=== PATIENT | male | born 1955 | race Caucasian/White ===

== ENCOUNTER → 2017-09-06 | Outpatient (CLI) | payer BC ==
[2017-09-06 07:57] LABS: Blood Urea Nitrogen 11 mg/dL (9-20); Non-African American GFR(MDRD) >60 (>60 ml/min/1.73 sqM)
--- NOTE | 2017-09-06 09:54 | CT ---
EXAMINATION TYPE: CT abdomen pelvis w con DATE OF EXAM: 09/06/2017 COMPARISON: NONE HISTORY: Prostate cancer CT DLP: 1694 mGycm Automated exposure control for dose reduction was used. TECHNIQUE: Helical acquisition of images was performed from the lung bases through the pelvis. CONTRAST: Performed with Oral Contrast and with IV Contrast, patient injected with 100 mL of Omnipaque 300. FINDINGS: LUNG BASES: Left basilar subsegmental dependent atelectasis and small hiatal hernia present. LIVER/GB: No significant abnormality is appreciated. No radiopaque gallstones. PANCREAS: No significant abnormality is seen. No ductal dilatation. SPLEEN: No significant abnormality is seen. ADRENALS: Left adrenal gland is slightly enlarged in comparison to the right but maintains its adreni form shape without discrete nodule. Left adrenal gland hyperplasia is suspected. KIDNEYS: 3.5 cm fluid attenuated right renal cyst and smaller too small to accurately characterize montes bcapsular 7 mm lower pole right renal lesion as well as probable cystic 8 mm left lower pole renal le dorothy and 5 mm left lower pole too small to accurately characterize lesion are seen. Additional exophy tic left upper pole 1.8 cm renal lesion is present. Within the left mid pole of the kidney there is a 2.2 x 2.1 x 1.6 cm lesion that is present of the mi d pole medially, cortically based that is not fit Hounsfield units of a simple cyst and enhances on d elayed imaging. FREE AIR: No free air is visualized. REPRODUCTIVE ORGANS/ADENOPATHY: Prostate gland is diffusely heterogenous containing central zone calc ifications and areas of high density within the central zone. Enlarged left pelvic sidewall lymph nod e measures 1.1 cm in short axis on series 3 image 66. Smaller nonenlarged left internal iliac chain l ymph nodes are seen. Nonenlarged periaortic lymph nodes are also present. Fullness in the retrovesicu lar space between the rectum and urinary bladder also may relate to to prominent lymph nodes. Nonenla rged periaortic lymph nodes are best seen on coronal imaging on series 5 image 49. OSSEOUS STRUCTURES: 4 mm sclerotic focus is seen within the right femoral head. Indeterminate left i liac lesion measures 9 mm with surrounding sclerosis. Additional patchy left iliac 1.1 cm lesion is s een. 2.3 cm and 2.0 cm sclerotic foci are seen of T11 and T12 suspicious for metastasis. BOWEL: Few sigmoid diverticula are present without pericolonic fat stranding. Appendix is unremarkab le. Bowel is nonenlarged.. OTHER: Abdominal aorta is prominent in size measuring up to 3.0 cm with calcific and noncalcific athe romatous plaquing. IMPRESSION: 1. FINDINGS CONCERNING FOR PROSTATE CARCINOMA METASTASIS WITH ENLARGED LEFT PELVIC SIDEWALL LYMPH NOD E AND MULTIPLE SUSPICIOUS SCLEROTIC FOCI WITHIN THE LOWER THORACIC SPINE AND PELVIS. 2. ADDITIONAL2.2 CM LEFT RENAL LESION, SUSPICIOUS FOR NEOPLASM. DYNAMIC THREE-PHASE CT OR MR COULD BE PERFORMED FOR FURTHER CHARACTERIZATION. ALTERNATIVELY EVALUATION FOR PERCUTANEOUS BIOPSY COULD BE PE RFORMED.
--- NOTE | 2017-09-06 11:24 | NM ---
EXAMINATION TYPE: NM bone scan whole body DATE OF EXAM: 09/06/2017 COMPARISON: NONE HISTORY: Prostate cancer Delayed whole-body scanning was performed following the injection of 28 mCi Tc 99m MDP. Images acqui red 3 hours post injection. FINDINGS: Foci of increased signal are noted compatible with metastatic disease including lesions to the left r ibs 5 and 6, right ribs 5, 7 and 9, right scapula thoracic segments T9, T11 and T12, and right sacroi liac region IMPRESSION: Findings compatible with metastatic disease as discussed.
== END | disposition home or self-care (01) ==
LOC: RADCTMAIN 07:14
PROVIDERS: ATTEND Urology
DX: N28.89 Other specified disorders of kidney and ureter (principal); C61 Malignant neoplasm of prostate
CPT/HCPCS: 82565; 84520; 74177; 36415; 78306; A9503; Q9967

== ENCOUNTER → 2017-12-16 | Outpatient (CLI) | payer BC ==
[2017-12-16 10:57] LABS: Blood Urea Nitrogen 12 mg/dL (9-20)
--- NOTE | 2017-12-16 12:41 | CT ---
EXAMINATION TYPE: CT abdomen pelvis w con DATE OF EXAM: 12/16/2017 COMPARISON: 09/06/2017 HISTORY: Prostate cancer CT DLP: 1339.9 mGycm CONTRAST: CT scan of the abdomen and pelvis is performed with Oral Contrast and with IV Contrast, patient injec roxane with 100 mL of Omnipaque 300. FINDINGS: LUNG BASES-: No visible nodule. No infiltrate. LIVER/GB: 1.3 cm extrahepatic nodule anterior to the left hepatic lobe image 19 of 11/02 is new. No ca lcified gallstones. No space occupying hepatic lesion. Biliary tree is of normal caliber. PANCREAS: No inflammation. No distinct mass. SPLEEN: No splenic enlargement. No lesion seen. ADRENALS: No nodule. No thickening. KIDNEYS/BLADDER: No hydronephrosis. No nephrolithiasis. 2 cm solid mass mid pole left kidney is unc hanged from prior study. Stable cystic changes of the bilateral kidneys. Urinary bladder grossly unre markable. BOWEL: Normal appendix. Normal bowel caliber. No inflammation. GENITAL ORGANS: Prostate gland calcifications noted. LYMPH NODES: No greater than 1cm abdominal or pelvic lymph nodes are appreciated. AORTA: No significant abnormality. OSSEOUS STRUCTURES: Progressive sclerotic metastases involving T10, T11 and T12. Mild progression of left iliac wing lesion. Right femoral head lesion is stable. No new lesions identified with certainty . OTHER: Fat-containing right inguinal hernia. IMPRESSION: 1. New 1.3 cm extrahepatic nodule anterior to the left hepatic lobe. 2. Sclerotic bony metastases. 3. Stable solid lesion left kidney. Neoplasm is not excluded.
--- NOTE | 2017-12-16 14:41 | NM ---
EXAMINATION TYPE: NM bone scan whole body DATE OF EXAM: 12/16/2017 COMPARISON: CT scan dated December 16, 2017 HISTORY: Follow-up for bone metastases. Prostate carcinoma. Delayed whole-body scanning was performed following the injection of 23.4 mCi Tc 99m MDP. Images acq uired 3 hours post injection. FINDINGS: Improved uptake: Right ribs 11 and 7, left rib 5 and 6. Improved uptake involving thoracic segments T 9-T12 although there appears to be increased sclerosis on CT. Stable uptake: Stable uptake involving lesion adjacent to the left sacroiliac joint. Right subcoracoi d region. New lesions: None Increased uptake: None Degenerative uptake about the shoulders and sternoclavicular joints. Right total knee arthroplasty. IMPRESSION: Overall number of lesions is stable. There appears to be slight improvement involving several areas a s noted above.
== END | disposition home or self-care (01) ==
LOC: RADNMMAIN 10:23
PROVIDERS: ATTEND Internal Medicine Hematology & Oncology
DX: C79.51 Secondary malignant neoplasm of bone (principal); C61 Malignant neoplasm of prostate; K76.89 Other specified diseases of liver; N28.9 Disorder of kidney and ureter, unspecified
CPT/HCPCS: 82565; 84520; 74177; 78306; 36415; A9503; Q9967

== ENCOUNTER → 2018-09-13 | Outpatient (CLI) | payer BC ==
--- NOTE | 2018-09-13 14:52 | NM ---
EXAMINATION TYPE: NM bone scan whole body DATE OF EXAM: 09/13/2018 COMPARISON: 12/06/2017 HISTORY: Prostate cancer Delayed whole-body scanning was performed following the injection of 23.2 mCi Tc 99m MDP. Images acq uired 3 hours post injection. FINDINGS: Improved uptake: None Stable uptake: Stable uptake involving sacrum and rib cage bilaterally. Right subcoracoid region. Sta ble abnormal uptake involving the thoracic spine. Stable focal abnormal uptake distal diaphysis right humerus. New lesions: Area of abnormal uptake involving the mid left cervical spine. Other findings: Degenerative uptake about the shoulders and sternoclavicular joints. Right total knee arthroplasty. U ptake involving the feet is typical of arthritic changes. Uptake involving the left knee typical of a rthritic changes. IMPRESSION: 1. Majority of findings are stable compatible with history of previous metastases. There is a new are a of uptake involving the mid left cervical spine for which x-ray correlation is suggested.
== END | disposition home or self-care (01) ==
LOC: RADNMMAIN 09:59
PROVIDERS: ATTEND Internal Medicine Hematology & Oncology
DX: C61 Malignant neoplasm of prostate (principal)
CPT/HCPCS: 78306; A9503

== ENCOUNTER → 2019-06-15 | Outpatient (CLI) | payer BC ==
[2019-06-15 07:59] LABS: African American GFR (CKD) >90 (>60 ml/min/1.73 sqM); Blood Urea Nitrogen 12 mg/dL (9-20)
--- NOTE | 2019-06-15 11:36 | CT ---
EXAMINATION TYPE: CT abdomen pelvis w con DATE OF EXAM: 06/15/2019 COMPARISON: 12/16/2017 HISTORY: Prostate cancer, left renal mass CT DLP: 1687 mGycm Automated exposure control for dose reduction was used. TECHNIQUE: Helical acquisition of images was performed from the lung bases through the pelvis. CONTRAST: Performed with Oral Contrast and with IV Contrast, patient injected with 100 mL of Isovue 300. FINDINGS: LUNG BASES: No significant abnormality is appreciated. LIVER/GB: No significant abnormality is appreciated. PANCREAS: No significant abnormality is seen. SPLEEN: No significant abnormality is seen. ADRENALS: No significant abnormality is seen. KIDNEYS: Redemonstration of 2.0 cm solid mass within the left kidney midpole seen on axial image 26 w hich appears similar in size and appearance when compared to 12/16/2017. Redemonstration of stable cys ts of the bilateral kidneys. No new renal mass. No hydronephrosis. Urinary bladder appears grossly un remarkable. FREE AIR: No free air is visualized. RETROPERITONEAL ADENOPATHY: Resolution of anterior extrahepatic nodule adjacent to the right lobe of the liver. REPRODUCTIVE ORGANS: No significant abnormality is seen URINARY BLADDER: No significant abnormality is seen. PELVIC ADENOPATHY: None visualized. OSSEOUS STRUCTURES: Redemonstration of sclerotic metastatic lesions involving T11 and T12 and L5. Ad ditional sclerotic metastatic lesions are seen in the left iliac bone. BOWEL: No significant abnormality is seen. OTHER: Redemonstration of fat-containing right inguinal hernia. IMPRESSION: STABLE SIZE OF THE SOLID LEFT KIDNEY LESION WHEN COMPARED TO 12/16/2017. CONTINUED SURVEILLANCE IS REC OMMENDED. RESOLVED RIGHT EXTRAHEPATIC NODULE. STABLE SCLEROTIC BONY METASTASIS.
== END | disposition home or self-care (01) ==
LOC: RADCTMAIN 07:22
PROVIDERS: ATTEND Urology
DX: C79.51 Secondary malignant neoplasm of bone (principal); C61 Malignant neoplasm of prostate; N28.9 Disorder of kidney and ureter, unspecified
CPT/HCPCS: 82565; 84520; 74177; 36415; Q9967

== ENCOUNTER 2019-07-23 18:30 | Observation (INO) | payer BC ==
[2019-07-23] MEDS ORDERED: SODIUM CHLORIDE 0.9% 1,000 ML IV STA (18:47)
--- NOTE | 2019-07-23 18:48 | ED ---
Chest Pain HPI - General Chief Complaint: Chest Pain Stated Complaint: CHEST PAIN Time Seen by Provider: 07/23/19 18:36 Source: patient, RN notes reviewed, old records reviewed Mode of arrival: ambulatory Limitations: no limitations - History of Present Illness Initial Comments: This is his 3-year-old male the ER was significant history of CAD coming of chest pain today 1 episode when he woke up and 1 this afternoon. Patient again has history of stents. Patient symptoms began worsening this afternoon. Left- sided foot the seventh pain with when he did have an need stents placed. Patient has no fever cough or congestion. Chest pains anterior rating to back MD Complaint: chest pain -: days(s) Onset: during exertion (This afternoon), awoke with symptoms (This morning) Pain Location: substernal, left chest Pain Radiation: back Severity: moderate Severity scale (1-10): 6 Quality: tightness, aching Consistency: constant Improves With: nothing Worsens With: exertion Other Symptoms: palpitations Treatments Prior to Arrival: none - Related Data Home Medications Medication Instructions Recorded Confirmed Aspirin EC [Ecotrin Low Dose] 81 mg PO DAILY 07/23/19 07/23/19 Aspirin EC [Ecotrin Low Dose] 162 mg PO ONCE PRN 07/23/19 07/23/19 Atorvastatin [Lipitor] 40 mg PO DAILY 07/23/19 07/23/19 Calcium Carbonate [Calcium] 600 mg PO HS 07/23/19 07/23/19 Ibuprofen [Motrin Ib] 400 mg PO ONCE PRN 07/23/19 07/23/19 Allergies Allergy/AdvReac Type Severity Reaction Status Date / Time No Known Allergies Allergy Verified 07/23/19 18:58 Review of Systems ROS Statement: Those systems with pertinent positive or pertinent negative responses have been documented in the HPI. ROS Other: All systems not noted in ROS Statement are negative. EKG Findings - EKG Comments: EKG Findings:: EKG shows sinus rhythm rate of 69, CA 160, QRS 70, QTc 428 Past Medical History Additional Past Medical History / Comment(s): Cardiac Stents placed. History of Any Multi-Drug Resistant Organisms: None Reported Additional Past Surgical History / Comment(s): Cardiac Stent. Past Psychological History: No Psychological Hx Reported Smoking Status: Current every day smoker Past Alcohol Use History: None Reported, Occasional Past Drug Use History: None Reported General Exam Limitations: no limitations General appearance: alert, in no apparent distress Head exam: Present: atraumatic, normocephalic, normal inspection Eye exam: Present: normal appearance, PERRL, EOMI. Absent: scleral icterus, conjunctival injection, periorbital swelling ENT exam: Present: normal exam, mucous membranes moist Neck exam: Present: normal inspection. Absent: tenderness, meningismus, lymphadenopathy Respiratory exam: Present: normal lung sounds bilaterally. Absent: respiratory distress, wheezes, rales, rhonchi, stridor Cardiovascular Exam: Present: regular rate, normal rhythm, normal heart sounds. Absent: systolic murmur, diastolic murmur, rubs, gallop, clicks GI/Abdominal exam: Present: soft, normal bowel sounds. Absent: distended, tenderness, guarding, rebound, rigid Extremities exam: Present: normal inspection, full ROM, normal capillary refill. Absent: tenderness, pedal edema, joint swelling, calf tenderness Back exam: Present: normal inspection Neurological exam: Present: alert, oriented X3, CN II-XII intact Psychiatric exam: Present: normal affect, normal mood Skin exam: Present: warm, dry, intact, normal color. Absent: rash Course Vital Signs 07/23/19 07/23/19 07/23/19 18:33 18:40 19:32 Temperature 98.5 F 98.5 F Pulse Rate 80 75 Pulse Rate [ 80 Solid Waste Analyst ] Respiratory 18 19 18 Rate Blood Pressure 168/94 145/93 O2 Sat by Pulse 98 98 Oximetry 07/23/19 20:34 Temperature 98.5 F Pulse Rate 76 Pulse Rate [ Solid Waste Analyst ] Respiratory 18 Rate Blood Pressure 153/91 O2 Sat by Pulse 96 Oximetry - Reevaluation(s) Reevaluation #1: 07/23/19 21:03 Medical records reviewed Reevaluation #2: 07/23/19 21:03 Still having episodic pain with feels good lying still Chest Pain MDM - MDM 83 male the ER for evasive chest pain. Patient is history of stents, CT is negative chest pain did radiate to his back. Patient will be admitted for cardiac observation as this is exactly like he felt when he had last stents placed Critical Care Time Critical Care Time: Yes Total Critical Care Time: 31 Disposition Clinical Impression: Chest pain Disposition: ADMITTED IP TO THIS HOSP Condition: Undetermined Instructions (If sedation given, give patient instructions): Chest Pain (ED) Is patient prescribed a controlled substance at d/c from ED?: No Referrals: Keshia Dupont MD [Primary Care Provider] - 1-2 days
[2019-07-23 19:22] LABS: Basophils # (A) 0.1 k/uL (0-0.2); Basophils % (A) 1 %; Eosinophils # (A) 0.1 k/uL (0-0.7); Eosinophils % (A) 1 %; HCT 42.2 % (39.0-53.0); HGB 14.3 gm/dL (13.0-17.5); Lymphocytes # (A) 1.2 k/uL (1.0-4.8); Lymphocytes % (A) 13 %; MCH 32.7 pg (25.0-35.0); MCHC 33.8 g/dL (31.0-37.0); MCV 96.9 fL (80.0-100.0); Mean Platelet Volume 9.1; Monocytes # (A) 0.6 k/uL (0-1.0); Monocytes % (A) 6 %; Neutrophils # (A) 7.4 k/uL (1.3-7.7); Neutrophils % (A) 78 %; Platelet Count 173 k/uL (150-450); RBC 4.36 m/uL (4.30-5.90); WBC 9.5 k/uL (3.8-10.6)
[2019-07-23 19:29] LABS: African American GFR (CKD) >90 (>60 ml/min/1.73 sqM); Albumin 4.1 g/dL (3.5-5.0); Anion Gap 9 mmol/L; Blood Urea Nitrogen 14 mg/dL (9-20); Calcium 9.8 mg/dL (8.4-10.2); Carbon Dioxide 22 mmol/L (22-30); Chloride 108 mmol/L (98-107); Glucose 181 mg/dL (74-99); Sodium 139 mmol/L (137-145); Total Bilirubin 0.6 mg/dL (0.2-1.3); Total Protein 6.8 g/dL (6.3-8.2)
[2019-07-23 19:34] LABS: D-Dimer 0.32 mg/L FEU (<0.60); Partial Thromboplastin Time 24.1 sec (22.0-30.0); Prothrombin Time 10.6 sec (9.0-12.0)
[2019-07-23 19:39] LABS: ALT 30 U/L (21-72); AST 23 U/L (17-59); Alkaline Phosphatase 52 U/L (38-126); Magnesium 2.1 mg/dL (1.6-2.3); Potassium 4.1 mmol/L (3.5-5.1)
[2019-07-23 19:41] VITALS: RESP 18
[2019-07-23] MEDS ORDERED: NITROGLYCERIN SL TABS 0.4 MG TAB SUBLINGUAL PRN (20:01)
[2019-07-23] MEDS ORDERED: ASPIRIN 81 MG PO STA (20:01)
[2019-07-23] MEDS ORDERED: SODIUM CHLORIDE 0.9% 1,000 ML IV SCH (20:15)
--- NOTE | 2019-07-23 20:49 | CT ---
EXAMINATION TYPE: CT angio chest DATE OF EXAM: 07/23/2019 8:37 PM COMPARISON: None HISTORY: Chest pain, pain down LT arm. Pt hx cardiac stents, [place]. CT DLP: 550.9 mGycm Automated exposure control for dose reduction was used. CONTRAST: CTA scan of the thorax is performed with IV Contrast, patient injected with 100 mL of Isovue 370, pul monary embolism protocol. . FINDINGS: There are 3-D post processed images. There is some reticular nodular infiltrate at the lung apices consistent with scarring. Thoracic aort a is atheromatous. There is no aneurysm or dissection. Ascending aorta measures 3.9 cm. There is no p ericardial effusion. Heart is borderline enlarged. There is some groundglass interstitial infiltrate in the lower lung lu. There is no pleural effusion. There is 1 cm calcified granuloma left lower lobe. There is 4 cm cortical cyst in the right kidney. There are other smaller cortical cysts. There is no mediastinal adenopathy. There are no hilar masses. There is normal contrast opacification of the pulmonary arteries. There are no filling defects. There is spurring in the thoracic spine. I see no bony destructive process. There are multiple areas of osteoblastic change in the thoracic vert ebra. There are blastic changes in the scapula and the ribs. IMPRESSION: NO EVIDENCE OF PULMONARY EMBOLISM. OSTEOBLASTIC METASTATIC DISEASE. INTERSTITIAL LOWER LOBE PULMONARY INFILTRATES. OLD GRANULOMATOUS DISEASE. BILATERAL APICAL PLEURAL AN D PULMONARY SCARRING.
--- NOTE | 2019-07-23 20:57 | CT ---
EXAMINATION TYPE: CT abdomen pelvis w con DATE OF EXAM: 07/23/2019 COMPARISON: 06/15/2019 HISTORY: Chest pain, pain down LT arm. Pt hx cardiac stents, [place]. CT DLP: 952.3 mGycm Automated exposure control for dose reduction was used. TECHNIQUE: Helical acquisition of images was performed from the lung bases through the pelvis. CONTRAST: Performed without Oral Contrast and with IV Contrast, patient injected with 100 mL of Isovue 370. FINDINGS: There is minimal atelectasis at the lung bases. There is calcified granuloma left lower lobe. Heart s ize is normal. Liver spleen stomach pancreas gallbladder appear normal. Bile ducts are not dilated. There is no adre nal mass. There are bilateral renal cortical cysts that measure up to 4 cm. There is no hydronephrosi s. Ureters are not dilated. There is no retroperitoneal adenopathy. Bladder distends smoothly. There is no inguinal hernia. There is no free fluid in the pelvis. There is no mesenteric edema. Appendix a ppears normal. There is no sign of a bowel obstruction. Abdominal aorta is atheromatous. There are multiple areas of osteoblastic change in the bony pelvis and lumbar spine consistent with m etastatic disease. There is no free air or ascites.: IMPRESSION: OSTEOBLASTIC METASTATIC DISEASE SIMILAR TO OLD EXAM. NO SIGN OF ACUTE ABDOMEN AND PELVIS. 3.2 CM MID ABDOMINAL AORTIC ANEURYSM UNCHANGED. THERE IS NEW MINIMAL SUBSEGMENTAL ATELECTASIS AT THE LUNG BASES COMPARED TO OLD EXAM. NO SIGN OF ACUTE ABDOMEN AND PELVIS.
[2019-07-23] MEDS ORDERED: HEPARIN SODIUM,PORCINE 5,000 UNIT/ML 1 ML VIAL IV ONE (21:04)
[2019-07-23] MEDS ORDERED: HEPARIN SODIUM,PORCINE 5,000 UNIT/ML 1 ML VIAL IV PRN (21:04)
[2019-07-23] MEDS ORDERED: HEPARIN SOD,PORK IN 0.45% NACL 25,000 UNIT in 0.45% NACL 1 250ML.BAG IV SCH (21:15)
[2019-07-23 22:41] VITALS: BMI 29.8
[2019-07-23] MEDS ORDERED: ACETAMINOPHEN TAB 325 MG TAB PO PRN (22:41)
[2019-07-23] MEDS: METOPROLOL TARTRATE 25 MG TAB PO SCH (22:48)
[2019-07-24 05:48] LABS: Basophils # (A) 0.1 k/uL (0-0.2); Basophils % (A) 1 %; Eosinophils # (A) 0.1 k/uL (0-0.7); Eosinophils % (A) 1 %; HCT 46.3 % (39.0-53.0); HGB 15.4 gm/dL (13.0-17.5); Lymphocytes # (A) 1.9 k/uL (1.0-4.8); Lymphocytes % (A) 17 %; MCH 32.7 pg (25.0-35.0); MCHC 33.3 g/dL (31.0-37.0); MCV 98.3 fL (80.0-100.0); Mean Platelet Volume 9.2; Monocytes # (A) 0.7 k/uL (0-1.0); Monocytes % (A) 7 %; Neutrophils # (A) 8.2 k/uL (1.3-7.7); Neutrophils % (A) 74 %; Platelet Count 210 k/uL (150-450); RBC 4.71 m/uL (4.30-5.90); RDW 13.1 % (11.5-15.5); WBC 11.1 k/uL (3.8-10.6)
[2019-07-24 06:01] LABS: Partial Thromboplastin Time 34.2 sec (22.0-30.0); Prothrombin Time 10.6 sec (9.0-12.0)
[2019-07-24 06:08] LABS: Cholesterol 163 mg/dL (<200); HDL Cholesterol 56 mg/dL (40-60); LDL Cholesterol,Calculated 66 mg/dL (0-99); Triglycerides 206 mg/dL (<150)
[2019-07-24] MEDS ORDERED: ASPIRIN 325 MG TAB PO SCH (09:00)
[2019-07-24] MEDS ORDERED: LISINOPRIL 5 MG TAB PO SCH (09:00)
[2019-07-24] MEDS ORDERED: ATORVASTATIN 40 MG TAB PO SCH (09:00)
[2019-07-24] MEDS ORDERED: ASPIRIN 81 MG PO SCH (09:00)
--- NOTE | 2019-07-24 09:55 | P.CRDCN ---
History of Present Illness History of present illness: This is a pleasant 63 year male past medical history significant for coronary artery disease, non-ST elevated myocardial infarction, prostate cancer and chronic nicotine dependence. He follows in the office with Dr. Dhaliwal. He underwent cardiac catheterization 2011 and again in 2013. Initially he underwent stenting of the LAD and then subsequently stent placement to the circumflex and OM in 2013. Vitamin asemic consultation secondary to chest discomfort. He describes a sharp pain in the left precordial region that radiated through to the back and down the left arm. There is no radiation to the neck or jaw. His chest discomfort was associated with shortness of breath. This initially occurred yesterday morning while he was cleaning out his car. This lasted for a couple of minutes and then subsided on its own. Then later in the afternoon chest discomfort returned and persisted for a couple of hours. After coming to the hospital his chest discomfort subsided with no specific alleviating factor. He is seen and examined sitting up in bed in no acute dist ress. He denies any further symptoms of chest discomfort or shortness of breath. Patient states previously had been on lisinopril 2.5 mg daily however his blood pressures are running on the low side and he stopped taking this. EKG reveals sinus mechanism with right bundle branch block with no acute ST or T wave abnormalities noted. CT chest is negative for pulmonary embolism with evidence of osteoblastic metastatic disease and interstitial lower lobe pulmonary infiltrates with old granulomatous disease. Laboratory data reviewed, WBC 11.1, hemoglobin 15.4, platelets 210, d-dimer 0.32, sodium 139, potassium 4.1, creatinine 0.61, magnesium 2.1, cardiac enzymes negative 3, proBNP 77, LDL 66. Current cardiac medications include atorvastatin 40 mg daily and aspirin 81 mg daily. Most recent stress test performed in the office on March 2018 was a Cardiolite stress test and negative for reversible cardiac ischemia. Most recent echocardiogram obtained January 2018 reveals preserved LV systolic f unction with ejection fraction 55%. At the time of my exam: CONSTITUTIONAL: Denies fever. Denies chills. EYES: Denies blurred vision. Denies vision changes. Denies eye pain. EARS, NOSE, MOUTH & THROAT: Denies headache. Denies sore throat. Denies ear pain. CARDIOVASCULAR: Denies chest pain. Denies shortness of breath. Denies orthopnea. Denies PND. Denies palpitations. RESPIRATORY: Denies cough. GASTROINTESTINAL: Denies abdominal pain. Denies diarrhea. Denies constipation. Denies nausea. Denies vomiting. MUSCULOSKELETAL: Denies myalgias. INTEGUMENTARY: Denies pruitis. Denies rash. NEUROLOGIC: Denies numbness. Denies tingling. Denies weakness. PSYCHIATRIC: Denies anxiety. Denies depression. ENDOCRINE: Denies fatigue. Denies weight change. Denies polydipsia. Denies polyurina. GENITOURINARY: Denies burning, hematuria or urgency with micturation. HEMATOLOGIC: Denies history of anemia. Denies bleeding. Blood pressure 136/82 heart rate 71 afebrile maintaining oxygen saturation on room air GENERAL: This is a 63-year-old male in no apparent distress at the time of my examination. HEENT: Head is atraumatic, normocephalic. Pupils are equal, round. Sclerae anicteric. Conjunctivae are clear. Mucous membranes of the mouth are moist. Neck is supple. There is no jugular venous distention. No carotid bruit is heard. LUNGS: Clear to auscultation no wheezes, rales or rhonchi. No chest wall tenderness is noted on palpation or with deep breathing. HEART: Regular rate and rhythm without murmurs, rubs or gallops. S1 and S2 heard. ABDOMEN: Soft, nontender. Bowel sounds are heard. No organomegaly noted. EXTREMITIES: No evidence of peripheral edema and no calf tenderness noted. VASCULAR: Radial and dorsalis pedis pulses palpated, no evidence of clubbing. NEUROLOGIC: Patient is awake, alert and oriented x3. ASSESSMENT Chest pain, atypical for angina. An acute coronary event has been ruled out. History of underlying coronary artery disease status post angioplasty. Hypertension Dyslipidemia Chronic nicotine dependence History of prostate cancer status post chemotherapy September 2018 PLAN An acute coronary event has been ruled out. Obtain 2-D echocardiogram and Doppler study to assess cardiac structure and function. Proceed with Cardiolite stress test to assess for reversible cardiac ischemia. Resume lisinopril 5 mg daily. Continue atorvastatin and aspirin as previously ordered. Thank you kindly for this consultation. Nurse Practitioner note has been reviewed, I agree with a documented findings and plan of care. Patient was seen and examined. Past Medical History Past Medical History: Cancer Additional Past Medical History / Comment(s): Cardiac Stents placed. Prostate CA History of Any Multi-Drug Resistant Organisms: None Reported Past Surgical History: Heart Catheterization With Stent Additional Past Surgical History / Comment(s): Cardiac Stent. Past Anesthesia/Blood Transfusion Reactions: No Reported Reaction Date of Last Stent Placement:: 2011 Smoking Status: Current every day smoker - Past Family History Father Additional Family Medical History / Comment(s): Heart issues Mother Family Medical History: No Reported History Medications and Allergies Home Medications Medication Instructions Recorded Confirmed Type Aspirin EC [Ecotrin Low Dose] 81 mg PO DAILY 07/23/19 07/23/19 History Atorvastatin [Lipitor] 40 mg PO DAILY 07/23/19 07/23/19 History Calcium Carbonate [Calcium] 600 mg PO HS 07/23/19 07/23/19 History Allergies Allergy/AdvReac Type Severity Reaction Status Date / Time No Known Allergies Allergy Verified 07/23/19 22:33 Physical Exam Vitals: Vital Signs Temp Pulse Pulse Resp BP BP Pulse Ox 07/24/19 04:00 97.6 F 59 L 18 177/96 96 07/24/19 03:18 18 07/23/19 23:34 98.2 F 61 18 176/82 100 07/23/19 23:17 18 07/23/19 20:34 98.5 F 76 18 153/91 96 07/23/19 19:32 98.5 F 75 18 145/93 98 07/23/19 18:40 80 19 07/23/19 18:33 98.5 F 80 18 168/94 98 Intake and Output 07/23/19 07/24/19 07/24/19 22:59 06:59 14:59 Intake Total 79.349 Balance 79.349 Intake: Intake, IV Titration 79.349 Amount Heparin Sod,Pork in 0.45% 79.349 NaCl 25,000 unit In 0.45 % NaCl 1 250ml.bag @ 9 UNITS/KG/HR 10.002 mls/hr IV .Q24H [facility] Rx#: [id number] Other: # Voids 1 Weight 111.13 kg Results 07/24/19 05:12 07/23/19 18:50 Cardiac Enzymes 07/23/19 07/23/19 07/24/19 Range/Units 18:50 18:50 00:24 AST 23 (17-59) U/L Troponin I <0.012 <0.012 (0.000-0.034) ng/mL 07/24/19 Range/Units 05:12 AST (17-59) U/L Troponin I <0.012 (0.000-0.034) ng/mL Coagulation 07/23/19 07/24/19 Range/Units 18:50 05:12 PT 10.6 10.6 (9.0-12.0) sec APTT 24.1 34.2 H (22.0-30.0) sec Lipids 07/24/19 Range/Units 05:12 Triglycerides 206 H (<150) mg/dL Cholesterol 163 (<200) mg/dL HDL Cholesterol 56 (40-60) mg/dL CBC 07/23/19 07/24/19 Range/Units 18:50 05:12 WBC 9.5 11.1 H (3.8-10.6) k/uL RBC 4.36 4.71 (4.30-5.90) m/uL Hgb 14.3 15.4 (13.0-17.5) gm/dL Hct 42.2 46.3 (39.0-53.0) % Plt Count 173 210 (150-450) k/uL Comprehensive Metabolic Panel 07/23/19 Range/Units 18:50 Sodium 139 (137-145) mmol/L Potassium 4.1 (3.5-5.1) mmol/L Chloride 108 H (98-107) mmol/L Carbon Dioxide 22 (22-30) mmol/L BUN 14 (9-20) mg/dL Creatinine 0.61 L (0.66-1.25) mg/dL Glucose 181 H (74-99) mg/dL Calcium 9.8 (8.4-10.2) mg/dL AST 23 (17-59) U/L ALT 30 (21-72) U/L Alkaline Phosphatase 52 (38-126) U/L Total Protein 6.8 (6.3-8.2) g/dL Albumin 4.1 (3.5-5.0) g/dL Current Medications Generic Name Dose Route Start Last Admin Trade Name Freq PRN Reason Stop Dose Admin Acetaminophen 650 mg 07/23/19 22:41 Tylenol Tab PO Q4HR PRN Fever and/ or Pain Aspirin 325 mg 07/24/19 09:00 Aspirin PO DAILY HUSSAIN Heparin Sodium (Porcine) 0 unit 07/23/19 21:04 Heparin IV PER PROTOCOL PRN Low PTT Protocol Sodium Chloride 1,000 mls @ 20 mls/hr 07/23/19 20:15 07/23/19 22:29 Saline 0.9% IV Not Given .Q24H HUSSAIN Heparin Sodium/Sodium Chloride 250 mls @ 10.002 mls/hr 07/23/19 21:15 07/24/19 06:44 25,000 unit/ Sodium Chloride IV 12 units/kg/hr .Q24H HUSSAIN 13.336 mls/hr Titration Protocol 9 UNITS/KG/HR Metoprolol Tartrate 25 mg 07/23/19 21:00 07/23/19 22:48 Lopressor PO 25 mg BID HUSSAIN Administration Nitroglycerin 0.4 mg 07/23/19 20:01 Nitrostat SUBLINGUAL Q5M PRN Chest Pain Intake and Output 07/23/19 07/24/19 07/24/19 22:59 06:59 14:59 Intake Total 79.349 Balance 79.349 Intake: Intake, IV Titration 79.349 Amount Heparin Sod,Pork in 0.45% 79.349 NaCl 25,000 unit In 0.45 % NaCl 1 250ml.bag @ 9 UNITS/KG/HR 10.002 mls/hr IV .Q24H [facility] Rx#: [id number] Other: # Voids 1 Weight 111.13 kg 07/24/19 05:12 07/23/19 18:50
[2019-07-24] MEDS: METOPROLOL TARTRATE 25 MG TAB PO SCH (12:34)
--- NOTE | 2019-07-24 12:38 | NM ---
EXAMINATION TYPE: NM stress cardiolite complete DATE OF EXAM: 07/24/2019 COMPARISON: NONE HISTORY: 70-year-old female with chest pain TECHNIQUE: After the intravenous administration of 10.7 mCi Tc 99m Sestamibi - Rest images obtained 45 minutes post injection. The patient exercised using a MAIKEL protocol and 1 minute prior to peak exercise was injected with 25.6 mCi Tc 99m Sestamibi - Stress images obtained 30 minutes post injecti on. FINDINGS: Targeted heart rate was achieved during performance of the study (88% maximal heart rate achieved). T otal exercise time 7 minutes 30 seconds. Review of stress and rest SPECT images demonstrates no distinct perfusion abnormality. Gated analysi s shows normal wall motion with an estimated left ventricular ejection fraction of 61 %. TID is calc ulated at 0.86, within normal limits. IMPRESSION: No scintigraphic evidence for reversible ischemia
--- NOTE | 2019-07-24 12:50 | P.HPIM ---
History of Present Illness H&P Date: 07/24/19 This is a 63-year-old male patient of Dr. Dupont presented with complaints of chest pain. He reports that chest pain started abruptly while he was resting. Patient to report shortness breath associated with pain. Patient reports that he took ibuprofen and it helped with the pain but the pain came back even worse couple hours later. Patient does have a past medical history of coronary artery disease with previous stents. Last stent in 2011. Additional medical history includes nicotine dependence, hyperlipidemia, prostate cancer with metastatic bone involvement which he does follow with oncology services. EKG completed showing normal sinus rhythm incomplete right bundle branch block. Troponins negative 3. D-dimer 0.32. CTA of chest performed showing no evidence of pulmonary. Osteoblastic metastatic disease. Interstitial lower lobe infiltrates old granulomatous disease. Bilateral apical pleural and pulmonary scarring. CT of abdomen and pelvis completed showing osteoblastic metastatic disease similar to old exam of acute abdomen and pelvis. 3.2 cm mid abdominal aortic aneurysm unchanged. There is new minimal subsegmental atelectasis at the lung base compared to old exam no sign of acute abdomen and pelvis. Patient denies cough or recent illness. Patient denies fevers. At this time patient denies chest pain or shortness of breath. Patient denies nausea vomiting or diarrhea. Patient denies any urinary burning or frequency Review of Systems Please refer to HPI otherwise Past Medical History Past Medical History: Cancer Additional Past Medical History / Comment(s): Cardiac Stents placed. Prostate CA History of Any Multi-Drug Resistant Organisms: None Reported Past Surgical History: Heart Catheterization With Stent Additional Past Surgical History / Comment(s): Cardiac Stent. Past Anesthesia/Blood Transfusion Reactions: No Reported Reaction Date of Last Stent Placement:: 2011 Smoking Status: Current every day smoker - Past Family History Father Additional Family Medical History / Comment(s): Heart issues Mother Family Medical History: No Reported History Medications and Allergies Home Medications Medication Instructions Recorded Confirmed Type Aspirin EC [Ecotrin Low Dose] 81 mg PO DAILY 07/23/19 07/23/19 History Atorvastatin [Lipitor] 40 mg PO DAILY 07/23/19 07/23/19 History Calcium Carbonate [Calcium] 600 mg PO HS 07/23/19 07/23/19 History Allergies Allergy/AdvReac Type Severity Reaction Status Date / Time No Known Allergies Allergy Verified 07/23/19 22:33 Physical Exam Vitals: Vital Signs Temp Pulse Pulse Pulse Resp BP BP 07/24/19 12:00 98.4 F 66 18 161/78 07/24/19 07:30 98.3 F 71 18 136/82 07/24/19 04:00 97.6 F 59 L 18 177/96 07/24/19 03:18 18 07/23/19 23:34 98.2 F 61 18 176/82 07/23/19 23:17 18 07/23/19 20:34 98.5 F 76 18 153/91 07/23/19 19:32 98.5 F 75 18 145/93 07/23/19 18:40 80 19 07/23/19 18:33 98.5 F 80 18 168/94 Pulse Ox 07/24/19 12:00 97 07/24/19 07:30 95 07/24/19 04:00 96 07/24/19 03:18 07/23/19 23:34 100 07/23/19 23:17 07/23/19 20:34 96 07/23/19 19:32 98 07/23/19 18:40 07/23/19 18:33 98 Intake and Output 07/23/19 07/24/19 07/24/19 22:59 06:59 14:59 Intake Total 79.349 Balance 79.349 Intake: Intake, IV Titration 79.349 Amount Heparin Sod,Pork in 0.45% 79.349 NaCl 25,000 unit In 0.45 % NaCl 1 250ml.bag @ 9 UNITS/KG/HR 10.002 mls/hr IV .Q24H [facility] Rx#: [id number] Other: # Voids 1 Weight 111.13 kg Head normocephalic Neck supple Lungs clear to auscultation bilaterally no wheezing or crackles Heart regular rate and rhythm S1-S2, no rub or gallop Abdomen is soft nontender nondistended positive bowel sounds no hepatosplenomegaly Extremities no edema Neuro alert and orientated to 3 Results CBC & Chem 7: 07/24/19 05:12 07/23/19 18:50 Labs: Abnormal Lab Results - Last 24 Hours (Table) 07/23/19 07/24/19 07/24/19 Range/Units 18:50 05:12 05:12 WBC 11.1 H (3.8-10.6) k/uL Neutrophils # 8.2 H (1.3-7.7) k/uL APTT (22.0-30.0) sec Chloride 108 H (98-107) mmol/L Creatinine 0.61 L (0.66-1.25) mg/dL Glucose 181 H (74-99) mg/dL Triglycerides 206 H (<150) mg/dL 07/24/19 Range/Units 05:12 WBC (3.8-10.6) k/uL Neutrophils # (1.3-7.7) k/uL APTT 34.2 H (22.0-30.0) sec Chloride (98-107) mmol/L Creatinine (0.66-1.25) mg/dL Glucose (74-99) mg/dL Triglycerides (<150) mg/dL Thrombosis Risk Factor Assmnt - Choose All That Apply Each Risk Factor Represents 2 Points: Age 61-74 years Thrombosis Risk Factor Assessment Total Risk Factor Score: 2 Thrombosis Risk Factor Assessment Level: Low Risk Assessment and Plan Assessment: 1. Chest pain. Troponins negative X 3. CT of chest completed showing no evidence of pulmonary embolism. Osteoblastic metastatic disease. Interstitial lower lobe pulmonary infiltrates old granulomatous disease. Bilateral apical pleural and pulmonary scarring. Cardiology services have been consulted stress test has been ordered. 2. History of coronary artery disease with previous stents. Last stent in 2011 3. History of prostate cancer with bone Mets. Patient follows with oncology services. Discussed case with oncology service. patient is an established patient follows up every 3 months for treatment 4. Nicotine dependence. Patient educated greater than 3 minutes on smoking cessation. DVT prophylaxis Lovenox. GI prophylaxis Protonix Time with Patient: Greater than 30 (Greater than 60% of the total time spent in counseling and coordination of care. I performed an examination of the patient and discussed their management with the Nurse Practitioner. I have reviewed the Nurse Practitioner's notes and agree with the documented findings and plan of care)
--- NOTE | 2019-07-24 13:13 | EST ---
EXERCISE STRESS DATE OF SERVICE: 07/24/2019 AGE: 63 SEX: Male HT: 6'4" WT: 245 pounds PROTOCOL: Cardiolite Emanuel STAGE: II DURATION OF EXERCISE: 7 minutes 30 seconds HEART RATE REST: 61 BLOOD PRESSURE REST: 150/83 MAXIMUM HEART RATE ACHIEVED: 137 MAXIMUM BLOOD PRESSURE: 160/72 85% MPHR: 133 100% MPHR: 156 METS: 8.1 INDICATIONS: Chest pain. CLINICAL INFORMATION: Baseline rhythm is sinus mechanism, rate 61, normal axis and intervals, rare PVCs, nonspecific ST-T wave changes. Baseline blood pressure 150/83 mmHg. Patient exercised on Emanuel protocol for 7 minutes 30 seconds reaching a peak rate 137 beats per minute which is equal to 88% maximum predicted heart rate. Peak blood pressure 160/72 mmHg. Test was terminated secondary to fatigue. There was no chest pain. Electrocardiograph monitoring revealed no evidence of diagnostic ischemic ST deviation. Cardiolite was injected at peak exercise. CONCLUSION: 1. Good exercise tolerance with occasional PVCs and nondiagnostic electrocardiograph stress testing secondary to baseline EKG abnormality. 2. Nuclear images will be reported separately. MMODL / IJN: [id number] /
--- NOTE | 2019-07-24 14:09 | P.DS ---
Providers Date of admission: 07/23/19 20:02 Expected date of discharge: 07/24/19 Attending physician: Zahra Zaman Consults: 07/23/19 20:01 Consult Physician Urgent Consulting Provider: Lluvia Mohamud Consult Reason/Comments: cp Do you want consulting provider notified?: Yes Primary care physician: Keshia Dupont Hospital Course: Discharge diagnosis 1. Chest pain. Troponins negative X 3. CT of chest completed showing no evidence of pulmonary embolism. Osteoblastic metastatic disease. Interstitial lower lobe pulmonary infiltrates old granulomatous disease. Bilateral apical pleural and pulmonary scarring. Cardiology services have been consulted stress test has been ordered. Stress test completed showing no evidence for reversible ischemia. Patient has been cleared for discharge from cardiology standpoint 2. History of coronary artery disease with previous stents. Last stent in 2011 3. History of prostate cancer with bone Mets. Patient follows with oncology services. Discussed case with oncology service. patient is an established patient follows up every 3 months for treatment 4. Nicotine dependence. Patient educated greater than 3 minutes on smoking cessation. Hospital course This is a 63-year-old male patient of Dr. Dupont presented with complaints of chest pain. He reports that chest pain started abruptly while he was resting. Patient to report shortness breath associated with pain. Patient reports that he took ibuprofen and it helped with the pain but the pain came back even worse couple hours later. Patient does have a past medical history of coronary artery disease with previous stents. Last stent in 2011. Additional medical history includes nicotine dependence, hyperlipidemia, prostate cancer with metastatic bone involvement which he does follow with oncology services. EKG completed showing normal sinus rhythm incomplete right bundle branch block. Troponins negative 3. D-dimer 0.32. CTA of chest performed showing no evidence of pulmonary. Osteoblastic metastatic disease. Interstitial lower lobe infiltrates old granulomatous disease. Bilateral apical pleural and pulmonary scarring. CT of abdomen and pelvis completed showing osteoblastic metastatic disease similar to old exam of acute abdomen and pelvis. 3.2 cm mid abdominal aortic aneurysm unchanged. There is new minimal subsegmental atelectasis at the lung base compared to old exam no sign of acute abdomen and pelvis. Patient denies cough or recent illness. Patient denies fevers. At this time patient denies chest pain or shortness of breath. Patient denies nausea vomiting or diarrhea. Patient denies any urinary burning or frequency Patient did have stress test completed showing no evidence for reversible ischemia discussed case with cardiology services. Patient has been cleared for discharge. For the time patient denies chest pain or shortness breath. Patient denies nausea vomiting or diarrhea. Patient denies any urinary burning patient advised that if he becomes manic of shortness of breath cough or fever patient is to report to PCP for further evaluation. Patient plans to follow up with cardiology services for further treatment of cancer. I performed an examination of the patient and discussed their management with the Nurse Practitioner. I have reviewed the Nurse Practitioner's notes and agree with the documented findings and plan of care Patient Condition at Discharge: Stable Plan - Discharge Summary New Discharge Prescriptions: Continue Calcium Carbonate [Calcium] 600 mg PO HS Aspirin EC [Ecotrin Low Dose] 81 mg PO DAILY Atorvastatin [Lipitor] 40 mg PO DAILY Discharge Medication List Aspirin EC [Ecotrin Low Dose] 81 mg PO DAILY 07/23/19 [History] Atorvastatin [Lipitor] 40 mg PO DAILY 07/23/19 [History] Calcium Carbonate [Calcium] 600 mg PO HS 07/23/19 [History] Follow up Appointment(s)/Referral(s): Keshia Dupont MD [Primary Care Provider] - 1-2 days Bárbara Dhaliwal MD [STAFF PHYSICIAN] - 08/15/19 3:15 pm (With Dr. Tamayo follow up for chest pain.) Patient Instructions/Handouts: Chest Pain (ED)
--- NOTE | 2019-07-24 15:45 | ECHOF ---
Referral Reason:cp, sob, hx cad MEASUREMENTS -------- HEIGHT: 162.6 cm WEIGHT: 111.1 kg BP: RVIDd: 3.2 cm (< 3.3) IVSd: 1.0 cm (0.6 - 1.1) LVIDd: 5.0 cm (3.9 - 5.3) LVPWd: 1.3 cm (0.6 - 1.1) IVSs: 1.5 cm LVIDs: 3.1 cm LVPWs: 1.9 cm Ao Diam: 2.9 cm (2.0 - 3.7) AV Cusp: 2.0 cm (1.5 - 2.6) LA Diam: 2.2 cm (2.7 - 3.8) MV EXCURSION: 22.213 mm (> 18.000) MV EF SLOPE: 121 mm/s (70 - 150) EPSS: 0.3 cm MV E Shad: 0.98 m/s MV DecT: 264 ms MV A Shad: 0.43 m/s MV E/A Ratio: 2.27 RAP: 5.00 mmHg RVSP: 28.98 mmHg TAPSE: 31.67 mm FINDINGS -------- Sinus rhythm. This was a technically difficult study with suboptimal views. The left ventricular size is normal. There is mild concentric left ventricular hypertrophy. Overa ll left ventricular systolic function is normal with, an EF between 55 - 60 %. The diastolic fillin g pattern is normal for the age of the patient 11.49. The right ventricle is normal in size. The right ventricular systolic function is normal. The left atrial size is normal. The right atrial size is normal. xx ml of Lumason was utilized for enhancement of images. Interatrial and interventricular septum intact. There is mild aortic valve sclerosis. The mitral valve leaflets are mildly thickened. Mild mitral regurgitation is present. The tricuspid valve appears structurally normal. Mild tricuspid regurgitation present. Right vent ricular systolic pressure is normal at < 35 mmHg. There is no pulmonic regurgitation present. The aortic root size is normal. IVC Not well visulized. There is no pericardial effusion. CONCLUSIONS -------- 1. Sinus rhythm. 2. This was a technically difficult study with suboptimal views. 3. The left ventricular size is normal. 4. There is mild concentric left ventricular hypertrophy. 5. Overall left ventricular systolic function is normal with, an EF between 55 - 60 %. 6. The diastolic filling pattern is normal for the age of the patient 11.49 7. The left atrial size is normal. 8. xx ml of Lumason was utilized for enhancement of images. 9. There is mild aortic valve sclerosis. 10. The mitral valve leaflets are mildly thickened. 11. Mild mitral regurgitation is present. 12. The tricuspid valve appears structurally normal. 13. Mild tricuspid regurgitation present. 14. Right ventricular systolic pressure is normal at < 35 mmHg. 15. There is no pulmonic regurgitation present. 16. The aortic root size is normal. 17. IVC Not well visulized. 18. There is no pericardial effusion. ETHNOARCHAEOLOGIST: Nory Nuñez RDCS
[2019-07-24 16:02] VITALS: BP 143/81; PULSE 78; TEMP 98.6
[2019-07-25] MEDS ORDERED: PANTOPRAZOLE 40 MG TABLET PO SCH (07:30)
[2019-07-25] MEDS ORDERED: ENOXAPARIN 40 MG/0.4 ML SYRINGE SQ SCH (09:00)
== END 2019-07-24 16:23 | disposition home or self-care (01) ==
LOC: EC 18:30 → 1SOBS 20:02
PROVIDERS: ADMIT Internal Medicine; ATTEND Internal Medicine
DX: R07.89 Other chest pain (principal); I25.10 Atherosclerotic heart disease of native coronary artery without angina pectoris; I10 Essential (primary) hypertension; E78.5 Hyperlipidemia, unspecified; C61 Malignant neoplasm of prostate; C79.51 Secondary malignant neoplasm of bone; I71.4 Abdominal aortic aneurysm, without rupture; I45.10 Unspecified right bundle-branch block; J98.11 Atelectasis; J84.10 Pulmonary fibrosis, unspecified; R91.8 Other nonspecific abnormal finding of lung field; Z79.82 Long term (current) use of aspirin; Z79.899 Other long term (current) drug therapy; Z95.5 Presence of coronary angioplasty implant and graft; F17.200 Nicotine dependence, unspecified, uncomplicated; I25.2 Old myocardial infarction; Z92.21 Personal history of antineoplastic chemotherapy
CPT/HCPCS: 96365; 96366 ×2; 96376; 99291; 36415; 93005; 93017; 93306; 85379; 83880; 80061; 80053; 83690; 83735; 84484 ×2; 85025 ×2; 85610 ×2; 85730 ×2; 71275; 74177; 78452; G0378 ×2; A9500; J1644 ×2; Q9950; Q9967

== ENCOUNTER → 2019-09-22 | Outpatient (CLI) | payer OTHER, MEDICARE ==
--- NOTE | 2019-09-22 15:57 | NM ---
EXAMINATION TYPE: NM bone scan whole body DATE OF EXAM: 09/22/2019 COMPARISON: 09/13/2019 HISTORY: Prostate carcinoma Delayed whole-body scanning was performed following the injection of 26.2 mCi Tc 99m MDP. Images acq uired 5.25 hours post injection. FINDINGS: New lesions: There is a new lesion noted to involve the medial left clavicle versus the anterior left rib 1. Stable lesions: Distal right clavicle, right humerus, bilateral ribs, mid to lower thoracic spine, le ft SI joint are all stable. Improved lesions: T11 segment. Progressive lesions: None IMPRESSION: Single The suspected distal left clavicle versus anterior left rib #1. Radiographic correlation advised. Oth erwise there is improved radiotracer activity noted to involve the approximate T11 segment.
== END | disposition home or self-care (01) ==
LOC: RADNMMAIN 09:23
PROVIDERS: ATTEND Urology
DX: C61 Malignant neoplasm of prostate (principal)
CPT/HCPCS: 78306; A9503

== ENCOUNTER → 2020-05-27 | Outpatient (CLI) | payer OTHER, MEDICARE ==
--- NOTE | 2020-05-27 15:21 | NM ---
EXAMINATION TYPE: NM bone scan whole body DATE OF EXAM: 05/27/2020 COMPARISON: NONE HISTORY: Prostate cancer Delayed whole-body scanning was performed following the injection of 24.6 mCi Tc 99m MDP. Images wer e acquired 3 hours post injection. FINDINGS: Focal radiotracer accumulation is within the mid and distal right humerus suspicious for metastatic d isease. There is intense uptake within the lateral scapula and glenoid suspicious for metastatic dise ase. There is uptake within the anterior right lower rib suspicious for static disease. Posterior lef t rib uptake at the T7 level is suspicious for metastatic disease. There is focal uptake within the lower thoracic vertebral levels including 9 10, 11, 12 greatest at T 11. Correlate for metastatic disease. There is a focal radiotracer accumulation within a mid metacarpal phalangeal joint region. Post traum a and metastatic disease could be considered. Additional increased areas of uptake are within the luis manuel nt spaces of the visualized portions enhancement can be degenerative in nature. There is some general ized uptake within the bilateral feet more so along the lateral left foot. This is more likely relate d to degenerative change. There is increased uptake within the posterior left mid cervical spine suspicious for degenerative ch param. IMPRESSION: 1. Multiple areas suspicious for uptake especially within the right glenoid and distal right humerus as well as anterior right lower rib and posterior left medial rib levels. 2. Uptake within the lower thoracic spine suspicious for metastatic disease. Post trauma and degenera tive changes considered less likely but within the differential. 3. Additional areas of uptake more likely related to degenerative change or possibly posttraumatic ch param. Given the history, metastatic disease, less likely, remains within the differential.
== END | disposition home or self-care (01) ==
LOC: RADNMMAIN 09:46
PROVIDERS: ATTEND Internal Medicine Hematology & Oncology
DX: R94.8 Abnormal results of function studies of other organs and systems (principal); C61 Malignant neoplasm of prostate
CPT/HCPCS: 78306; A9503

== ENCOUNTER → 2020-05-29 | Outpatient (CLI) | payer OTHER, MEDICARE ==
[2020-05-29 11:52] LABS: African American GFR (CKD) >90 (>60 ml/min/1.73 sqM); Blood Urea Nitrogen 13 mg/dL (9-20); Non-African American GFR(CKD) >90 (>60 ml/min/1.73 sqM)
--- NOTE | 2020-05-29 14:07 | CT ---
EXAMINATION TYPE: CT ChestAbdPelvis w con DATE OF EXAM: 05/29/2020 COMPARISON: CT abdomen pelvis 07/23/2019, CTA chest 07/23/2019 HISTORY: Prostate cancer CT DLP: 1725.0 mGycm Automated exposure control for dose reduction was used. CONTRAST: CT scan of the chest, abdomen and pelvis is performed with Oral Contrast and with IV Contrast, patien t injected with 100 mL of Isovue 300. FINDINGS: LUNGS: The lungs are grossly clear, there is no concerning parenchymal mass or nodule identified. Lef t lower lobe pleural-based calcific granuloma. There is no pleural effusion or pneumothorax seen. Th e tracheobronchial tree is patent. MEDIASTINUM: There are no greater than 1 cm hilar or mediastinal lymph nodes. No pericardial effusi on is seen. Calcified coronary artery disease. Normal cardiac size OTHER: No additional significant abnormality is seen. LIVER/GB: Normal. PANCREAS: Normal. SPLEEN: Normal. ADRENALS: Normal. KIDNEYS: No hydronephrosis. Redemonstrated renal cysts and too small to characterize hypodense lesion s bilaterally. BOWEL: No evidence of bowel obstruction or thickening. Minimal sigmoid colon diverticulosis. No acut e diverticulitis. PELVIS: No evidence of mass. LYMPH NODES: No lymphadenopathy. VASCULATURE: Redemonstrated 3.1 cm infrarenal abdominal aortic aneurysm. PERITONEUM: No pneumoperitoneum or ascites. Fat-containing right inguinal hernia. 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 IMPRESSION: 1. Unchanged osteoblastic metastatic disease of the thorax, abdomen, and pelvis versus 07/23/2019 CT c omparison. 2. No evidence of intra-abdominal or intrathoracic metastatic disease. 3. Unchanged 3.1 cm infrarenal abdominal aortic aneurysm.
== END | disposition home or self-care (01) ==
LOC: RADCTMAIN 11:17
PROVIDERS: ATTEND Internal Medicine Hematology & Oncology
DX: C61 Malignant neoplasm of prostate (principal); I71.4 Abdominal aortic aneurysm, without rupture
CPT/HCPCS: 82565; 84520; 71260; 74177; 36415; Q9967

== ENCOUNTER → 2021-08-22 | Outpatient (CLI) | payer MEDICARE, BC ==
--- NOTE | 2021-08-22 17:57 | NM ---
EXAMINATION TYPE: NM bone scan whole body DATE OF EXAM: 08/22/2021 COMPARISON: 09/22/2019 HISTORY: C61. prostate ca, Z03.89 observations for mets Delayed whole-body scanning was performed following the injection of 22.6 mCi Tc 99m MDP. Images acq uired 3 hours post injection. FINDINGS: New lesions: None Improved lesions: Lesions noted previously of the right scapula right clavicle, right humerus, right sided ninth rib as well as a lower thoracic spine have improved dramatically. Residual uptake noted i nvolving the approximate T9 segment. Lesions: None Stable lesions: None IMPRESSION: Dramatic interval improvement relative to the prior examination.
== END | disposition home or self-care (01) ==
LOC: RADNMMAIN 10:25
PROVIDERS: ATTEND Internal Medicine Hematology & Oncology
DX: C61 Malignant neoplasm of prostate (principal); M89.8X0 Other specified disorders of bone, multiple sites
CPT/HCPCS: 78306; A9503

== ENCOUNTER 2022-01-22 08:48 | Day surgery (SDC) | payer MEDICARE, BC ==
[2022-01-21 11:47] VITALS: BMI 29.4
[~2022-01-22 08:48] MED LIST: LACTATED RINGERS 1,000 ML IV SCH; LIDOCAINE 1% (10MG/ML) FOR IV START INTRADERMA PRN
[2022-01-22 09:28] VITALS: RESP 16; TEMP 97.8
[2022-01-22] MEDS ORDERED: PROPOFOL 10 MG/ML 20 ML VIAL IV ONE (10:20)
--- NOTE | 2022-01-22 10:24 | P.GSHP ---
History of Present Illness H&P Date: 01/22/22 Chief Complaint: Screening colonoscopy This is a 66-year-old male presents today for screening colonoscopy. Patient denies a significant GI complaints Past Medical History Past Medical History: Coronary Artery Disease (CAD), Cancer, Sleep Apnea/CPAP/BIPAP Additional Past Medical History / Comment(s): Prostate CA-2019 received chemo received,uses cpap,tx with prednisone Dec 2021 History of Any Multi-Drug Resistant Organisms: None Reported Past Surgical History: Heart Catheterization With Stent, Hernia Repair Additional Past Surgical History / Comment(s): Cardiac Stent x3 Past Anesthesia/Blood Transfusion Reactions: No Reported Reaction Date of Last Stent Placement:: Smoking Status: Former smoker - Past Family History Father Additional Family Medical History / Comment(s): Heart issues Mother Family Medical History: No Reported History Brother(s) Family Medical History: Cancer Additional Family Medical History / Comment(s): pancreatic Medications and Allergies Home Medications Medication Instructions Recorded Confirmed Type Aspirin EC [Ecotrin Low Dose] 81 mg PO DAILY 07/23/19 01/22/22 History Atorvastatin [Lipitor] 40 mg PO DAILY 07/23/19 01/22/22 History Calcium Carbonate [Calcium] 600 mg PO HS 07/23/19 01/22/22 History Metoprolol Tartrate [Lopressor] 25 mg PO BID 30 Days #60 tab 07/24/19 01/22/22 Rx Enzalutamide [Xtandi] 40 mg PO QID 01/21/22 01/22/22 History lisinopriL [Zestril] 5 mg PO QAM 01/21/22 01/22/22 History Allergies Allergy/AdvReac Type Severity Reaction Status Date / Time No Known Allergies Allergy Verified 01/22/22 09:24 Surgical - Exam Vital Signs Temp Pulse Resp BP Pulse Ox 97.8 F 54 L 16 150/89 96 01/22/22 09:27 01/22/22 09:27 01/22/22 09:27 01/22/22 09:27 01/22/22 09:27 - General well developed, well nourished, no distress - Eyes PERRL - ENT normal pinna - Neck no masses - Respiratory normal expansion - Cardiovascular Rhythm: regular - Abdomen Abdomen: soft, non tender Assessment and Plan Assessment: We'll perform screening colonoscopy
--- NOTE | 2022-01-22 10:36 | P.OP ---
Date of Procedure: 01/22/22 Preoperative Diagnosis: Screening colonoscopy Postoperative Diagnosis: External hemorrhoids Procedure(s) Performed: Colonoscopy Anesthesia: MAC Surgeon: Elroy Castro Pathology: none sent Condition: stable Disposition: PACU Description of Procedure: The patient's placed on the endoscopy table in the lateral position. He received IV sedation. Digital rectal exam was performed which revealed internal and external hemorrhoids. The flexible colonoscope was then placed patient anus and passed throughout the entire colon. The ileocecal valve was visualized. Cecum, ascending and transverse colon appeared normal. The descending and sigmoid colon appeared normal. Scope was then brought back the rectum and this appeared normal. Scope was then withdrawn for patient. And internal/external hemorrhoids are noted.
[2022-01-22 10:55] VITALS: BP 134/86; PULSE 50
== END 2022-01-22 11:07 | disposition home or self-care (01) ==
LOC: ORWHC2ENDO 08:48
PROVIDERS: ATTEND Surgery
DX: Z12.11 Encounter for screening for malignant neoplasm of colon (principal); K64.4 Residual hemorrhoidal skin tags; I25.10 Atherosclerotic heart disease of native coronary artery without angina pectoris; G47.33 Obstructive sleep apnea (adult) (pediatric); Z99.89 Dependence on other enabling machines and devices; C61 Malignant neoplasm of prostate; Z79.52 Long term (current) use of systemic steroids; Z87.891 Personal history of nicotine dependence; Z82.49 Family history of ischemic heart disease and other diseases of the circulatory system
CPT/HCPCS: G0121; J2704

== ENCOUNTER → 2022-08-18 | Outpatient (CLI) | payer MEDICARE, BC ==
[2022-08-18 09:02] LABS: African American GFR (CKD) >90 (>60 ml/min/1.73 sqM); Blood Urea Nitrogen 11 mg/dL (9-20); Non-African American GFR(CKD) >90 (>60 ml/min/1.73 sqM)
--- NOTE | 2022-08-18 11:15 | CT ---
EXAMINATION TYPE: CT ChestAbdPelvis w con DATE OF EXAM: 08/18/2022 COMPARISON: CT 05/29/2020 HISTORY: Prostate cancer CT DLP: 1772.9 mGycm Automated exposure control for dose reduction was used. CONTRAST: CT scan of the chest, abdomen and pelvis is performed with Oral Contrast and with IV Contrast, patien t injected with 71ml mL of Isovue 300. FINDINGS: LUNGS: The lungs are stable, calcified granuloma present left lower lobe, emphysematous changes are p resent. There is no pleural effusion or pneumothorax seen. The tracheobronchial tree is patent. MEDIASTINUM: There are no greater than 1 cm hilar or mediastinal lymph nodes. No pericardial effusi on is seen. Coronary artery calcifications are noted. AORTA: No significant change is seen. OTHER: No additional significant abnormality is seen. LIVER/GB: No significant abnormality is appreciated. PANCREAS: No significant abnormality is seen. SPLEEN: No significant abnormality is seen. ADRENALS: No significant abnormality is seen. KIDNEYS: No significant change is seen, cortical cysts are present bilaterally. REPRODUCTIVE ORGANS: No gross abnormality seen. BOWEL: Difficult to exclude mucosal thickening in the rectum and sigmoid colon level, bowel surveill ance has not been performed then it could BE considered. Colon is not distended, appendix is normal. FREE AIR: No Free Air visible. ASCITES: None seen. RETROPERITONEAL ADENOPATHY: No retroperitoneal adenopathy is seen. LYMPH NODES: No greater than 1 cm abdominal or pelvic lymph nodes are appreciated. URINARY BLADDER: No significant abnormality is seen. PELVIC ADENOPATHY: None visualized. OSSEOUS STRUCTURES: Abnormal sclerotic densities are again noted within the skeleton to include the right scapula, thoracic spine, pelvis. The focus of abnormal sclerosis at T12 shows an interval incre ase in size now involving right posterior elements and portion of the vertebral body, at T11 there is more homogenous sclerotic appearance. Rib sclerosis is also noted bilaterally. IMPRESSION: Some progression in sclerosis noted in the lower lumbar spine
--- NOTE | 2022-08-18 15:34 | NM ---
EXAMINATION TYPE: NM bone scan whole body DATE OF EXAM: 08/18/2022 COMPARISON: 08/22/[address] same day HISTORY: 67-year-old male C61, prostate cancer TECHNIQUE: Delayed whole-body scanning was performed following the injection of 23.4 mCi Tc 99m MDP. Images acquired 4.5 hours post injection. FINDINGS: There has been interval worsening. Increasing intense abnormal activity throughout the T11 vertebral body. Increasing activity within the T12 vertebral body. Small focus of increased activity T9 vertebral bod y and left posterior mid ribs. Increasing activity near the right glenoid and right anterior lower ri b. IMPRESSION: Increasing intensity and number of areas of abnormal activity particularly involving the lower thoracic spine, posterior left mid ribs, right glenoid, and anterior right lower ribs. Findings suggest disease progression.
== END | disposition home or self-care (01) ==
LOC: RADCTMAIN 07:56
PROVIDERS: ATTEND Internal Medicine Hematology & Oncology
DX: C61 Malignant neoplasm of prostate (principal)
CPT/HCPCS: 82565; 84520; 71260; 74177; 36415; 78306; A9503; Q9967

== ENCOUNTER → 2023-06-10 | Outpatient (CLI) | payer MEDICARE, BC ==
[2023-06-10 22:02] LABS: ALT 32 U/L (10-49); AST 24 U/L (14-35); Albumin 4.5 d/dL (3.8-4.9); Albumin/Globulin Ratio 2.14 Ratio (1.60-3.17); Alkaline Phosphatase 96 U/L (41-126); BUN/Creat Ratio 14.38 Ratio (12.00-20.00); Blood Urea Nitrogen 11.5 mg/dL (9.0-27.0); Calcium 9.6 mg/dL (8.7-10.3); Carbon Dioxide 20.8 mmol/L (21.6-31.8); Chloride 106 mmol/L (96-109); Globulin 2.1 d/dL (1.6-3.3); Glucose 115 mg/dL (70-110); Potassium 4.2 mmol/L (3.5-5.5); Sodium 140 mmol/L (135-145); Total Bilirubin 1.3 mg/dL (0.3-1.2); Total Protein 6.6 d/dL (6.2-8.2)
== END | disposition home or self-care (01) ==
LOC: LABWHC1 11:25
PROVIDERS: ATTEND Nurse Practitioner Family
DX: C61 Malignant neoplasm of prostate (principal)
CPT/HCPCS: 36415; 80053

== ENCOUNTER → 2023-07-13 | Outpatient (CLI) | payer MEDICARE, BC ==
--- NOTE | 2023-07-13 20:09 | XR ---
EXAMINATION TYPE: XR lumbosacral spine 5 views, XR pelvis AP view DATE OF EXAM: 07/13/2023 Comparison: CT 08/18/2022 Clinical History: 67-year-old male M54.50,C79.51 Findings: Lumbar spine: Osteosclerosis involving the visualized lower thoracic vertebral bodies. Bulky lateral bridging endpl ate spondylosis L-1-L2 and L3-L4. Additional areas of osteosclerosis scattered throughout the lumbar spine better seen on the lateral view. Lobulated aneurysms of the mid to distal abdominal aorta measuring 4.4 cm and 3.6 cm Degenerative grade 1 retrolisthesis L2-L3. Hypertrophic facet arthropathy throughout. Vertebral body heights are preserved. Pelvis: Sclerotic focus superior femoral neck not clearly seen on 08/18/2022. Sclerosis medial left iliac bon e was present previously. Mild degenerative change in both hips. No acute fracture or dislocation. Va scular calcifications in the pelvis. Impression: Lumbar spine: 1. Hypertrophic facet arthropathy throughout. Degenerative grade 1 retrolisthesis L2-L3. 2. Bulky lateral bridging endplate spondylosis on the left at L1-L2 and L3-L4. 3. Known osseous metastatic disease especially within the lower thoracic vertebral bodies. 4. No vertebral compression collapse. Pelvis: 5. Sclerotic focus superior right femoral neck clearly seen on the 08/18/2022 CT. Unable to exclude s ome interval progression here. 6. Sclerosis medial left iliac bone was present previously. 7. Mild bilateral hip OA. No acute osseous abnormality seen.
== END | disposition home or self-care (01) ==
LOC: RADXRMAIN 14:12
PROVIDERS: ATTEND Nurse Practitioner Family
DX: M43.16 Spondylolisthesis, lumbar region (principal); C79.51 Secondary malignant neoplasm of bone; M47.816 Spondylosis without myelopathy or radiculopathy, lumbar region; M16.0 Bilateral primary osteoarthritis of hip
CPT/HCPCS: 72110; 72170

== ENCOUNTER → 2023-07-20 | Outpatient (CLI) | payer MEDICARE, BC ==
[2023-07-20 15:50] LABS: Basophils # (A) 0.05 X 10*3/uL (0.00-0.10); Eosinophils # (A) 0.06 X 10*3/uL (0.04-0.35); Eosinophils % (A) 1.2 %; HCT 39.6 % (39.6-50.0); HGB 13.3 d/dL (13.0-17.0); Lymphocytes # (A) 0.93 X 10*3/uL (0.90-5.00); Lymphocytes % (A) 18.2 %; MCH 33.5 pg (27.0-32.0); MCHC 33.6 d/dL (32.0-37.0); MCV 99.7 FL (80.0-97.0); Mean Platelet Volume 12.4 FL (9.5-12.2); Monocytes # (A) 0.39 X 10*3/uL (0.20-1.00); Monocytes % (A) 7.6 %; NRBC Per 100 WBC 0 X 10*3/uL (0.00-0.01); Neutrophils # (A) 3.66 X 10*3/uL (1.80-7.70); Neutrophils % (A) 71.8 %; Platelet Count 143 X 10*3/uL (140-440); RBC 3.97 X 10*6/uL (4.40-5.60)
[2023-07-20 18:31] LABS: ALT 47 U/L (10-49); AST 28 U/L (14-35); Albumin 4.5 d/dL (3.8-4.9); Albumin/Globulin Ratio 2.25 Ratio (1.60-3.17); Alkaline Phosphatase 73 U/L (41-126); BUN/Creat Ratio 14.88 Ratio (12.00-20.00); Blood Urea Nitrogen 11.9 mg/dL (9.0-27.0); Calcium 9.1 mg/dL (8.7-10.3); Carbon Dioxide 23.4 mmol/L (21.6-31.8); Chloride 108 mmol/L (96-109); Glucose 143 mg/dL (70-110); Potassium 4.5 mmol/L (3.5-5.5); Sodium 143 mmol/L (135-145); Total Bilirubin 0.9 mg/dL (0.3-1.2); Total Protein 6.5 d/dL (6.2-8.2)
== END | disposition home or self-care (01) ==
LOC: LABWHC1 08:29
PROVIDERS: ATTEND Internal Medicine Medical Oncology
DX: C79.51 Secondary malignant neoplasm of bone (principal); C61 Malignant neoplasm of prostate
CPT/HCPCS: 36415; 80053; 84153; 85025

== ENCOUNTER → 2023-09-09 | Outpatient (CLI) | payer MEDICARE, BC ==
--- NOTE | 2023-09-09 14:53 | XR ---
EXAMINATION TYPE: XR KUB DATE OF EXAM: 09/09/2023 2:42 PM CLINICAL INDICATION:Male, 68 years old with history of R31.0 Gross Hematuria; [facility] COMPARISON: 08/18/2022 CT TECHNIQUE: One radiographic view of the abdomen was obtained. FINDINGS: The bowel gas pattern is nonspecific without dilated loops of small or large bowel. There i s no evidence for organomegaly or pneumoperitoneum. The osseous structures are intact. Fecal materi al and gas are demonstrated throughout the colon and rectum. Multilevel degeneration changes through out the spine with large osteophyte complex. Pelvic fullness are present. Degeneration of the hips wi th osteophyte formation. No renal calculi definitively visualized. IMPRESSION: 1. No renal calculus definitively visualized. Consider CT imaging for complete evaluation for renal calculi. 2. Nonspecific bowel gas pattern without radiographic evidence for acute process.
== END | disposition home or self-care (01) ==
LOC: RADXRMAIN 14:27
PROVIDERS: ATTEND Urology
DX: N28.89 Other specified disorders of kidney and ureter (principal)
CPT/HCPCS: 74018

== ENCOUNTER → 2023-09-20 | Outpatient (CLI) | payer MEDICARE, BC ==
[2023-09-20 10:39] LABS: African American GFR (CKD) >90 (>60 ml/min/1.73 sqM); Blood Urea Nitrogen 19 mg/dL (9-20); Non-African American GFR(CKD) >90 (>60 ml/min/1.73 sqM)
--- NOTE | 2023-09-20 14:06 | CT ---
EXAMINATION TYPE: CT urogram wo/w con CT DLP: 01/07/1956 mGycm, Automated exposure control for dose reduction was used. DATE OF EXAM: 09/20/2023 11:57 AM COMPARISON: CT abdomen pelvis most recent from 08/18/2022 CLINICAL INDICATION:Male, 68 years old with history of R31.0 gross hematuria; [facility], TECHNIQUE: Urogram with imaging of the abdomen and pelvis. Coronal and sagittal reformats were performed. 2D and 3D reconstructions are performed to assist visualization of the urinary tract on a separate workstat ion. Contrast used: mL of , Oral contrast used: None. FINDINGS: LOWER CHEST: Mild paraseptal emphysema changes throughout the lungs. GENITOURINARY: RIGHT KIDNEY AND URETER: Vascular calcifications in the renal sinuses. No calculi. No hydronephrosis or hydroureter. No renal mass or other lesions. No urothelial lesions: no filling defect, dilation, s tricture or wall thickening. LEFT KIDNEY AND URETER: Vascular calcifications in the renal sinuses. No calculi. No hydronephrosis o r hydroureter. Indeterminate medial renal cyst measuring 14 mm and 41 Hounsfield units. It is difficu lt to compare noncontrast Hounsfield units given that the lesion is conspicuous on noncontrast imagin g. Other lesions are compatible with renal cysts. No renal mass or other lesions. No urothelial lesio ns: no filling defect, dilation, stricture or wall thickening. URINARY BLADDER: Not optimally distended. Limited evaluation secondary to partial filling of the blad chad with excreted IV contrast. No calculi or obvious mass. REPRODUCTIVE: Unremarkable. ABDOMEN LIVER: Unremarkable. GALLBLADDER AND BILE DUCTS: Unremarkable PANCREAS: Unremarkable. SPLEEN: Unremarkable. ADRENAL GLANDS: Unremarkable. STOMACH AND BOWEL: . No evidence of bowel obstruction. PERITONEUM: No evidence of pneumoperitoneum, free fluid, or adenopathy. VASCULATURE: No evidence of aortic aneurysm. Fusiform ectasia of the distal abdominal aorta measuring up to 2.8 X 2.6 cm. Scattered atherosclerosis of the arterial vasculature. MUSCULOSKELETAL: No acute osseous abnormalities. Atrophy changes of the left psoas muscle as it cross es the right osteophyte. Scattered sclerotic lesions are seen throughout the osseous structures. Some of the osseous lesions are new. Examples include. One within the sacrum on the left is new series 4 image 82 as well as within the L4 vertebral body in the right and increased sclerosis of the T12 and T10 vertebral bodies. New lesion is also seen within the proximal right femur and superior left aceta bulum among others. LYMPH NODES: No gross evidence for lymphadenopathy. SOFT TISSUE/ABDOMINAL WALL: Fat-containing right inguinal hernia. IMPRESSION: 1. No evidence of urolithiasis. Indeterminate left renal lesion which can be further evaluated with M OK renal mass protocol as clinically warranted. This lesion is conspicuous on noncontrast imaging and therefore hard to compare enhancement pattern. 3. Progression of bony sclerotic foci compared to prior on 08/18/2022 concerning for progression of d isease. 4. Suboptimal evaluation of the bladder secondary to lack of excreted IV contrast.
== END | disposition home or self-care (01) ==
LOC: RADCTMAIN 08:51
PROVIDERS: ATTEND Urology
DX: M89.8X8 Other specified disorders of bone, other site (principal); R31.0 Gross hematuria
CPT/HCPCS: 82565; 84520; 74178; 74400; Q9967

== ENCOUNTER → 2023-10-11 | Outpatient (CLI) | payer MEDICARE, BC ==
[2023-10-11 15:57] LABS: Basophils # (A) 0.04 X 10*3/uL (0.00-0.10); Basophils % (A) 0.9 %; Eosinophils # (A) 0.06 X 10*3/uL (0.04-0.35); Eosinophils % (A) 1.4 %; HGB 13.4 g/dL (13.0-17.0); Lymphocytes # (A) 0.68 X 10*3/uL (0.90-5.00); Lymphocytes % (A) 15.7 %; MCH 33.4 pg (27.0-32.0); MCHC 32.7 g/dL (32.0-37.0); MCV 102.2 FL (80.0-97.0); Mean Platelet Volume 12.4 FL (9.5-12.2); Monocytes # (A) 0.42 X 10*3/uL (0.20-1.00); Monocytes % (A) 9.7 %; NRBC Per 100 WBC 0 X 10*3/uL (0.00-0.01); Neutrophils # (A) 3.12 X 10*3/uL (1.80-7.70); Neutrophils % (A) 72.1 %; Platelet Count 155 X 10*3/uL (140-440); RBC 4.01 X 10*6/uL (4.40-5.60); RDW 12.5 % (11.5-14.5); WBC 4.33 X 10*3/uL (4.50-10.00)
[2023-10-11 16:29] LABS: ALT 28 U/L (10-49); AST 22 U/L (14-35); Albumin 4.3 g/dL (3.8-4.9); Albumin/Globulin Ratio 1.95 Ratio (1.60-3.17); Alkaline Phosphatase 64 U/L (41-126); BUN/Creat Ratio 13.22 Ratio (12.00-20.00); Blood Urea Nitrogen 11.9 mg/dL (9.0-27.0); Calcium 10.1 mg/dL (8.7-10.3); Carbon Dioxide 24.8 mmol/L (21.6-31.8); Chloride 105 mmol/L (96-109); Globulin 2.2 g/dL (1.6-3.3); Glucose 130 mg/dL (70-110); Prostate Specific Antigen 5.45 ng/mL (0.000-4.500); Sodium 140 mmol/L (135-145); Total Bilirubin 0.8 mg/dL (0.3-1.2); Total Protein 6.5 g/dL (6.2-8.2)
== END | disposition home or self-care (01) ==
LOC: LABWHC1 08:15
PROVIDERS: ATTEND Internal Medicine Medical Oncology
DX: C79.51 Secondary malignant neoplasm of bone (principal); C61 Malignant neoplasm of prostate
CPT/HCPCS: 36415; 80053; 84153; 85025

== ENCOUNTER → 2023-11-22 | Outpatient (CLI) | payer MEDICARE, BC ==
[2023-11-22 15:09] LABS: Basophils # (A) 0.04 X 10*3/uL (0.00-0.10); Eosinophils # (A) 0.04 X 10*3/uL (0.04-0.35); HCT 39.2 % (39.6-50.0); HGB 13.1 g/dL (13.0-17.0); Lymphocytes # (A) 0.72 X 10*3/uL (0.90-5.00); Lymphocytes % (A) 17.3 %; MCH 32.8 pg (27.0-32.0); MCHC 33.4 g/dL (32.0-37.0); Monocytes # (A) 0.37 X 10*3/uL (0.20-1.00); Monocytes % (A) 8.9 %; NRBC Per 100 WBC 0 X 10*3/uL (0.00-0.01); Neutrophils # (A) 2.98 X 10*3/uL (1.80-7.70); Neutrophils % (A) 71.6 %; Platelet Count 151 X 10*3/uL (140-440); RDW 12.4 % (11.5-14.5); WBC 4.16 X 10*3/uL (4.50-10.00)
[2023-11-22 15:16] LABS: ALT 28 U/L (10-49); AST 18 U/L (14-35); Albumin 4.3 g/dL (3.8-4.9); Albumin/Globulin Ratio 1.87 Ratio (1.60-3.17); Alkaline Phosphatase 66 U/L (41-126); BUN/Creat Ratio 17.22 Ratio (12.00-20.00); Blood Urea Nitrogen 15.5 mg/dL (9.0-27.0); Calcium 9.6 mg/dL (8.7-10.3); Carbon Dioxide 23.5 mmol/L (21.6-31.8); Chloride 104 mmol/L (96-109); Globulin 2.3 g/dL (1.6-3.3); Glucose 139 mg/dL (70-110); Potassium 4.5 mmol/L (3.5-5.5); Prostate Specific Antigen 5.18 ng/mL (0.000-4.500); Sodium 139 mmol/L (135-145); Total Bilirubin 1.2 mg/dL (0.3-1.2); Total Protein 6.6 g/dL (6.2-8.2)
== END | disposition home or self-care (01) ==
LOC: LABWHC1 10:11
PROVIDERS: ATTEND Radiology Radiation Oncology
DX: C61 Malignant neoplasm of prostate (principal); C79.51 Secondary malignant neoplasm of bone
CPT/HCPCS: 36415; 80053; 84153; 85025

== ENCOUNTER → 2024-01-10 | Outpatient (CLI) | payer MEDICARE, BC ==
[2024-01-10 11:09] LABS: Basophils # (A) 0.03 X 10*3/uL (0.00-0.10); Basophils % (A) 0.6 %; Eosinophils # (A) 0.04 X 10*3/uL (0.04-0.35); Eosinophils % (A) 0.9 %; HCT 38.4 % (39.6-50.0); HGB 13.1 g/dL (13.0-17.0); Lymphocytes # (A) 0.74 X 10*3/uL (0.90-5.00); Lymphocytes % (A) 15.8 %; MCH 33.3 pg (27.0-32.0); MCHC 34.1 g/dL (32.0-37.0); MCV 97.7 FL (80.0-97.0); Mean Platelet Volume 11.4 FL (9.5-12.2); Monocytes # (A) 0.42 X 10*3/uL (0.20-1.00); NRBC Per 100 WBC 0 X 10*3/uL (0.00-0.01); Neutrophils # (A) 3.44 X 10*3/uL (1.80-7.70); Neutrophils % (A) 73.5 %; Platelet Count 161 X 10*3/uL (140-440); RBC 3.93 X 10*6/uL (4.40-5.60); RDW 12.6 % (11.5-14.5); WBC 4.68 X 10*3/uL (4.50-10.00)
[2024-01-10 11:20] LABS: ALT 27 U/L (10-49); AST 19 U/L (14-35); Albumin 4.3 g/dL (3.8-4.9); Albumin/Globulin Ratio 1.79 Ratio (1.60-3.17); Alkaline Phosphatase 71 U/L (41-126); BUN/Creat Ratio 17.33 Ratio (12.00-20.00); Blood Urea Nitrogen 15.6 mg/dL (9.0-27.0); Calcium 9.9 mg/dL (8.7-10.3); Carbon Dioxide 26.5 mmol/L (21.6-31.8); Chloride 106 mmol/L (96-109); Globulin 2.4 g/dL (1.6-3.3); Glucose 136 mg/dL (70-110); Potassium 4.9 mmol/L (3.5-5.5); Sodium 142 mmol/L (135-145); Total Protein 6.7 g/dL (6.2-8.2)
== END | disposition home or self-care (01) ==
LOC: LABWHC1 08:37
PROVIDERS: ATTEND Internal Medicine Medical Oncology
DX: C61 Malignant neoplasm of prostate (principal); Z19.2 Hormone resistant malignancy status
CPT/HCPCS: 36415; 80053; 84153; 85025

== ENCOUNTER → 2024-02-28 | Outpatient (CLI) | payer MEDICARE, BC ==
[2024-02-28 15:01] LABS: ALT 25 U/L (10-49); AST 20 U/L (14-35); Chol/HDL Ratio 2.15 Ratio; LDL Cholesterol,Calculated 55.7 mg/dL (0.0-131.0)
== END | disposition home or self-care (01) ==
LOC: LABWHC1 10:16
PROVIDERS: ATTEND Nurse Practitioner Adult Health
DX: E78.2 Mixed hyperlipidemia (principal)
CPT/HCPCS: 36415; 80061; 84450; 84460

== ENCOUNTER → 2024-03-28 | Outpatient (CLI) | payer MEDICARE, BC ==
[2024-03-28 11:28] LABS: African American GFR (CKD) >90 (>60 ml/min/1.73 sqM); Blood Urea Nitrogen 13 mg/dL (9-20); Non-African American GFR(CKD) >90 (>60 ml/min/1.73 sqM)
--- NOTE | 2024-03-29 16:21 | NM ---
EXAMINATION TYPE: NM bone scan whole body DATE OF EXAM: 03/28/2024 COMPARISON: Correlation CT same day and previous bone scan 08/18/2022 CLINICAL INDICATION: Male, 68 years old with history of C61 PROSTATE CANCER; TECHNIQUE: Delayed whole-body scanning was performed following the injection of 23.5 mCi Tc 99m MDP. Images acquired 3.5 hours post injection. FINDINGS: There are multiple punctate areas of radiotracer accumulation within the axial skeleton including sev eral levels of thoracic spine. Multiple bilateral foci of uptake are within the mid and lower ribs in cluding T10 on the right T8 and T7 laterally. Some focal uptake may be within the pelvic region ident ified on posterior images at the sacroiliac joint region. There is focal uptake in the region of the right acetabulum. Uptake is at the bilateral shoulders which is nonspecific. Comparison: Sclerotic lesions within the thoracic and lumbar spine correlate with the nuclear medicin e bone scan areas of uptake sclerotic rib lesions likewise correlate with the bone scan images. The s capular sclerosis may be more extensive on the right than on the bone scan. Sclerotic lesions within the pelvis correlate with the bone scan imaging. Sclerotic area over the lef t acetabulum correlates with the bone scan images of the uptake at the superior right hip may correla te with the sclerotic lesion at the neck of the femur. Comparison nuclear medicine bone scan: There is marked increase areas of uptake on the current bone s can. IMPRESSION: Multiple foci radiotracer within the thoracic spine, bilateral ribs, and within the pelvis and scapul a appear to correspond to sclerotic lesions on the chest abdomen pelvis study of 03/28/2024.
--- NOTE | 2024-04-02 13:51 | CT ---
EXAMINATION TYPE: CT ChestAbdPelvis w con DATE OF EXAM: 03/28/2024 INDICATION: f/u prostate ca COMPARISON: 09/20/2023, 08/18/2022 CT DLP: 2172 mGycm CONTRAST: Performed with Oral Contrast and with IV Contrast, patient injected with 100ml mL of Isovue 300. TECHNIQUE: Axial images at 5 mm thick sections. Reconstructed images in the coronal plane. Delayed images through the kidneys. FINDINGS: CT CHEST: Portion of the thyroid visualized is normal. There is a 1.4 cm nodule in the azygos esophageal recess near the right lung base. This has enlarged from 08/18/2022 measuring 0.9 cm and 09/20/2023 measuring 1.3 cm. PET/CT recommended for additional w orkup. Large coarse calcifications in the left posterior lateral lung. No enlarged mediastinal or hilar adenopathy is evident. The ascending aorta diameter at the level of the main pulmonary artery is 3.8 cm. The main pulmonary artery diameter at the bifurcation is 2.7 cm. Coronary artery calcifications present. CT ABDOMEN: Liver: Normal Spleen: Normal Pancreas: Normal Adrenal glands: The adrenal glands are normal. Gallbladder: Normal Kidneys: No masses are evident. No hydronephrosis is present. There is a 2.0 cm cyst on the medial left upper pole kidney there is a mid lateral right renal cyst measuring 3.1 cm. Small cortical renal cyst anterior lateral left mid kidney measuring 1.2 cm some additional punctate cortical renal cysts are present. Aorta: Vascular calcification is within the aorta. There is some fusiform prominence of the proximal abdominal aorta measuring 3.3 cm. This terminates above the bifurcation and begins below the renal a rteries. Inferior vena cava: Normal. CT PELVIS: Loops of bowel within the abdomen and pelvis are normal. There may be some thickening of the rectosi gmoid region. No obstruction is evident. There loops of bowel lacking oral contrast or incompletely distended limiting their evaluation. Appendix: Normal as visualized. Urinary bladder: Normal. Genitourinary structures: Prostate is prominent. There is some inferior impression from the prostate. Osseous structures: Large sclerotic lesion is in the neck of the right hip. Some sclerotic areas over the left acetabulum sclerotic lesions are within the medial iliac wings there are scattered scleroti c areas within the lumbar vertebral bodies IMPRESSION: 1. There may be a slowly enlarging nodule within the posterior right lung. PET/CT recommended for add itional evaluation. 2. Multiple sclerotic lesions suspicious for metastatic disease. 3. There may be some diffuse rectosigmoid wall thickening. Consider follow-up.
== END | disposition home or self-care (01) ==
LOC: RADNMMAIN 10:44
PROVIDERS: ATTEND Internal Medicine Hematology & Oncology
DX: C61 Malignant neoplasm of prostate (principal); K85.90 Acute pancreatitis without necrosis or infection, unspecified; G99.0 Autonomic neuropathy in diseases classified elsewhere; Z71.3 Dietary counseling and surveillance
CPT/HCPCS: 82565; 84520; 71260; 74177; 36415; 78306; A9503; Q9967

== ENCOUNTER 2024-03-29 12:57 | Emergency (ER) | payer MEDICARE, BC ==
[2024-03-29 13:33] VITALS: BP 115/69; PULSE 51; RESP 16; TEMP 99.2
--- NOTE | 2024-03-29 14:00 | ED ---
General Adult HPI - General Chief complaint: Abdominal Pain Stated complaint: ABD pain Time Seen by Provider: 03/29/24 13:00 Source: patient, RN notes reviewed, old records reviewed Mode of arrival: EMS Limitations: no limitations - History of Present Illness Initial comments: 68-year-old male presents for evaluation of lower abdominal pain and inability to urinate. Patient states that he had similar symptoms about 2 weeks ago and did have a Garcia catheter in place. Catheter was removed and he subsequently underwent testing with urology including cystoscopy and CT imaging. Patient reports ongoing hematuria. He denies vomiting. Denies fever. - Related Data Home Medications Medication Instructions Recorded Confirmed Aspirin EC [Ecotrin Low Dose] 81 mg PO DAILY 07/23/19 01/22/22 Atorvastatin [Lipitor] 40 mg PO DAILY 07/23/19 01/22/22 Calcium Carbonate [Calcium] 600 mg PO HS 07/23/19 01/22/22 Enzalutamide [Xtandi] 40 mg PO QID 01/21/22 01/22/22 lisinopriL [Zestril] 5 mg PO QAM 01/21/22 01/22/22 Previous Rx's Medication Instructions Recorded Metoprolol Tartrate [Lopressor] 25 mg PO BID 30 Days #60 tab 07/24/19 Allergies Allergy/AdvReac Type Severity Reaction Status Date / Time No Known Allergies Allergy Verified 01/22/22 09:24 Review of Systems ROS Statement: Those systems with pertinent positive or pertinent negative responses have been documented in the HPI. ROS Other: All systems not noted in ROS Statement are negative. Past Medical History Past Medical History: Coronary Artery Disease (CAD), Cancer, Sleep Apnea/CPAP/BIPAP Additional Past Medical History / Comment(s): Prostate CA-2019 received chemo received,uses cpap,tx with prednisone Dec 2021 History of Any Multi-Drug Resistant Organisms: None Reported Past Surgical History: Heart Catheterization With Stent, Hernia Repair Additional Past Surgical History / Comment(s): Cardiac Stent x3 Past Anesthesia/Blood Transfusion Reactions: No Reported Reaction Date of Last Stent Placement:: 2011,2013 Past Psychological History: No Psychological Hx Reported Smoking Status: Former smoker - Past Family History Father Additional Family Medical History / Comment(s): Heart issues Mother Family Medical History: No Reported History Brother(s) Family Medical History: Cancer Additional Family Medical History / Comment(s): pancreatic General Exam General appearance: alert, in no apparent distress Head exam: Present: atraumatic, normocephalic Eye exam: Present: normal appearance, PERRL ENT exam: Present: normal exam Neck exam: Present: normal inspection. Absent: tenderness, meningismus Respiratory exam: Present: normal lung sounds bilaterally. Absent: respiratory distress Cardiovascular Exam: Present: normal rhythm, bradycardia GI/Abdominal exam: Present: soft, tenderness (Suprapubic). Absent: distended Neurological exam: Present: alert, oriented X3, CN II-XII intact. Absent: motor sensory deficit Psychiatric exam: Present: normal affect, normal mood Skin exam: Present: warm, dry, intact. Absent: cyanosis, diaphoretic Course Vital Signs 03/29/24 13:01 Temperature 99.2 F Pulse Rate 51 L Respiratory 16 Rate Blood Pressure 115/69 O2 Sat by Pulse 99 Oximetry - Reevaluation(s) Reevaluation #1: 03/29/24 13:56 Patient has complete relief of his symptoms with Garcia catheter. Medical Decision Making - Medical Decision Making Was pt. sent in by a medical professional or institution (, PA, PLASTER APPLICATOR, urgent care, hospital, or halfway...) When possible be specific @ -No Did you speak to anyone other than the patient for history (EMS, parent, family, police, friend...)? What history was obtained from this source @Patient's , paramedics Did you review nursing and triage notes (agree or disagree)? Why? @ -I reviewed and agree with nursing and triage notes Were old charts reviewed (outside hosp., previous admission, EMS record, old EKG, old radiological studies, urgent care reports/EKG's, halfway records)? Report findings @ -No old charts were reviewed Differential Diagnosis (chest pain, altered mental status, abdominal pain women, abdominal pain men, vaginal bleeding, weakness, fever, dyspnea, syncope, hea dache, dizziness, GI bleed, back pain, seizure, CVA, palpatations, mental health, musculoskeletal)? @ -Not applicable EKG interpreted by me (3pts min.). @ -As above X-rays interpreted by me (1pt min.). @ -None done CT interpreted by me (1pt min.). @ -None done U/S interpreted by me (1pt. min.). @ -None done What testing was considered but not performed or refused? (CT, X-rays, U/S, labs)? Why? @ -None What meds were considered but not given or refused? Why? @ -None Did you discuss the management of the patient with other professionals (professionals i.e. , PA, PLASTER APPLICATOR, lab, RT, psych nurse, clinical social work therapist, arch support technician, teacher, adult probation officer, case worker)? Give summary @ -Case discussed with Dr. Gomez, who is patient's urologist. He was able to review CT imaging performed yesterday and felt that the patient was stable for discharge without further testing and continuation of Garcia catheter. Was smoking cessation discussed for >3mins.? @ -No Was critical care preformed (if so, how long)? @ -No Were there social determinants of health that impacted care today? How? (Homelessness, low income, unemployed, alcoholism, drug addiction, transportation, low edu. Level, literacy, decrease access to med. care, custodial, rehab)? @ -No Was there de-escalation of care discussed even if they declined (Discuss DNR or withdrawal of care, Hospice)? DNR status @ -No What co-morbidities impacted this encounter? (DM, HTN, Smoking, COPD, CAD, Cancer, CVA, ARF, Chemo, Hep., AIDS, mental health diagnosis, sleep apnea, morbid obesity)? @ -None Was patient admitted / discharged? Hospital course, mention meds given and route, prescriptions, significant lab abnormalities, going to OR and other pertinent info. @68-year-old male presenting with lower abdominal pain and urinary retention. Patient's urine is hemorrhagic. Pain relieved by Garcia catheter. Patient does have good follow-up with urology and will continue to follow-up regarding hematuria. Return parameters discussed. Undiagnosed new problem with uncertain prognosis? @ -No Drug Therapy requiring intensive monitoring for toxicity (Heparin, Nitro, Insulin, Cardizem)? @ -No Were any procedures done? @ -No Diagnosis/symptom? @ -Urinary retention, hematuria Acute, or Chronic, or Acute on Chronic? @ -Acute Uncomplicated (without systemic symptoms) or Complicated (systemic symptoms)? @ -Default Side effects of treatment? @ -No Exacerbation, Progression, or Severe Exacerbation? @ -No Poses a threat to life or bodily function? How? (Chest pain, [place], [place], pneumonia, PE, COPD, DKA, ARF, appy, cholecystitis, CVA, Diverticulitis, Homicidal, Suicidal, threat to staff... and all critical care pts) @ low Risk at this time Disposition Clinical Impression: Urinary retention, Hematuria Disposition: HOME SELF-CARE Condition: Fair Instructions (If sedation given, give patient instructions): Urinary Retention in Men (ED) Is patient prescribed a controlled substance at d/c from ED?: No Referrals: Keshia Dupont MD [Primary Care Provider] - 1-2 days Haja Gomez MD [STAFF PHYSICIAN] - 1-2 days Time of Disposition: 14:30
[2024-03-29 14:08] LABS: Appearance,Urine Cloudy (Clear); Bilirubin,Urine Negative (Negative); Blood,Urine Large (Negative); Color,Urine Red; Glucose,Urine (UA) Negative (Negative); Ketones,Urine Trace (Negative); Leukocyte Esterase,Urine Small (Negative); Mucus,Urine Rare /hpf; Nitrite,Urine Negative (Negative); Protein,Urine 1+ (Negative); RBC,Urine >182 /hpf (0-5); Urobilinogen,Urine <2.0 mg/dL (<2.0); WBC,Urine 10 /hpf (0-5)
== END 2024-03-29 14:55 | disposition home or self-care (01) ==
LOC: EC 12:57
DX: R33.9 Retention of urine, unspecified (principal); R31.9 Hematuria, unspecified; Z87.891 Personal history of nicotine dependence
CPT/HCPCS: 51702; 51798; 81001; 99284

== ENCOUNTER 2024-05-02 19:31 | Emergency (ER) | payer MEDICARE, BC ==
--- NOTE | 2024-05-02 20:46 | XR ---
EXAMINATION TYPE: XR Hip 2 views RT and AP Pelvis DATE OF EXAM: 05/02/2024 COMPARISON: NONE HISTORY: 68-year-old male right hip pain, history of prostate cancer FINDINGS: SI joints appear symmetric and intact. There is a round sclerotic focus within the medial right iliac bone and superior right femoral neck. Possibly also within the superior right sacral alar and anteri or left iliac crest. There is moderate degenerative change at both hips. No acute fracture, subluxati on, dislocation. IMPRESSION: 1. A few scattered sclerotic foci including both sides of the iliac bones, right sacrum, and right fe moral neck. Findings suggest osteoblastic metastases. 2. Moderate bilateral hip OA. No acute osseous abnormality seen.
[2024-05-02 22:09] VITALS: RESP 16
[2024-05-02] MEDS: HYDROmorphone 1 MG/ML 1 ML SYRINGE IM STA (22:15)
--- NOTE | 2024-05-02 23:17 | ED ---
General Adult HPI - General Chief complaint: Extremity Injury, Lower Stated complaint: R Hip Pain Time Seen by Provider: 05/02/24 21:05 Source: patient, RN notes reviewed Mode of arrival: wheelchair Limitations: no limitations - History of Present Illness Initial comments: 68-year-old male presenting to the ED with a chief complaint of right hip pain. Patient has history of prostate cancer and is recently found to have metastasis to his right hip. Notes ongoing pain due to this and is his primary complaint. However also notes that he had a TURP performed today by Dr. Gomez. States that he is also concerned as he had had decreased drainage from his Garcia catheter. He states that he wants to make sure it is not clogged. Patient has prescription for Keflex which she has not filled out. Otherwise, denies abdominal pain or flank pain. Denies fever or chills. No other complaints. Notes she has follow-up appointment with Dr. Lynch tomorrow. - Related Data Home Medications Medication Instructions Recorded Confirmed Aspirin EC [Ecotrin Low Dose] 81 mg PO DAILY 07/23/19 01/22/22 Atorvastatin [Lipitor] 40 mg PO DAILY 07/23/19 01/22/22 Calcium Carbonate [Calcium] 600 mg PO HS 07/23/19 01/22/22 Enzalutamide [Xtandi] 40 mg PO QID 01/21/22 01/22/22 lisinopriL [Zestril] 5 mg PO QAM 01/21/22 01/22/22 Previous Rx's Medication Instructions Recorded Metoprolol Tartrate [Lopressor] 25 mg PO BID 30 Days #60 tab 07/24/19 Allergies Allergy/AdvReac Type Severity Reaction Status Date / Time No Known Allergies Allergy Verified 05/02/24 19:43 Review of Systems ROS Statement: Those systems with pertinent positive or pertinent negative responses have been documented in the HPI. ROS Other: All systems not noted in ROS Statement are negative. Past Medical History Past Medical History: Coronary Artery Disease (CAD), Cancer, Sleep Apnea/CPAP/BIPAP Additional Past Medical History / Comment(s): Prostate CA-2019 received chemo received,uses cpap,tx with prednisone Dec 2021, History of Any Multi-Drug Resistant Organisms: None Reported Past Surgical History: Heart Catheterization With Stent, Hernia Repair Additional Past Surgical History / Comment(s): Cardiac Stent x3. TURP May 2024 Past Anesthesia/Blood Transfusion Reactions: No Reported Reaction Date of Last Stent Placement:: Past Psychological History: No Psychological Hx Reported Smoking Status: Former smoker Past Alcohol Use History: None Reported Past Drug Use History: Marijuana - Past Family History Father Additional Family Medical History / Comment(s): Heart issues Mother Family Medical History: No Reported History Brother(s) Family Medical History: Cancer Additional Family Medical History / Comment(s): pancreatic General Exam Limitations: no limitations General appearance: alert, in no apparent distress Eye exam: Present: normal appearance Neck exam: Present: normal inspection Respiratory exam: Present: normal lung sounds bilaterally Cardiovascular Exam: Present: regular rate GI/Abdominal exam: Present: soft, normal bowel sounds. Absent: distended, tenderness, guarding, rebound, rigid Neurological exam: Present: alert, oriented X3 Skin exam: Present: warm, dry Course Vital Signs 05/02/24 05/02/24 19:38 22:06 Temperature 97.6 F 98.5 F Pulse Rate 61 56 L Respiratory 18 16 Rate Blood Pressure 121/74 121/74 O2 Sat by Pulse 100 98 Oximetry Medical Decision Making - Medical Decision Making Was pt. sent in by a medical professional or institution (, PA, TOOL AND GAUGE INSPECTOR, urgent care, hospital, or longterm...) When possible be specific @ -No Did you speak to anyone other than the patient for history (EMS, parent, family, police, friend...)? What history was obtained from this source @ -No Did you review nursing and triage notes (agree or disagree)? Why? @ -I reviewed and agree with nursing and triage notes Were old charts reviewed (outside hosp., previous admission, EMS record, old EKG, old radiological studies, urgent care reports/EKG's, longterm records)? Report findings @ -No old charts were reviewed Differential Diagnosis (chest pain, altered mental status, abdominal pain women, abdominal pain men, vaginal bleeding, weakness, fever, dyspnea, syncope, headache, dizziness, GI bleed, back pain, seizure, CVA, palpatations, mental health, musculoskeletal)? @ -Differential Musculoskeletal Muscular strain, contusion, ligament sprain, fracture, arthritis, septic arthritis, bursitis, cellulitis, muscle spasm, nerve compression, DVT, arterial occlusion, herpes zoster, electrolyte abnormality, tumor.... This is not meant to be in all inclusive list EKG interpreted by me (3pts min.). @ -None X-rays interpreted by me (1pt min.). @ -X-ray interpreted by me which showed scattered sclerotic foci on both sides of the iliac bones, right sacrum, right femoral neck concerning for metastasis. CT interpreted by me (1pt min.). @ -None done U/S interpreted by me (1pt. min.). @ -None done What testing was considered but not performed or refused? (CT, X-rays, U/S, labs)? Why? @ -Urinalysis was considered to rule out infection however at this time patient reports he is asymptomatic and already has prescription for Keflex filled out. What meds were considered but not given or refused? Why? @ -None Did you discuss the management of the patient with other professionals (jhonny espinosa i.e. , PA, TOOL AND GAUGE INSPECTOR, lab, RT, psych nurse, health and social care teacher, lawyers, teacher, business development officer, case resource manager)? Give summary @ -No Was smoking cessation discussed for >3mins.? @ -No Was critical care preformed (if so, how long)? @ -No Were there social determinants of health that impacted care today? How? (Homelessness, low income, unemployed, alcoholism, drug addiction, transportation, low edu. Level, literacy, decrease access to med. care, retirement, rehab)? @ -No Was there de-escalation of care discussed even if they declined (Discuss DNR or withdrawal of care, Hospice)? DNR status @ -No What co-morbidities impacted this encounter? (DM, HTN, Smoking, COPD, CAD, Cancer, CVA, ARF, Chemo, Hep., AIDS, mental health diagnosis, sleep apnea, morbid obesity)? @ -None Was patient admitted / discharged? Hospital course, mention meds given and route, prescriptions, significant lab abnormalities, going to OR and other pertinent info. @ -Discharge 68-year-old male with a past medical history significant for prostate cancer with metastasis presenting to the ED with complaints primarily of right hip pain. X-ray showed with sclerotic lesions concerning for metastasis which luis daniel ent knows about and has follow-up with his oncologist tomorrow. Also had TURP performed today and was concerned as he thought that his Garcia may not be draining well as he has had decreased drainage coming from it. Bladder scan showed 25 cc. Garcia was flushed with no difficulties. Patient discharged home in stable condition with instructions to closely follow-up with his oncologist and urologist scheduled and advised to take antibiotics as prescribed. Discussed return precautions patient who verbalized agreement. Undiagnosed new problem with uncertain prognosis? @ -No Drug Therapy requiring intensive monitoring for toxicity (Heparin, Nitro, Insulin, Cardizem)? @ -No Were any procedures done? @ -No Diagnosis/symptom? @ -Right hip pain, concern for Garcia malfunction. Acute, or Chronic, or Acute on Chronic? @ -Acute on chronic, acute Uncomplicated (without systemic symptoms) or Complicated (systemic symptoms)? @ -Uncomplicated Side effects of treatment? @ -No Exacerbation, Progression, or Severe Exacerbation? @ -No Poses a threat to life or bodily function? How? (Chest pain, [place], [place], pneumonia, PE, COPD, DKA, ARF, appy, cholecystitis, CVA, Diverticulitis, Homicidal, Suicidal, threat to staff... and all critical care pts) @ -No Disposition Clinical Impression: Right hip pain, Malfunction of Garcia catheter Disposition: HOME SELF-CARE Condition: Good Instructions (If sedation given, give patient instructions): Garcia Catheter Placement and Care (ED) Additional Instructions: Please return to the Emergency Department if symptoms worsen or any other concerns. Please follow-up with your oncologist and urologist as scheduled. Take Tylenol as needed for pain. Continue taking antibiotics as prescribed. Is patient prescribed a controlled substance at d/c from ED?: No Referrals: Keshia Dupont MD [Primary Care Provider] - 1-2 days Time of Disposition: 23:23
[2024-05-02 23:33] VITALS: BP 118/73; PULSE 58; TEMP 98.1
== END 2024-05-02 23:45 | disposition home or self-care (01) ==
LOC: EC 19:31
DX: T83.018A Breakdown (mechanical) of other urinary catheter, initial encounter (principal); M25.551 Pain in right hip; Z87.891 Personal history of nicotine dependence
CPT/HCPCS: 99283; 51702; 51798; 73502; 96372; J1170

== ENCOUNTER 2024-05-03 21:04 | Emergency (ER) | payer MEDICARE, BC ==
[2024-05-03 21:16] VITALS: TEMP 98.1
[2024-05-03 22:16] LABS: Basophils % (A) 0 %; Eosinophils % (A) 1 %; HCT 30.8 % (39.0-53.0); HGB 10.2 gm/dL (13.0-17.5); Lymphocytes # (A) 0.8 k/uL (1.0-4.8); Lymphocytes % (A) 12 %; MCH 30.8 pg (25.0-35.0); MCHC 33.2 g/dL (31.0-37.0); Mean Platelet Volume 9.1; Monocytes # (A) 0.3 k/uL (0-1.0); Monocytes % (A) 5 %; Neutrophils # (A) 5.2 k/uL (1.3-7.7); Neutrophils % (A) 81 %; Platelet Count 230 k/uL (150-450); RBC 3.31 m/uL (4.30-5.90); WBC 6.4 k/uL (3.8-10.6)
[2024-05-03] MEDS: PANTOPRAZOLE 40 MG/10 ML VIAL IVP STA (22:16)
[2024-05-03] MEDS: KETOROLAC 15 MG/ML 1 ML VIAL IVP STA (22:16)
[2024-05-03] MEDS: ONDANSETRON 4 MG/2 ML VIAL IVP STA (22:17)
[2024-05-03] MEDS: SODIUM CHLORIDE 0.9% 1,000 ML IV STA (22:17)
[2024-05-03 22:27] LABS: ALT 16 U/L (4-49); AST 40 U/L (17-59); African American GFR (CKD) >90 (>60 ml/min/1.73 sqM); Albumin 3.4 g/dL (3.5-5.0); Alkaline Phosphatase 106 U/L (38-126); Amylase 92 U/L (30-110); Anion Gap 7 mmol/L; Blood Urea Nitrogen 11 mg/dL (9-20); Calcium 8.8 mg/dL (8.4-10.2); Carbon Dioxide 20 mmol/L (22-30); Chloride 104 mmol/L (98-107); Glucose 103 mg/dL (74-99); Lipase 140 U/L (23-300); Non-African American GFR(CKD) >90 (>60 ml/min/1.73 sqM); Potassium 4.2 mmol/L (3.5-5.1); Sodium 131 mmol/L (137-145); Total Bilirubin 1.1 mg/dL (0.2-1.3); Total Protein 5.9 g/dL (6.3-8.2)
[2024-05-03 22:31] LABS: Appearance,Urine Clear (Clear); Bacteria,Urine Rare /hpf; Bilirubin,Urine Negative (Negative); Blood,Urine Large (Negative); Color,Urine Colorless; Glucose,Urine (UA) Negative (Negative); Ketones,Urine Negative (Negative); Leukocyte Esterase,Urine Moderate (Negative); Nitrite,Urine Negative (Negative); Protein,Urine Trace (Negative); RBC,Urine 7 /hpf (0-5); Specific Gravity,Urine 1.002 (1.001-1.035); Urobilinogen,Urine <2.0 mg/dL (<2.0); WBC,Urine 3 /hpf (0-5)
[2024-05-03 22:32] LABS: Partial Thromboplastin Time 23.9 sec (22.0-30.0)
--- NOTE | 2024-05-03 23:46 | ED ---
Abdominal Pain HPI - General Chief Complaint: Abdominal Pain Stated Complaint: Abdominal Pain Time Seen by Provider: 05/03/24 21:35 Source: patient, RN notes reviewed, old records reviewed Mode of arrival: wheelchair Limitations: no limitations - History of Present Illness Initial Comments: Patient is a 68-year-old male past medical history remarkable for prostate cancer and recent TURP procedure. Presents emergency department complaining of worsening constipation. Has been a progressive issue for the last few months however significantly worse over the last 3 days. Last bowel movement was 2 days ago which was unsatisfactory. Patient has had less fluctuance over the last 2 days as well. No history of abdominal surgeries other than the TURP procedure. History of CAD. Is about to restart chemo but currently is not under any form of chemo or radiation. Presents for further evaluation at this time. Has Tried MiraLAX as well as suppositories at home without improvement. - Related Data Home Medications Medication Instructions Recorded Confirmed Aspirin EC [Ecotrin Low Dose] 81 mg PO DAILY 07/23/19 01/22/22 Atorvastatin [Lipitor] 40 mg PO DAILY 07/23/19 01/22/22 Calcium Carbonate [Calcium] 600 mg PO HS 07/23/19 01/22/22 Enzalutamide [Xtandi] 40 mg PO QID 01/21/22 01/22/22 lisinopriL [Zestril] 5 mg PO QAM 01/21/22 01/22/22 Previous Rx's Medication Instructions Recorded Metoprolol Tartrate [Lopressor] 25 mg PO BID 30 Days #60 tab 07/24/19 Allergies Allergy/AdvReac Type Severity Reaction Status Date / Time No Known Allergies Allergy Verified 05/03/24 21:16 Review of Systems ROS Statement: Those systems with pertinent positive or pertinent negative responses have been documented in the HPI. Review of Systems: CONST: Denies fever EYES: Denies blurry vision ENT: Denies nasal congestion C/V: Denies Chest pain RESP: Denies shortness of breath GI: Endorses abdominal pain : Denies dysuria SKIN: Denies rash. MSK: Denies joint pain. NEURO: Denies headache ROS Other: All systems not noted in ROS Statement are negative. Past Medical History Past Medical History: Coronary Artery Disease (CAD), Cancer, Sleep Apnea/CPAP/BIPAP Additional Past Medical History / Comment(s): Prostate CA-2019 received chemo received,uses cpap,tx with prednisone Dec 2021, History of Any Multi-Drug Resistant Organisms: None Reported Past Surgical History: Heart Catheterization With Stent, Hernia Repair Additional Past Surgical History / Comment(s): Cardiac Stent x3. TURP May 2024 Past Anesthesia/Blood Transfusion Reactions: No Reported Reaction Date of Last Stent Placement:: 2011,2013 Past Psychological History: No Psychological Hx Reported Smoking Status: Former smoker Past Alcohol Use History: None Reported Past Drug Use History: Marijuana - Past Family History Father Additional Family Medical History / Comment(s): Heart issues Mother Family Medical History: No Reported History Brother(s) Family Medical History: Cancer Additional Family Medical History / Comment(s): pancreatic General Exam - General Exam Comments Initial Comments: General: Appears in mild distress. HEAD: Normal with no signs of head trauma. EYES: PERRLA, EOMI, conjunctiva normal, no discharge. ENT: Hearing grossly intact, normal oropharynx. RESPIRATORY: Clear breath sounds bilaterally. No wheezes, rales, or rhonchi. C/V: Regular rate and rhythm. S1 and S2 auscultated, no edema, peripheral pulses 2+ and intact throughout ABD: Abdomen soft, nondistended. No focal tenderness to palpation. Catheter in place. EXT: Normal range of motion, no obvious deformity SKIN: No rashes or lesions observed on exposed skin. NEURO: Alert and oriented x 4. Limitations: no limitations Course Vital Signs 05/03/24 05/03/24 05/04/24 21:13 23:20 01:22 Temperature 98.1 F Pulse Rate 78 84 74 Respiratory 22 18 18 Rate Blood Pressure 123/80 124/85 119/78 O2 Sat by Pulse 92 L 98 98 Oximetry Medical Decision Making - Medical Decision Making Was pt. sent in by a medical professional or institution (, PA, CONTINUOUS LINTER DRIER OPERATOR, urgent care, hospital, or prison...) When possible be specific @ -No Did you speak to anyone other than the patient for history (EMS, parent, family, police, friend...)? What history was obtained from this source @ -No Did you review nursing and triage notes (agree or disagree)? Why? @ -I reviewed and agree with nursing and triage notes Were old charts reviewed (outside hosp., previous admission, EMS record, old EKG, old radiological studies, urgent care reports/EKG's, prison records)? Report findings @ -No old charts were reviewed Differential Diagnosis (chest pain, altered mental status, abdominal pain women, abdominal pain men, vaginal bleeding, weakness, fever, dyspnea, syncope, headache, dizziness, GI bleed, back pain, seizure, CVA, palpatations, mental health, musculoskeletal)? @ -Differential Abdominal Pain Men: Appendicitis, cholecystitis, diverticulosis, ischemic bowel, pancreatitis, hepatitis, UTI, gastroenteritis, AAA, incarcerated hernia, bowel obstruction, constipation, inflammatory bowel, hepatitis, peptic ulcer disease, splenic infarction, perforated viscus, testicular torsion, this is not meant to be an all-inclusive list EKG interpreted by me (3pts min.). @ -As above X-rays interpreted by me (1pt min.). @ -None done CT interpreted by me (1pt min.). @ -CT reveals pelvic mass likely related to his known prostate cancer. No evidence of small bowel obstruction or diverticulitis. Patient does have a fat- containing right inguinal hernia that is uncomplicated. Patient also has a Garcia catheter which is noted in the bladder. U/S interpreted by me (1pt. min.). @ -None done What testing was considered but not performed or refused? (CT, X-rays, U/S, labs)? Why? @ -None What meds were considered but not given or refused? Why? @ -None Did you discuss the management of the patient with other professionals (professionals i.e. , PA, CONTINUOUS LINTER DRIER OPERATOR, lab, RT, psych nurse, psych social worker, press operator carbon products, teacher, commissioned defence force officer, egg caser)? Give summary @ -No Was smoking cessation discussed for >3mins.? @ -No Was critical care preformed (if so, how long)? @ -No Were there social determinants of health that impacted care today? How? (Homelessness, low income, unemployed, alcoholism, drug addiction, transportation, low edu. Level, literacy, decrease access to med. care, custodial, rehab)? @ -No Was there de-escalation of care discussed even if they declined (Discuss DNR or withdrawal of care, Hospice)? DNR status @ -No What co-morbidities impacted this encounter? (DM, HTN, Smoking, COPD, CAD, Cancer, CVA, ARF, Chemo, Hep., AIDS, mental health diagnosis, sleep apnea, morbid obesity)? @ -Cancer Was patient admitted / discharged? Hospital course, mention meds given and route, prescriptions, significant lab abnormalities, going to OR and other pertinent info. @ -Patient presents emergency department with constipation and decreased flatulence. Acute intra-abdominal process. We will obtain abdominal workup as well as CT. Patient was given IV fluids, analgesia meds, antiemetics. Patient was in agreement this plan. Recent TURP procedure done and Garcia catheter was in place. No complaints regarding this. Vital signs within acceptable limits. EKG shows no signs of acute ischemia. Patient's labs are unremarkable. Urinalysis shows blood but as expected with recent TURP procedure. There was a long delay in obtaining CT results from radiology however then ended up showing no evidence of obvious acute intra-abdominal process. I updated the patient. He is resting comfortably at this time. I did offer admission for abdominal pain however he would like to go home. I believe is reasonable. Recommended he continue to daily use MiraLAX as well as stool softeners. He will follow-up with his PCP. He will return if worsening symptoms. I instructed the patient to follow up with their PCP in the next 1-3 days. I explained that the patient should return to the emergency department if they experience any worsening symptoms. Strict return precautions were discussed with the patient. The patient expressed understanding of these instructions. I answered all questions that the patient had. The patient was discharged home in good condition with their prescriptions and follow up information. Undiagnosed new problem with uncertain prognosis? @ -No Drug Therapy requiring intensive monitoring for toxicity (Heparin, Nitro, Insulin, Cardizem)? @ -No Were any procedures done? @ -No Diagnosis/symptom? @ -Constipation, abdominal pain of unknown etiology in the setting of cancer Acute, or Chronic, or Acute on Chronic? @ -Acute Uncomplicated (without systemic symptoms) or Complicated (systemic symptoms)? @ -Default Side effects of treatment? @ -None Exacerbation, Progression, or Severe Exacerbation] @ -No Poses a threat to life or bodily function? @ -Unlikely at this time. - Lab Data Result diagrams: 05/03/24 21:57 05/03/24 21:57 Lab Results 05/03/24 05/03/24 05/03/24 Range/Units 21:57 21:57 21:57 WBC 6.4 (3.8-10.6) k/uL RBC 3.31 L (4.30-5.90) m/uL Hgb 10.2 L (13.0-17.5) gm/dL Hct 30.8 L (39.0-53.0) % MCV 93.0 (80.0-100.0) fL MCH 30.8 (25.0-35.0) pg MCHC 33.2 (31.0-37.0) g/dL RDW 14.0 (11.5-15.5) % Plt Count 230 (150-450) k/uL MPV 9.1 Neutrophils % 81 % Lymphocytes % 12 % Monocytes % 5 % Eosinophils % 1 % Basophils % 0 % Neutrophils # 5.2 (1.3-7.7) k/uL Lymphocytes # 0.8 L (1.0-4.8) k/uL Monocytes # 0.3 (0-1.0) k/uL Eosinophils # 0.0 (0-0.7) k/uL Basophils # 0.0 (0-0.2) k/uL PT 11.0 (10.0-12.5) sec INR 1.0 (<1.2) APTT 23.9 (22.0-30.0) sec Sodium 131 L (137-145) mmol/L Potassium 4.2 (3.5-5.1) mmol/L Chloride 104 (98-107) mmol/L Carbon Dioxide 20 L (22-30) mmol/L Anion Gap 7 mmol/L BUN 11 (9-20) mg/dL Creatinine 0.55 L (0.66-1.25) mg/dL Est GFR (CKD-EPI)AfAm >90 (>60 ml/min/1.73 sqM) Est GFR (CKD-EPI)NonAf >90 (>60 ml/min/1.73 sqM) Glucose 103 H (74-99) mg/dL Plasma Lactic Acid Ashok (0.7-2.0) mmol/L Calcium 8.8 (8.4-10.2) mg/dL Total Bilirubin 1.1 (0.2-1.3) mg/dL AST 40 (17-59) U/L ALT 16 (4-49) U/L Alkaline Phosphatase 106 (38-126) U/L Total Protein 5.9 L (6.3-8.2) g/dL Albumin 3.4 L (3.5-5.0) g/dL Amylase 92 (30-110) U/L Lipase 140 (23-300) U/L Urine Color Urine Appearance (Clear) Urine pH (5.0-8.0) Ur Specific [place] (1.001-1.035) Urine Protein (Negative) Urine Glucose (UA) (Negative) Urine Ketones (Negative) Urine Blood (Negative) Urine Nitrite (Negative) Urine Bilirubin (Negative) Urine Urobilinogen (<2.0) mg/dL Ur Leukocyte Esterase (Negative) Urine RBC (0-5) /hpf Urine WBC (0-5) /hpf Urine Bacteria (None) /hpf 05/03/24 05/03/24 Range/Units 21:57 22:02 WBC (3.8-10.6) k/uL RBC (4.30-5.90) m/uL Hgb (13.0-17.5) gm/dL Hct (39.0-53.0) % MCV (80.0-100.0) fL MCH (25.0-35.0) pg MCHC (31.0-37.0) g/dL RDW (11.5-15.5) % Plt Count (150-450) k/uL MPV Neutrophils % % Lymphocytes % % Monocytes % % Eosinophils % % Basophils % % Neutrophils # (1.3-7.7) k/uL Lymphocytes # (1.0-4.8) k/uL Monocytes # (0-1.0) k/uL Eosinophils # (0-0.7) k/uL Basophils # (0-0.2) k/uL PT (10.0-12.5) sec INR (<1.2) APTT (22.0-30.0) sec Sodium (137-145) mmol/L Potassium (3.5-5.1) mmol/L Chloride (98-107) mmol/L Carbon Dioxide (22-30) mmol/L Anion Gap mmol/L BUN (9-20) mg/dL Creatinine (0.66-1.25) mg/dL Est GFR (CKD-EPI)AfAm (>60 ml/min/1.73 sqM) Est GFR (CKD-EPI)NonAf (>60 ml/min/1.73 sqM) Glucose (74-99) mg/dL Plasma Lactic Acid Ashok 0.9 (0.7-2.0) mmol/L Calcium (8.4-10.2) mg/dL Total Bilirubin (0.2-1.3) mg/dL AST (17-59) U/L ALT (4-49) U/L Alkaline Phosphatase (38-126) U/L Total Protein (6.3-8.2) g/dL Albumin (3.5-5.0) g/dL Amylase (30-110) U/L Lipase (23-300) U/L Urine Color Colorless Urine Appearance Clear (Clear) Urine pH 8.0 (5.0-8.0) Ur Specific [place] 1.002 (1.001-1.035) Urine Protein Trace H (Negative) Urine Glucose (UA) Negative (Negative) Urine Ketones Negative (Negative) Urine Blood Large H (Negative) Urine Nitrite Negative (Negative) Urine Bilirubin Negative (Negative) Urine Urobilinogen <2.0 (<2.0) mg/dL Ur Leukocyte Esterase Moderate H (Negative) Urine RBC 7 H (0-5) /hpf Urine WBC 3 (0-5) /hpf Urine Bacteria Rare H (None) /hpf - EKG Data -: EKG Interpreted by Me EKG Comments: 12-lead Electrocardiogram Interpretation Note EKG was reviewed and interpreted by myself. 12-lead ECG performed at 2216 is interpreted by me as revealing normal sinus rhythm at a rate of 71 beats per minute. Wink is normal. ME interval is 158 ms, QRS duration is 89 ms, QTc is 403 ms.. There were no ST or T wave abnormalities to suggest myocardial ischemia or injury. R wave progression across the precordium was satisfactory. By my interpretation this EKG is non-diagnostic for acute ischemia. Disposition Clinical Impression: Constipation, Abdominal pain of unknown etiology Disposition: HOME SELF-CARE Condition: Fair Instructions (If sedation given, give patient instructions): Constipation (ED), Abdominal Pain (ED) Is patient prescribed a controlled substance at d/c from ED?: No Referrals: Keshia Dupont MD [Primary Care Provider] - 1-2 days Time of Disposition: 02:36
[2024-05-04 01:31] VITALS: BP 119/78; PULSE 74
[2024-05-04 01:33] VITALS: RESP 18
--- NOTE | 2024-05-04 02:15 | CT ---
EXAM: CT Abdomen and Pelvis With Intravenous Contrast CLINICAL HISTORY: ITS.REASON CT Reason: abdominal pain nonfocal, constipation TECHNIQUE: Axial computed tomography images of the abdomen and pelvis with intravenous contrast. CTDI is 15.8 mGy and DLP is 1289.7 mGy-cm. This CT exam was performed using one or more of the following dose reduction techniques: automated exposure control, adjustment of the mA and/or kV according to patient size, and/or use of iterative reconstruction technique. COMPARISON: March 28, 2024. FINDINGS: Lung bases: Unremarkable. No mass. No consolidation. ABDOMEN: Liver: Unremarkable. No mass. Gallbladder and bile ducts: Unremarkable. No calcified stones. No ductal dilation. Pancreas: Unremarkable. No mass. No ductal dilation. Spleen: Unremarkable. No splenomegaly. Adrenals: Unremarkable. No mass. Kidneys and ureters: Renal cyst measuring up to 4 cm in the RIGHT kidney. No hydronephrosis. Stomach and bowel: Diverticulosis, without acute diverticulitis. No small bowel obstruction. No free intraperitoneal air. PELVIS: Appendix: No findings to suggest acute appendicitis. Bladder: Wall thickening of the urinary bladder which contains a Garcia catheter. Findings are consistent with UTI. Reproductive: Unremarkable as visualized. ABDOMEN and PELVIS: Intraperitoneal space: See below. Bones/joints: Degenerative changes of the spine. No acute fracture. No dislocation. Soft tissues: Indeterminate soft tissue masslike lesion in the pelvis, measures approximately 6.0 x 4.5 cm. This may represent a soft tissue malignancy or acleb mass. Correlate for history of cancer. PET/CT scan should be considered for further evaluation. Fat-containing RIGHT inguinal hernia. Vasculature: Atherosclerotic changes of the aorta. No abdominal aortic aneurysm. Lymph nodes: Unremarkable. No enlarged lymph nodes. IMPRESSION: 1. Wall thickening of the urinary bladder which contains a Garcia catheter. Findings are consistent with UTI. 2. Indeterminate soft tissue masslike lesion in the pelvis, measures approximately 6.0 x 4.5 cm. This may represent a soft tissue malignancy or caleb mass. Correlate for history of cancer. PET/CT scan should be considered for further evaluation. Similar when compared to March 28, 2024. 3. Fat-containing RIGHT inguinal hernia. 4. Diverticulosis, without acute diverticulitis. No small bowel obstruction. No free intraperitoneal air.
== END 2024-05-04 02:44 | disposition home or self-care (01) ==
LOC: EC 21:04
DX: K59.00 Constipation, unspecified (principal); K40.90 Unilateral inguinal hernia, without obstruction or gangrene, not specified as recurrent; Z87.891 Personal history of nicotine dependence; Z85.46 Personal history of malignant neoplasm of prostate
CPT/HCPCS: 36415; 93005; 80053; 82150; 83605; 83690; 85025; 85610; 85730; 81001; 74177; 99285; 96374; 96375 ×2; 96361; J2405; J1885; Q9967; J2470

== ENCOUNTER 2024-05-09 15:28 | Emergency (ER) | payer MEDICARE, BC ==
[2024-05-09 15:56] VITALS: RESP 18
--- NOTE | 2024-05-09 16:21 | ED ---
Male Urogenital HPI - General Chief complaint: Urogenital Stated complaint: Bladder retension/pain-sent by drs Time Seen by Provider: 05/09/24 15:55 Source: patient, RN notes reviewed Mode of arrival: ambulatory Limitations: no limitations - History of Present Illness Initial comments: This is a 68-year-old male who presents to the emergency department for urinary retention. States that he had a TURP one week ago and the Garcia catheter was removed yesterday. He was able to urinate afterwards initially, however he then had blood in his urine and afterwards was unable to urinate whatsoever. He has not been able to urinate since around 9 AM. Reports increasing abdominal pain. He is currently taking Keflex. - Related Data Home Medications Medication Instructions Recorded Confirmed Aspirin EC [Ecotrin Low Dose] 81 mg PO DAILY 07/23/19 01/22/22 Atorvastatin [Lipitor] 40 mg PO DAILY 07/23/19 01/22/22 Calcium Carbonate [Calcium] 600 mg PO HS 07/23/19 01/22/22 Enzalutamide [Xtandi] 40 mg PO QID 01/21/22 01/22/22 lisinopriL [Zestril] 5 mg PO QAM 01/21/22 01/22/22 Previous Rx's Medication Instructions Recorded Metoprolol Tartrate [Lopressor] 25 mg PO BID 30 Days #60 tab 07/24/19 Allergies Allergy/AdvReac Type Severity Reaction Status Date / Time No Known Allergies Allergy Verified 05/09/24 15:56 Review of Systems ROS Statement: Those systems with pertinent positive or pertinent negative responses have been documented in the HPI. ROS Other: All systems not noted in ROS Statement are negative. Past Medical History Past Medical History: Coronary Artery Disease (CAD), Cancer, Sleep Apnea/CPAP/BIPAP Additional Past Medical History / Comment(s): Prostate CA-2019 received chemo received,uses cpap,tx with prednisone Dec 2021, History of Any Multi-Drug Resistant Organisms: None Reported Past Surgical History: Heart Catheterization With Stent, Hernia Repair Additional Past Surgical History / Comment(s): Cardiac Stent x3. TURP May 2024 Past Anesthesia/Blood Transfusion Reactions: No Reported Reaction Date of Last Stent Placement:: 2011,2013 Past Psychological History: No Psychological Hx Reported Smoking Status: Former smoker Past Alcohol Use History: None Reported Past Drug Use History: Marijuana - Past Family History Father Additional Family Medical History / Comment(s): Heart issues Mother Family Medical History: No Reported History Brother(s) Family Medical History: Cancer Additional Family Medical History / Comment(s): pancreatic General Exam Limitations: no limitations General appearance: alert, in no apparent distress Head exam: Present: atraumatic, normocephalic, normal inspection Respiratory exam: Present: normal lung sounds bilaterally. Absent: respiratory distress, wheezes, rales, rhonchi, stridor Cardiovascular Exam: Present: regular rate, normal rhythm, normal heart sounds. Absent: systolic murmur, diastolic murmur, rubs, gallop, clicks GI/Abdominal exam: Present: soft, tenderness (suprapubic). Absent: distended Neurological exam: Present: alert, oriented X3, CN II-XII intact Psychiatric exam: Present: normal affect, normal mood Skin exam: Present: warm, dry, intact, normal color. Absent: rash Course Vital Signs 05/09/24 05/09/24 15:54 17:48 Temperature 98.0 F 98.1 F Pulse Rate 92 77 Respiratory 18 18 Rate Blood Pressure 153/95 177/84 O2 Sat by Pulse 100 99 Oximetry Medical Decision Making - Medical Decision Making This is a 68 year old male who presents to the emergency department for urinary retention. Was pt. sent in by a medical professional or institution? @ -No Did you speak to anyone other than the patient for history? @ -No Did you review nursing and triage notes? @ -Yes, and I agree, it is accurate with regards to the patient's symptoms. Were old charts reviewed? @ -No Differential Diagnosis? @ -Differential Urinary Retention: Blood clot, UTI, BPH, tumor, this is not meant to be an all-inclusive list. EKG interpreted by me (3pts min.)? @ -Not obtained X-rays interpreted by me (1pt min.)? @ -Not obtained CT interpreted by me (1pt min.)? @ -Not obtained U/S interpreted by me (1pt. min.)? @ -Not obtained What testing was considered but not performed? (CT, X-rays, U/S, labs)? Why? @ -None What meds were considered but not given? Why? @ -None Did you discuss the management of the patient with other professionals? @ -No Did you reconcile home meds? @ -No Was smoking cessation discussed for >3mins.? @ -No Was critical care preformed (if so, how long)? @ -No Were there social determinants of health that impacted care today? How? (Homelessness, low income, unemployed, alcoholism, drug addiction, transportation, low edu. Level, literacy, decrease access to med. care, shelter, rehab)? @ -No Was there de-escalation of care discussed even if they declined? (Discuss DNR or withdrawal of care, Hospice)? @ -No What co-morbidities impacted this encounter? (DM, HTN, Smoking, COPD, CAD, Cancer, CVA, Hep., AIDS, mental health diagnosis, sleep apnea, morbid obesity)? @ -None Was patient admitted / discharged? @ -Discharged. Bladder scan demonstrates approximately 300 mL of urine. Due to his discomfort and retention, Garcia catheter was placed. He had a fair amount of urine output and felt improved overall. Urinalysis does have some white blood cells, however he is already on Keflex. Urine sent for culture. Patient sent home with Garcia catheter in place and advised to follow-up with urology. Undiagnosed new problem with uncertain prognosis? @ -None Drug Therapy requiring intensive monitoring for toxicity (Heparin, Nitro, Insulin, Cardizem)? @ -None Were any procedures done? @ -None Diagnosis/symptom? @ -Urinary retention Acute, or Chronic, or Acute on Chronic? @ -Acute Uncomplicated (without systemic symptoms) or Complicated (systemic symptoms)? @ -Uncomplicated Side effects of treatment? @ -None Exacerbation, Progression, or Severe Exacerbation] @ -Not applicable Poses a threat to life or bodily function? @ -No Return precautions reviewed in depth, the patient is instructed to return to the emergency department with any new, worsening, or concerning symptoms. Patient verbalized understanding. This case was discussed in detail with the attending ED physician, Dr. Bob. Presentation, findings, and treatment plan discussed in detail as well. - Lab Data Lab Results 05/09/24 Range/Units 16:21 Urine Color Yellow Urine Appearance Clear (Clear) Urine pH 6.0 (5.0-8.0) Ur Specific [place] 1.016 (1.001-1.035) Urine Protein 1+ H (Negative) Urine Glucose (UA) Negative (Negative) Urine Ketones Negative (Negative) Urine Blood Large H (Negative) Urine Nitrite Negative (Negative) Urine Bilirubin Negative (Negative) Urine Urobilinogen <2.0 (<2.0) mg/dL Ur Leukocyte Esterase Moderate H (Negative) Urine RBC >182 H (0-5) /hpf Urine WBC 39 H (0-5) /hpf Urine Mucus Occasional H (None) /hpf Disposition Clinical Impression: Urinary retention Disposition: HOME SELF-CARE Instructions (If sedation given, give patient instructions): Urinary Retention in Men (ED) Additional Instructions: Return to the emergency department with any new, worsening, or concerning symptoms. Follow up with Dr. Gomez regarding the Garcia catheter. Follow up with your primary care provider in 1-2 days. Is patient prescribed a controlled substance at d/c from ED?: No Referrals: Keshia Dupont MD [Primary Care Provider] - 1-2 days Haja Gomez MD [STAFF PHYSICIAN] - 1-2 days
[2024-05-09] MEDS: DICYCLOMINE 10 MG/ML 2 ML AMP IM STA (16:47)
[2024-05-09 17:06] LABS: Appearance,Urine Clear (Clear); Bilirubin,Urine Negative (Negative); Blood,Urine Large (Negative); Color,Urine Yellow; Glucose,Urine (UA) Negative (Negative); Ketones,Urine Negative (Negative); Leukocyte Esterase,Urine Moderate (Negative); Mucus,Urine Occasional /hpf; Nitrite,Urine Negative (Negative); Protein,Urine 1+ (Negative); RBC,Urine >182 /hpf (0-5); Specific Gravity,Urine 1.016 (1.001-1.035); Urobilinogen,Urine <2.0 mg/dL (<2.0); WBC,Urine 39 /hpf (0-5)
[2024-05-09] MEDS: SIMETHICONE 80 MG CHEWABLE PO STA (17:07)
[2024-05-09] MEDS: HYDROmorphone 1 MG/ML 1 ML SYRINGE IM STA (17:26)
[2024-05-09 17:49] VITALS: BP 177/84; PULSE 77; TEMP 98.1
== END 2024-05-09 17:48 | disposition home or self-care (01) ==
LOC: EC 15:28
DX: R33.9 Retention of urine, unspecified (principal); Z87.891 Personal history of nicotine dependence
CPT/HCPCS: 81001; 87086; 99283; 96372 ×2; 51702; J0500; J1170

== ENCOUNTER 2024-05-10 00:13 | Inpatient (IN) | payer MEDICARE, BC ==
[2024-05-10] MEDS: ONDANSETRON 4 MG/2 ML VIAL IVP STA (01:34)
[2024-05-10] MEDS: HYDROmorphone 1 MG/ML 1 ML SYRINGE IVP STA ×2 (01:36→03:28)
[2024-05-10] MEDS: SODIUM CHLORIDE 0.9% 500 ML 500 ML IV STA (01:38)
[2024-05-10 01:50] LABS: Basophils % (A) 0 %; Eosinophils # (A) 0.1 k/uL (0-0.7); Eosinophils % (A) 2 %; HCT 30.9 % (39.0-53.0); HGB 10.2 gm/dL (13.0-17.5); Lymphocytes # (A) 0.6 k/uL (1.0-4.8); Lymphocytes % (A) 8 %; MCH 30.6 pg (25.0-35.0); MCHC 32.9 g/dL (31.0-37.0); MCV 92.9 fL (80.0-100.0); Mean Platelet Volume 8.5; Monocytes # (A) 0.3 k/uL (0-1.0); Monocytes % (A) 4 %; Neutrophils # (A) 5.8 k/uL (1.3-7.7); Neutrophils % (A) 85 %; Platelet Count 281 k/uL (150-450); RBC 3.32 m/uL (4.30-5.90); RDW 14.5 % (11.5-15.5); WBC 6.9 k/uL (3.8-10.6)
[2024-05-10 02:02] LABS: ALT 32 U/L (4-49); African American GFR (CKD) >90 (>60 ml/min/1.73 sqM); Anion Gap 9 mmol/L; Blood Urea Nitrogen 9 mg/dL (9-20); Calcium 9.2 mg/dL (8.4-10.2); Carbon Dioxide 18 mmol/L (22-30); Chloride 101 mmol/L (98-107); Glucose 153 mg/dL (74-99); Lipase 49 U/L (23-300); Non-African American GFR(CKD) >90 (>60 ml/min/1.73 sqM); Sodium 128 mmol/L (137-145)
[2024-05-10 02:05] LABS: Potassium 4.4 mmol/L (3.5-5.1)
[2024-05-10 02:06] LABS: AST 49 U/L (17-59); Albumin 3.5 g/dL (3.5-5.0); Alkaline Phosphatase 103 U/L (38-126); Total Protein 6.2 g/dL (6.3-8.2)
--- NOTE | 2024-05-10 03:34 | ED ---
Abdominal Pain HPI - General Chief Complaint: Abdominal Pain Stated Complaint: Abd pain Time Seen by Provider: 05/10/24 00:15 Source: patient Mode of arrival: wheelchair Limitations: no limitations - History of Present Illness Initial Comments: 68-year-old male with past medical history of metastatic prostate cancer who presents emergency department reporting lower abdominal pain. Patient was seen in the emergency department on May 04 for similar complaint. He had a CT performed which demonstrated a pelvic mass however no acute compression on any surrounding structures. Patient did have a TURP procedure 1 week ago. They removed his catheter yesterday. Patient was unable to void and therefore he was evaluated in the emergency department and a catheter was placed again. He states that it has been draining appropriately. Urine has been slightly pink in coloration. He has been having diarrhea. States that the stool is tarry and dark in coloration. Denies any fevers. Patient was aware of bony mets but does not have any recollection of a pelvic mass. He is supposed to start chemo on however states he does not feel as if he can make it at this point due to the intense amount of pain that he is having. - Related Data Home Medications Medication Instructions Recorded Confirmed Aspirin EC [Ecotrin Low Dose] 81 mg PO DAILY 07/23/19 01/22/22 Atorvastatin [Lipitor] 40 mg PO DAILY 07/23/19 01/22/22 Calcium Carbonate [Calcium] 600 mg PO HS 07/23/19 01/22/22 Enzalutamide [Xtandi] 40 mg PO QID 01/21/22 01/22/22 lisinopriL [Zestril] 5 mg PO QAM 01/21/22 01/22/22 Previous Rx's Medication Instructions Recorded Metoprolol Tartrate [Lopressor] 25 mg PO BID 30 Days #60 tab 07/24/19 Allergies Allergy/AdvReac Type Severity Reaction Status Date / Time No Known Allergies Allergy Verified 05/10/24 00:18 Review of Systems ROS Statement: Those systems with pertinent positive or pertinent negative responses have been documented in the HPI. ROS Other: All systems not noted in ROS Statement are negative. Past Medical History Past Medical History: Coronary Artery Disease (CAD), Cancer, Sleep Apnea/CPAP/BIPAP Additional Past Medical History / Comment(s): Prostate CA-2019 received chemo received,uses cpap,tx with prednisone Dec 2021, History of Any Multi-Drug Resistant Organisms: None Reported Past Surgical History: Heart Catheterization With Stent, Hernia Repair Additional Past Surgical History / Comment(s): Cardiac Stent x3. TURP May 2024 Past Anesthesia/Blood Transfusion Reactions: No Reported Reaction Date of Last Stent Placement:: Past Psychological History: No Psychological Hx Reported Smoking Status: Former smoker Past Alcohol Use History: None Reported Past Drug Use History: Marijuana - Past Family History Father Additional Family Medical History / Comment(s): Heart issues Mother Family Medical History: No Reported History Brother(s) Family Medical History: Cancer Additional Family Medical History / Comment(s): pancreatic General Exam Limitations: no limitations General appearance: alert, in distress Head exam: Present: atraumatic, normocephalic, normal inspection Eye exam: Present: normal appearance, PERRL, EOMI. Absent: scleral icterus, conjunctival injection, periorbital swelling ENT exam: Present: normal exam, mucous membranes moist Neck exam: Present: normal inspection. Absent: tenderness, meningismus, lymphadenopathy Respiratory exam: Present: normal lung sounds bilaterally. Absent: respiratory distress, wheezes, rales, rhonchi, stridor Cardiovascular Exam: Present: regular rate, normal rhythm, normal heart sounds. Absent: systolic murmur, diastolic murmur, rubs, gallop, clicks GI/Abdominal exam: Present: tenderness (Left and right lower quadrants as well as suprapubic), normal bowel sounds. Absent: distended, guarding, rebound, rigid Rectal exam: Present: heme (-) stool. Absent: black stool, bloody stool Extremities exam: Present: normal inspection, full ROM, normal capillary refill. Absent: tenderness, pedal edema, joint swelling, calf tenderness Back exam: Present: normal inspection Neurological exam: Present: alert, oriented X3, CN II-XII intact Psychiatric exam: Present: normal affect, normal mood Skin exam: Present: warm, dry, intact, normal color. Absent: rash Course Vital Signs 05/10/24 05/10/24 05/10/24 00:14 00:59 01:55 Temperature 98.6 F Pulse Rate 92 89 87 Respiratory 18 20 16 Rate Blood Pressure 154/91 168/98 154/94 O2 Sat by Pulse 100 100 99 Oximetry 05/10/24 05/10/24 05/10/24 02:32 05:38 06:29 Temperature Pulse Rate 85 71 68 Respiratory 16 16 16 Rate Blood Pressure 164/84 135/93 145/90 O2 Sat by Pulse 98 97 95 Oximetry Medical Decision Making - Medical Decision Making Was pt. sent in by a medical professional or institution ([facility], [facility], urgent c are, hospital, or [facility]...) When possible be specific @ -No Did you speak to anyone other than the patient for history (EMS, parent, family, police, friend...)? What history was obtained from this source @ -I spoke with the for history Did you review nursing and triage notes (agree or disagree)? Why? @ -I reviewed and agree with nursing and triage notes Were old charts reviewed (outside hosp., previous admission, EMS record, old EKG, old radiological studies, urgent care reports/EKG's, [facility] records)? Report findings @ -I reviewed patient's CT scan which was performed on May 04 Differential Diagnosis (chest pain, altered mental status, abdominal pain women, abdominal pain men, vaginal bleeding, weakness, fever, dyspnea, syncope, headache, dizziness, GI bleed, back pain, seizure, CVA, palpatations, mental health, musculoskeletal)? @ -Differential Abdominal Pain Men: Appendicitis, cholecystitis, diverticulosis, ischemic bowel, pancreatitis, hepatitis, UTI, gastroenteritis, AAA, incarcerated hernia, bowel obstruction, constipation, inflammatory bowel, hepatitis, peptic ulcer disease, splenic infarction, perforated viscus, testicular torsion, this is not meant to be an all-inclusive list EKG interpreted by me (3pts min.). @ -Not done X-rays interpreted by me (1pt min.). @ -yes and demonstrates no acute process CT interpreted by me (1pt min.). @ -None done U/S interpreted by me (1pt. min.). @ -None done What testing was considered but not performed or refused? (CT, X-rays, U/S, labs)? Why? @ -CT scan was considered however patient just had one 6 days ago for the same complaint What meds were considered but not given or refused? Why? @ -None Did you discuss the management of the patient with other professionals (professionals i.e. , DAVID, [facility], lab, RT, psych nurse, adoption social worker, business lawyer, teacher, parking regulation enforcement officer, director case management)? Give summary @ -Spoke with Dr. Zaman who will admit the patient Was smoking cessation discussed for >3mins.? @ -No Was critical care preformed (if so, how long)? @ -No Were there social determinants of health that impacted care today? How? (Homelessness, low income, unemployed, alcoholism, drug addiction, transportation, low edu. Level, literacy, decrease access to med. care, retirement, rehab)? @ -No Was there de-escalation of care discussed even if they declined (Discuss DNR or withdrawal of care, Hospice)? DNR status @ -No What co-morbidities impacted this encounter? (DM, HTN, Smoking, COPD, CAD, Canc er, CVA, ARF, Chemo, Hep., AIDS, mental health diagnosis, sleep apnea, morbid obesity)? @ -Prostate cancer Was patient admitted / discharged? Hospital course, mention meds given and route, prescriptions, significant lab abnormalities, going to OR and other pertinent info. @ -Upon arrival patient seen and evaluated in room 19. Thorough history and physical exam was performed patient reports to being in an immense amount of pain. IV was established. Bladder scan was performed and patient is not retaining any urine at this time. Garcia is in place. Laboratory studies are conducted. Rectal exam was performed and was negative for gross blood. Occult is negative. I did discuss repeat imaging however patient does not want repeat CT at this time. He did have a PET scan at the end of April at [facility]. I do attempt to obtain results from this however I am unsuccessful at this time. X-ray was performed. Patient reevaluated and continues to have immense amount of pain. Additional pain medications as ordered. Patient reports to progressive symptoms which she cannot tolerate any longer. I did offer admission with oncology to consult. Patient was agreeable to this. Spoke with Dr. Zaman who agreed to admit the patient Undiagnosed new problem with uncertain prognosis? @ -Yes Drug Therapy requiring intensive monitoring for toxicity (Heparin, Nitro, Insulin, Cardizem)? @ -No Were any procedures done? @ -No Diagnosis/symptom? @ -Acute abdominal pain, pelvic mass, history of prostate cancer Acute, or Chronic, or Acute on Chronic? @ -Acute Uncomplicated (without systemic symptoms) or Complicated (systemic symptoms)? @ -Complicated Side effects of treatment? @ -No Exacerbation, Progression, or Severe Exacerbation? @ -No Poses a threat to life or bodily function? How? (Chest pain, USA, ND, pneumonia, PE, COPD, DKA, ARF, appy, cholecystitis, CVA, Diverticulitis, Homicidal, Suicidal, threat to staff... and all critical care pts) @ -No - Lab Data Result diagrams: 05/10/24 01:05/10/24 01:30 Lab Results 05/10/24 05/10/24 05/10/24 Range/Units 01:30 01: 01:30 WBC 6.9 (3.8-10.6) k/uL RBC 3.32 L (4.30-5.90) m/uL Hgb 10.2 L (13.0-17.5) gm/dL Hct 30.9 L (39.0-53.0) % MCV 92.9 (80.0-100.0) fL MCH 30.6 (25.0-35.0) pg MCHC 32.9 (31.0-37.0) g/dL RDW 14.5 (11.5-15.5) % Plt Count 281 (150-450) k/uL MPV 8.5 Neutrophils % 85 % Lymphocytes % 8 % Monocytes % 4 % Eosinophils % 2 % Basophils % 0 % Neutrophils # 5.8 (1.3-7.7) k/uL Lymphocytes # 0.6 L (1.0-4.8) k/uL Monocytes # 0.3 (0-1.0) k/uL Eosinophils # 0.1 (0-0.7) k/uL Basophils # 0.0 (0-0.2) k/uL Sodium 128 L (137-145) mmol/L Potassium 4.4 (3.5-5.1) mmol/L Chloride 101 (98-107) mmol/L Carbon Dioxide 18 L (22-30) mmol/L Anion Gap 9 mmol/L BUN 9 (9-20) mg/dL Creatinine 0.46 L (0.66-1.25) mg/dL Est GFR (CKD-EPI)AfAm >90 (>60 ml/min/1.73 sqM) Est GFR (CKD-EPI)NonAf >90 (>60 ml/min/1.73 sqM) Glucose 153 H (74-99) mg/dL Plasma Lactic Acid Ashok 0.8 (0.7-2.0) mmol/L Calcium 9.2 (8.4-10.2) mg/dL Total Bilirubin 1.0 (0.2-1.3) mg/dL AST 49 (17-59) U/L ALT 32 (4-49) U/L Alkaline Phosphatase 103 (38-126) U/L Total Protein 6.2 L (6.3-8.2) g/dL Albumin 3.5 (3.5-5.0) g/dL Lipase 49 (23-300) U/L Stool Occult Blood (Negative) 05/10/24 Range/Units 02:31 WBC (3.8-10.6) k/uL RBC (4.30-5.90) m/uL Hgb (13.0-17.5) gm/dL Hct (39.0-53.0) % MCV (80.0-100.0) fL MCH (25.0-35.0) pg MCHC (31.0-37.0) g/dL RDW (11.5-15.5) % Plt Count (150-450) k/uL MPV Neutrophils % % Lymphocytes % % Monocytes % % Eosinophils % % Basophils % % Neutrophils # (1.3-7.7) k/uL Lymphocytes # (1.0-4.8) k/uL Monocytes # (0-1.0) k/uL Eosinophils # (0-0.7) k/uL Basophils # (0-0.2) k/uL Sodium (137-145) mmol/L Potassium (3.5-5.1) mmol/L Chloride (98-107) mmol/L Carbon Dioxide (22-30) mmol/L Anion Gap mmol/L BUN (9-20) mg/dL Creatinine (0.66-1.25) mg/dL Est GFR (CKD-EPI)AfAm (>60 ml/min/1.73 sqM) Est GFR (CKD-EPI)NonAf (>60 ml/min/1.73 sqM) Glucose (74-99) mg/dL Plasma Lactic Acid Ashok (0.7-2.0) mmol/L Calcium (8.4-10.2) mg/dL Total Bilirubin (0.2-1.3) mg/dL AST (17-59) U/L ALT (4-49) U/L Alkaline Phosphatase (38-126) U/L Total Protein (6.3-8.2) g/dL Albumin (3.5-5.0) g/dL Lipase (23-300) U/L Stool Occult Blood Negative (Negative) Disposition Clinical Impression: Abdominal pain, Prostate cancer Disposition: ADMITTED IP TO THIS [facility] Condition: Stable Is patient prescribed a controlled substance at d/c from ED?: No Time of Disposition: 03:37 Decision to Admit Reason: Admit from EC Decision Date: 05/10/24 Decision Time: 03:37
[2024-05-10] MEDS ORDERED: NALOXONE 0.4 MG/ML 1 ML VIAL IV PRN (03:38)
[2024-05-10] MEDS: SODIUM CHLORIDE 0.9% 1,000 ML IV SCH (03:56)
[2024-05-10] MEDS: HYDROmorphone 1 MG/ML 1 ML SYRINGE IVP PRN (06:26)
--- NOTE | 2024-05-10 07:24 | XR ---
EXAMINATION TYPE: XR KUB DATE OF EXAM: 05/10/2024 COMPARISON: 09/09/2023 INDICATION: Abdominal pain history of bone cancer TECHNIQUE: Single view abdomen frontal projection FINDINGS: There is a normal bowel gas pattern. Psoas margins are normal. No organomegaly is present. Large osteophytes are present on the left lateral lumbar spine. There is increased density within the lower thoracic spine vertebral bodies. There is a rounded density at the medial right ilium. Additio nal rounded sclerotic areas within the right femoral neck. IMPRESSION: 1. Sclerotic areas within the thoracic spine and within the right hip and ileum. Metastatic disease c ould be considered. 2. Acute intra-abdominal process not radiographically apparent.
[2024-05-10] MEDS ORDERED: ONDANSETRON 4 MG/2 ML VIAL IVP PRN (09:14)
[2024-05-10] MEDS: TAMSULOSIN 0.4 MG CAP.ER.24H PO SCH (09:30)
--- NOTE | 2024-05-10 10:37 | P.HPIM ---
History of Present Illness H&P Date: 05/10/24 This is a 68-year-old male patient of Dr. Dupont who presented with concerns of acute abdominal pain with nausea and vomiting. Patient has a history of prostate cancer as diagnosed 7 years agoPer records and family patient underwent recent computed tomography scan showing masslike lesion in the pelvis. Patient follows with oncology services. Patient also reports he underwent TURP with Dr. Rivas last week and had Garcia catheter removed on Wednesday.Additional medical history includes coronary artery disease with previous cardiac stents sleep apnea and hernia repair.KUB x-ray completed showing lytic areas within the thoracic spine and within the right hip and ilium metastatic disease should be considered. Acute intra-abdominal process. At this time patient will be admitted patient started on IV pain control with DilaudidAnd nausea medication of Zofran. Oncology and urology service is consulted. At this time patient is complaining about lower abdomen pain that is constant. Patient does report improvement with IV Dilaudid. Denies nausea or vomiting at this time. Patient denies chest pain or shortness breath. Patient denies any urinary burning or frequency. Current vital signs temp 98.6, Heart rate 68, respiratory rate 16, blood pressure 145/90 with pulse ox 95% on 2 L Review of Systems Please refer to HPI otherwise unremarkable Past Medical History Past Medical History: Coronary Artery Disease (CAD), Cancer, Sleep Apnea/CPAP/BIPAP Additional Past Medical History / Comment(s): Prostate CA-2019 received chemo received,uses cpap,tx with prednisone Dec 2021, History of Any Multi-Drug Resistant Organisms: None Reported Past Surgical History: Heart Catheterization With Stent, Hernia Repair Additional Past Surgical History / Comment(s): Cardiac Stent x3. TURP May 2024 Past Anesthesia/Blood Transfusion Reactions: No Reported Reaction Date of Last Stent Placement:: 2011,2013 Past Psychological History: No Psychological Hx Reported Smoking Status: Former smoker Past Alcohol Use History: None Reported Past Drug Use History: Marijuana - Past Family History Father Additional Family Medical History / Comment(s): Heart issues Mother Family Medical History: No Reported History Brother(s) Family Medical History: Cancer Additional Family Medical History / Comment(s): pancreatic Medications and Allergies Home Medications Medication Instructions Recorded Confirmed Type Aspirin EC [Ecotrin Low Dose] 81 mg PO DAILY 07/23/19 05/10/24 History Atorvastatin [Lipitor] 40 mg PO HS 07/23/19 05/10/24 History Calcium Carbonate [Calcium] 600 mg PO DAILY 07/23/19 05/10/24 History ALPRAZolam [Xanax] 0.25 mg PO Q6H PRN 05/10/24 05/10/24 History Acetaminophen Tab [Tylenol Tab] 500 - 1,000 mg PO Q6H PRN 05/10/24 05/10/24 History Cholecalciferol [Vitamin D3 (125 125 mcg PO DAILY 05/10/24 05/10/24 History Mcg = 5000 Iu)] Darolutamide [Nubeqa] 600 mg PO BID-W/MEALS 05/10/24 05/10/24 History Diphenoxylate HCl/Atropine 1 - 2 tab PO QID PRN 05/10/24 05/10/24 History [Lomotil 2.5-0.025 mg Tablet] Ferrous Sulfate [Feosol] 325 mg PO BID 05/10/24 05/10/24 History HYDROmorphone HCL 2 mg PO Q4H PRN 05/10/24 05/10/24 History Ibuprofen [Advil] 200 - 400 mg PO Q6H PRN 05/10/24 05/10/24 History Loratadine [Claritin] 10 mg PO DAILY 05/10/24 05/10/24 History Magnesium Oxide [Magnesium] 1,000 mg PO DAILY 05/10/24 05/10/24 History Prochlorperazine [Compazine] 10 mg PO Q6H PRN 05/10/24 05/10/24 History Simethicone [Gas-X] 125 mg PO QID PRN 05/10/24 05/10/24 History Tamsulosin [Flomax] 0.4 mg PO BID 05/10/24 05/10/24 History polyethylene glycoL 3350 [Miralax] 17 gm PO DAILY 05/10/24 05/10/24 History predniSONE 10 mg PO DAILY 05/10/24 05/10/24 History Allergies Allergy/AdvReac Type Severity Reaction Status Date / Time No Known Allergies Allergy Verified 05/10/24 07:37 Physical Exam Vitals: Vital Signs Temp Pulse Resp BP Pulse Ox 05/10/24 06:29 68 16 145/90 95 05/10/24 05:38 71 16 135/93 97 07/10/24 02:32 85 16 164/84 98 05/10/24 01:55 87 16 154/94 99 05/10/24 00:59 89 20 168/98 100 05/10/24 00:14 98.6 F 92 18 154/91 100 Intake and Output 05/09/24 05/10/24 05/10/24 22:59 06:59 14:59 Other: Weight 99.79 kg Head normocephalic Neck supple Lungs clear to auscultation bilaterally no wheezing or crackles Heart regular rate and rhythm S1-S2, no rub or gallop Abdomen is soft Lower abdomen tender to palpation Extremities no edema Neuro alert and orientated to 3 Results CBC & Chem 7: 05/10/24 01:30 05/10/24 01:30 Labs: Abnormal Lab Results - Last 24 Hours (Table) 05/10/24 05/10/24 Range/Units 01:30 01:30 RBC 3.32 L (4.30-5.90) m/uL Hgb 10.2 L (13.0-17.5) gm/dL Hct 30.9 L (39.0-53.0) % Lymphocytes # 0.6 L (1.0-4.8) k/uL Sodium 128 L (137-145) mmol/L Carbon Dioxide 18 L (22-30) mmol/L Creatinine 0.46 L (0.66-1.25) mg/dL Glucose 153 H (74-99) mg/dL Total Protein 6.2 L (6.3-8.2) g/dL Assessment and Plan Assessment: 1. Intractable abdominal pain with nausea and vomiting 2. History of prostate cancer with concerns of metastatic disease from recent computed tomography scan 3. Recent TURP with Dr. Rivas. Patient reports he had Garcia catheter removed on wednesday 4. History of sleep apnea 5. History of coronary artery disease with previous heart stents 6. Hyponatremia likely secondary from nausea vomiting and decreased appetite patient continue on normal saline at 75. repeat labs ordered DVT prophylaxis Lovenox. GI prophylaxis Protonix Oncology service is consulted Urology service is consulted IV Dilaudid for pain control Repeat labs ordered Time with Patient: Greater than 30 (Greater than 60% of the total time spent in counseling and coordination of care)
[2024-05-10] MEDS: CEPHALEXIN 500 MG CAP PO SCH (13:40)
--- NOTE | 2024-05-10 17:09 | P.GSCN ---
History of Present Illness Consult date: 05/10/24 Reason for Consult: Abdominal pain, urinary retention History of present illness: This is a 68-year-old male with history of castrate resistance widespread metastatic prostate cancer. He recently underwent a TURP on May 02, catheter was removed this Wednesday, he indicated following catheter removal he has been able to void, but subsequently became more difficult. This was associated with severe abdominal and bilateral groin pain. He did present to the emergency department yesterday and had a catheter placed for postvoid residual 300 mL. Denies any dysuria or gross hematuria. Some improvement of pain with catheter placement, but pain reoccurred. He also underwent a CT abdomen and pelvis which showed evidence of progression of his pelvic lymphadenopathy with a 6 cm pelvic mass. Subsequently medical oncology and radiation oncology has been consulted for this finding. His catheter is in place draining clear yellow urine, CT did show circumferential bladder wall thickening which is anticipated given his recent surgery Review of Systems - Constitutional Denies fever, Denies weight loss - Cardiovascular Denies chest pain, Denies shortness of breath - Respiratory Denies cough, Denies 7 - Gastrointestinal Reports abdominal pain, Denies nausea, Denies vomiting - Genitourinary Denies flank pain, Denies hematuria Past Medical History Past Medical History: Coronary Artery Disease (CAD), Cancer, Sleep Apnea/CPAP/BIPAP Additional Past Medical History / Comment(s): Prostate CA-2019 received chemo received,uses cpap,tx with prednisone Dec 2021, History of Any Multi-Drug Resistant Organisms: None Reported Past Surgical History: Heart Catheterization With Stent, Hernia Repair Additional Past Surgical History / Comment(s): Cardiac Stent x3. TURP May 2024 Past Anesthesia/Blood Transfusion Reactions: No Reported Reaction Date of Last Stent Placement:: Past Psychological History: No Psychological Hx Reported Smoking Status: Former smoker Past Alcohol Use History: None Reported Past Drug Use History: Marijuana - Past Family History Father Additional Family Medical History / Comment(s): Heart issues Mother Family Medical History: No Reported History Brother(s) Family Medical History: Cancer Additional Family Medical History / Comment(s): pancreatic Medications and Allergies Home Medications Medication Instructions Recorded Confirmed Type Aspirin EC [Ecotrin Low Dose] 81 mg PO DAILY 07/23/19 05/10/24 History Atorvastatin [Lipitor] 40 mg PO HS 07/23/19 05/10/24 History Calcium Carbonate [Calcium] 600 mg PO DAILY 07/23/19 05/10/24 History ALPRAZolam [Xanax] 0.25 mg PO Q6H PRN 05/10/24 05/10/24 History Acetaminophen Tab [Tylenol Tab] 500 - 1,000 mg PO Q6H PRN 05/10/24 05/10/24 History Cephalexin [Keflex] 500 mg PO Q12HR 05/10/24 05/10/24 History Cholecalciferol [Vitamin D3 (125 125 mcg PO DAILY 05/10/24 05/10/24 History Mcg = 5000 Iu)] Darolutamide [Nubeqa] 600 mg PO BID-W/MEALS 05/10/24 05/10/24 History Diphenoxylate HCl/Atropine 1 - 2 tab PO QID PRN 05/10/24 05/10/24 History [Lomotil 2.5-0.025 mg Tablet] Ferrous Sulfate [Feosol] 325 mg PO BID 05/10/24 05/10/24 History HYDROmorphone HCL 2 mg PO Q4H PRN 05/10/24 05/10/24 History Ibuprofen [Advil] 200 - 400 mg PO Q6H PRN 05/10/24 05/10/24 History Loratadine [Claritin] 10 mg PO DAILY 05/10/24 05/10/24 History Magnesium Oxide [Magnesium] 1,000 mg PO DAILY 05/10/24 05/10/24 History Prochlorperazine [Compazine] 10 mg PO Q6H PRN 05/10/24 05/10/24 History Simethicone [Gas-X] 125 mg PO QID PRN 05/10/24 05/10/24 History Tamsulosin [Flomax] 0.4 mg PO BID 05/10/24 05/10/24 History polyethylene glycoL 3350 [Miralax] 17 gm PO DAILY 05/10/24 05/10/24 History predniSONE 10 mg PO DAILY 05/10/24 05/10/24 History Allergies Allergy/AdvReac Type Severity Reaction Status Date / Time No Known Allergies Allergy Verified 05/10/24 07:37 Surgical - Exam Vital Signs Temp Pulse Resp BP Pulse Ox 98.6 F 92 18 154/91 100 05/10/24 00:14 05/10/24 00:14 05/10/24 00:14 05/10/24 00:14 05/10/24 00:14 - General no distress, moderate pain - Eyes normal ocular movement, no pale - ENT normal nares, normal mucosa - Respiratory normal expansion, normal respiratory effort - Abdomen Abdomen: soft, tender (Lower quadrant), no distended - Psychiatric oriented to time, oriented to person, oriented to place Results - Labs 05/10/24 01:30 05/10/24 01:30 Abnormal Lab Results - Last 24 Hours (Table) 05/10/24 05/10/24 Range/Units 01:30 01:30 RBC 3.32 L (4.30-5.90) m/uL Hgb 10.2 L (13.0-17.5) gm/dL Hct 30.9 L (39.0-53.0) % Lymphocytes # 0.6 L (1.0-4.8) k/uL Sodium 128 L (137-145) mmol/L Carbon Dioxide 18 L (22-30) mmol/L Creatinine 0.46 L (0.66-1.25) mg/dL Glucose 153 H (74-99) mg/dL Total Protein 6.2 L (6.3-8.2) g/dL Diabetes panel 05/10/24 Range/Units 01:30 Sodium 128 L (137-145) mmol/L Potassium 4.4 (3.5-5.1) mmol/L Chloride 101 (98-107) mmol/L Carbon Dioxide 18 L (22-30) mmol/L BUN 9 (9-20) mg/dL Creatinine 0.46 L (0.66-1.25) mg/dL Glucose 153 H (74-99) mg/dL Calcium 9.2 (8.4-10.2) mg/dL AST 49 (17-59) U/L ALT 32 (4-49) U/L Alkaline Phosphatase 103 (38-126) U/L Total Protein 6.2 L (6.3-8.2) g/dL Albumin 3.5 (3.5-5.0) g/dL Calcium panel 05/10/24 Range/Units 01:30 Calcium 9.2 (8.4-10.2) mg/dL Albumin 3.5 (3.5-5.0) g/dL Pituitary panel 05/10/24 Range/Units 01:30 Sodium 128 L (137-145) mmol/L Potassium 4.4 (3.5-5.1) mmol/L Chloride 101 (98-107) mmol/L Carbon Dioxide 18 L (22-30) mmol/L BUN 9 (9-20) mg/dL Creatinine 0.46 L (0.66-1.25) mg/dL Glucose 153 H (74-99) mg/dL Calcium 9.2 (8.4-10.2) mg/dL Adrenal panel 05/10/24 Range/Units 01:30 Sodium 128 L (137-145) mmol/L Potassium 4.4 (3.5-5.1) mmol/L Chloride 101 (98-107) mmol/L Carbon Dioxide 18 L (22-30) mmol/L BUN 9 (9-20) mg/dL Creatinine 0.46 L (0.66-1.25) mg/dL Glucose 153 H (74-99) mg/dL Calcium 9.2 (8.4-10.2) mg/dL Total Bilirubin 1.0 (0.2-1.3) mg/dL AST 49 (17-59) U/L ALT 32 (4-49) U/L Alkaline Phosphatase 103 (38-126) U/L Total Protein 6.2 L (6.3-8.2) g/dL Albumin 3.5 (3.5-5.0) g/dL Assessment and Plan Assessment: 68-year-old male history of cancer resistant prostate cancer, underwent a TURP for urinary retention on May 02 catheter was removed on May 08 he was initially able to void with voiding became more difficult. Admitted to the hospital with intractable groin pain, CT abdomen pelvis showed progression of his cancer with evidence of 6 cm r pelvic mass, subsequently medical and radiation oncology has been consulted for this finding. Pain is unrelated to his TURP, as there is no significant improvement with catheter decompression his urine is clear, the circumferential bladder wall thickening is anticipated post surgery. -Follow-up on radiation oncology medical oncology Andres -Recommend keeping the Garcia catheter in for now, he can have a trial of void prior to discharge
[2024-05-10] MEDS ORDERED: DAROLUTAMIDE 600 MG PO SCH (17:30)
[2024-05-10] MEDS: FERROUS SULFATE 325 MG TAB PO SCH (18:10)
--- NOTE | 2024-05-10 20:12 | P.CONS ---
History of Present Illness - Reason for Consult Consult date: 05/10/24 prostate adenocarcinoma, pelvic mass Requesting physician: Rola Briggs - Chief Complaint pelvic pain - History of Present Illness Mr. Nain Mcknight is a 68-year-old male patient of Dr. Bruno Lynch who was found to have an asymptomatic elevation of PSA at 41 July 2017. He had TRUS 08/19/2017 with random prostate biopsies revealing adenocarcinoma in 11 of 12 cores, [place] 7/8. Bone scan revealed multiple bony metastasis, no visceral mets. He was started on Firmagon with Dr. Carreno of urology. He was referred to medical oncology for consideration of systemic chemotherapy and rank ligand inhibitor treatment. Patient did start Taxotere at the end of 2016, completed 8 cycles in March 2018. He continued on ADT with lupron and Xgeva. Did well until 06/2020 when he had disease progression in bones so he was started in zytiga/pred and cont ADT and xgeva. He did well until 10/2021 when PSA noted to be increasing, zytiga discontinued and started xtandi. 08/21/22 bone scan showed slight progression. December 2022 was seen at [facility], PSMA scan done, bone only disease. PSMA-Lili 177 advised but limited availability. Started Nubequa, waiting availability of [id number]-[id number] (pluvicto). He received 1st Tx 05/07/23 and completed 6 cycles 12/2023. Did well until 03/2024 when he reported hematuria and urinary hesitancy. By April he needed catheter for urination. Cystoscopy found locally recurrent disease, biopsy positive for prostate adenocarcinoma. Bone scan progr essive bone mets and PSA was rising. Plan to start jevtana, 1st cycle tomorrow. He is seen in ER today, came in as he had wang cath removed earlier this week after the TURP. Progressively he has not been able to urinate, also he is having intractable suprapubic pain, radiated to the anterior hips and rt groin. Wang placed with lg amt of pink tinged urine drained, IV pain meds are managing pain. He has been on abx for recent TURP, due to complete tomorrow. He is reporting dark stools, had 1 episode of hematemesis. Hgb 10.2, CBC otherwise unremarkable. KUB xray reporting sclerotic lesions in thoracic spine, right hip and ileum. He has lost about 20lbs in few weeks, appetite is poor. No fevers, cough, upper abd pain. Review of Systems 14 point ROS is neg except as stated in HPI Past Medical History Past Medical History: Coronary Artery Disease (CAD), Cancer, Sleep Apnea/CPAP/BIPAP Additional Past Medical History / Comment(s): Prostate CA-2019 received chemo received,uses cpap,tx with prednisone Dec 2021, History of Any Multi-Drug Resistant Organisms: None Reported Past Surgical History: Heart Catheterization With Stent, Hernia Repair Additional Past Surgical History / Comment(s): Cardiac Stent x3. TURP May 2024 Past Anesthesia/Blood Transfusion Reactions: No Reported Reaction Date of Last Stent Placement:: Past Psychological History: No Psychological Hx Reported Smoking Status: Former smoker Past Alcohol Use History: None Reported Past Drug Use History: Marijuana - Past Family History Father Additional Family Medical History / Comment(s): Heart issues Mother Family Medical History: No Reported History Brother(s) Family Medical History: Cancer Additional Family Medical History / Comment(s): pancreatic Medications and Allergies Home Medications Medication Instructions Recorded Confirmed Type Aspirin EC [Ecotrin Low Dose] 81 mg PO DAILY 07/23/19 05/10/24 History Atorvastatin [Lipitor] 40 mg PO HS 07/23/19 05/10/24 History Calcium Carbonate [Calcium] 600 mg PO DAILY 07/23/19 05/10/24 History ALPRAZolam [Xanax] 0.25 mg PO Q6H PRN 05/10/24 05/10/24 History Acetaminophen Tab [Tylenol Tab] 500 - 1,000 mg PO Q6H PRN 05/10/24 05/10/24 History Cephalexin [Keflex] 500 mg PO Q12HR 05/10/24 05/10/24 History Cholecalciferol [Vitamin D3 (125 125 mcg PO DAILY 05/10/24 05/10/24 History Mcg = 5000 Iu)] Darolutamide [Nubeqa] 600 mg PO BID-W/MEALS 05/10/24 05/10/24 History Diphenoxylate HCl/Atropine 1 - 2 tab PO QID PRN 05/10/24 05/10/24 History [Lomotil 2.5-0.025 mg Tablet] Ferrous Sulfate [Feosol] 325 mg PO BID 05/10/24 05/10/24 History HYDROmorphone HCL 2 mg PO Q4H PRN 05/10/24 05/10/24 History Ibuprofen [Advil] 200 - 400 mg PO Q6H PRN 05/10/24 05/10/24 History Loratadine [Claritin] 10 mg PO DAILY 05/10/24 05/10/24 History Magnesium Oxide [Magnesium] 1,000 mg PO DAILY 05/10/24 05/10/24 History Prochlorperazine [Compazine] 10 mg PO Q6H PRN 05/10/24 05/10/24 History Simethicone [Gas-X] 125 mg PO QID PRN 05/10/24 05/10/24 History Tamsulosin [Flomax] 0.4 mg PO BID 05/10/24 05/10/24 History polyethylene glycoL 3350 [Miralax] 17 gm PO DAILY 05/10/24 05/10/24 History predniSONE 10 mg PO DAILY 05/10/24 05/10/24 History Allergies Allergy/AdvReac Type Severity Reaction Status Date / Time No Known Allergies Allergy Verified 05/10/24 07:37 Physical Exam Vitals: Vital Signs Temp Pulse Resp BP Pulse Ox 05/10/24 09:37 76 17 120/89 99 05/10/24 06:29 68 16 145/90 95 05/10/24 05:38 71 16 135/93 97 05/10/24 02:32 85 16 164/84 98 05/10/24 01:55 87 16 154/94 99 05/10/24 00:59 89 20 168/98 100 05/10/24 00:14 98.6 F 92 18 154/91 100 Intake and Output 05/09/24 05/10/24 05/10/24 22:59 06:59 14:59 Output Total 525 Balance -525 Output: Urine 525 Other: Weight 99.79 kg - Constitutional General appearance: average body habitus, cooperative, no acute distress - EENT Eyes: anicteric sclerae, EOMI ENT: hearing grossly normal, normal oropharynx - Neck Neck: no lymphadenopathy - Respiratory Respiratory: bilateral: CTA - Cardiovascular Rhythm: regular Heart sounds: normal: S1, S2 Abnormal Heart Sounds: no systolic murmur, no diastolic murmur, no rub, no S3 Gallop, no S4 Gallop, no click, no other leg Peripheral Edema: bilateral: None - Gastrointestinal General gastrointestinal: no absent bowel sounds, no decreased bowel sounds, no distended, no hepatomegaly, no hyperactive bowel sounds, normal bowel sounds, no organomegaly, no rigid, no scaphoid, soft, no splenomegaly, tenderness, no umbilical hernia, no ventral hernia Localized gastrointestinal: tender: suprabubic - Integumentary Integumentary: normal, normal turgor - Neurologic Neurologic: CNII-XII intact - Musculoskeletal Musculoskeletal: strength equal bilaterally - Psychiatric Psychiatric: A&O x's 3, appropriate affect, intact judgment & insight Results CBC & Chem 7: 05/10/24 01:30 05/10/24 01:30 Labs: Abnormal Lab Results - Last 24 Hours (Table) 05/10/24 05/10/24 Range/Units 01:30 01:30 RBC 3.32 L (4.30-5.90) m/uL Hgb 10.2 L (13.0-17.5) gm/dL Hct 30.9 L (39.0-53.0) % Lymphocytes # 0.6 L (1.0-4.8) k/uL Sodium 128 L (137-145) mmol/L Carbon Dioxide 18 L (22-30) mmol/L Creatinine 0.46 L (0.66-1.25) mg/dL Glucose 153 H (74-99) mg/dL Total Protein 6.2 L (6.3-8.2) g/dL Abdominal x-ray: report reviewed Assessment and Plan (1) Urinary retention Current Visit: Yes Status: Acute Priority: High Code(s): R33.9 - RETENTION OF URINE, UNSPECIFIED SNOMED Code(s): 141054540 (2) Abdominal pain Current Visit: Yes Status: Acute Priority: High Code(s): R10.9 - UNSPECIFIED ABDOMINAL PAIN SNOMED Code(s): 18315843 (3) Prostate cancer Current Visit: Yes Status: Acute Priority: High Code(s): C61 - MALIGNANT NEOPLASM OF PROSTATE SNOMED Code(s): 606557999 Plan: Urinary retention -Recent TURP and wang removal -Wang replaced and is draining pink tinged urine without difficulty -Urology consulted, pending their assessment and recommendations Abd pain -Persistent, progressive -Suspect 2/2 pelvic mass vs bone mets. -MRI pelvis ordered -Discussed case with Rad Onc. Consulted Rad Onc. Met prostate adenocarcinoma -Recent disease progression-see HPI for malignancy details -Plans to start new regimen this week with cabazitaxel and pred. This will be held until pt completes radiation and pain is under better control. Reports of black stool. Monitor output and Hgb attests:I have seen and examined pt, performed H&P, developed impression and plan of care. Discussed with dictator. Agree with documentation, dictated as a scribe.
[2024-05-10] MEDS: ATORVASTATIN 40 MG TAB PO SCH (21:57)
[2024-05-11] MEDS: ASPIRIN 81 MG PO SCH (08:10)
[2024-05-11] MEDS: CALCIUM CARBONATE 500 MG CHEWABLE PO SCH (08:10)
[2024-05-11] MEDS: LORATADINE 10 MG TAB PO SCH (08:10)
[2024-05-11] MEDS: PANTOPRAZOLE 40 MG TABLET PO SCH ×2 (08:10→17:35)
[2024-05-11] MEDS: CHOLECALCIFEROL 125 MCG (5000 IU) TABLET PO SCH (08:11)
[2024-05-11] MEDS: ENOXAPARIN 40 MG/0.4 ML SYRINGE SQ SCH (08:11)
[2024-05-11 08:54] LABS: Basophils # (A) 0.03 X 10*3/uL (0.00-0.10); Basophils % (A) 0.4 %; Eosinophils # (A) 0.05 X 10*3/uL (0.04-0.35); Eosinophils % (A) 0.7 %; HCT 29.1 % (39.6-50.0); HGB 9.3 g/dL (13.0-17.0); Lymphocytes # (A) 0.68 X 10*3/uL (0.90-5.00); Lymphocytes % (A) 10.2 %; MCH 29.8 pg (27.0-32.0); MCV 93.3 FL (80.0-97.0); Mean Platelet Volume 10.7 FL (9.5-12.2); Monocytes # (A) 0.76 X 10*3/uL (0.20-1.00); Monocytes % (A) 11.4 %; NRBC Per 100 WBC 0 X 10*3/uL (0.00-0.01); Neutrophils # (A) 5.12 X 10*3/uL (1.80-7.70); Neutrophils % (A) 76.9 %; Platelet Count 268 X 10*3/uL (140-440); RBC 3.12 X 10*6/uL (4.40-5.60); RDW 14.6 % (11.5-14.5); WBC 6.67 X 10*3/uL (4.50-10.00)
[2024-05-11 09:03] LABS: BUN/Creat Ratio 6.43 Ratio (12.00-20.00); Blood Urea Nitrogen 4.5 mg/dL (9.0-27.0); Carbon Dioxide 22.8 mmol/L (21.6-31.8); Chloride 101 mmol/L (96-109); Glucose 130 mg/dL (70-110); Potassium 4.5 mmol/L (3.5-5.5); Sodium 132 mmol/L (135-145)
[2024-05-11] MEDS: SENNOSIDES-DOCUSATE SODIUM 1 EACH TAB PO SCH (13:09)
[2024-05-11] MEDS: MEGESTROL 400 MG/10 ML CUP PO SCH (13:09)
--- NOTE | 2024-05-11 13:11 | MR ---
EXAMINATION TYPE: MR pelvis wo/w con DATE OF EXAM: 05/11/2024 12:52 PM CLINICAL INDICATION:Male, 68 years old with history of pelvic pain, metastatic prostate cancer; Pelvi c pain, Prostate cancer EXAMINATION TYPE: MR pelvis wo/w con COMPARISON: CT 05/03/2024 TECHNIQUE: Triplane multisequence imaging was performed of the pelvis. IV Contrast: 10 cc Gadavist FINDINGS: Post transurethral resection of the prostate gland changes with some free fluid layering pelvis. Ther e is lymphadenopathy and/or blood products measuring 61 x 30 mm and extends up the left common iliac chains. Multiple other lymph nodes seen along the retroperitoneum are less well appreciated. There is a right inguinal region soft tissue mass measuring 67 x 54 mm with enlarged right inguinal l ymph node measuring 15 mm in short axis. ' Soft tissue masses within the osseous structures including the left iliac bone near the sacroiliac sahra int measuring 24 mm long other areas in the sacrum and spine. Fat-containing inguinal hernias bilaterally. Scattered colonic diverticula. Garcia catheter in place. IMPRESSION: 1. Post transurethral resection of the prostate gland with free fluid throughout the pelvis. Urine l eak not entirely excluded. 2. Soft tissue mass with enhancement within the pelvis and extending up the left common iliac chain and retroperitoneum compatible with lymphadenopathy from metastatic disease. Also metastatic disease involving the osseous structures and right inguinal region lymph node with intramuscular mass in the right obturator externus.
--- NOTE | 2024-05-11 16:33 | P.PN ---
Subjective Progress Note Date: 05/11/24 Principal diagnosis: intractable abd pain, progressive metastatic prostate adenocarcinoma Objective - Vital Signs Vital signs: Vital Signs Temp 98.4 F 05/11/24 12:28 Pulse 98 05/11/24 12:28 Resp 16 05/11/24 12:28 BP 149/72 05/11/24 12:28 Pulse Ox 96 05/11/24 12:28 FiO2 Intake & Output 05/10/24 05/11/24 05/11/24 18:59 06:59 18:59 Output Total 423 214 4435 Balance -525 -550 -1400 Weight 99.79 kg Output: Urine 471 892 4975 Other: Voiding Method Indwelling Catheter Indwelling Catheter - Labs CBC & Chem 7: 05/11/24 05:06 05/11/24 05:06 Labs: Abnormal Lab Results - Last 24 Hours (Table) 05/11/24 05/11/24 Range/Units 05:06 05:06 RBC 3.12 L (4.40-5.60) X 10*6/uL Hgb 9.3 L (13.0-17.0) g/dL Hct 29.1 L (39.6-50.0) % RDW 14.6 H (11.5-14.5) % Lymphocytes # 0.68 L (0.90-5.00) X 10*3/uL Sodium 132 L (135-145) mmol/L BUN 4.5 L (9.0-27.0) mg/dL BUN/Creatinine Ratio 6.43 L (12.00-20.00) Ratio Glucose 130 H (70-110) mg/dL Calcium 8.0 L (8.7-10.3) mg/dL Assessment and Plan (1) Urinary retention Current Visit: Yes Status: Acute Priority: High Code(s): R33.9 - RETENTION OF URINE, UNSPECIFIED SNOMED Code(s): 624779382 (2) Abdominal pain Current Visit: Yes Status: Acute Priority: High Code(s): R10.9 - UNSPECIFIED ABDOMINAL PAIN SNOMED Code(s): 84218954 (3) Prostate cancer Current Visit: Yes Status: Acute Priority: High Code(s): C61 - MALIGNANT NEOPLASM OF PROSTATE SNOMED Code(s): 932756977 (4) Anemia Current Visit: Yes Status: Acute Priority: Medium Code(s): D64.9 - ANEMIA, UNSPECIFIED SNOMED Code(s): 395790998 Plan: Urinary retention -Recent TURP and wang removal -Wang cont to drain urine without complications -Urology has seen pt. Plans to continue wang for now, trial removal before being discharged home. Does not feel that urinary retention related to abd pain-no change in pain with relief of bladder distention Abd pain -Persistent, progressive -Most likely 2/2 pelvic mass vs bone mets. -MRI pelvis ordered, pending -Rad Onc has seen pt with plans to start XRT tomorrow. -Dilaudid needed ATC, good pain relief but very short duration. Discussed with PharmD, converted to IVP morphine that has longer duration of action -Meds for prevention of narcotic induce constipation reviewed and adjustment made Met prostate adenocarcinoma -Recent disease progression-see consult for malignancy details. -Plans to start new regimen this week with cabazitaxel and pred. This will be held until pt completes radiation and pain is under better control. Anemia -Reports of black stool. Occult negative. -Slight drop in Hgb since admit. Cont to monitor -Pt did have low saturation with normal ferritin earlier this year. Will recheck iron studies, he could benefit from some iron if persistently low Pt reporting poor appetite, megace added, PPI increased
[2024-05-11] MEDS: MORPHINE SULFATE 4 MG/ML SYRINGE IVP PRN (16:38)
--- NOTE | 2024-05-11 17:38 | P.PN ---
Subjective Progress Note Date: 05/11/24 This is a 68-year-old male patient of Dr. Dupont who presented with concerns of acute abdominal pain with nausea and vomiting. Patient has a history of prostate cancer as diagnosed 7 years agoPer records and family patient underwent recent computed tomography scan showing masslike lesion in the pelvis. Patient follows with oncology services. Patient also reports he underwent TURP with Dr. Rivas last week and had Garcia catheter removed on Wednesday.Additional medical history includes coronary artery disease with previous cardiac stents sleep apnea and hernia repair.KUB x-ray completed showing lytic areas within the thoracic spine and within the right hip and ilium metastatic disease should be considered. Acute intra-abdominal process. At this time patient will be admitted patient started on IV pain control with DilaudidAnd nausea medication of Zofran. Oncology and urology service is consulted. At this time patient is complaining about lower abdomen pain that is constant. Patient does report improvement with IV Dilaudid. Denies nausea or vomiting at this time. Patient denies chest pain or shortness breath. Patient denies any urinary burning or frequency. Current vital signs temp 98.6, Heart rate 68, respiratory rate 16, blood pressure 145/90 with pulse ox 95% on 2 L On 05/11/2024 patient was seen and examined on the medical floor he is alert and oriented x 3 in no apparent distress, he stated that his pain is better controlled , he is receiving IV morphine , there is no fever or chills no headache or dizziness no chest pain no shortness of breath no cough no nausea or vomiting no abdominal pain no diarrhea no urinary symptoms, Garcia catheter is in. Patient is scheduled to have radiation therapy, will continue to follow. Objective - Vital Signs Vital signs: Vital Signs Temp 98.2 F 05/11/24 07:50 Pulse 90 05/11/24 07:50 Resp 18 05/11/24 07:50 BP 145/84 05/11/24 07:50 Pulse Ox 99 05/11/24 07:50 FiO2 Intake & Output 05/10/24 05/11/24 05/11/24 18:59 06:59 18:59 Output Total 525 550 Balance -525 -550 Weight 99.79 kg Output: Urine 525 550 Other: Voiding Method Indwelling Catheter - Exam In general patient is alert and oriented x 3 in no distress HEENT head normocephalic and atraumatic Neck is supple no JVD no goiter no lymphadenopathy no carotid bruit Chest examination is clear to auscultation no crackles no wheezing Cardiac exam reveals regular heart sounds S1 and S2 no gallops no murmurs Abdomen is soft nontender no organomegaly with normal bowel sounds Extremity exam reveals no edema no cyanosis or clubbing Neurological examination reveals no gross focal deficits - Labs CBC & Chem 7: 05/11/24 05:06 05/11/24 05:06 Labs: Abnormal Lab Results - Last 24 Hours (Table) 05/11/24 05/11/24 Range/Units 05:06 05:06 RBC 3.12 L (4.40-5.60) X 10*6/uL Hgb 9.3 L (13.0-17.0) g/dL Hct 29.1 L (39.6-50.0) % RDW 14.6 H (11.5-14.5) % Lymphocytes # 0.68 L (0.90-5.00) X 10*3/uL Sodium 132 L (135-145) mmol/L BUN 4.5 L (9.0-27.0) mg/dL BUN/Creatinine Ratio 6.43 L (12.00-20.00) Ratio Glucose 130 H (70-110) mg/dL Calcium 8.0 L (8.7-10.3) mg/dL Assessment and Plan Assessment: 1. Intractable abdominal pain with nausea and vomiting 2. History of prostate cancer with concerns of metastatic disease from recent computed tomography scan 3. Recent TURP with Dr. Rivas. Patient reports he had Garcia catheter removed on wednesday 4. History of sleep apnea 5. History of coronary artery disease with previous heart stents 6. Hyponatremia likely secondary from nausea vomiting and decreased appetite patient continue on normal saline at 75. repeat labs ordered DVT prophylaxis Lovenox. GI prophylaxis Protonix Oncology service is consulted Urology service is consulted IV Dilaudid for pain control Repeat labs ordered Plan: 1. Intractable abdominal pain with nausea and vomiting 2. History of prostate cancer with concerns of metastatic disease from recent computed tomography scan 3. Recent TURP with Dr. Rivas. Patient reports he had Garcia catheter removed on wednesday 4. History of sleep apnea 5. History of coronary artery disease with previous heart stents 6. Hyponatremia likely secondary from nausea vomiting and decreased appetite patient continue on normal saline at 75. repeat labs ordered DVT prophylaxis Lovenox. GI prophylaxis Protonix Oncology service is consulted Urology service is consulted IV Dilaudid for pain control Repeat labs ordered
[2024-05-11 23:44] LABS: Reticulocyte % 2.33 % (0.10-1.80)
[2024-05-12 00:14] LABS: % Iron Saturation 6.22 (15.00-50.00)
--- NOTE | 2024-05-12 10:18 | P.PN ---
Subjective Progress Note Date: 05/12/24 This is a 68-year-old male patient of Dr. Dupont who presented with concerns of acute abdominal pain with nausea and vomiting. Patient has a history of prostate cancer as diagnosed 7 years agoPer records and family patient underwent recent computed tomography scan showing masslike lesion in the pelvis. Patient follows with oncology services. Patient also reports he underwent TURP with Dr. Rivas last week and had Garcia catheter removed on Wednesday.Additional medical history includes coronary artery disease with previous cardiac stents sleep apnea and hernia repair.KUB x-ray completed showing lytic areas within the thoracic spine and within the right hip and ilium metastatic disease should be considered. Acute intra-abdominal process. At this time patient will be admitted patient started on IV pain control with DilaudidAnd nausea medication of Zofran. Oncology and urology service is consulted. At this time patient is complaining about lower abdomen pain that is constant. Patient does report improvement with IV Dilaudid. Denies nausea or vomiting at this time. Patient denies chest pain or shortness breath. Patient denies any urinary burning or frequency. Current vital signs temp 98.6, Heart rate 68, respiratory rate 16, blood pressure 145/90 with pulse ox 95% on 2 L On 05/11/2024 patient was seen and examined on the medical floor he is alert and oriented x 3 in no apparent distress, he stated that his pain is better controlled , he is receiving IV morphine , there is no fever or chills no headache or dizziness no chest pain no shortness of breath no cough no nausea or vomiting no abdominal pain no diarrhea no urinary symptoms, Garcia catheter is in. Patient is scheduled to have radiation therapy, will continue to follow. On 05/12/2024 patient is alert and oriented x 3. Patient reports better control of pain at this time. Patient also able to eat breakfast. Plans today for radiation to pelvic mass per oncology services. Patient also reports that urology is recommending patient keep Garcia catheter in. Patient denies chest pain or shortness of breath. Patient denies nausea vomiting or diarrhea. Patient denies any urinary burning or frequency Objective - Vital Signs Vital signs: Vital Signs Temp 98.1 F 05/12/24 07:11 Pulse 85 05/12/24 07:11 Resp 17 05/12/24 07:11 BP 125/74 07/12/24 07:11 Pulse Ox 97 05/12/24 07:11 FiO2 Intake & Output 05/11/24 05/12/24 05/12/24 18:59 06:59 18:59 Intake Total 898 Output Total 3500 500 Balance -2602 -500 Intake: Oral 898 Output: Urine 3500 500 Other: Voiding Method Indwelling Catheter Indwelling Catheter Indwelling Catheter - Exam In general patient is alert and oriented x 3 in no distress HEENT head normocephalic and atraumatic Neck is supple no JVD no goiter no lymphadenopathy no carotid bruit Chest examination is clear to auscultation no crackles no wheezing Cardiac exam reveals regular heart sounds S1 and S2 no gallops no murmurs Abdomen is soft nontender no organomegaly with normal bowel sounds Extremity exam reveals no edema no cyanosis or clubbing Neurological examination reveals no gross focal deficits - Labs CBC & Chem 7: 05/11/24 05:06 05/11/24 05:06 Labs: Abnormal Lab Results - Last 24 Hours (Table) 05/11/24 05/11/24 Range/Units 05:06 05:06 Retic Count 2.33 H (0.10-1.80) % Iron 12 L (65-175) UG/DL TIBC 193 L (228-460) UG/DL % Saturation 6.22 L (15.00-50.00) Transferrin 138.0 L (204.0-354.0) mg/dL Ferritin 385.0 H (22.0-322.0) ng/mL Assessment and Plan Assessment: 1. Intractable abdominal pain with nausea and vomiting likely secondary from pelvic mass 2. History of prostate cancer with concerns of metastatic disease from recent computed tomography scan 3. Recent TURP with Dr. Rivas. 4. History of sleep apnea 5. History of coronary artery disease with previous heart stents 6. Hyponatremia likely secondary from nausea vomiting and decreased appetite patient continue on normal saline at 75. repeat labs ordered DVT prophylaxis Lovenox. GI prophylaxis Protonix Oncology service is consulted Urology service is consulted Garcia catheter placed per urology recommending to keep in at this time Interventional radiology consulted Repeat labs ordered
[2024-05-12 10:20] LABS: Basophils # (A) 0.02 X 10*3/uL (0.00-0.10); Basophils % (A) 0.3 %; Eosinophils # (A) 0.02 X 10*3/uL (0.04-0.35); Eosinophils % (A) 0.3 %; HCT 28.9 % (39.6-50.0); HGB 9.1 g/dL (13.0-17.0); Lymphocytes # (A) 0.64 X 10*3/uL (0.90-5.00); Lymphocytes % (A) 10.3 %; MCH 29.6 pg (27.0-32.0); MCHC 31.5 g/dL (32.0-37.0); MCV 94.1 FL (80.0-97.0); Mean Platelet Volume 10.7 FL (9.5-12.2); Monocytes # (A) 0.73 X 10*3/uL (0.20-1.00); Monocytes % (A) 11.8 %; NRBC Per 100 WBC 0 X 10*3/uL (0.00-0.01); Neutrophils # (A) 4.78 X 10*3/uL (1.80-7.70); Platelet Count 239 X 10*3/uL (140-440); RBC 3.07 X 10*6/uL (4.40-5.60); RDW 14.6 % (11.5-14.5); WBC 6.21 X 10*3/uL (4.50-10.00)
[2024-05-12 10:39] LABS: ALT 17 U/L (10-49); AST 20 U/L (14-35); Albumin 3.1 g/dL (3.8-4.9); Albumin/Globulin Ratio 1.48 Ratio (1.60-3.17); Alkaline Phosphatase 95 U/L (41-126); Blood Urea Nitrogen 8.1 mg/dL (9.0-27.0); Calcium 7.6 mg/dL (8.7-10.3); Carbon Dioxide 19.4 mmol/L (21.6-31.8); Chloride 105 mmol/L (96-109); Globulin 2.1 g/dL (1.6-3.3); Glucose 100 mg/dL (70-110); Sodium 134 mmol/L (135-145); Total Bilirubin 0.6 mg/dL (0.3-1.2); Total Protein 5.2 g/dL (6.2-8.2)
--- NOTE | 2024-05-12 11:42 | P.CONS ---
History of Present Illness - Reason for Consult Consult date: 05/10/24 Intractable abdominal pain Requesting physician: Bruno Lynch - Chief Complaint "I have suprapubic pain" - History of Present Illness Mr. Campoverde is a 68-year-old with a history of metastatic adenocarcinoma of the prostate, diagnosed in 2016. He presents with intractable abdominal pain with a large pelvic mass. The patient's oncological history is notable for a history of metastatic adenocarcinoma of the prostate, diagnosed in 2017. Of note, he had Pluvicto at [facility] last year. He had been planned to start Jevtana due to recent progression. He underwent TURP on 05/03/2024 due to urinary retention. Final pathology demonstrated [place] 5+4 disease involving 71-80% of the gland. CT abdomen/pelvis on 05/03/2024 demonstrated a 6.0 cm lesion within the pelvis. There was also known osseous disease. He had his Garcia cather removed earlier this week but developed retention. He came due to the EC due to the retention and worsening pain. Today, he notes 5/10 suprapubic pain. He just received IV pain medications. He notes bilateral radiation to the groin, not worse on one side. He has Garcia catheter in. He has never received external beam radiation therapy and does not have a pacemaker. Review of Systems negative except as per HPI Past Medical History Past Medical History: Coronary Artery Disease (CAD), Cancer, Sleep Apnea/CPAP/BIPAP Additional Past Medical History / Comment(s): Prostate CA-2019 received chemo received,uses cpap,tx with prednisone Dec 2021, History of Any Multi-Drug Resistant Organisms: None Reported Past Surgical History: Heart Catheterization With Stent, Hernia Repair Additional Past Surgical History / Comment(s): Cardiac Stent x3. TURP May 2024 Past Anesthesia/Blood Transfusion Reactions: No Reported Reaction Date of Last Stent Placement:: Past Psychological History: No Psychological Hx Reported Smoking Status: Former smoker Past Alcohol Use History: None Reported Past Drug Use History: Marijuana - Past Family History Father Additional Family Medical History / Comment(s): Heart issues Mother Family Medical History: No Reported History Brother(s) Family Medical History: Cancer Additional Family Medical History / Comment(s): pancreatic Medications and Allergies Home Medications Medication Instructions Recorded Confirmed Type Aspirin EC [Ecotrin Low Dose] 81 mg PO DAILY 07/23/19 05/10/24 History Atorvastatin [Lipitor] 40 mg PO HS 07/23/19 05/10/24 History Calcium Carbonate [Calcium] 600 mg PO DAILY 07/23/19 05/10/24 History ALPRAZolam [Xanax] 0.25 mg PO Q6H PRN 05/10/24 05/10/24 History Acetaminophen Tab [Tylenol Tab] 500 - 1,000 mg PO Q6H PRN 05/10/24 05/10/24 History Cephalexin [Keflex] 500 mg PO Q12HR 05/10/24 05/10/24 History Cholecalciferol [Vitamin D3 (125 125 mcg PO DAILY 05/10/24 05/10/24 History Mcg = 5000 Iu)] Darolutamide [Nubeqa] 600 mg PO BID-W/MEALS 05/10/24 05/10/24 History Diphenoxylate HCl/Atropine 1 - 2 tab PO QID PRN 05/10/24 05/10/24 History [Lomotil 2.5-0.025 mg Tablet] Ferrous Sulfate [Feosol] 325 mg PO BID 05/10/24 05/10/24 History HYDROmorphone HCL 2 mg PO Q4H PRN 05/10/24 05/10/24 History Ibuprofen [Advil] 200 - 400 mg PO Q6H PRN 05/10/24 05/10/24 History Loratadine [Claritin] 10 mg PO DAILY 05/10/24 05/10/24 History Magnesium Oxide [Magnesium] 1,000 mg PO DAILY 05/10/24 05/10/24 History Prochlorperazine [Compazine] 10 mg PO Q6H PRN 05/10/24 05/10/24 History Simethicone [Gas-X] 125 mg PO QID PRN 05/10/24 05/10/24 History Tamsulosin [Flomax] 0.4 mg PO BID 05/10/24 05/10/24 History polyethylene glycoL 3350 [Miralax] 17 gm PO DAILY 05/10/24 05/10/24 History predniSONE 10 mg PO DAILY 05/10/24 05/10/24 History Allergies Allergy/AdvReac Type Severity Reaction Status Date / Time No Known Allergies Allergy Verified 05/10/24 07:37 Physical Exam Vitals: Vital Signs Temp Pulse Resp BP Pulse Ox 05/12/24 07:11 98.1 F 85 17 125/74 97 05/12/24 02:00 98.6 F 77 16 121/81 99 05/11/24 20:00 98.5 F 96 16 105/68 97 05/11/24 12:28 98.4 F 98 16 149/72 96 Intake and Output 05/11/24 05/12/24 05/12/24 22:59 06:59 14:59 Intake Total 898 Output Total 2100 500 700 Balance -1202 -500 -700 Intake: Oral 898 Output: Urine 2100 500 700 Other: Voiding Method Indwelling Catheter Indwelling Catheter - Respiratory Respiratory: negative: prolonged expiration, prolonged inspiration - Genitourinary pain localizes to suprapubic region - Psychiatric Psychiatric: A&O x's 3, appropriate affect, intact judgment & insight Results CBC & Chem 7: 05/12/24 06:04 05/12/24 06:04 Labs: Abnormal Lab Results - Last 24 Hours (Table) 05/11/24 05/11/24 05/12/24 Range/Units 05:06 05:06 06:04 RBC 3.07 L (4.40-5.60) X 10*6/uL Hgb 9.1 L (13.0-17.0) g/dL Hct 28.9 L (39.6-50.0) % MCHC 31.5 L (32.0-37.0) g/dL RDW 14.6 H (11.5-14.5) % Lymphocytes # 0.64 L (0.90-5.00) X 10*3/uL Eosinophils # 0.02 L (0.04-0.35) X 10*3/uL Retic Count 2.33 H (0.10-1.80) % Sodium (135-145) mmol/L Carbon Dioxide (21.6-31.8) mmol/L BUN (9.0-27.0) mg/dL BUN/Creatinine Ratio (12.00-20.00) Ratio Calcium (8.7-10.3) mg/dL Iron 12 L (65-175) UG/DL TIBC 193 L (228-460) UG/DL % Saturation 6.22 L (15.00-50.00) Transferrin 138.0 L (204.0-354.0) mg/dL Ferritin 385.0 H (22.0-322.0) ng/mL Total Protein (6.2-8.2) g/dL Albumin (3.8-4.9) g/dL Albumin/Globulin Ratio (1.60-3.17) Ratio 05/12/24 Range/Units 06:04 RBC (4.40-5.60) X 10*6/uL Hgb (13.0-17.0) g/dL Hct (39.6-50.0) % MCHC (32.0-37.0) g/dL RDW (11.5-14.5) % Lymphocytes # (0.90-5.00) X 10*3/uL Eosinophils # (0.04-0.35) X 10*3/uL Retic Count (0.10-1.80) % Sodium 134 L (135-145) mmol/L Carbon Dioxide 19.4 L (21.6-31.8) mmol/L BUN 8.1 L (9.0-27.0) mg/dL BUN/Creatinine Ratio 9.00 L (12.00-20.00) Ratio Calcium 7.6 L (8.7-10.3) mg/dL Iron (65-175) UG/DL TIBC (228-460) UG/DL % Saturation (15.00-50.00) Transferrin (204.0-354.0) mg/dL Ferritin (22.0-322.0) ng/mL Total Protein 5.2 L (6.2-8.2) g/dL Albumin 3.1 L (3.8-4.9) g/dL Albumin/Globulin Ratio 1.48 L (1.60-3.17) Ratio Assessment and Plan Assessment: Mr. Campoverde is a 68-year-old with a history of metastatic adenocarcinoma of the prostate, diagnosed in 2017. He presents with intractable abdominal pain with a large pelvic mass. Plan: The patient presents with metastatic prostate cancer with a sizable pelvic lesion causing intractable pain. I recommend a course of palliative radiation therapy to this area. The Garcia catheter will need to remain in place for the duration of treatment. I explained that radiation is preceded by a CT simulation. Treatments will take place Mondays-Fridays and span 1 week. I explained potential acute effects of radiation, including but not limited to fatigue, pain flare, gastrointestinal upset, and urinary irritation. He will undergo CT simulation tomorrow with treatment to commence Wednesday. Buzz Cornejo MD Radiation Oncology Time with Patient: Greater than 30
--- NOTE | 2024-05-12 13:42 | P.PN ---
Subjective Plan to undergo radiation therapy to the pelvis. MRI indicated possible free fluid within the belly. Abdominal pain is unchanged Objective - Vital Signs Vital signs: Vital Signs Temp 98.1 F 05/12/24 12:04 Pulse 79 05/12/24 12:04 Resp 17 05/12/24 12:04 BP 145/83 05/12/24 12:04 Pulse Ox 99 05/12/24 12:04 FiO2 Intake & Output 05/11/24 05/12/24 05/12/24 18:59 06:59 18:59 Intake Total 898 540 Output Total 3500 500 700 Balance -2602 -500 -160 Intake: Oral 898 540 Output: Urine 3500 500 700 Other: Voiding Method Indwelling Catheter Indwelling Catheter Indwelling Catheter - Constitutional General appearance: Present: no acute distress - Gastrointestinal General gastrointestinal: Present: soft. Absent: distended, tenderness - Psychiatric Psychiatric: Present: A&O x's 3 - Labs CBC & Chem 7: 05/12/24 06:04 05/12/24 06:04 Labs: Abnormal Lab Results - Last 24 Hours (Table) 05/11/24 05/11/24 05/12/24 Range/Units 05:06 05:06 06:04 RBC 3.07 L (4.40-5.60) X 10*6/uL Hgb 9.1 L (13.0-17.0) g/dL Hct 28.9 L (39.6-50.0) % MCHC 31.5 L (32.0-37.0) g/dL RDW 14.6 H (11.5-14.5) % Lymphocytes # 0.64 L (0.90-5.00) X 10*3/uL Eosinophils # 0.02 L (0.04-0.35) X 10*3/uL Retic Count 2.33 H (0.10-1.80) % Sodium (135-145) mmol/L Carbon Dioxide (21.6-31.8) mmol/L BUN (9.0-27.0) mg/dL BUN/Creatinine Ratio (12.00-20.00) Ratio Calcium (8.7-10.3) mg/dL Iron 12 L (65-175) UG/DL TIBC 193 L (228-460) UG/DL % Saturation 6.22 L (15.00-50.00) Transferrin 138.0 L (204.0-354.0) mg/dL Ferritin 385.0 H (22.0-322.0) ng/mL Total Protein (6.2-8.2) g/dL Albumin (3.8-4.9) g/dL Albumin/Globulin Ratio (1.60-3.17) Ratio 05/12/24 Range/Units 06:04 RBC (4.40-5.60) X 10*6/uL Hgb (13.0-17.0) g/dL Hct (39.6-50.0) % MCHC (32.0-37.0) g/dL RDW (11.5-14.5) % Lymphocytes # (0.90-5.00) X 10*3/uL Eosinophils # (0.04-0.35) X 10*3/uL Retic Count (0.10-1.80) % Sodium 134 L (135-145) mmol/L Carbon Dioxide 19.4 L (21.6-31.8) mmol/L BUN 8.1 L (9.0-27.0) mg/dL BUN/Creatinine Ratio 9.00 L (12.00-20.00) Ratio Calcium 7.6 L (8.7-10.3) mg/dL Iron (65-175) UG/DL TIBC (228-460) UG/DL % Saturation (15.00-50.00) Transferrin (204.0-354.0) mg/dL Ferritin (22.0-322.0) ng/mL Total Protein 5.2 L (6.2-8.2) g/dL Albumin 3.1 L (3.8-4.9) g/dL Albumin/Globulin Ratio 1.48 L (1.60-3.17) Ratio Assessment and Plan Assessment: 68-year-old male history of cancer resistant prostate cancer, underwent a TURP for urinary retention on May 02 catheter was removed on May 08 he was initially able to void with voiding became more difficult. Admitted to the hospital with intractable groin pain, CT abdomen pelvis showed progression of his cancer with evidence of 6 cm r pelvic mass. Plan to start radiation therapy to the pelvis. MRI report indicated possible free fluid in the belly and potential urine cannot be leaked out. Patient's symptoms, creatinine level and appearance of his urine is not consistent with a urine leak. Pain is most likely from his pelvic lymphadenopathy. At this point agree with radiation oncology recommendation, keeping the catheter in place until he is done with radiation, given his incomplete bladder emptying to allow the bladder away from the radiation field. At this point from our end he can follow-up as an outpatient for catheter removal in 2 weeks.
[2024-05-12] MEDS: ALPRAZolam 0.25 MG TAB PO PRN (17:50)
[2024-05-12] MEDS: MELATONIN 3 MG TABLET PO SCH (21:06)
[2024-05-13 09:21] LABS: Basophils # (A) 0.02 X 10*3/uL (0.00-0.10); Basophils % (A) 0.4 %; Eosinophils # (A) 0.04 X 10*3/uL (0.04-0.35); Eosinophils % (A) 0.7 %; HCT 27.2 % (39.6-50.0); HGB 8.8 g/dL (13.0-17.0); Lymphocytes # (A) 0.58 X 10*3/uL (0.90-5.00); Lymphocytes % (A) 10.3 %; MCHC 32.4 g/dL (32.0-37.0); MCV 92.8 FL (80.0-97.0); Mean Platelet Volume 10.5 FL (9.5-12.2); Monocytes # (A) 0.67 X 10*3/uL (0.20-1.00); Monocytes % (A) 11.9 %; NRBC Per 100 WBC 0 X 10*3/uL (0.00-0.01); Neutrophils # (A) 4.32 X 10*3/uL (1.80-7.70); Neutrophils % (A) 76.5 %; Platelet Count 255 X 10*3/uL (140-440); RBC 2.93 X 10*6/uL (4.40-5.60); RDW 14.7 % (11.5-14.5); WBC 5.64 X 10*3/uL (4.50-10.00)
--- NOTE | 2024-05-13 11:41 | P.PN ---
Subjective Progress Note Date: 05/13/24 This is a 68-year-old male patient of Dr. Dupont who presented with concerns of acute abdominal pain with nausea and vomiting. Patient has a history of prostate cancer as diagnosed 7 years agoPer records and family patient underwent recent computed tomography scan showing masslike lesion in the pelvis. Patient follows with oncology services. Patient also reports he underwent TURP with Dr. Rivas last week and had Garcia catheter removed on Wednesday.Additional medical history includes coronary artery disease with previous cardiac stents sleep apnea and hernia repair.KUB x-ray completed showing lytic areas within the thoracic spine and within the right hip and ilium metastatic disease should be considered. Acute intra-abdominal process. At this time patient will be admitted patient started on IV pain control with DilaudidAnd nausea medication of Zofran. Oncology and urology service is consulted. At this time patient is complaining about lower abdomen pain that is constant. Patient does report improvement with IV Dilaudid. Denies nausea or vomiting at this time. Patient denies chest pain or shortness breath. Patient denies any urinary burning or frequency. Current vital signs temp 98.6, Heart rate 68, respiratory rate 16, blood pressure 145/90 with pulse ox 95% on 2 L On 05/11/2024 patient was seen and examined on the medical floor he is alert and oriented x 3 in no apparent distress, he stated that his pain is better controlled , he is receiving IV morphine , there is no fever or chills no headache or dizziness no chest pain no shortness of breath no cough no nausea or vomiting no abdominal pain no diarrhea no urinary symptoms, Garcia catheter is in. Patient is scheduled to have radiation therapy, will continue to follow. On 05/12/2024 patient is alert and oriented x 3. Patient reports better control of pain at this time. Patient also able to eat breakfast. Plans today for radiation to pelvic mass per oncology services. Patient also reports that urology is recommending patient keep Garcia catheter in. Patient denies chest pain or shortness of breath. Patient denies nausea vomiting or diarrhea. Patient denies any urinary burning or frequency. On 05/13/2024 patient was seen and examined on the medical floor he is alert and oriented x 3 in no apparent distress he is still complaining of pelvic pain and right lower extremity pain otherwise he denies any complaints at this time there is no fever or chills no headache or or dizziness no chest pain no shortness of breath no cough no nausea or vomiting no diarrhea no urinary symptoms. He is maintained on narcotics for pain management, he was started on radiation therapy on Wednesday, will continue to follow closely. Objective - Vital Signs Vital signs: Vital Signs Temp 97.8 F 05/13/24 07:30 Pulse 82 05/13/24 07:30 Resp 19 05/13/24 07:30 BP 128/81 05/13/24 07:30 Pulse Ox 97 05/13/24 07:30 FiO2 Intake & Output 05/12/24 05/13/24 05/13/24 18:59 06:59 18:59 Intake Total 3780 Output Total 2500 Balance 1280 Intake: Oral 3780 Output: Urine 2500 Other: Voiding Method Indwelling Catheter Indwelling Catheter - Exam In general patient is alert and oriented x 3 in no distress HEENT head normocephalic and atraumatic Neck is supple no JVD no goiter no lymphadenopathy no carotid bruit Chest examination is clear to auscultation no crackles no wheezing Cardiac exam reveals regular heart sounds S1 and S2 no gallops no murmurs Abdomen is soft nontender no organomegaly with normal bowel sounds Extremity exam reveals no edema no cyanosis or clubbing Neurological examination reveals no gross focal deficits - Labs CBC & Chem 7: 05/13/24 04:54 05/12/24 06:04 Labs: Abnormal Lab Results - Last 24 Hours (Table) 05/12/24 05/12/24 Range/Units 06:04 06:04 RBC 3.07 L (4.40-5.60) X 10*6/uL Hgb 9.1 L (13.0-17.0) g/dL Hct 28.9 L (39.6-50.0) % MCHC 31.5 L (32.0-37.0) g/dL RDW 14.6 H (11.5-14.5) % Lymphocytes # 0.64 L (0.90-5.00) X 10*3/uL Eosinophils # 0.02 L (0.04-0.35) X 10*3/uL Sodium 134 L (135-145) mmol/L Carbon Dioxide 19.4 L (21.6-31.8) mmol/L BUN 8.1 L (9.0-27.0) mg/dL BUN/Creatinine Ratio 9.00 L (12.00-20.00) Ratio Calcium 7.6 L (8.7-10.3) mg/dL Total Protein 5.2 L (6.2-8.2) g/dL Albumin 3.1 L (3.8-4.9) g/dL Albumin/Globulin Ratio 1.48 L (1.60-3.17) Ratio Assessment and Plan Assessment: 1. Intractable abdominal pain with nausea and vomiting likely secondary from pelvic mass 2. History of prostate cancer with concerns of metastatic disease from recent computed tomography scan 3. Recent TURP with Dr. Rivas. 4. History of sleep apnea 5. History of coronary artery disease with previous heart stents 6. Hyponatremia likely secondary from nausea vomiting and decreased appetite patient continue on normal saline at 75. repeat labs ordered DVT prophylaxis Lovenox. GI prophylaxis Protonix Oncology service is consulted Urology service is consulted Garcia catheter placed per urology recommending to keep in at this time Interventional radiology consulted Repeat labs ordered
[2024-05-13 12:42] LABS: ALT 20 U/L (10-49); AST 19 U/L (14-35); Albumin 3.1 g/dL (3.8-4.9); Albumin/Globulin Ratio 1.41 Ratio (1.60-3.17); Alkaline Phosphatase 89 U/L (41-126); BUN/Creat Ratio 12.25 Ratio (12.00-20.00); Blood Urea Nitrogen 9.8 mg/dL (9.0-27.0); Carbon Dioxide 20.5 mmol/L (21.6-31.8); Chloride 105 mmol/L (96-109); Globulin 2.2 g/dL (1.6-3.3); Glucose 110 mg/dL (70-110); Potassium 4.1 mmol/L (3.5-5.5); Sodium 135 mmol/L (135-145); Total Bilirubin 0.5 mg/dL (0.3-1.2); Total Protein 5.3 g/dL (6.2-8.2)
[2024-05-13 23:29] LABS: % Iron Saturation 6.37 (15.00-50.00)
[2024-05-14 09:43] LABS: Basophils # (A) 0.02 X 10*3/uL (0.00-0.10); Basophils % (A) 0.4 %; Eosinophils # (A) 0.03 X 10*3/uL (0.04-0.35); Eosinophils % (A) 0.6 %; HCT 26.4 % (39.6-50.0); HGB 8.6 g/dL (13.0-17.0); Lymphocytes # (A) 0.63 X 10*3/uL (0.90-5.00); Lymphocytes % (A) 13.6 %; MCH 30.3 pg (27.0-32.0); MCHC 32.6 g/dL (32.0-37.0); Mean Platelet Volume 10.9 FL (9.5-12.2); Monocytes # (A) 0.46 X 10*3/uL (0.20-1.00); Monocytes % (A) 9.9 %; NRBC Per 100 WBC 0 X 10*3/uL (0.00-0.01); Neutrophils # (A) 3.48 X 10*3/uL (1.80-7.70); Neutrophils % (A) 75.3 %; Platelet Count 269 X 10*3/uL (140-440); RBC 2.84 X 10*6/uL (4.40-5.60); RDW 14.6 % (11.5-14.5); WBC 4.63 X 10*3/uL (4.50-10.00)
[2024-05-14 09:46] LABS: ALT 21 U/L (10-49); AST 18 U/L (14-35); Alkaline Phosphatase 87 U/L (41-126); BUN/Creat Ratio 11.71 Ratio (12.00-20.00); Blood Urea Nitrogen 8.2 mg/dL (9.0-27.0); Calcium 7.6 mg/dL (8.7-10.3); Carbon Dioxide 18.9 mmol/L (21.6-31.8); Chloride 107 mmol/L (96-109); Glucose 107 mg/dL (70-110); Sodium 136 mmol/L (135-145); Total Bilirubin 0.5 mg/dL (0.3-1.2)
--- NOTE | 2024-05-14 09:48 | P.PN ---
Subjective Progress Note Date: 05/14/24 This is a 68-year-old male patient of Dr. Dupont who presented with concerns of acute abdominal pain with nausea and vomiting. Patient has a history of prostate cancer as diagnosed 7 years agoPer records and family patient underwent recent computed tomography scan showing masslike lesion in the pelvis. Patient follows with oncology services. Patient also reports he underwent TURP with Dr. Rivas last week and had Garcia catheter removed on Wednesday.Additional medical history includes coronary artery disease with previous cardiac stents sleep apnea and hernia repair.KUB x-ray completed showing lytic areas within the thoracic spine and within the right hip and ilium metastatic disease should be considered. Acute intra-abdominal process. At this time patient will be admitted patient started on IV pain control with DilaudidAnd nausea medication of Zofran. Oncology and urology service is consulted. At this time patient is complaining about lower abdomen pain that is constant. Patient does report improvement with IV Dilaudid. Denies nausea or vomiting at this time. Patient denies chest pain or shortness breath. Patient denies any urinary burning or frequency. Current vital signs temp 98.6, Heart rate 68, respiratory rate 16, blood pressure 145/90 with pulse ox 95% on 2 L On 05/11/2024 patient was seen and examined on the medical floor he is alert and oriented x 3 in no apparent distress, he stated that his pain is better controlled , he is receiving IV morphine , there is no fever or chills no headache or dizziness no chest pain no shortness of breath no cough no nausea or vomiting no abdominal pain no diarrhea no urinary symptoms, Garcia catheter is in. Patient is scheduled to have radiation therapy, will continue to follow. On 05/12/2024 patient is alert and oriented x 3. Patient reports better control of pain at this time. Patient also able to eat breakfast. Plans today for radiation to pelvic mass per oncology services. Patient also reports that urology is recommending patient keep Garcia catheter in. Patient denies chest pain or shortness of breath. Patient denies nausea vomiting or diarrhea. Patient denies any urinary burning or frequency. On 05/13/2024 patient was seen and examined on the medical floor he is alert and oriented x 3 in no apparent distress he is still complaining of pelvic pain and right lower extremity pain otherwise he denies any complaints at this time there is no fever or chills no headache or or dizziness no chest pain no shortness of breath no cough no nausea or vomiting no diarrhea no urinary symptoms. He is maintained on narcotics for pain management, he was started on radiation therapy on Wednesday, will continue to follow closely. On 05/14/2024 patient was seen and examined on the medical floor he is alert and oriented x 3, he reports better control of his pain, patient is maintained on morphine sulfate 6 mg IV every 4 hours as needed, he was also started on radiation therapy, otherwise patient denies any complaints there is no fever or chills no headache or dizziness no chest pain no shortness of breath no cough no nausea or vomiting no abdominal pain no diarrhea no urinary symptoms. Objective - Vital Signs Vital signs: Vital Signs Temp 97.8 F 05/14/24 07:51 Pulse 60 05/14/24 07:51 Resp 18 05/14/24 07:51 BP 123/71 05/14/24 07:51 Pulse Ox 94 L 05/14/24 07:51 FiO2 Intake & Output 05/13/24 05/14/24 05/14/24 18:59 06:59 18:59 Output Total 1500 2100 Balance -1500 -2100 Output: Urine 1500 2100 Other: Voiding Method Indwelling Catheter Indwelling Catheter # Bowel Movements 1 - Exam In general patient is alert and oriented x 3 in no distress HEENT head normocephalic and atraumatic Neck is supple no JVD no goiter no lymphadenopathy no carotid bruit Chest examination is clear to auscultation no crackles no wheezing Cardiac exam reveals regular heart sounds S1 and S2 no gallops no murmurs Abdomen is soft nontender no organomegaly with normal bowel sounds Extremity exam reveals no edema no cyanosis or clubbing Neurological examination reveals no gross focal deficits - Labs CBC & Chem 7: 05/13/24 04:54 05/13/24 04:54 Labs: Abnormal Lab Results - Last 24 Hours (Table) 05/13/24 05/13/24 05/13/24 Range/Units 04:54 04:54 04:54 RBC 2.93 L (4.40-5.60) X 10*6/uL Hgb 8.8 L (13.0-17.0) g/dL Hct 27.2 L (39.6-50.0) % RDW 14.7 H (11.5-14.5) % Lymphocytes # 0.58 L (0.90-5.00) X 10*3/uL Carbon Dioxide 20.5 L (21.6-31.8) mmol/L Calcium 8.0 L (8.7-10.3) mg/dL Iron 10 L (65-175) UG/DL TIBC 157 L (228-460) UG/DL % Saturation 6.37 L (15.00-50.00) Transferrin 112.0 L (204.0-354.0) mg/dL Total Protein 5.3 L (6.2-8.2) g/dL Albumin 3.1 L (3.8-4.9) g/dL Albumin/Globulin Ratio 1.41 L (1.60-3.17) Ratio Assessment and Plan Assessment: 1. Intractable abdominal pain with nausea and vomiting likely secondary from pelvic mass 2. History of prostate cancer with concerns of metastatic disease from recent computed tomography scan 3. Recent TURP with Dr. Rivas. 4. History of sleep apnea 5. History of coronary artery disease with previous heart stents 6. Hyponatremia likely secondary from nausea vomiting and decreased appetite patient continue on normal saline at 75. repeat labs ordered DVT prophylaxis Lovenox. GI prophylaxis Protonix Oncology service is consulted Urology service is consulted Garcia catheter placed per urology recommending to keep in at this time Interventional radiology consulted Repeat labs ordered
[2024-05-15] MEDS: LACTULOSE 20 GM/30 ML CUP PO ONE (13:43)
--- NOTE | 2024-05-15 15:31 | P.PN ---
Subjective Progress Note Date: 05/15/24 Principal diagnosis: intractable abd pain, progressive metastatic prostate adenocarcinoma In f/u today pt is feeling better, pain is controlled, he was able to get some sleep, he is using the appetite stimulant and that is helping. He has not had a BM in about 5 days. he does not have great sensation in the rectal area, denies feeling any pressure. He does have intermittent lower abd cramping. No other c/o. Objective - Vital Signs Vital signs: Vital Signs Temp 98.3 F 05/15/24 12:27 Pulse 83 05/15/24 12:27 Resp 17 05/15/24 12:27 BP 103/67 05/15/24 12:27 Pulse Ox 98 05/15/24 12:27 FiO2 Intake & Output 05/14/24 05/15/24 05/15/24 18:59 06:59 18:59 Intake Total 1320 Output Total 1900 1700 500 Balance -1900 -380 -500 Intake: Oral 1320 Output: Urine 1900 1700 500 Other: Voiding Method Indwelling Catheter Indwelling Catheter Indwelling Catheter - Constitutional General appearance: Present: average body habitus, cooperative, no acute distress - EENT Eyes: Present: anicteric sclerae, EOMI ENT: Present: hearing grossly normal - Respiratory Details: resp even and unlabored - Peripheral edema leg Peripheral Edema: bilateral: None - Gastrointestinal General gastrointestinal: Present: soft - Integumentary Integumentary: Present: normal - Neurologic Neurologic: Present: CNII-XII intact - Musculoskeletal Musculoskeletal: Present: strength equal bilaterally - Psychiatric Psychiatric: Present: A&O x's 3, appropriate affect, intact judgment & insight - Labs CBC & Chem 7: 05/14/24 05:44 05/14/24 05:44 Assessment and Plan (1) Urinary retention Current Visit: Yes Status: Acute Priority: High Code(s): R33.9 - RETENTION OF URINE, UNSPECIFIED SNOMED Code(s): 271127154 (2) Abdominal pain Current Visit: Yes Status: Acute Priority: High Code(s): R10.9 - UNSPECIFIED ABDOMINAL PAIN SNOMED Code(s): 66446956 (3) Prostate cancer Current Visit: Yes Status: Acute Priority: High Code(s): C61 - MALIGNANT NEOPLASM OF PROSTATE SNOMED Code(s): 015261058 (4) Anemia Current Visit: Yes Status: Acute Priority: Medium Code(s): D64.9 - ANEMIA, UNSPECIFIED SNOMED Code(s): 652112128 Plan: Urinary retention -Recent TURP and wang removal -Wang cont to drain urine without complications, no hematuria -Urology has seen pt. Plans to continue wang for now, trial removal before being discharged home. Does not feel that urinary retention related to abd pain-no change in pain with relief of bladder distention Abd pain -Controlled on current IV analgesic regimen. Converted to oral equivalent with Pharmacist. Will see how pt does with the transition -Most likely 2/2 pelvic mass vs bone mets. -MRI pelvis ordered -Rad Onc has seen pt. XRT started last Wednesday, 5 days planned. -Meds for prevention of narcotic induce constipation reviewed and adjustment made. 1 time dose of MOM, added miralax daily Met prostate adenocarcinoma -Recent disease progression-see consult for malignancy details. -Plans to start new regimen this week with cabazitaxel and pred. This will be held until pt completes radiation and pain is under better control. Tentative plans to start 06/01 Anemia -Reports of black stool. Occult negative. -Slight drop in Hgb since admit. Stable at 8.6 today. Cont to monitor -Pt has low saturation with moderately elevated ferritin in the 300's. Recent severe hematuria. Stopping oral iron due to possible contribution to cons tipation. 3 doses of IV iron ordered. Pt reporting poor appetite, megace added, PPI increased. Pt reoprts today good appetite, tolerating oral intake. Cont as prescribed
[2024-05-15] MEDS: MAGNESIUM HYDROXIDE 2,400 MG/30 ML CUP PO STA (15:50)
[2024-05-15] MEDS: SODIUM FERRIC GLUCONAT-SUCROSE 125 MG in SODIUM CHLORIDE 0.9% 100 ML IVPB SCH (16:41)
--- NOTE | 2024-05-15 17:25 | P.PN ---
Subjective Progress Note Date: 05/15/24 This is a 68-year-old male patient of Dr. Dupont who presented with concerns of acute abdominal pain with nausea and vomiting. Patient has a history of prostate cancer as diagnosed 7 years agoPer records and family patient underwent recent computed tomography scan showing masslike lesion in the pelvis. Patient follows with oncology services. Patient also reports he underwent TURP with Dr. Rivas last week and had Garcia catheter removed on Wednesday.Additional medical history includes coronary artery disease with previous cardiac stents sleep apnea and hernia repair.KUB x-ray completed showing lytic areas within the thoracic spine and within the right hip and ilium metastatic disease should be considered. Acute intra-abdominal process. At this time patient will be admitted patient started on IV pain control with DilaudidAnd nausea medication of Zofran. Oncology and urology service is consulted. At this time patient is complaining about lower abdomen pain that is constant. Patient does report improvement with IV Dilaudid. Denies nausea or vomiting at this time. Patient denies chest pain or shortness breath. Patient denies any urinary burning or frequency. Current vital signs temp 98.6, Heart rate 68, respiratory rate 16, blood pressure 145/90 with pulse ox 95% on 2 L On 05/11/2024 patient was seen and examined on the medical floor he is alert and oriented x 3 in no apparent distress, he stated that his pain is better controlled , he is receiving IV morphine , there is no fever or chills no headache or dizziness no chest pain no shortness of breath no cough no nausea or vomiting no abdominal pain no diarrhea no urinary symptoms, Garcia catheter is in. Patient is scheduled to have radiation therapy, will continue to follow. On 05/12/2024 patient is alert and oriented x 3. Patient reports better control of pain at this time. Patient also able to eat breakfast. Plans today for radiation to pelvic mass per oncology services. Patient also reports that urology is recommending patient keep Garcia catheter in. Patient denies chest pain or shortness of breath. Patient denies nausea vomiting or diarrhea. Patient denies any urinary burning or frequency. On 05/13/2024 patient was seen and examined on the medical floor he is alert and oriented x 3 in no apparent distress he is still complaining of pelvic pain and right lower extremity pain otherwise he denies any complaints at this time there is no fever or chills no headache or or dizziness no chest pain no shortness of breath no cough no nausea or vomiting no diarrhea no urinary symptoms. He is maintained on narcotics for pain management, he was started on radiation therapy on Wednesday, will continue to follow closely. On 05/14/2024 patient was seen and examined on the medical floor he is alert and oriented x 3, he reports better control of his pain, patient is maintained on morphine sulfate 6 mg IV every 4 hours as needed, he was also started on radiation therapy, otherwise patient denies any complaints there is no fever or chills no headache or dizziness no chest pain no shortness of breath no cough no nausea or vomiting no abdominal pain no diarrhea no urinary symptoms. On 05/15/2024 patient was seen and examined on the medical floor, he is alert and oriented x 3 in no apparent distress, he is complaining of constipation otherwise he denies any complaints, his pain is better controlled, there is no fever or chills no headache or dizziness no chest pain no shortness of breath no cough no nausea or vomiting no abdominal pain no diarrhea no urinary symptoms. Objective - Vital Signs Vital signs: Vital Signs Temp 98.3 F 05/15/24 12:27 Pulse 83 05/15/24 12:27 Resp 17 05/15/24 12:27 BP 103/67 05/15/24 12:27 Pulse Ox 98 05/15/24 12:27 FiO2 Intake & Output 05/14/24 05/15/24 05/15/24 18:59 06:59 18:59 Intake Total 1320 Output Total 1900 1700 500 Balance -1900 -380 -500 Intake: Oral 1320 Output: Urine 1900 1700 500 Other: Voiding Method Indwelling Catheter Indwelling Catheter Indwelling Catheter - Exam In general patient is alert and oriented x 3 in no distress HEENT head normocephalic and atraumatic Neck is supple no JVD no goiter no lymphadenopathy no carotid bruit Chest examination is clear to auscultation no crackles no wheezing Cardiac exam reveals regular heart sounds S1 and S2 no gallops no murmurs Abdomen is soft nontender no organomegaly with normal bowel sounds Extremity exam reveals no edema no cyanosis or clubbing Neurological examination reveals no gross focal deficits - Labs CBC & Chem 7: 05/14/24 05:44 05/14/24 05:44 Assessment and Plan Assessment: 1. Intractable abdominal pain with nausea and vomiting likely secondary from pelvic mass 2. History of prostate cancer with concerns of metastatic disease from recent computed tomography scan 3. Recent TURP with Dr. Rivas. 4. History of sleep apnea 5. History of coronary artery disease with previous heart stents 6. Hyponatremia likely secondary from nausea vomiting and decreased appetite patient continue on normal saline at 75. repeat labs ordered DVT prophylaxis Lovenox. GI prophylaxis Protonix Oncology service is consulted Urology service is consulted Garcia catheter placed per urology recommending to keep in at this time Interventional radiology consulted Repeat labs ordered
[2024-05-15] MEDS: MORPHINE SULFATE IR 15 MG TABLET PO PRN (22:23)
[2024-05-16] MEDS: polyethylene glycoL 3350 17 GM POWD.PACK PO SCH (08:51)
--- NOTE | 2024-05-16 10:33 | P.PN ---
Subjective Progress Note Date: 05/16/24 This is a 68-year-old male patient of Dr. Dupont who presented with concerns of acute abdominal pain with nausea and vomiting. Patient has a history of prostate cancer as diagnosed 7 years agoPer records and family patient underwent recent computed tomography scan showing masslike lesion in the pelvis. Patient follows with oncology services. Patient also reports he underwent TURP with Dr. Rivas last week and had Garcia catheter removed on Wednesday.Additional medical history includes coronary artery disease with previous cardiac stents sleep apnea and hernia repair.KUB x-ray completed showing lytic areas within the thoracic spine and within the right hip and ilium metastatic disease should be considered. Acute intra-abdominal process. At this time patient will be admitted patient started on IV pain control with DilaudidAnd nausea medication of Zofran. Oncology and urology service is consulted. At this time patient is complaining about lower abdomen pain that is constant. Patient does report improvement with IV Dilaudid. Denies nausea or vomiting at this time. Patient denies chest pain or shortness breath. Patient denies any urinary burning or frequency. Current vital signs temp 98.6, Heart rate 68, respiratory rate 16, blood pressure 145/90 with pulse ox 95% on 2 L On 05/11/2024 patient was seen and examined on the medical floor he is alert and oriented x 3 in no apparent distress, he stated that his pain is better controlled , he is receiving IV morphine , there is no fever or chills no headache or dizziness no chest pain no shortness of breath no cough no nausea or vomiting no abdominal pain no diarrhea no urinary symptoms, Garcia catheter is in. Patient is scheduled to have radiation therapy, will continue to follow. On 05/12/2024 patient is alert and oriented x 3. Patient reports better control of pain at this time. Patient also able to eat breakfast. Plans today for radiation to pelvic mass per oncology services. Patient also reports that urology is recommending patient keep Garcia catheter in. Patient denies chest pain or shortness of breath. Patient denies nausea vomiting or diarrhea. Patient denies any urinary burning or frequency. On 05/13/2024 patient was seen and examined on the medical floor he is alert and oriented x 3 in no apparent distress he is still complaining of pelvic pain and right lower extremity pain otherwise he denies any complaints at this time there is no fever or chills no headache or or dizziness no chest pain no shortness of breath no cough no nausea or vomiting no diarrhea no urinary symptoms. He is maintained on narcotics for pain management, he was started on radiation therapy on Wednesday, will continue to follow closely. On 05/14/2024 patient was seen and examined on the medical floor he is alert and oriented x 3, he reports better control of his pain, patient is maintained on morphine sulfate 6 mg IV every 4 hours as needed, he was also started on radiation therapy, otherwise patient denies any complaints there is no fever or chills no headache or dizziness no chest pain no shortness of breath no cough no nausea or vomiting no abdominal pain no diarrhea no urinary symptoms. On 05/15/2024 patient was seen and examined on the medical floor, he is alert and oriented x 3 in no apparent distress, he is complaining of constipation otherwise he denies any complaints, his pain is better controlled, there is no fever or chills no headache or dizziness no chest pain no shortness of breath no cough no nausea or vomiting no abdominal pain no diarrhea no urinary symptoms. On 05/16/2024 patient is alert and oriented x 3. Patient reports improvement in abdominal pain per nursing staff patient had large bowel movement yesterday. Did discuss case with oncology services. Per oncology will assess if patient can receive radiation treatment outpatient. Possible discharge in the next 24 hours. Patient denies chest pain or shortness of breath. Patient denies nausea vomiting or diarrhea. Patient denies any urinary burning or frequency Objective - Vital Signs Vital signs: Vital Signs Temp 98.1 F 05/16/24 07:22 Pulse 71 05/16/24 07:22 Resp 20 05/16/24 07:22 BP 124/73 05/16/24 07:22 Pulse Ox 99 05/16/24 07:22 FiO2 Intake & Output 05/15/24 05/16/24 05/16/24 18:59 06:59 18:59 Intake Total 725 120 Output Total 875 1725 Balance -875 -1000 120 Intake: Intake, IV Titration 525 Amount Sodium Chloride 0.9% 1, 525 000 ml @ 75 mls/hr IV . [id number] [facility] Rx#:[id number] Oral 200 120 Output: Urine 875 1725 Other: Voiding Method Indwelling Catheter Indwelling Catheter # Bowel Movements 1 1 - Exam In general patient is alert and oriented x 3 in no distress HEENT head normocephalic and atraumatic Neck is supple no JVD no goiter no lymphadenopathy no carotid bruit Chest examination is clear to auscultation no crackles no wheezing Cardiac exam reveals regular heart sounds S1 and S2 no gallops no murmurs Abdomen is soft nontender no organomegaly with normal bowel sounds Extremity exam reveals no edema no cyanosis or clubbing Neurological examination reveals no gross focal deficits - Labs CBC & Chem 7: 05/14/24 05:44 05/14/24 05:44 Assessment and Plan Assessment: 1. Intractable abdominal pain with nausea and vomiting likely secondary from pelvic mass 2. History of prostate cancer with concerns of metastatic disease from recent computed tomography scan 3. Recent TURP with Dr. Rivas. 4. History of sleep apnea 5. History of coronary artery disease with previous heart stents 6. Hyponatremia likely secondary from nausea vomiting and decreased appetite patient continue on normal saline at 75. repeat labs ordered DVT prophylaxis Lovenox. GI prophylaxis Protonix Oncology service is consulted Urology service is consulted Garcia catheter placed per urology recommending to keep in at this time Interventional radiology consulted Repeat labs ordered
[2024-05-16 11:08] LABS: ALT 37 U/L (10-49); AST 29 U/L (14-35); Albumin/Globulin Ratio 1.43 Ratio (1.60-3.17); Alkaline Phosphatase 86 U/L (41-126); BUN/Creat Ratio 8.57 Ratio (12.00-20.00); Calcium 7.9 mg/dL (8.7-10.3); Carbon Dioxide 20.8 mmol/L (21.6-31.8); Chloride 109 mmol/L (96-109); Globulin 2.1 g/dL (1.6-3.3); Glucose 96 mg/dL (70-110); Potassium 4.2 mmol/L (3.5-5.5); Sodium 139 mmol/L (135-145); Total Bilirubin 0.4 mg/dL (0.3-1.2); Total Protein 5.1 g/dL (6.2-8.2)
[2024-05-16 11:19] LABS: Basophils # (A) 0.01 X 10*3/uL (0.00-0.10); Basophils % (A) 0.2 %; Eosinophils # (A) 0.03 X 10*3/uL (0.04-0.35); Eosinophils % (A) 0.7 %; HCT 26.8 % (39.6-50.0); HGB 8.6 g/dL (13.0-17.0); Lymphocytes # (A) 0.76 X 10*3/uL (0.90-5.00); MCH 29.3 pg (27.0-32.0); MCHC 32.1 g/dL (32.0-37.0); MCV 91.2 FL (80.0-97.0); Mean Platelet Volume 10.9 FL (9.5-12.2); Monocytes # (A) 0.45 X 10*3/uL (0.20-1.00); Monocytes % (A) 10.1 %; NRBC Per 100 WBC 0 X 10*3/uL (0.00-0.01); Neutrophils % (A) 71.8 %; Platelet Count 293 X 10*3/uL (140-440); RBC 2.94 X 10*6/uL (4.40-5.60); RDW 14.8 % (11.5-14.5); WBC 4.46 X 10*3/uL (4.50-10.00)
[2024-05-17 10:49] LABS: Basophils # (A) 0.01 X 10*3/uL (0.00-0.10); Basophils % (A) 0.2 %; Eosinophils # (A) 0.02 X 10*3/uL (0.04-0.35); Eosinophils % (A) 0.4 %; HGB 8.6 g/dL (13.0-17.0); Lymphocytes # (A) 0.73 X 10*3/uL (0.90-5.00); Lymphocytes % (A) 15.7 %; MCH 29.4 pg (27.0-32.0); MCHC 31.9 g/dL (32.0-37.0); MCV 92.2 FL (80.0-97.0); Mean Platelet Volume 10.9 FL (9.5-12.2); Monocytes # (A) 0.44 X 10*3/uL (0.20-1.00); Monocytes % (A) 9.4 %; NRBC Per 100 WBC 0 X 10*3/uL (0.00-0.01); Neutrophils # (A) 3.44 X 10*3/uL (1.80-7.70); Neutrophils % (A) 73.9 %; Platelet Count 296 X 10*3/uL (140-440); RBC 2.93 X 10*6/uL (4.40-5.60); WBC 4.66 X 10*3/uL (4.50-10.00)
--- NOTE | 2024-05-17 10:56 | P.PN ---
Subjective Progress Note Date: 05/17/24 This is a 68-year-old male patient of Dr. Dupont who presented with concerns of acute abdominal pain with nausea and vomiting. Patient has a history of prostate cancer as diagnosed 7 years agoPer records and family patient underwent recent computed tomography scan showing masslike lesion in the pelvis. Patient follows with oncology services. Patient also reports he underwent TURP with Dr. Rivas last week and had Garcia catheter removed on Wednesday.Additional medical history includes coronary artery disease with previous cardiac stents sleep apnea and hernia repair.KUB x-ray completed showing lytic areas within the thoracic spine and within the right hip and ilium metastatic disease should be considered. Acute intra-abdominal process. At this time patient will be admitted patient started on IV pain control with DilaudidAnd nausea medication of Zofran. Oncology and urology service is consulted. At this time patient is complaining about lower abdomen pain that is constant. Patient does report improvement with IV Dilaudid. Denies nausea or vomiting at this time. Patient denies chest pain or shortness breath. Patient denies any urinary burning or frequency. Current vital signs temp 98.6, Heart rate 68, respiratory rate 16, blood pressure 145/90 with pulse ox 95% on 2 L On 05/11/2024 patient was seen and examined on the medical floor he is alert and oriented x 3 in no apparent distress, he stated that his pain is better controlled , he is receiving IV morphine , there is no fever or chills no headache or dizziness no chest pain no shortness of breath no cough no nausea or vomiting no abdominal pain no diarrhea no urinary symptoms, Garcia catheter is in. Patient is scheduled to have radiation therapy, will continue to follow. On 05/12/2024 patient is alert and oriented x 3. Patient reports better control of pain at this time. Patient also able to eat breakfast. Plans today for radiation to pelvic mass per oncology services. Patient also reports that urology is recommending patient keep Garcia catheter in. Patient denies chest pain or shortness of breath. Patient denies nausea vomiting or diarrhea. Patient denies any urinary burning or frequency. On 05/13/2024 patient was seen and examined on the medical floor he is alert and oriented x 3 in no apparent distress he is still complaining of pelvic pain and right lower extremity pain otherwise he denies any complaints at this time there is no fever or chills no headache or or dizziness no chest pain no shortness of breath no cough no nausea or vomiting no diarrhea no urinary symptoms. He is maintained on narcotics for pain management, he was started on radiation therapy on Wednesday, will continue to follow closely. On 05/14/2024 patient was seen and examined on the medical floor he is alert and oriented x 3, he reports better control of his pain, patient is maintained on morphine sulfate 6 mg IV every 4 hours as needed, he was also started on radiation therapy, otherwise patient denies any complaints there is no fever or chills no headache or dizziness no chest pain no shortness of breath no cough no nausea or vomiting no abdominal pain no diarrhea no urinary symptoms. On 05/15/2024 patient was seen and examined on the medical floor, he is alert and oriented x 3 in no apparent distress, he is complaining of constipation otherwise he denies any complaints, his pain is better controlled, there is no fever or chills no headache or dizziness no chest pain no shortness of breath no cough no nausea or vomiting no abdominal pain no diarrhea no urinary symptoms. On 05/16/2024 patient is alert and oriented x 3. Patient reports improvement in abdominal pain per nursing staff patient had large bowel movement yesterday. Did discuss case with oncology services. Per oncology will assess if patient can receive radiation treatment outpatient. Possible discharge in the next 24 hours. Patient denies chest pain or shortness of breath. Patient denies nausea vomiting or diarrhea. Patient denies any urinary burning or frequency on 05/17/2025 for patient's alert and oriented 3. Patient having slightly more blood in Garcia catheter likely secondary from radiation.hemoglobin stable at 8.6.patient to receive last dose of radiation tomorrow and likely will DC home after. Patient denies chest pain or shortness of breath. Patient denies nausea vomiting or diarrhea. Patient denies any urinary burning or frequency Objective - Vital Signs Vital signs: Vital Signs Temp 97.9 F 05/17/24 07:14 Pulse 70 05/17/24 07:14 Resp 17 05/17/24 07:14 BP 114/70 05/17/24 07:14 Pulse Ox 99 05/17/24 07:14 FiO2 Intake & Output 05/16/24 05/17/24 05/17/24 18:59 06:59 18:59 Intake Total 1120 118 Output Total 1600 1550 Balance -480 -1432 Intake: Intake, IV Titration 1000 Amount Sodium Chloride 0.9% 1, 900 000 ml @ 75 mls/hr IV . [id number] [facility] Rx#:[id number] Sodium Ferric Gluconat- 100 Sucrose 125 mg In Sodium Chloride 0.9% 100 ml @ 100 mls/hr IVPB DAILY [facility] Rx#:[id number] Oral 120 118 Output: Urine 1600 1550 Other: Voiding Method Indwelling Catheter Indwelling Catheter - Exam In general patient is alert and oriented x 3 in no distress HEENT head normocephalic and atraumatic Neck is supple no JVD no goiter no lymphadenopathy no carotid bruit Chest examination is clear to auscultation no crackles no wheezing Cardiac exam reveals regular heart sounds S1 and S2 no gallops no murmurs Abdomen is soft nontender no organomegaly with normal bowel sounds Extremity exam reveals no edema no cyanosis or clubbing Neurological examination reveals no gross focal deficits - Labs CBC & Chem 7: 05/17/24 05:30 05/16/24 05:45 Labs: Abnormal Lab Results - Last 24 Hours (Table) 05/16/24 05/16/24 Range/Units 05:45 05:45 WBC 4.46 L (4.50-10.00) X 10*3/uL RBC 2.94 L (4.40-5.60) X 10*6/uL Hgb 8.6 L (13.0-17.0) g/dL Hct 26.8 L (39.6-50.0) % RDW 14.8 H (11.5-14.5) % Lymphocytes # 0.76 L (0.90-5.00) X 10*3/uL Eosinophils # 0.03 L (0.04-0.35) X 10*3/uL Carbon Dioxide 20.8 L (21.6-31.8) mmol/L BUN 6.0 L (9.0-27.0) mg/dL BUN/Creatinine Ratio 8.57 L (12.00-20.00) Ratio Calcium 7.9 L (8.7-10.3) mg/dL Total Protein 5.1 L (6.2-8.2) g/dL Albumin 3.0 L (3.8-4.9) g/dL Albumin/Globulin Ratio 1.43 L (1.60-3.17) Ratio Assessment and Plan Assessment: 1. Intractable abdominal pain with nausea and vomiting likely secondary from pelvic mass 2. History of prostate cancer with concerns of metastatic disease from recent computed tomography scan 3. Recent TURP with Dr. Rivas. 4. History of sleep apnea 5. History of coronary artery disease with previous heart stents 6. Hyponatremia likely secondary from nausea vomiting and decreased appetite patient continue on normal saline at 75. repeat labs ordered DVT prophylaxis Lovenox. GI prophylaxis Protonix Oncology service is consulted Urology service is consulted Garcia catheter placed per urology recommending to keep in at this time Interventional radiology consulted Repeat labs ordered
[2024-05-17 11:02] LABS: ALT 36 U/L (10-49); AST 26 U/L (14-35); Albumin 3.2 g/dL (3.8-4.9); Albumin/Globulin Ratio 1.52 Ratio (1.60-3.17); Alkaline Phosphatase 90 U/L (41-126); BUN/Creat Ratio 11.29 Ratio (12.00-20.00); Blood Urea Nitrogen 7.9 mg/dL (9.0-27.0); Calcium 8.2 mg/dL (8.7-10.3); Carbon Dioxide 18.8 mmol/L (21.6-31.8); Chloride 109 mmol/L (96-109); Globulin 2.1 g/dL (1.6-3.3); Glucose 103 mg/dL (70-110); Potassium 4.2 mmol/L (3.5-5.5); Sodium 139 mmol/L (135-145); Total Bilirubin 0.3 mg/dL (0.3-1.2); Total Protein 5.3 g/dL (6.2-8.2)
--- NOTE | 2024-05-17 18:40 | P.PN ---
Subjective Progress Note Date: 05/17/24 At today's visit patient is resting comfortably in bed. He is reporting improvement in pain on current regimen. He has completed 3 of 5 fractions of RT, his 4th treatment scheduled for today. Patient does report hematuria returned yesterday. Wang is in place. Hemoglobin stable at 8.6. Objective - Vital Signs Vital signs: Vital Signs Temp 98.2 F 05/17/24 11:56 Pulse 75 05/17/24 11:56 Resp 16 05/17/24 11:56 BP 111/75 05/17/24 11:56 Pulse Ox 99 05/17/24 11:56 FiO2 Intake & Output 05/16/24 05/17/24 05/17/24 18:59 06:59 18:59 Intake Total 1120 118 Output Total 1600 1550 900 Balance -522 -5958 -900 Intake: Intake, IV Titration 1000 Amount Sodium Chloride 0.9% 1, 900 000 ml @ 75 mls/hr IV . [id number] [facility] Rx#:[id number] Sodium Ferric Gluconat- 100 Sucrose 125 mg In Sodium Chloride 0.9% 100 ml @ 100 mls/hr IVPB DAILY [facility] Rx#:[id number] Oral 120 118 Output: Urine 1600 1550 900 Other: Voiding Method Indwelling Catheter Indwelling Catheter Indwelling Catheter - Constitutional General appearance: Present: average body habitus, no acute distress - EENT Eyes: Present: anicteric sclerae, EOMI ENT: Present: hearing grossly normal - Respiratory Details: breathing is even and unlabored - Cardiovascular Details: well perfused - Gastrointestinal General gastrointestinal: Present: soft. Absent: tenderness - Integumentary Integumentary: Absent: cyanotic, jaundiced - Musculoskeletal Musculoskeletal: Present: strength equal bilaterally - Psychiatric Psychiatric: Present: A&O x's 3 - Labs CBC & Chem 7: 05/17/24 05:30 05/17/24 05:30 Labs: Abnormal Lab Results - Last 24 Hours (Table) 05/17/24 05/17/24 Range/Units 05:30 05:30 RBC 2.93 L (4.40-5.60) X 10*6/uL Hgb 8.6 L (13.0-17.0) g/dL Hct 27.0 L (39.6-50.0) % MCHC 31.9 L (32.0-37.0) g/dL RDW 15.0 H (11.5-14.5) % Lymphocytes # 0.73 L (0.90-5.00) X 10*3/uL Eosinophils # 0.02 L (0.04-0.35) X 10*3/uL Carbon Dioxide 18.8 L (21.6-31.8) mmol/L BUN 7.9 L (9.0-27.0) mg/dL BUN/Creatinine Ratio 11.29 L (12.00-20.00) Ratio Calcium 8.2 L (8.7-10.3) mg/dL Total Protein 5.3 L (6.2-8.2) g/dL Albumin 3.2 L (3.8-4.9) g/dL Albumin/Globulin Ratio 1.52 L (1.60-3.17) Ratio Assessment and Plan (1) Hematuria Current Visit: Yes Status: Acute Priority: High Code(s): R31.9 - HEMATURIA, UNSPECIFIED SNOMED Code(s): 07087772 (2) Abdominal pain Current Visit: Yes Status: Acute Priority: High Code(s): R10.9 - UNSPECIFIED ABDOMINAL PAIN SNOMED Code(s): 90160177 (3) Prostate cancer Current Visit: Yes Status: Acute Priority: High Code(s): C61 - MALIGNANT NEOPLASM OF PROSTATE SNOMED Code(s): 350627608 (4) Urinary retention Current Visit: Yes Status: Acute Priority: High Code(s): R33.9 - RETENTION OF URINE, UNSPECIFIED SNOMED Code(s): 676568056 Plan: Urinary retention, hematuria: -Recent TURP and wang removal -Urology following. Plans to continue wang for now. Does not feel that urinary retention related to abd pain-no change in pain with relief of bladder distention -Hematuria noted again yesterday. Plan to maintain wang with outpt urology f/u and remove catheter next week Abd pain -Controlled on current regimen. PO morphine controlling pain better than PO dilaudid -Most likely 2/2 pelvic mass vs bone mets. -Rad Onc has seen pt. XRT started, 3/5 completed, last tx scheduled for Wednesday -Meds for prevention of narcotic induce constipation reviewed and adjustment made -Morphine rx sent to [facility], d/c PO dilaudid. Plan discussed with patient Met prostate adenocarcinoma -Recent disease progression-see consult HPI for malignancy details. -Plans to start new regimen on 06/01 with cabazitaxel and pred Anemia -Reports of black stool. Occult negative. -Slight drop in Hgb since admit. Stable at 8.6 today. Cont to monitor -Pt has low saturation with moderately elevated ferritin in the 300's. Recent severe hematuria. Oral iron stopped due to possible contribution to constipation. 3 doses of IV iron given
[2024-05-18 08:41] LABS: Basophils # (A) 0.01 X 10*3/uL (0.00-0.10); Basophils % (A) 0.2 %; Eosinophils # (A) 0.03 X 10*3/uL (0.04-0.35); Eosinophils % (A) 0.6 %; HGB 8.7 g/dL (13.0-17.0); Lymphocytes % (A) 16.9 %; MCH 29.6 pg (27.0-32.0); MCHC 32.2 g/dL (32.0-37.0); MCV 91.8 FL (80.0-97.0); Monocytes # (A) 0.43 X 10*3/uL (0.20-1.00); Monocytes % (A) 9.1 %; NRBC Per 100 WBC 0 X 10*3/uL (0.00-0.01); Neutrophils # (A) 3.44 X 10*3/uL (1.80-7.70); Neutrophils % (A) 72.6 %; Platelet Count 304 X 10*3/uL (140-440); RBC 2.94 X 10*6/uL (4.40-5.60); RDW 15.2 % (11.5-14.5); WBC 4.74 X 10*3/uL (4.50-10.00)
[2024-05-18 08:58] LABS: BUN/Creat Ratio 13.67 Ratio (12.00-20.00); Blood Urea Nitrogen 8.2 mg/dL (9.0-27.0); Glucose 103 mg/dL (70-110)
[2024-05-18 08:59] LABS: ALT 42 U/L (10-49); AST 31 U/L (14-35); Albumin 3.1 g/dL (3.8-4.9); Albumin/Globulin Ratio 1.41 Ratio (1.60-3.17); Alkaline Phosphatase 97 U/L (41-126); Calcium 8.2 mg/dL (8.7-10.3); Carbon Dioxide 18.6 mmol/L (21.6-31.8); Chloride 108 mmol/L (96-109); Globulin 2.2 g/dL (1.6-3.3); Potassium 4.2 mmol/L (3.5-5.5); Sodium 136 mmol/L (135-145); Total Bilirubin 0.3 mg/dL (0.3-1.2); Total Protein 5.3 g/dL (6.2-8.2)
[2024-05-18 13:06] VITALS: BP 135/77; PULSE 60; RESP 19; TEMP 98
[2024-05-18 14:02] VITALS: BMI 26.7
--- NOTE | 2024-05-18 17:28 | P.DS ---
Providers Date of admission: 05/12/24 11:10 Expected date of discharge: 05/18/24 Attending physician: Zahra Zaman Consults: 05/10/24 03:38 Consult Physician Urgent Consulting Provider: Jun Arias Consult Reason/Comments: prostate cancer, pelvic mass, worsening pelvic pain Do you want consulting provider notified?: Yes 05/10/24 09:10 Consult Physician Routine Consulting Provider: Eliot Campos Consult Reason/Comments: recent TURP Do you want consulting provider notified?: Yes 05/10/24 10:13 Consult Physician Routine Consulting Provider: Adarsh Toney Consult Reason/Comments: painful pelvic mass, prostate adenocarcinoma Do you want consulting provider notified?: Already Contacted Primary care physician: Keshia Dupont Hospital Course: Diagnosis on discharge: 1. Intractable abdominal pain with nausea and vomiting likely secondary from pelvic mass 2. History of prostate cancer with concerns of metastatic disease from recent computed tomography scan 3. Recent TURP with Dr. Rivas. 4. History of sleep apnea 5. History of coronary artery disease with previous heart stents 6. Hyponatremia likely secondary from nausea vomiting and decreased appetite patient continue on normal saline at 75. repeat labs ordered Hospital course: This is a 68-year-old male patient of Dr. Dupont who presented with concerns of acute abdominal pain with nausea and vomiting. Patient has a history of prostate cancer as diagnosed 7 years agoPer records and family patient underwent recent computed tomography scan showing masslike lesion in the pelvis. Patient follows with oncology services. Patient also reports he underwent TURP with Dr. Rivas last week and had Garcia catheter removed on Wednesday.Additional medical history includes coronary artery disease with previous cardiac stents sleep apnea and hernia repair.KUB x-ray completed showing lytic areas within the thoracic spine and within the right hip and ilium metastatic disease should be considered. Acute intra-abdominal process. At this time patient will be admitted patient started on IV pain control with DilaudidAnd nausea medication of Zofran. Oncology and urology service is consulted. At this time patient is complaining about lower abdomen pain that is constant. Patient does report improvement with IV Dilaudid. Denies nausea or vomiting at this time. Patient denies chest pain or shortness breath. Patient denies any urinary burning or frequency. Current vital signs temp 98.6, Heart rate 68, respiratory rate 16, blood pressure 145/90 with pulse ox 95% on 2 L On 05/11/2024 patient was seen and examined on the medical floor he is alert and oriented x 3 in no apparent distress, he stated that his pain is better controlled , he is receiving IV morphine , there is no fever or chills no headache or dizziness no chest pain no shortness of breath no cough no nausea or vomiting no abdominal pain no diarrhea no urinary symptoms, Garcia catheter is in. Patient is scheduled to have radiation therapy, will continue to follow. On 05/12/2024 patient is alert and oriented x 3. Patient reports better control of pain at this time. Patient also able to eat breakfast. Plans today for radiation to pelvic mass per oncology services. Patient also reports that urology is recommending patient keep Garcia catheter in. Patient denies chest pain or shortness of breath. Patient denies nausea vomiting or diarrhea. Patient denies any urinary burning or frequency. On 05/13/2024 patient was seen and examined on the medical floor he is alert and oriented x 3 in no apparent distress he is still complaining of pelvic pain and right lower extremity pain otherwise he denies any complaints at this time there is no fever or chills no headache or or dizziness no chest pain no shortness of breath no cough no nausea or vomiting no diarrhea no urinary symptoms. He is maintained on narcotics for pain management, he was started on radiation therapy on Wednesday, will continue to follow closely. On 05/14/2024 patient was seen and examined on the medical floor he is alert and oriented x 3, he reports better control of his pain, patient is maintained on morphine sulfate 6 mg IV every 4 hours as needed, he was also started on radiation therapy, otherwise patient denies any complaints there is no fever or chills no headache or dizziness no chest pain no shortness of breath no cough no nausea or vomiting no abdominal pain no diarrhea no urinary symptoms. On 05/15/2024 patient was seen and examined on the medical floor, he is alert and oriented x 3 in no apparent distress, he is complaining of constipation otherwise he denies any complaints, his pain is better controlled, there is no fever or chills no headache or dizziness no chest pain no shortness of breath no cough no nausea or vomiting no abdominal pain no diarrhea no urinary symptoms. On 05/16/2024 patient is alert and oriented x 3. Patient reports improvement in abdominal pain per nursing staff patient had large bowel movement yesterday. Did discuss case with oncology services. Per oncology will assess if patient can receive radiation treatment outpatient. Possible discharge in the next 24 hours. Patient denies chest pain or shortness of breath. Patient denies nausea vomiting or diarrhea. Patient denies any urinary burning or frequency on 05/17/2024 for patient's alert and oriented 3. Patient having slightly more blood in Garcia catheter likely secondary from radiation.hemoglobin stable at 8.6.patient to receive last dose of radiation tomorrow and likely will DC home after. Patient denies chest pain or shortness of breath. Patient denies nausea vomiting or diarrhea. Patient denies any urinary burning or frequency On 05/18/2024 patient was seen and examined on the medical floor, he is alert and oriented x 3 in no apparent distress, he reports significant improvement in his pain, he completed radiation therapy today, he was evaluated by oncology and was cleared for discharge, he was given 3 days worth of morphine sulfate prescription, he will follow-up with Dr. Lynch his oncologist for further management of his pain and his prostate cancer. Patient Condition at Discharge: Stable Plan - Discharge Summary Discharge Rx Participant: Yes New Discharge Prescriptions: New Morphine Sulfate Ir [MSIR] 15 mg PO Q4HR PRN #0 tab PRN Reason: Pain Pantoprazole [Protonix] 40 mg PO AC-BID 30 Days #60 tab Sennosides-Docusate Sodium [Senokot-S] 2 each PO BID 30 Days #120 tab Continue Calcium Carbonate [Calcium] 600 mg PO DAILY Aspirin EC [Ecotrin Low Dose] 81 mg PO DAILY Atorvastatin [Lipitor] 40 mg PO HS Cholecalciferol [Vitamin D3 (125 Mcg = 5000 Iu)] 125 mcg PO DAILY Diphenoxylate HCl/Atropine [Lomotil 2.5-0.025 mg Tablet] 1 - 2 tab PO QID PRN PRN Reason: Diarrhea Loratadine [Claritin] 10 mg PO DAILY Magnesium Oxide [Magnesium] 1,000 mg PO DAILY polyethylene glycoL 3350 [Miralax] 17 gm PO DAILY predniSONE 10 mg PO DAILY Prochlorperazine [Compazine] 10 mg PO Q6H PRN PRN Reason: Nausea Tamsulosin [Flomax] 0.4 mg PO BID Acetaminophen Tab [Tylenol] 500 - 1,000 mg PO Q6H PRN PRN Reason: Pain Or Fever > 100.5 Darolutamide [Nubeqa] 600 mg PO BID-W/MEALS Ferrous Sulfate [Iron (65 MG Elemental)] 325 mg PO BID Ibuprofen [Advil] 200 - 400 mg PO Q6H PRN PRN Reason: Pain Or Fever > 100.5 ALPRAZolam [Xanax] 0.25 mg PO Q6H PRN PRN Reason: Anxiety Discontinued HYDROmorphone HCL 2 mg PO Q4H PRN PRN Reason: Pain Simethicone [Gas-X] 125 mg PO QID PRN PRN Reason: gas Cephalexin [Keflex] 500 mg PO Q12HR Discharge Medication List Aspirin EC [Ecotrin Low Dose] 81 mg PO DAILY 07/23/19 [History] Atorvastatin [Lipitor] 40 mg PO HS 07/23/19 [History] Calcium Carbonate [Calcium] 600 mg PO DAILY 07/23/19 [History] ALPRAZolam [Xanax] 0.25 mg PO Q6H PRN 05/10/24 [History] Acetaminophen Tab [Tylenol] 500 - 1,000 mg PO Q6H PRN 05/10/24 [History] Cholecalciferol [Vitamin D3 (125 Mcg = 5000 Iu)] 125 mcg PO DAILY 05/10/24 [History] Darolutamide [Nubeqa] 600 mg PO BID-W/MEALS 05/10/24 [History] Diphenoxylate HCl/Atropine [Lomotil 2.5-0.025 mg Tablet] 1 - 2 tab PO QID PRN 05/10/24 [History] Ferrous Sulfate [Iron (65 MG Elemental)] 325 mg PO BID 05/10/24 [History] Ibuprofen [Advil] 200 - 400 mg PO Q6H PRN 05/10/24 [History] Loratadine [Claritin] 10 mg PO DAILY 05/10/24 [History] Magnesium Oxide [Magnesium] 1,000 mg PO DAILY 05/10/24 [History] Prochlorperazine [Compazine] 10 mg PO Q6H PRN 05/10/24 [History] Tamsulosin [Flomax] 0.4 mg PO BID 05/10/24 [History] polyethylene glycoL 3350 [Miralax] 17 gm PO DAILY 05/10/24 [History] predniSONE 10 mg PO DAILY 05/10/24 [History] Morphine Sulfate Ir [MSIR] 15 mg PO Q4HR PRN #0 tab 05/18/24 [Rx] Pantoprazole [Protonix] 40 mg PO AC-BID 30 Days #60 tab 05/18/24 [Rx] Sennosides-Docusate Sodium [Senokot-S] 2 each PO BID 30 Days #120 tab 05/18/24 [Rx] Follow up Appointment(s)/Referral(s): Keshia Dupont MD [Primary Care Provider] - 1-2 days (Please call to make your own appointment.) Bruno Lynch MD [STAFF PHYSICIAN] - 06/01/24 9:00 am (This is chemo appt) [facility] Visiting Nurse, [NON-STAFF] - As Needed Patient Instructions/Handouts: Urinary Retention in Men (ED), Prostate Cancer (DC), Garcia Catheter Placement and Care (DC)
== END 2024-05-18 17:35 | disposition home or self-care (01) | DRG 392 ==
LOC: EC 00:13 → 5NMEDONC 03:40 → OBSVTOIN 05-12 11:10
PROVIDERS: ADMIT Internal Medicine; ATTEND Internal Medicine
PROC: DW0 Radiation Therapy, Anatomical Regions, Beam Radiation (ICD-10-PCS; principal; 2024-05-12)
DX: R19.00 Intra-abdominal and pelvic swelling, mass and lump, unspecified site (principal); E87.1 Hypo-osmolality and hyponatremia; K92.0 Hematemesis; C79.51 Secondary malignant neoplasm of bone; I25.10 Atherosclerotic heart disease of native coronary artery without angina pectoris; R33.9 Retention of urine, unspecified; C61 Malignant neoplasm of prostate; R10.31 Right lower quadrant pain; R10.32 Left lower quadrant pain; G47.30 Sleep apnea, unspecified; Z95.5 Presence of coronary angioplasty implant and graft; Z85.46 Personal history of malignant neoplasm of prostate; D64.9 Anemia, unspecified; R59.0 Localized enlarged lymph nodes; Z79.82 Long term (current) use of aspirin; Z79.891 Long term (current) use of opiate analgesic; Z79.899 Other long term (current) drug therapy; Z87.891 Personal history of nicotine dependence; Z87.19 Personal history of other diseases of the digestive system
CPT/HCPCS: 36415; 72197; 74018; 80048; 80053; 82272; 82607; 82728; 82746; 83540; 83550; 83605; 83690; 85025; 85045; 96361; 96374; 96375; 96376; 99285

== ENCOUNTER 2025-02-28 17:24 | Emergency (ER) | payer MEDICARE, BC ==
[2025-02-28 18:56] LABS: Basophils # (A) 0.02 10*3/uL (0.00-0.10); Basophils % (A) 0.2 %; HGB 11.6 g/dL (13.0-17.0); Lymphocytes % (A) 4.8 %; MCH 32.5 pg (27.0-32.0); MCHC 34.1 g/dL (32.0-37.0); MCV 95.2 fL (80.0-97.0); Mean Platelet Volume 10.5 fL (9.5-12.2); Neutrophils # (A) 7.44 10*3/uL (1.80-7.70); Neutrophils % (A) 88.8 %; Platelet Count 354 10*3/uL (140-440); RBC 3.57 10*6/uL (4.40-5.60); RDW 14.6 % (11.5-14.5); WBC 8.38 10*3/uL (4.50-10.00)
[2025-02-28 19:07] LABS: ALT 24 U/L (4-49); AST 30 U/L (17-59); African American GFR (CKD) >90 (>60 ml/min/1.73 sqM); Albumin 3.7 g/dL (3.5-5.0); Alkaline Phosphatase 76 U/L (38-126); Anion Gap 11 mmol/L; Blood Urea Nitrogen 16 mg/dL (9-20); Calcium 9.4 mg/dL (8.4-10.2); Carbon Dioxide 21 mmol/L (22-30); Chloride 99 mmol/L (98-107); Glucose 145 mg/dL (74-99); Non-African American GFR(CKD) >90 (>60 ml/min/1.73 sqM); Potassium 4.7 mmol/L (3.5-5.1); Sodium 131 mmol/L (137-145); Total Bilirubin 1.3 mg/dL (0.2-1.3); Total Protein 6.6 g/dL (6.3-8.2)
[2025-02-28 19:18] LABS: Appearance,Urine Cloudy (Clear); Bacteria,Urine Rare /hpf; Bilirubin,Urine Negative (Negative); Blood,Urine Large (Negative); Color,Urine Light Red; Glucose,Urine (UA) Negative (Negative); Ketones,Urine Negative (Negative); Leukocyte Esterase,Urine Trace (Negative); Mucus,Urine Rare /hpf; Nitrite,Urine Negative (Negative); Protein,Urine Trace (Negative); RBC,Urine >182 /hpf (0-5); Specific Gravity,Urine 1.016 (1.001-1.035); Urobilinogen,Urine <2.0 mg/dL (<2.0); WBC,Urine 9 /hpf (0-5)
[2025-02-28 19:34] LABS: Influenza A Not Detected (Not Detectd); Influenza B Not Detected (Not Detectd); RSV Not Detected (Not Detectd)
--- NOTE | 2025-02-28 19:47 | ED ---
Fever HPI - General Chief Complaint: Fever Stated Complaint: SOB/Dizziness Time Seen by Provider: 02/28/25 17:30 Source: patient Mode of arrival: ambulatory Limitations: no limitations - History of Present Illness Initial Comments: 69-year-old male with past medical history of coronary artery disease, prostate cancer on chemotherapy who presents to the emergency department reporting lightheadedness, fevers and weakness. Last chemo treatment was on February 06. Patient reports that he had progressive weakness for the past few weeks with worsening shortness of breath. He reports that he has had low-grade fevers at home. Was being treated for a urinary tract infection with Levaquin. He does admit to suprapubic pain some dysuria. He also has had return of hematuria. Denies any black or bloody stools. No diarrhea or constipation. No chest pain. No cough. No other alleviating, precipitating or modifying factors - Related Data Home Medications Medication Instructions Recorded Confirmed Atorvastatin [Lipitor] 40 mg PO DAILY 07/23/19 02/28/25 Calcium Carbonate [Calcium] 600 mg PO DAILY 07/23/19 02/28/25 Cholecalciferol [Vitamin D3 (125 125 mcg PO DAILY 05/10/24 02/28/25 Mcg = 5000 Iu)] Darolutamide [Nubeqa] 600 mg PO BID-W/MEALS 05/10/24 02/28/25 Diphenoxylate HCl/Atropine 2 tab PO QID PRN 05/10/24 02/28/25 [Lomotil 2.5-0.025 mg Tablet] Loratadine [Claritin] 10 mg PO DAILY 05/10/24 02/28/25 predniSONE 10 mg PO DAILY 05/10/24 02/28/25 Ferrous Gluconate 324 mg PO BID 02/28/25 02/28/25 HYDROmorphone [Dilaudid] 2 mg PO Q4H PRN 02/28/25 02/28/25 Levofloxacin [Levaquin] 750 mg PO DAILY 02/28/25 02/28/25 Magnesium Citrate 250 mg PO DAILY 02/28/25 02/28/25 Metoprolol Succinate [Metoprolol 25 mg PO DAILY 02/28/25 02/28/25 Succinate ER] Ondansetron [Zofran] 4 mg PO Q4-6H PRN 02/28/25 02/28/25 Pantoprazole Sodium [Protonix] 20 mg PO DAILY 02/28/25 02/28/25 Previous Rx's Medication Instructions Recorded Morphine Sulfate Ir [MSIR] 15 mg PO Q4HR PRN #0 tab 05/18/24 Allergies Allergy/AdvReac Type Severity Reaction Status Date / Time No Known Allergies Allergy Verified 02/28/25 18:38 Review of Systems ROS Statement: Those systems with pertinent positive or pertinent negative responses have been documented in the HPI. ROS Other: All systems not noted in ROS Statement are negative. Past Medical History Past Medical History: Coronary Artery Disease (CAD), Cancer, Sleep Apnea/CPAP/BIPAP Additional Past Medical History / Comment(s): Prostate CA-2019 received chemo received,uses cpap,tx with prednisone Dec 2021, History of Any Multi-Drug Resistant Organisms: None Reported Past Surgical History: Heart Catheterization With Stent, Hernia Repair Additional Past Surgical History / Comment(s): Cardiac Stent x3. TURP May 2024 Past Anesthesia/Blood Transfusion Reactions: No Reported Reaction Date of Last Stent Placement:: Past Psychological History: No Psychological Hx Reported Smoking Status: Former smoker Past Alcohol Use History: None Reported Past Drug Use History: Marijuana - Past Family History Father Additional Family Medical History / Comment(s): Heart issues Mother Family Medical History: No Reported History Brother(s) Family Medical History: Cancer Additional Family Medical History / Comment(s): pancreatic General Exam Limitations: no limitations General appearance: alert, in no apparent distress Head exam: Present: atraumatic, normocephalic, normal inspection Eye exam: Present: normal appearance, PERRL, EOMI. Absent: scleral icterus, conjunctival injection, periorbital swelling ENT exam: Present: normal exam, mucous membranes moist Neck exam: Present: normal inspection. Absent: tenderness, meningismus, lymphadenopathy Respiratory exam: Present: normal lung sounds bilaterally. Absent: respiratory distress, wheezes, rales, rhonchi, stridor Cardiovascular Exam: Present: regular rate, normal rhythm, normal heart sounds. Absent: systolic murmur, diastolic murmur, rubs, gallop, clicks GI/Abdominal exam: Present: soft, tenderness (suprapubic), normal bowel sounds. Absent: distended, guarding, rebound, rigid Extremities exam: Present: normal inspection, full ROM, normal capillary refill. Absent: tenderness, pedal edema, joint swelling, calf tenderness Back exam: Present: normal inspection Neurological exam: Present: alert, oriented X3, CN II-XII intact Psychiatric exam: Present: normal affect, normal mood Skin exam: Present: warm, dry, intact, normal color. Absent: rash Course Vital Signs 02/28/25 02/28/25 02/28/25 17:25 20:01 20:20 Temperature 98.0 F 98.4 F Pulse Rate 87 76 Pulse Rate [ 78 Health Data Administrator ] Respiratory 16 17 16 Rate Blood Pressure 108/71 125/71 Blood Pressure 114/68 [Left Arm Sitting] Blood Pressure 119/73 [Left Arm Standing] Blood Pressure 114/68 [Left Arm Supine] O2 Sat by Pulse 98 97 97 Oximetry 02/28/25 23:18 Temperature Pulse Rate 97 Pulse Rate [ Health Data Administrator ] Respiratory 17 Rate Blood Pressure 124/88 Blood Pressure [Left Arm Sitting] Blood Pressure [Left Arm Standing] Blood Pressure [Left Arm Supine] O2 Sat by Pulse 97 Oximetry Medical Decision Making - Medical Decision Making Was pt. sent in by a medical professional or institution (, PA, FISHING TOOL SUPERVISOR, urgent care, hospital, or assisted...) When possible be specific @ -No Did you speak to anyone other than the patient for history (EMS, parent, family, police, friend...)? What history was obtained from this source @ -I spoke with his for history Did you review nursing and triage notes (agree or disagree)? Why? @ -I reviewed and agree with nursing and triage notes Were old charts reviewed (outside hosp., previous admission, EMS record, old EKG, old radiological studies, urgent care reports/EKG's, assisted records)? Report findings @ -I reviewed the patient's CT chest abdomen pelvis April 2023 which demons trated multiple metastatic nodules Differential Diagnosis (chest pain, altered mental status, abdominal pain women, abdominal pain men, vaginal bleeding, weakness, fever, dyspnea, syncope, headache, dizziness, GI bleed, back pain, seizure, CVA, palpatations, mental health, musculoskeletal)? @ -Differential Weakness: Hypoglycemia, shock, sepsis, hyponatremia, anemia, infection, DC, ETOH, adverse medicine reaction, overdose, stroke, this is not meant to be an all-inclusive list. EKG interpreted by me (3pts min.). @ -Yes and demonstrates sinus rhythm with a rate of 79. CA interval 137. QRS 92. QTc of 380. No acute ST segment elevations or depressions X-rays interpreted by me (1pt min.). @ -yes which demonstrates no acute process CT interpreted by me (1pt min.). @ -Yes which demonstrates worsening metastatic disease U/S interpreted by me (1pt. min.). @ -None done What testing was considered but not performed or refused? (CT, X-rays, U/S, labs)? Why? @ -None What meds were considered but not given or refused? Why? @ -None Did you discuss the management of the patient with other professionals (professionals i.e. , PA, FISHING TOOL SUPERVISOR, lab, RT, psych nurse, social media content manager, floor layer tile, teacher, plain clothes police officer, high risk case manager)? Give summary @ -No Was smoking cessation discussed for >3mins.? @ -No Was critical care preformed (if so, how long)? @ -No Were there social determinants of health that impacted care today? How? (Homelessness, low income, unemployed, alcoholism, drug addiction, transportation, low edu. Level, literacy, decrease access to med. care, [facility], rehab)? @ -No Was there de-escalation of care discussed even if they declined (Discuss DNR or withdrawal of care, Hospice)? DNR status @ -No What co-morbidities impacted this encounter? (DM, HTN, Smoking, COPD, CAD, Canc er, CVA, ARF, Chemo, Hep., AIDS, mental health diagnosis, sleep apnea, morbid obesity)? @ -Metastatic prostate cancer Was patient admitted / discharged? Hospital course, mention meds given and route, prescriptions, significant lab abnormalities, going to OR and other pertinent info. @ -Upon arrival patient seen and evaluated in bed 9. Thorough history and physical exam was performed. Laboratory studies are conducted. Chest x-ray was performed. I did follow this with the CT of the patient's abdomen pelvis which demonstrates concern for worsening metastatic disease. I discussed results with the patient. Discussed the limitations in my findings. Recommend that he follow-up with the oncologist for further management of the findings. Patient was agreeable to this. Given written and verbal discharge instructions and discharged in stable condition Undiagnosed new problem with uncertain prognosis? @ -Yes Drug Therapy requiring intensive monitoring for toxicity (Heparin, Nitro, Insu kvng, Cardizem)? @ -No Were any procedures done? @ -No Diagnosis/symptom? @ -Generalized weakness, subjective pyrexia, metastatic prostate cancer Acute, or Chronic, or Acute on Chronic? @ -Acute on chronic Uncomplicated (without systemic symptoms) or Complicated (systemic symptoms)? @ -Complicated Side effects of treatment? @ -No Exacerbation, Progression, or Severe Exacerbation? @ -No Poses a threat to life or bodily function? How? (Chest pain, USA, DC, pneumonia, PE, COPD, DKA, ARF, appy, cholecystitis, CVA, Diverticulitis, Homicidal, Suicidal, threat to staff... and all critical care pts) @ -Yes this patient does have signs of worsening prostate cancer - Lab Data Result diagrams: 02/28/25 18:47 02/28/25 18:47 Lab Results 02/28/25 02/28/25 02/28/25 Range/Units 18:47 18:47 18:47 WBC 8.38 (4.50-10.00) 10*3/uL RBC 3.57 L (4.40-5.60) 10*6/uL Hgb 11.6 L (13.0-17.0) g/dL Hct 34.0 L (39.6-50.0) % MCV 95.2 (80.0-97.0) fL MCH 32.5 H (27.0-32.0) pg MCHC 34.1 (32.0-37.0) g/dL Plt Count 354 (140-440) 10*3/uL MPV 10.5 (9.5-12.2) fL Immature Gran % (Auto) 0.2 % Neutrophils % 88.8 % Lymphocytes % 4.8 % Monocytes % 6.0 % Eosinophils % 0.0 % Basophils % 0.2 % Immature Gran # 0.02 (0.00-0.04) 10*3/uL Neutrophils # 7.44 (1.80-7.70) 10*3/uL Lymphocytes # 0.40 L (0.90-5.00) 10*3/uL Monocytes # 0.50 (0.20-1.00) 10*3/uL Eosinophils # 0.00 L (0.04-0.35) 10*3/uL Basophils # 0.02 (0.00-0.10) 10*3/uL Sodium 131 L (137-145) mmol/L Potassium 4.7 (3.5-5.1) mmol/L Chloride 99 (98-107) mmol/L Carbon Dioxide 21 L (22-30) mmol/L Anion Gap 11 mmol/L BUN 16 (9-20) mg/dL Creatinine 0.70 (0.66-1.25) mg/dL Est GFR (CKD-EPI)AfAm >90 (>60 ml/min/1.73 sqM) Est GFR (CKD-EPI)NonAf >90 (>60 ml/min/1.73 sqM) Glucose 145 H (74-99) mg/dL Plasma Lactic Acid Ashok 1.2 (0.7-2.0) mmol/L Calcium 9.4 (8.4-10.2) mg/dL Total Bilirubin 1.3 (0.2-1.3) mg/dL AST 30 (17-59) U/L ALT 24 (4-49) U/L Alkaline Phosphatase 76 (38-126) U/L Total Protein 6.6 (6.3-8.2) g/dL Albumin 3.7 (3.5-5.0) g/dL Urine Color Urine Appearance (Clear) Urine pH (5.0-8.0) Ur Specific [place] (1.001-1.035) Urine Protein (Negative) Urine Glucose (UA) (Negative) Urine Ketones (Negative) Urine Blood (Negative) Urine Nitrite (Negative) Urine Bilirubin (Negative) Urine Urobilinogen (<2.0) mg/dL Ur Leukocyte Esterase (Negative) Urine RBC (0-5) /hpf Urine WBC (0-5) /hpf Urine Bacteria (None) /hpf Urine Mucus (None) /hpf Influenza Type A (PCR) (Not Detectd) Influenza Type B (PCR) (Not Detectd) RSV (PCR) (Not Detectd) SARS-CoV-2 (PCR) (Not Detectd) 02/28/25 02/28/25 Range/Units 18:47 18:47 WBC (4.50-10.00) 10*3/uL RBC (4.40-5.60) 10*6/uL Hgb (13.0-17.0) g/dL Hct (39.6-50.0) % MCV (80.0-97.0) fL MCH (27.0-32.0) pg MCHC (32.0-37.0) g/dL Plt Count (140-440) 10*3/uL MPV (9.5-12.2) fL Immature Gran % (Auto) % Neutrophils % % Lymphocytes % % Monocytes % % Eosinophils % % Basophils % % Immature Gran # (0.00-0.04) 10*3/uL Neutrophils # (1.80-7.70) 10*3/uL Lymphocytes # (0.90-5.00) 10*3/uL Monocytes # (0.20-1.00) 10*3/uL Eosinophils # (0.04-0.35) 10*3/uL Basophils # (0.00-0.10) 10*3/uL Sodium (137-145) mmol/L Potassium (3.5-5.1) mmol/L Chloride (98-107) mmol/L Carbon Dioxide (22-30) mmol/L Anion Gap mmol/L BUN (9-20) mg/dL Creatinine (0.66-1.25) mg/dL Est GFR (CKD-EPI)AfAm (>60 ml/min/1.73 sqM) Est GFR (CKD-EPI)NonAf (>60 ml/min/1.73 sqM) Glucose (74-99) mg/dL Plasma Lactic Acid Ashok (0.7-2.0) mmol/L Calcium (8.4-10.2) mg/dL Total Bilirubin (0.2-1.3) mg/dL AST (17-59) U/L ALT (4-49) U/L Alkaline Phosphatase (38-126) U/L Total Protein (6.3-8.2) g/dL Albumin (3.5-5.0) g/dL Urine Color Light Red Urine Appearance Cloudy (Clear) Urine pH 6.0 (5.0-8.0) Ur Specific [place] 1.016 (1.001-1.035) Urine Protein Trace H (Negative) Urine Glucose (UA) Negative (Negative) Urine Ketones Negative (Negative) Urine Blood Large H (Negative) Urine Nitrite Negative (Negative) Urine Bilirubin Negative (Negative) Urine Urobilinogen <2.0 (<2.0) mg/dL Ur Leukocyte Esterase Trace H (Negative) Urine RBC >182 H (0-5) /hpf Urine WBC 9 H (0-5) /hpf Urine Bacteria Rare H (None) /hpf Urine Mucus Rare H (None) /hpf Influenza Type A (PCR) Not Detected (Not Detectd) Influenza Type B (PCR) Not Detected (Not Detectd) RSV (PCR) Not Detected (Not Detectd) SARS-CoV-2 (PCR) Not Detected (Not Detectd) Disposition Clinical Impression: Prostate cancer, Hematuria, Abdominal pain Disposition: HOME SELF-CARE Condition: Stable Instructions (If sedation given, give patient instructions): Hematuria (ED) Additional Instructions: Please follow-up with your oncologist for further management of your symptoms and possible new treatment plan. Return for any new or worsening symptoms Is patient prescribed a controlled substance at d/c from ED?: No Referrals: Keshia Dupont MD [Primary Care Provider] - 1-2 days Bruno Lynch MD [STAFF PHYSICIAN] - 1-2 days Time of Disposition: 22:39
[2025-02-28] MEDS: SODIUM CHLORIDE 0.9% 1,000 ML IV ONE (19:57)
[2025-02-28 20:02] VITALS: TEMP 98.4
--- NOTE | 2025-02-28 20:05 | XR ---
EXAMINATION TYPE: XR chest 2V DATE OF EXAM: 02/28/2025 7:14 PM COMPARISON: Chest radiographs from 02/08/2014 CLINICAL INDICATION: Male, 69 years old with history of fever; TECHNIQUE: XR chest 2V Frontal and lateral views of the chest. FINDINGS: Lungs/Pleura: There is no evidence of pleural effusion, focal consolidation, or pneumothorax. Left l ower lobe calcified granuloma. Pulmonary vascularity: Unremarkable. Heart/mediastinum: Cardiomediastinal silhouette is unremarkable. Musculoskeletal: No acute osseous pathology. IMPRESSION: No acute cardiopulmonary disease/process. [facility], , 02/28/2025 8:03 PM
--- NOTE | 2025-02-28 21:57 | CT ---
EXAMINATION TYPE: CT abdomen pelvis w con DATE OF EXAM: 02/28/2025 9:22 PM COMPARISON: CT abdomen pelvis most recent from dating back to 08/18/2022. CLINICAL INDICATION: Male, 69 years old with history of weight loss, abd pain, prostate cancer; Abd p ain. Weight loss. Hx of prostate CA. TECHNIQUE: Axial CT abdomen pelvis w con;Sagittal and coronal reformats were created on a separate w orkstation. Contrast used:100 ml mL of Isovue 300 with IV Contrast, (none if empty) Oral contrast used: without Oral Contrast (none if empty) CT DLP: 1453.6 mGycm, Automated exposure control for dose reduction was used. FINDINGS: LOWER CHEST: Unremarkable soft tissue nodule in the right lung base medially measuring 17 x 7 mm. Sta ble from 05/03/2024 and increased in size from 08/18/2022. ABDOMEN LIVER: Indeterminate segment 4A lesion measuring 60 Hounsfield units measuring 19 mm. GALLBLADDER AND BILE DUCTS: Unremarkable. PANCREAS: Unremarkable. SPLEEN: Unremarkable. ADRENAL GLANDS: Unremarkable. KIDNEYS AND URETERS: No evidence of hydronephrosis or obstructing renal calculus. The ureters are unr emarkable. e Indeterminate left renal lesion measuring 44 Hounsfield units and 18 mm medially PELVIS BLADDER: No evidence for wall thickening or mass given limitations of exam. Nodular wall thickening a nterior to the prostate gland of the base of the urinary bladder measuring 31 x 15 x 13 mm. REPRODUCTIVE: Unremarkable. ABDOMEN & PELVIS STOMACH AND BOWEL: No evidence of bowel obstruction. PERITONEUM/RETROPERITONEUM: No evidence of pneumoperitoneum or free fluid. Soft tissue mass seen on p rior on 05/03/2024 is no longer visualized in the pelvis. VASCULATURE: No fusiform dilation of the infrarenal abdominal aorta up to 2.9 cm. MUSCULOSKELETAL: Diffuse sclerotic lesions throughout the spine and osseous structures. Osseous scler otic lesions are now that different from prior. LYMPH NODES: Prominent lymph nodes throughout the knees time concerning for malignancy measuring up t o 22 mm in short axis near the level of the left renal sinus. Lymph nodes are increased in size from 05/03/2024. SOFT TISSUE/ABDOMINAL WALL: Right fat containing inguinal hernia. IMPRESSION: 1. Evidence of active malignancy which has progressed from prior with diffuse osseous sclerotic lesi ons, retroperitoneal lymphadenopathy, bladder base possible mass, indeterminate hepatic lesion. 2. Soft tissue mass seen within the left pelvis on 05/03/2024 is no longer visualized. 3. Indeterminate segment 4A lesion measuring 60 Hounsfield units measuring 19 mm. MRI liver mass pro tocol recommended. 4. Indeterminate left renal lesion is stable from 05/03/2024 and likely represents hemorrhagic/pernici ous cyst.. 5. Slightly enlarging right lower lobe pulmonary nodule now measuring 17 x 7 mm. [facility], , 02/28/2025 9:55 PM
[2025-02-28 23:20] VITALS: BP 124/88; PULSE 97; RESP 17
== END 2025-02-28 23:19 | disposition home or self-care (01) ==
LOC: EC 17:24
DX: C61 Malignant neoplasm of prostate (principal); Z87.891 Personal history of nicotine dependence
CPT/HCPCS: 36415; 93005; 80053; 83605; 85025; 81001; 87040; 87636; 71046; 74177; 99285; 96360; 96361 ×2; Q9967

== ENCOUNTER 2025-04-02 13:43 | Inpatient (IN) | payer MEDICARE, BC ==
--- NOTE | 2025-04-02 14:37 | ED ---
General Adult HPI - General Source: patient, EMS, RN notes reviewed Mode of arrival: EMS Limitations: no limitations <Jakob Damon - Last Filed: 04/02/25 14:48> <Ben Wei - Last Filed: 04/02/25 16:32> - General Chief complaint: Weakness Stated complaint: Weakness Time Seen by Provider: 04/02/25 13:46 - History of Present Illness Initial comments: 69 year old male presents to the ED for evaluation of suprapubic pain that radiates through the groin. He also endorses still having urinary issues and co nstipation for the past few weeks. He has been feeling nauseous all day today and has vomited once before coming here. Pt has a past medical history significant for prostate cancer with metastases. His last radiation therapy session was last week and he is currently taking an oral medication with it called Kassie. He denies any chest pain, SOB, fever, or chills. Patient family states that he has had significant weight loss, dehydration and increasing weakness. Family is concerned about his hydration status and feels that he may need to be admitted for hydration and which is happened in the past. (Jakob Damon) - Related Data Home Medications Medication Instructions Recorded Confirmed Atorvastatin [Lipitor] 40 mg PO DAILY 07/23/19 02/28/25 Calcium Carbonate [Calcium] 600 mg PO DAILY 07/23/19 02/28/25 Cholecalciferol [Vitamin D3 (125 125 mcg PO DAILY 05/10/24 02/28/25 Mcg = 5000 Iu)] Darolutamide [Nubeqa] 600 mg PO BID-W/MEALS 05/10/24 02/28/25 Diphenoxylate HCl/Atropine 2 tab PO QID PRN 05/10/24 02/28/25 [Lomotil 2.5-0.025 mg Tablet] Loratadine [Claritin] 10 mg PO DAILY 05/10/24 02/28/25 predniSONE 10 mg PO DAILY 05/10/24 02/28/25 Ferrous Gluconate 324 mg PO BID 02/28/25 02/28/25 HYDROmorphone [Dilaudid] 2 mg PO Q4H PRN 02/28/25 02/28/25 Levofloxacin [Levaquin] 750 mg PO DAILY 02/28/25 02/28/25 Magnesium Citrate 250 mg PO DAILY 02/28/25 02/28/25 Metoprolol Succinate [Metoprolol 25 mg PO DAILY 02/28/25 02/28/25 Succinate ER] Ondansetron [Zofran] 4 mg PO Q4-6H PRN 02/28/25 02/28/25 Pantoprazole Sodium [Protonix] 20 mg PO DAILY 02/28/25 02/28/25 Previous Rx's Medication Instructions Recorded Morphine Sulfate Ir [MSIR] 15 mg PO Q4HR PRN #0 tab 05/18/24 Allergies Allergy/AdvReac Type Severity Reaction Status Date / Time No Known Allergies Allergy Verified 02/28/25 18:38 Review of Systems ROS Other: All systems not noted in ROS Statement are negative. <Jakob Damon - Last Filed: 04/02/25 14:48> ROS Other: All systems not noted in ROS Statement are negative. <Ben Wei - Last Filed: 04/02/25 16:32> ROS Statement: Those systems with pertinent positive or pertinent negative responses have been documented in the HPI. Past Medical History Past Medical History: Coronary Artery Disease (CAD), Cancer, Sleep Apnea/CPAP/BIPAP Additional Past Medical History / Comment(s): Prostate CA-2019 received chemo received,uses cpap,tx with prednisone Dec 2021, History of Any Multi-Drug Resistant Organisms: None Reported Past Surgical History: Heart Catheterization With Stent, Hernia Repair Additional Past Surgical History / Comment(s): Cardiac Stent x3. TURP May 2024 Past Anesthesia/Blood Transfusion Reactions: No Reported Reaction Date of Last Stent Placement:: Past Psychological History: No Psychological Hx Reported Smoking Status: Former smoker Past Alcohol Use History: None Reported Past Drug Use History: Marijuana - Past Family History Father Additional Family Medical History / Comment(s): Heart issues Mother Family Medical History: No Reported History Brother(s) Family Medical History: Cancer Additional Family Medical History / Comment(s): pancreatic <Jakob Damon - Last Filed: 04/02/25 14:48> General Exam Limitations: no limitations General appearance: alert, in no apparent distress Head exam: Present: atraumatic, normocephalic, normal inspection Neck exam: Present: normal inspection, full ROM. Absent: tenderness, meningismus, lymphadenopathy Respiratory exam: Present: normal lung sounds bilaterally. Absent: respiratory distress, wheezes, rales, rhonchi, stridor Cardiovascular Exam: Present: regular rate, normal rhythm, normal heart sounds. Absent: systolic murmur, diastolic murmur, rubs, gallop, clicks GI/Abdominal exam: Present: soft, tenderness (Suprapubic pain radiating to the groin, tender to palpation ), normal bowel sounds. Absent: distended, guarding, rebound, rigid Back exam: Absent: CVA tenderness (R) <Jakob Damon - Last Filed: 04/02/25 14:48> Course Vital Signs 04/02/25 04/02/25 13:58 14:45 Temperature 98.7 F Pulse Rate 99 88 Respiratory 16 15 Rate Blood Pressure 118/88 118/88 O2 Sat by Pulse 98 97 Oximetry Medical Decision Making - Lab Data Result diagrams: 04/02/25 14:45 04/02/25 14:45 <Ben Wei - Last Filed: 04/02/25 16:32> - Medical Decision Making Was pt. sent in by a medical professional or institution (Dr. PA, MICROFILM MOUNTER, urgent care, hospital, or correction...) When possible be specific @ -No Did you speak to anyone other than the patient for history (EMS, parent, family, police, friend...)? What history was obtained from this source @ -No Did you review nursing and triage notes (agree or disagree)? Why? @ -I reviewed and agree with nursing and triage notes Were old charts reviewed (outside hosp., previous admission, EMS record, old EKG, old radiological studies, urgent care reports/EKG's, correction records)? Report findings @ -No old charts were reviewed Differential Weakness: Hypoglycemia, shock, sepsis, hyponatremia, anemia, infection, OH, ETOH, adverse medicine reaction, overdose, stroke, this is not meant to be an all-inclusive list. EKG interpreted by me (3pts min.). Narrow complex rhythm, rate of 84 MT interval 100, QRS duration 84, QTc [address] segment elevation. X-rays interpreted by me (1pt min.). @ -KUB negative for intraperitoneal free air CT interpreted by me (1pt min.). @ -None done U/S interpreted by me (1pt. min.). @ -None done What testing was considered but not performed or refused? (CT, X-rays, U/S, labs)? Why? @ -None What meds were considered but not given or refused? Why? @ -None Did you discuss the management of the patient with other professionals (professionals i.e. , PA, MICR[employer]IL[employer] MOUNTER, lab, RT, psych nurse, social contact worker, chief transfer and pumphouse operator, teacher, animal control officer, keycase assembler)? Give summary @Case discussed with Dr. Zaman Was smoking cessation discussed for >3mins.? @ -No Was critical care preformed (if so, how long)? @ -No Were there social determinants of health that impacted care today? How? (Homelessness, low income, unemployed, alcoholism, drug addiction, transportation, low edu. Level, literacy, decrease access to med. care, custodial, rehab)? @ -No Was there de-escalation of care discussed even if they declined (Discuss DNR or withdrawal of care, Hospice)? DNR status @ -No What co-morbidities impacted this encounter? (DM, HTN, Smoking, COPD, CAD, Cancer, CVA, ARF, Chemo, Hep., AIDS, mental health diagnosis, sleep apnea, morb id obesity)? @ -Metastatic prostate cancer Was patient admitted / discharged? Hospital course, mention meds given and route, prescriptions, significant lab abnormalities, going to OR and other pertinent info. @ -[69-year-old male with metastatic prostate cancer presenting with generalized weakness and fatigue. Patient admitted for hydration. Undiagnosed new problem with uncertain prognosis? @ -No Drug Therapy requiring intensive monitoring for toxicity (Heparin, Nitro, Insulin, Cardizem)? @ -No Were any procedures done? @ -No Diagnosis/symptom? @Weakness, dehydration, metastatic prostate cancer Acute, or Chronic, or Acute on Chronic? @ -Default Uncomplicated (without systemic symptoms) or Complicated (systemic symptoms)? @ -Default Side effects of treatment? @ -No Exacerbation, Progression, or Severe Exacerbation? @ -No Poses a threat to life or bodily function? How? (Chest pain, USA, OH, pneumonia, PE, COPD, DKA, ARF, appy, cholecystitis, CVA, Diverticulitis, Homicidal, Suic idal, threat to staff... and all critical care pts) @ -Yes, metastatic cancer (Helmreich,Ben N) - Lab Data Lab Results 04/02/25 04/02/25 04/02/25 Range/Units 14:45 14:45 14:45 WBC 6.67 (4.50-10.00) 10*3/uL RBC 3.10 L (4.40-5.60) 10*6/uL Hgb 9.1 L D (13.0-17.0) g/dL Hct 27.7 L (39.6-50.0) % MCV 89.4 D (80.0-97.0) fL MCH 29.4 (27.0-32.0) pg MCHC 32.9 (32.0-37.0) g/dL Plt Count 358 (140-440) 10*3/uL MPV 9.0 L (9.5-12.2) fL Immature Gran % (Auto) 0.4 % Neutrophils % 84.7 % Lymphocytes % 5.5 % Monocytes % 8.8 % Eosinophils % 0.3 % Basophils % 0.3 % Immature Gran # 0.03 (0.00-0.04) 10*3/uL Neutrophils # 5.64 (1.80-7.70) 10*3/uL Lymphocytes # 0.37 L (0.90-5.00) 10*3/uL Monocytes # 0.59 (0.20-1.00) 10*3/uL Eosinophils # 0.02 L (0.04-0.35) 10*3/uL Basophils # 0.02 (0.00-0.10) 10*3/uL Sodium 130 L (137-145) mmol/L Potassium 4.0 (3.5-5.1) mmol/L Chloride 100 (98-107) mmol/L Carbon Dioxide 23 (22-30) mmol/L Anion Gap 7 mmol/L BUN 14 (9-20) mg/dL Creatinine 0.60 L (0.66-1.25) mg/dL Est GFR (CKD-EPI)AfAm >90 (>60 ml/min/1.73 sqM) Est GFR (CKD-EPI)NonAf >90 (>60 ml/min/1.73 sqM) Glucose 113 H (74-99) mg/dL Plasma Lactic Acid Ashok <0.5 L (0.7-2.0) mmol/L Calcium 8.2 L (8.4-10.2) mg/dL Magnesium 2.0 (1.6-2.3) mg/dL Total Bilirubin 0.7 (0.2-1.3) mg/dL AST 50 (17-59) U/L ALT 25 (4-49) U/L Alkaline Phosphatase 106 (38-126) U/L Total Protein 6.2 L (6.3-8.2) g/dL Albumin 3.1 L (3.5-5.0) g/dL Lipase 34 (23-300) U/L Disposition <Jakob Damon - Last Filed: 04/02/25 14:48> Is patient prescribed a controlled substance at d/c from ED?: No Time of Disposition: 16:32 <Ben Wei - Last Filed: 04/02/25 16:32> Clinical Impression: Anemia, Prostate cancer, Dehydration Disposition: ADMITTED IP TO THIS HOSP Condition: Stable Referrals: Keshia Dupont MD [Primary Care Provider] - 1-2 days
[2025-04-02] MEDS: SODIUM CHLORIDE 0.9% 1,000 ML IV ONE (14:54)
[2025-04-02 15:16] LABS: Basophils # (A) 0.02 10*3/uL (0.00-0.10); Basophils % (A) 0.3 %; Eosinophils # (A) 0.02 10*3/uL (0.04-0.35); Eosinophils % (A) 0.3 %; HCT 27.7 % (39.6-50.0); HGB 9.1 g/dL (13.0-17.0); Lymphocytes # (A) 0.37 10*3/uL (0.90-5.00); Lymphocytes % (A) 5.5 %; MCH 29.4 pg (27.0-32.0); MCHC 32.9 g/dL (32.0-37.0); Monocytes # (A) 0.59 10*3/uL (0.20-1.00); Monocytes % (A) 8.8 %; Neutrophils # (A) 5.64 10*3/uL (1.80-7.70); Neutrophils % (A) 84.7 %; Platelet Count 358 10*3/uL (140-440); RDW 16.3 % (11.5-14.5); WBC 6.67 10*3/uL (4.50-10.00)
[2025-04-02 15:17] LABS: MCV 89.4 fL (80.0-97.0)
[2025-04-02 15:22] LABS: ALT 25 U/L (4-49); AST 50 U/L (17-59); African American GFR (CKD) >90 (>60 ml/min/1.73 sqM); Albumin 3.1 g/dL (3.5-5.0); Alkaline Phosphatase 106 U/L (38-126); Anion Gap 7 mmol/L; Blood Urea Nitrogen 14 mg/dL (9-20); Calcium 8.2 mg/dL (8.4-10.2); Carbon Dioxide 23 mmol/L (22-30); Chloride 100 mmol/L (98-107); Glucose 113 mg/dL (74-99); Lipase 34 U/L (23-300); Non-African American GFR(CKD) >90 (>60 ml/min/1.73 sqM); Sodium 130 mmol/L (137-145); Total Bilirubin 0.7 mg/dL (0.2-1.3); Total Protein 6.2 g/dL (6.3-8.2)
--- NOTE | 2025-04-02 16:04 | XR ---
EXAMINATION TYPE: XR KUB DATE OF EXAM: 04/02/2025 3:49 PM COMPARISON: None. CLINICAL INDICATION: Male, 69 years old with history of abdominal pain, TECHNIQUE: XR KUB view(s) obtained. FINDINGS: There appears to be air within the colon. No mass effect is evident. No suspicious mass effect is morteza dent. Psoas margins are normal. No organomegaly is present. 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 Note is made of sclerotic areas such as the superior left acetabulum, right greater trochanter, bilat eral iliac wings, T11 and T12 vertebral bodies. Sclerotic metastasis should be considered. Patient reich s a known history of sclerotic prostate metastasis IMPRESSION: 1. Nonspecific abdomen. 2. Findings compatible sclerotic prostate metastasis. [facility], , 04/02/2025 4:02 PM
[2025-04-02] MEDS ORDERED: NALOXONE 0.4 MG/ML 1 ML VIAL IV PRN (16:30)
[2025-04-02] MEDS: SODIUM CHLORIDE 0.9% 1,000 ML IV SCH (16:58)
[2025-04-02] MEDS: HYDROmorphone 0.5 MG/0.5 ML SYRINGE IVP STA (18:03)
[2025-04-02] MEDS: KETOROLAC 15 MG/ML 1 ML VIAL IVP PRN (20:20)
[2025-04-02 22:01] LABS: Appearance,Urine Cloudy (Clear); Bacteria,Urine Rare /hpf; Bilirubin,Urine Negative (Negative); Blood,Urine Large (Negative); Color,Urine Light Red; Glucose,Urine (UA) Negative (Negative); Ketones,Urine Trace (Negative); Leukocyte Esterase,Urine Small (Negative); Nitrite,Urine Negative (Negative); Protein,Urine 1+ (Negative); RBC,Urine >182 /hpf (0-5); Specific Gravity,Urine 1.012 (1.001-1.035); Urobilinogen,Urine <2.0 mg/dL (<2.0); WBC,Urine 59 /hpf (0-5)
--- NOTE | 2025-04-03 11:50 | P.HPIM ---
History of Present Illness H&P Date: 04/02/25 Surinder Gilles, is a 69-year-old male patient of Dr. Dupont who presented with concerns of weakness and lower abdominal pain over the past 3 days. Patient has a history of metastatic prostate cancer and follows with oncology services. Testing in the emergency room revealed KUB x-ray showing nonspecific abdomen findings compatible sclerotic prostate metastatic. Lab work showing white blood cell 6.67, hemoglobin 9.1, creatinine 0.60 bun 14 lipase 34. Vital signs completed showing temp 98.5, heart rate 98, respiratory rate 16, blood pressure 136/78 with pulse ox of 99% on room air. At this time patient will be admitted PT OT services consulted oncology services also consulted. Patient denies chest pain or shortness of breath. Patient denies nausea vomiting or diarrhea. Patient denies any urinary burning or frequency Review of Systems Please refer to HPI otherwise unremarkable Past Medical History Past Medical History: Coronary Artery Disease (CAD), Cancer, Sleep Apnea/CPAP/BIPAP Additional Past Medical History / Comment(s): Prostate CA-2019 received chemo received,uses cpap,tx with prednisone Dec 2021, History of Any Multi-Drug Resistant Organisms: None Reported Past Surgical History: Heart Catheterization With Stent, Hernia Repair Additional Past Surgical History / Comment(s): Cardiac Stent x3. TURP May 2024 Past Anesthesia/Blood Transfusion Reactions: No Reported Reaction Date of Last Stent Placement:: Past Psychological History: No Psychological Hx Reported Smoking Status: Former smoker Past Alcohol Use History: None Reported Past Drug Use History: Marijuana - Past Family History Father Additional Family Medical History / Comment(s): Heart issues Mother Family Medical History: No Reported History Brother(s) Family Medical History: Cancer Additional Family Medical History / Comment(s): pancreatic Medications and Allergies Home Medications Medication Instructions Recorded Confirmed Type Atorvastatin [Lipitor] 40 mg PO PC-SUPPER 07/23/19 04/02/25 History Calcium Carbonate [Calcium] 600 mg PO HS 07/23/19 04/02/25 History Cholecalciferol [Vitamin D3 (125 125 mcg PO HS 05/10/24 04/02/25 History Mcg = 5000 Iu)] Darolutamide [Nubeqa] 600 mg PO BID-W/MEALS 05/10/24 04/02/25 History Loratadine [Claritin] 10 mg PO HS 05/10/24 04/02/25 History predniSONE 10 mg PO W/BRKFST 05/10/24 04/02/25 History Ferrous Gluconate 324 mg PO PC-SUPPER 02/28/25 04/02/25 History Metoprolol Succinate [Metoprolol 25 mg PO W/BRKFST 02/28/25 04/02/25 History Succinate ER] Ondansetron [Zofran] 4 mg PO Q4H PRN 02/28/25 04/02/25 History Pantoprazole Sodium [Protonix] 20 mg PO AC-BRKFST 02/28/25 04/02/25 History ALPRAZolam [Xanax] 0.25 mg PO TID PRN 04/02/25 04/02/25 History Aspirin 81 mg PO HS 04/02/25 04/02/25 History Magnesium (Unknown) 150mg 150 mg PO AC-BRKFST 04/02/25 04/02/25 History Stool Softner 1 - 3 tab PO AC-BRKFST 04/02/25 04/02/25 History Tamsulosin [Flomax] 0.4 mg PO W/BRKFST 04/02/25 04/02/25 History lisinopriL [Zestril] 2.5 mg PO PC-SUPPER 04/02/25 04/02/25 History tadalafiL [Cialis] 5 mg PO AC-BRKFST 04/02/25 04/02/25 History Allergies Allergy/AdvReac Type Severity Reaction Status Date / Time No Known Allergies Allergy Verified 04/02/25 18:05 Physical Exam Vitals: Vital Signs Temp Pulse Resp BP Pulse Ox 04/02/25 14:45 88 15 118/88 97 04/02/25 13:58 98.7 F 99 16 118/88 98 Intake and Output 04/02/25 04/02/25 04/02/25 06:59 14:59 22:59 Other: Weight 97.522 kg Head normocephalic Neck supple Lungs clear to auscultation bilaterally no wheezing or crackles Heart regular rate and rhythm S1-S2, no rub or gallop Abdomen is soft nontender nondistended positive bowel sounds no hepatosplenomegaly Extremities no edema Neuro alert and orientated to 3 Results CBC & Chem 7: 04/02/25 14:45 04/02/25 14:45 Labs: Abnormal Lab Results - Last 24 Hours (Table) 04/02/25 04/02/25 04/02/25 Range/Units 14:45 14:45 14:45 RBC 3.10 L (4.40-5.60) 10*6/uL Hgb 9.1 L D (13.0-17.0) g/dL Hct 27.7 L (39.6-50.0) % MPV 9.0 L (9.5-12.2) fL Lymphocytes # 0.37 L (0.90-5.00) 10*3/uL Eosinophils # 0.02 L (0.04-0.35) 10*3/uL Sodium 130 L (137-145) mmol/L Creatinine 0.60 L (0.66-1.25) mg/dL Glucose 113 H (74-99) mg/dL Plasma Lactic Acid Ashok <0.5 L (0.7-2.0) mmol/L Calcium 8.2 L (8.4-10.2) mg/dL Total Protein 6.2 L (6.3-8.2) g/dL Albumin 3.1 L (3.5-5.0) g/dL Assessment and Plan Assessment: Abdominal pain with nausea and vomiting likely secondary from metastatic disease History of prostate cancer with mets follows with oncology services history of sleep apnea History of TURP History of coronary artery disease with previous heart stents oncology services consulted DVT prophylaxis heparin. GI prophylax Protonix Repeat labs in a.m. oncology services consulted PT OT services consulted
[2025-04-03] MEDS: TAMSULOSIN 0.4 MG CAP.ER.24H PO SCH (13:26)
[2025-04-03 16:06] VITALS: BMI 26.2
[2025-04-03] MEDS: NYSTATIN 100,000 UNIT/ML SUSP 500,000 UNIT/5 ML CUP PO SCH (17:08)
[2025-04-03] MEDS: ATORVASTATIN 40 MG TAB PO SCH (17:09)
[2025-04-03] MEDS: FERROUS SULFATE 325 MG TAB PO SCH (17:10)
[2025-04-03] MEDS: ALPRAZolam 0.25 MG TAB PO PRN (17:17)
[2025-04-03] MEDS: DAROLUTAMIDE 300 MG PO SCH (17:19)
[2025-04-03] MEDS: SALT AND SODA MOUTHWASH 1,000 ML PO SCH (18:03)
[2025-04-03] MEDS: HYDROmorphone 0.5 MG/0.5 ML SYRINGE IVP PRN (18:03)
[2025-04-03] MEDS: LORATADINE 10 MG TAB PO SCH (20:24)
[2025-04-03] MEDS: CALCIUM CARBONATE 500 MG CHEWABLE PO SCH (20:24)
[2025-04-03] MEDS: ASPIRIN 81 MG PO SCH (20:24)
[2025-04-03] MEDS: SENNOSIDES-DOCUSATE SODIUM 1 EACH TAB PO SCH (20:24)
[2025-04-03] MEDS: CHOLECALCIFEROL 125 MCG (5000 IU) TABLET PO SCH (20:24)
[2025-04-03] MEDS: HEPARIN SODIUM,PORCINE 5,000 UNIT/ML 1 ML VIAL SQ SCH (20:25)
--- NOTE | 2025-04-03 22:19 | P.CONS ---
History of Present Illness - Reason for Consult Consult date: 04/03/25 metastatic prostate carcinoma Requesting physician: Ben Wei - Chief Complaint weakness, dehydration - History of Present Illness Mr. Campoverde is a pleasant 69-year-old male patient of Dr. Bruno Lynch with a past medical history significant for metastatic prostate cancer. He presented initially with asymptomatic elevation of his PSA at 41. 08/10/2017 he had TRUS with random prostate biopsy revealing adenocarcinoma in 11 of 12 cores cores, [place] 7/8. Bone scan revealed multiple bony mets, no visceral mets. He was started on ADT which she tolerated well. He was referred to Medical Oncology for consideration of systemic treatment and rank ligand inhibitor. He was started on Taxotere at the end of 2016, which she tolerated well. He completed 8 cycles of Taxotere, continued on ADT. Zytiga and prednisone were added to his regimen in 2019. He remained on the same until he was evaluated at the [facility] in 2020 because of some persistent back pain and maybe slight progression of disease in the bones. PSMA PET scan was done. Bone only disease noted. PSMALU 177 advised. Unfortunately, availability was limited. Nubeqa was recommended. Patient was started on the same in January 2023. Ultimately, patient started MERI 177 infusions 05/07/2023. He completed 6 cycles of the same and did very well with it, completed December 2023. He continued on nubeqa all along and rank ligand inhibitor every 3 months. He did well until April 2024 when he had complaints of urinary retention, local recurrent disease noted on cystoscopy, bone scan showing progressive bone mets, PSA was increasing. He was started on Jevtana and continued on Nubeqa. He began having hematuria in January 2025. Imaging showing definite disease progression, enlarging mass in the base of the bladder. Plans were to start radiation which patient completed last Wednesday. Further systemic therapy recommendations, pending Dr. Lilly assessment at [facility]. MS Contin was initiated for pain control. Patient had an appointment in the office yesterday but unfortunately, he had not been able to eat or tolerate any fluids for about 3 days secondary to severe reflux and some regurgitation. Since coming to the hospital he has had Toradol for lower pelvic pain which has significantly improved. He denied any fevers, chills, dysphagia, chest pain, or shortness of breath. He is not had a bowel movement recently. He feels much better after some hydration and pain control. He was able to ambulate with a walker and standby assist to the door and back today.He ate today without too much difficulty. Abd xray was neg for pathology. CBC mild anemia. Review of Systems 10 point ROS is neg except as stated in HPI Past Medical History Past Medical History: Coronary Artery Disease (CAD), Cancer, Sleep Apnea/CPAP/BIPAP Additional Past Medical History / Comment(s): Prostate CA-2019 received chemo, current radiation ,uses cpap,tx with prednisone Dec 2021, History of Any Multi-Drug Resistant Organisms: None Reported Past Surgical History: Heart Catheterization With Stent, Hernia Repair Additional Past Surgical History / Comment(s): Cardiac Stent x3. TURP May 2024 Past Anesthesia/Blood Transfusion Reactions: No Reported Reaction Date of Last Stent Placement:: Past Psychological History: No Psychological Hx Reported Smoking Status: Former smoker Past Alcohol Use History: None Reported Additional Past Alcohol Use History / Comment(s): quit smoking 2020,started smoking at age 21,1 ppd Past Drug Use History: Marijuana - Past Family History Father Additional Family Medical History / Comment(s): Heart issues Mother Family Medical History: No Reported History Brother(s) Family Medical History: Cancer Additional Family Medical History / Comment(s): pancreatic Medications and Allergies Home Medications Medication Instructions Recorded Confirmed Type Atorvastatin [Lipitor] 40 mg PO PC-SUPPER 07/23/19 04/02/25 History Calcium Carbonate [Calcium] 600 mg PO HS 07/23/19 04/02/25 History Cholecalciferol [Vitamin D3 (125 125 mcg PO HS 05/10/24 04/02/25 History Mcg = 5000 Iu)] Darolutamide [Nubeqa] 600 mg PO BID-W/MEALS 05/10/24 04/02/25 History Loratadine [Claritin] 10 mg PO HS 05/10/24 04/02/25 History predniSONE 10 mg PO W/BRKFST 05/10/24 04/02/25 History Ferrous Gluconate 324 mg PO PC-SUPPER 02/28/25 04/02/25 History Metoprolol Succinate [Metoprolol 25 mg PO W/BRKFST 02/28/25 04/02/25 History Succinate ER] Ondansetron [Zofran] 4 mg PO Q4H PRN 02/28/25 04/02/25 History Pantoprazole Sodium [Protonix] 20 mg PO AC-BRKFST 02/28/25 04/02/25 History ALPRAZolam [Xanax] 0.25 mg PO TID PRN 04/02/25 04/02/25 History Aspirin 81 mg PO HS 04/02/25 04/02/25 History Magnesium (Unknown) 150mg 150 mg PO AC-BRKFST 04/02/25 04/02/25 History Stool Softner 1 - 3 tab PO AC-BRKFST 04/02/25 04/02/25 History Tamsulosin [Flomax] 0.4 mg PO W/BRKT 04/02/25 04/02/25 History lisinopriL [Zestril] 2.5 mg PO PC-SUPPER 04/02/25 04/02/25 History tadalafiL [Cialis] 5 mg PO AC-BRKFST 04/02/25 04/02/25 History Allergies Allergy/AdvReac Type Severity Reaction Status Date / Time No Known Allergies Allergy Verified 04/02/25 18:05 Physical Exam Vitals: Vital Signs Temp Pulse Pulse Resp BP BP Pulse Ox 04/03/25 07:43 97.5 F L 83 17 121/74 96 04/03/25 02:00 98.5 F 98 16 136/78 99 04/02/25 20:00 99.2 F 99 14 96/58 94 L 04/02/25 19:38 98 18 108/60 99 04/02/25 18:00 90 15 122/72 98 04/02/25 14:45 88 15 118/88 97 04/02/25 13:58 98.7 F 99 16 118/88 98 Intake and Output 04/02/25 04/03/25 04/03/25 22:59 06:59 14:59 Intake Total 900 Balance 900 Intake: Intake, IV Titration 900 Amount Sodium Chloride 0.9% 1, 900 000 ml @ 75 mls/hr IV . [id number] [facility] Rx#:[id number] Other: Voiding Method Toilet Urinal # Voids 3 Weight 97.522 kg - Constitutional General appearance: average body habitus, cooperative, no acute distress - EENT Eyes: anicteric sclerae, EOMI ENT: hearing grossly normal, thrush - Neck Neck: no lymphadenopathy - Respiratory Respiratory: bilateral: CTA - Cardiovascular Rhythm: regular Heart sounds: normal: S1, S2 Abnormal Heart Sounds: no systolic murmur, no diastolic murmur, no rub, no S3 Gallop, no S4 Gallop, no click, no other leg Peripheral Edema: bilateral: None - Gastrointestinal General gastrointestinal: no absent bowel sounds, no decreased bowel sounds, no distended, no hepatomegaly, no hyperactive bowel sounds, normal bowel sounds, no organomegaly, no rigid, no scaphoid, soft, no splenomegaly, no tenderness, no umbilical hernia, no ventral hernia - Integumentary Integumentary: normal - Neurologic Neurologic: CNII-XII intact - Musculoskeletal Musculoskeletal: generalized weakness, strength equal bilaterally - Psychiatric Psychiatric: A&O x's 3, appropriate affect, intact judgment & insight Results CBC & Chem 7: 04/02/25 14:45 04/02/25 14:45 Labs: Abnormal Lab Results - Last 24 Hours (Table) 04/02/25 04/02/25 04/02/25 Range/Units 14:45 14:45 14:45 RBC 3.10 L (4.40-5.60) 10*6/uL Hgb 9.1 L D (13.0-17.0) g/dL Hct 27.7 L (39.6-50.0) % MPV 9.0 L (9.5-12.2) fL Lymphocytes # 0.37 L (0.90-5.00) 10*3/uL Eosinophils # 0.02 L (0.04-0.35) 10*3/uL Sodium 130 L (137-145) mmol/L Creatinine 0.60 L (0.66-1.25) mg/dL Glucose 113 H (74-99) mg/dL Plasma Lactic Acid Ashok <0.5 L (0.7-2.0) mmol/L Calcium 8.2 L (8.4-10.2) mg/dL Total Protein 6.2 L (6.3-8.2) g/dL Albumin 3.1 L (3.5-5.0) g/dL Urine Protein (Negative) Urine Ketones (Negative) Urine Blood (Negative) Ur Leukocyte Esterase (Negative) Urine RBC (0-5) /hpf Urine WBC (0-5) /hpf Urine Bacteria (None) /hpf 04/02/25 Range/Units 21:05 RBC (4.40-5.60) 10*6/uL Hgb (13.0-17.0) g/dL Hct (39.6-50.0) % MPV (9.5-12.2) fL Lymphocytes # (0.90-5.00) 10*3/uL Eosinophils # (0.04-0.35) 10*3/uL Sodium (137-145) mmol/L Creatinine (0.66-1.25) mg/dL Glucose (74-99) mg/dL Plasma Lactic Acid Ashok (0.7-2.0) mmol/L Calcium (8.4-10.2) mg/dL Total Protein (6.3-8.2) g/dL Albumin (3.5-5.0) g/dL Urine Protein 1+ H (Negative) Urine Ketones Trace H (Negative) Urine Blood Large H (Negative) Ur Leukocyte Esterase Small H (Negative) Urine RBC >182 H (0-5) /hpf Urine WBC 59 H (0-5) /hpf Urine Bacteria Rare H (None) /hpf Abdominal x-ray: report reviewed Assessment and Plan (1) Pain of metastatic malignancy Current Visit: Yes Status: Acute Priority: High Code(s): G89.3 - NEOPLASM RELATED PAIN (ACUTE) (CHRONIC) SNOMED Code(s): 109170763 (2) Dehydration Current Visit: Yes Status: Acute Priority: High Code(s): E86.0 - DEHYDRATION SNOMED Code(s): 30165097 (3) Prostate cancer Current Visit: Yes Status: Chronic Priority: Medium Code(s): C61 - MALIGNANT NEOPLASM OF PROSTATE SNOMED Code(s): 470972238 (4) Thrush, oral Current Visit: Yes Status: Acute Priority: Medium Code(s): B37.0 - CA NDIDAL STOMATITIS SNOMED Code(s): 95331023 (5) Anemia Current Visit: Yes Status: Acute Priority: Medium Code(s): D64.9 - ANEMIA, UNSPECIFIED SNOMED Code(s): 491965229 Plan: Pain of metastatic malignancy -Recently completed radiation for the same -Pt states toradol working well, cont for now Dehydration secondary to reflux and regurgitation -poor oral intake x 3 days 2/2 reflux and regurgitation -Patient reports he is feeling much better after some hydration, he was even able to tolerate some of his breakfast today Metastatic prostate carcinoma -Diagnosis and treatment as documented in HPI -Patient has completed radiation, pending recommendations for systemic treatment from [facility] -Patient has been continued on Nubeqa for now. Continue the same Oral thrush - Nystatin suspension has been ordered - Salt and soda for rinsing the mouth. Anemia - Likely secondary to patient's recent ongoing hematuria -Iron studies will be ordered - Transfuse for hemoglobin less than 7 or if patient is symptomatic History of constipation - Senna has been reordered Once patient is tolerating oral intake and has good pain control will transition to oral pain medications. Patient will be okay for discharge from an Oncology standpoint.
[2025-04-04] MEDS: predniSONE 10 MG TAB PO SCH (08:24)
[2025-04-04] MEDS: MAGNESIUM OXIDE 400 MG TAB PO SCH (08:24)
[2025-04-04] MEDS: METOPROLOL SUCCINATE (ER) 25 MG TAB.ER.24H PO SCH (08:24)
[2025-04-04] MEDS: polyethylene glycoL 3350 17 GM POWD.PACK PO SCH (08:24)
[2025-04-04] MEDS: PANTOPRAZOLE 40 MG TABLET PO SCH (08:24)
[2025-04-04 10:32] LABS: Reticulocyte % 2.46 % (0.10-1.80)
[2025-04-04 10:34] LABS: Basophils # (A) 0.02 X 10*3/uL (0.00-0.10); Basophils % (A) 0.4 %; Eosinophils # (A) 0.04 X 10*3/uL (0.04-0.35); Eosinophils % (A) 0.9 %; HCT 26.5 % (39.6-50.0); HGB 8.2 g/dL (13.0-17.0); Lymphocytes # (A) 0.38 X 10*3/uL (0.90-5.00); Lymphocytes % (A) 8.2 %; MCH 28.4 pg (27.0-32.0); MCHC 30.9 g/dL (32.0-37.0); MCV 91.7 FL (80.0-97.0); Mean Platelet Volume 9.2 FL (9.5-12.2); Monocytes % (A) 8.6 %; NRBC Per 100 WBC 0 X 10*3/uL (0.00-0.01); Neutrophils # (A) 3.79 X 10*3/uL (1.80-7.70); Neutrophils % (A) 81.5 %; Platelet Count 339 X 10*3/uL (140-440); RBC 2.89 X 10*6/uL (4.40-5.60); RDW 16.7 % (11.5-14.5); WBC 4.65 X 10*3/uL (4.50-10.00)
[2025-04-04 11:01] LABS: ALT 31 U/L (10-49); AST 42 U/L (14-35); Albumin 2.8 g/dL (3.8-4.9); Albumin/Globulin Ratio 1.33 Ratio (1.60-3.17); Alkaline Phosphatase 92 U/L (41-126); Blood Urea Nitrogen 6.8 mg/dL (9.0-27.0); Calcium 7.9 mg/dL (8.7-10.3); Carbon Dioxide 19.4 mmol/L (21.6-31.8); Chloride 102 mmol/L (96-109); Globulin 2.1 g/dL (1.6-3.3); Glucose 115 mg/dL (70-110); Iron 16 UG/DL (65-175); Potassium 4.1 mmol/L (3.5-5.5); Sodium 133 mmol/L (135-145); Total Bilirubin 0.5 mg/dL (0.3-1.2); Total Iron Binding Capacity 129 UG/DL (228-460); Total Protein 4.9 g/dL (6.2-8.2)
[2025-04-04] MEDS: NON FORMULARY DRUG (Tadalafil [Cialis] 5 MG Tablet) PO SCH (12:34)
[2025-04-04] MEDS ORDERED: MORPHINE SULFATE 4 MG/ML SYRINGE IVP PRN (13:25)
--- NOTE | 2025-04-04 16:47 | P.PN ---
Subjective Progress Note Date: 04/04/25 Surinder Campoverde, is a 69-year-old male patient of Dr. Dupont who presented with concerns of weakness and lower abdominal pain over the past 3 days. Patient has a history of metastatic prostate cancer and follows with oncology services. Testing in the emergency room revealed KUB x-ray showing nonspecific abdomen findings compatible sclerotic prostate metastatic. Lab work showing white blood cell 6.67, hemoglobin 9.1, creatinine 0.60 bun 14 lipase 34. Vital signs completed showing temp 98.5, heart rate 98, respiratory rate 16, blood pressure 136/78 with pulse ox of 99% on room air. At this time patient will be admitted PT OT services consulted oncology services also consulted. Patient denies chest pain or shortness of breath. Patient denies nausea vomiting or diarrhea. Patient denies any urinary burning or frequency On 04/04/2025 was seen and examined on the oncology floor is alert and oriented x 3 in no apparent distress he is stating that his pain is better controlled as he denies any complaints there is no fever or chills no headache or dizziness no chest pain no shortness of breath no cough no nausea or vomiting no abdominal pain no diarrhea no urinary symptoms. Patient has evidence of anemia, has iron deficiency. Urology on follow-up Objective - Vital Signs Vital signs: Vital Signs Temp 98.3 F 04/04/25 07:07 Pulse 87 04/04/25 07:07 Resp 16 04/04/25 07:07 BP 117/72 04/04/25 07:07 Pulse Ox 98 04/04/25 07:07 FiO2 Intake & Output 04/03/25 04/04/25 04/04/25 18:59 06:59 18:59 Intake Total 780 1440 Output Total 300 250 Balance 480 1190 Weight 97.522 kg Intake: Intake, IV Titration 900 Amount Sodium Chloride 0.9% 1, 900 000 ml @ 75 mls/hr IV . [id number] [facility] Rx#:[id number] Oral 780 540 Output: Urine 300 250 Other: Voiding Method Urinal Urinal # Voids 2 5 - Exam In general patient is alert and oriented x 3 in no distress HEENT head normocephalic and atraumatic Neck is supple no JVD no goiter no lymphadenopathy no carotid bruit Chest examination is clear to auscultation no crackles no wheezing Cardiac exam reveals regular heart sounds S1 and S2 no gallops no murmurs Abdomen is soft nontender no organomegaly with normal bowel sounds Extremity exam reveals no edema no cyanosis or clubbing Neurological examination reveals no gross focal deficits - Labs CBC & Chem 7: 04/04/25 05:47 04/04/25 05:47 Labs: Microbiology - Last 24 Hours (Table) 04/02/25 21:05 Urine Culture - Final Urine,Voided Assessment and Plan Assessment: Abdominal pain with nausea and vomiting likely secondary from metastatic disease History of prostate cancer with mets follows with oncology services history of sleep apnea History of TURP History of coronary artery disease with previous heart stents oncology services consulted DVT prophylaxis heparin. GI prophylax Protonix Repeat labs in a.m. oncology services consulted PT OT services consulted
--- NOTE | 2025-04-04 17:14 | P.PN ---
Subjective Progress Note Date: 04/04/25 Principal diagnosis: abd pain, met prostate carcinoma In f/u today pt pain is controlled with IV dilaudid though he is not able to stay awake when he receives it. Toradol helps but wears off before next dose. Oral intake is poor due to pain and lack of appetite. He did have a very much needed BM. No new c/o. Objective - Vital Signs Vital signs: Vital Signs Temp 97.8 F 04/04/25 12:14 Pulse 82 04/04/25 12:14 Resp 16 04/04/25 12:14 BP 119/76 04/04/25 12:14 Pulse Ox 96 04/04/25 12:14 FiO2 Intake & Output 04/03/25 04/04/25 04/04/25 18:59 06:59 18:59 Intake Total 780 1440 Output Total 300 250 Balance 480 1190 Weight 97.522 kg Intake: Intake, IV Titration 900 Amount Sodium Chloride 0.9% 1, 900 000 ml @ 75 mls/hr IV . [id number] [facility] Rx#:[id number] Oral 780 540 Output: Urine 300 250 Other: Voiding Method Urinal Urinal Urinal # Voids 2 5 - Constitutional General appearance: Present: average body habitus, cooperative, no acute distress - EENT Eyes: Present: anicteric sclerae, EOMI ENT: Present: hearing grossly normal, thrush - Respiratory Details: resp unlabored - Cardiovascular Details: skin warm, well perfused - Peripheral edema leg Peripheral Edema: bilateral: None - Integumentary Integumentary: Present: normal - Neurologic Neurologic: Present: CNII-XII intact - Musculoskeletal Musculoskeletal: Present: strength equal bilaterally - Psychiatric Psychiatric: Present: A&O x's 3, appropriate affect, intact judgment & insight - Labs CBC & Chem 7: 04/04/25 05:47 04/04/25 05:47 Labs: Abnormal Lab Results - Last 24 Hours (Table) 04/04/25 04/04/25 04/04/25 Range/Units 05:47 05:47 05:47 RBC 2.89 L (4.40-5.60) X 10*6/uL Hgb 8.2 L (13.0-17.0) g/dL Hct 26.5 L (39.6-50.0) % MCHC 30.9 L (32.0-37.0) g/dL RDW 16.7 H (11.5-14.5) % MPV 9.2 L (9.5-12.2) FL Lymphocytes # 0.38 L (0.90-5.00) X 10*3/uL Retic Count 2.46 H (0.10-1.80) % Sodium 133 L (135-145) mmol/L Carbon Dioxide 19.4 L (21.6-31.8) mmol/L BUN 6.8 L (9.0-27.0) mg/dL Creatinine 0.5 L (0.6-1.5) mg/dL Glucose 115 H (70-110) mg/dL Calcium 7.9 L (8.7-10.3) mg/dL Iron 16 L (65-175) UG/DL TIBC 129 L (228-460) UG/DL % Saturation 12.40 L (15.00-50.00) Transferrin 92.4 L (204.0-354.0) mg/dL Ferritin 1143.0 H (22.0-322.0) ng/mL AST 42 H (14-35) U/L Total Protein 4.9 L (6.2-8.2) g/dL Albumin 2.8 L (3.8-4.9) g/dL Albumin/Globulin Ratio 1.33 L (1.60-3.17) Ratio Microbiology - Last 24 Hours (Table) 04/02/25 21:05 Urine Culture - Final Urine,Voided Assessment and Plan (1) Pain of metastatic malignancy Current Visit: Yes Status: Acute Priority: High Code(s): G89.3 - NEOPLASM RELATED PAIN (ACUTE) (CHRONIC) SNOMED Code(s): 031690256 (2) Dehydration Current Visit: Yes Status: Acute Priority: High Code(s): E86.0 - DEHYDRATION SNOMED Code(s): 78233392 (3) Prostate cancer Current Visit: Yes Status: Chronic Priority: Medium Code(s): C61 - MALIGNANT NEOPLASM OF PROSTATE SNOMED Code(s): 676468174 (4) Thrush, oral Current Visit: Yes Status: Acute Priority: Medium Code(s): B37.0 - CANDIDAL STOMATITIS SNOMED Code(s): 59096531 (5) Anemia Current Visit: Yes Status: Acute Priority: Medium Code(s): D64.9 - ANEMIA, UNSPECIFIED SNOMED Code(s): 728596018 Plan: Pain of metastatic malignancy -Recently completed radiation for the same -Pt states toradol was working well, then it was not lasting until next dose so, IV dilaudid was added. The dilaudid helps with pain but he falls asleep when he takes it. Case discussed with PharmD, IV dilaudid changed to IV morphine. Will see if that helps pain and is more tolerable. -Evaluate pain in AM Dehydration secondary to reflux and regurgitation -poor oral intake x 3 days 2/2 reflux and regurgitation -Patient reports he is feeling much better after some hydration, he was even a ble to tolerate some of his breakfast today but, appetite remains poor -Start marinol-pt has tolerated in past and it did help Metastatic prostate carcinoma -Diagnosis and treatment as documented in consult -Patient has completed radiation, pending recommendations for systemic treatment from [facility] -Patient has been continued on Nubeqa for now. Continue the same Oral thrush -Persists - Nystatin suspension has been ordered - Salt and soda for rinsing the mouth. Anemia - Likely secondary to patient's recent ongoing hematuria, recent radiation and Hx of malignancy treatment -Iron studies most consistent with inflammation, no supplement needed at this time - Transfuse for hemoglobin less than 7 or if patient is symptomatic History of constipation - Senna has been reordered. PT did have BM, feels much better -Cont Once patient is tolerating oral intake and has good pain control will transition to oral pain medications. Patient will be okay for discharge from an Oncology standpoint.
[2025-04-04] MEDS: droNABinol 2.5 MG CAP PO SCH (17:57)
[2025-04-05] MEDS: MORPHINE SULFATE 2 MG/ML SYRINGE IVP PRN (01:11)
--- NOTE | 2025-04-05 10:56 | P.PN ---
Subjective Progress Note Date: 04/05/25 Surinder Campoverde, is a 69-year-old male patient of Dr. Dupont who presented with concerns of weakness and lower abdominal pain over the past 3 days. Patient has a history of metastatic prostate cancer and follows with oncology services. Testing in the emergency room revealed KUB x-ray showing nonspecific abdomen findings compatible sclerotic prostate metastatic. Lab work showing white blood cell 6.67, hemoglobin 9.1, creatinine 0.60 bun 14 lipase 34. Vital signs completed showing temp 98.5, heart rate 98, respiratory rate 16, blood pressure 136/78 with pulse ox of 99% on room air. At this time patient will be admitted PT OT services consulted oncology services also consulted. Patient denies chest pain or shortness of breath. Patient denies nausea vomiting or diarrhea. Patient denies any urinary burning or frequency On 04/04/2025 was seen and examined on the oncology floor is alert and oriented x 3 in no apparent distress he is stating that his pain is better controlled as he denies any complaints there is no fever or chills no headache or dizziness no chest pain no shortness of breath no cough no nausea or vomiting no abdominal pain no diarrhea no urinary symptoms. Patient has evidence of anemia, has iron deficiency. Urology on follow-up On 04/05/2025 patient is alert and oriented x 3 pain meds have been adjusted per oncology services awaiting further recommendations. Patient reports bowel movements. Patient denies chest pain or shortness of breath. Patient denies nausea vomiting or diarrhea. Patient denies any urinary burning or frequency. Current vital signs temp 98.2, heart 74, respiratory rate 16, blood pressure 144/80 with pulse ox of 99% on room air Objective - Vital Signs Vital signs: Vital Signs Temp 98.2 F 04/05/25 07:05 Pulse 74 04/05/25 07:05 Resp 16 04/05/25 07:05 BP 144/80 04/05/25 07:05 Pulse Ox 99 04/05/25 07:05 FiO2 Intake & Output 04/04/25 04/05/25 04/05/25 18:59 06:59 18:59 Intake Total 1080 480 Output Total 400 Balance 1080 -400 480 Intake: Oral 1080 480 Output: Urine 400 Other: Voiding Method Urinal Toilet Urinal # Voids 3 3 # Bowel Movements 1 - Exam In general patient is alert and oriented x 3 in no distress HEENT head normocephalic and atraumatic Neck is supple no JVD no goiter no lymphadenopathy no carotid bruit Chest examination is clear to auscultation no crackles no wheezing Cardiac exam reveals regular heart sounds S1 and S2 no gallops no murmurs Abdomen is soft nontender no organomegaly with normal bowel sounds Extremity exam reveals no edema no cyanosis or clubbing Neurological examination reveals no gross focal deficits - Labs CBC & Chem 7: 04/04/25 05:47 04/04/25 05:47 Labs: Abnormal Lab Results - Last 24 Hours (Table) 04/04/25 Range/Units 05:47 Sodium 133 L (135-145) mmol/L Carbon Dioxide 19.4 L (21.6-31.8) mmol/L BUN 6.8 L (9.0-27.0) mg/dL Creatinine 0.5 L (0.6-1.5) mg/dL Glucose 115 H (70-110) mg/dL Calcium 7.9 L (8.7-10.3) mg/dL Iron 16 L (65-175) UG/DL TIBC 129 L (228-460) UG/DL % Saturation 12.40 L (15.00-50.00) Transferrin 92.4 L (204.0-354.0) mg/dL Ferritin 1143.0 H (22.0-322.0) ng/mL AST 42 H (14-35) U/L Total Protein 4.9 L (6.2-8.2) g/dL Albumin 2.8 L (3.8-4.9) g/dL Albumin/Globulin Ratio 1.33 L (1.60-3.17) Ratio Microbiology - Last 24 Hours (Table) 04/02/25 21:05 Urine Culture - Final Urine,Voided Assessment and Plan Assessment: Abdominal pain with nausea and vomiting likely secondary from metastatic disease History of prostate cancer with mets follows with oncology services history of sleep apnea History of TURP History of coronary artery disease with previous heart stents oncology services consulted DVT prophylaxis heparin. GI prophylax Protonix Repeat labs in a.m. oncology services consulted PT OT services consulted
[2025-04-05] MEDS: HYDROcodone/APAP 7.5-325MG 1 EACH TAB PO PRN (17:30)
[2025-04-05] MEDS ORDERED: ETODOLAC 400 MG TAB PO SCH (21:00)
--- NOTE | 2025-04-05 22:02 | P.PN ---
Subjective Progress Note Date: 04/05/25 Principal diagnosis: abd pain, met prostate carcinoma In f/u today pt reports that he did tolerate morphine a little better then the dilaudid in regards to being able to stay awake after a dose-though he only used one dose. He cont to use the toradol. He started marinol and did eat a little more this morning. No new c/o. Objective - Vital Signs Vital signs: Vital Signs Temp 98.0 F 04/05/25 11:25 Pulse 76 04/05/25 11:25 Resp 16 04/05/25 11:25 BP 116/72 04/05/25 11:25 Pulse Ox 98 04/05/25 11:25 FiO2 Intake & Output 04/04/25 04/05/25 04/05/25 18:59 06:59 18:59 Intake Total 1080 2460 Output Total 400 Balance 1080 -400 2460 Weight 97.522 kg Intake: Oral 1080 2460 Output: Urine 400 Other: Voiding Method Urinal Toilet Toilet Urinal Urinal # Voids 3 3 5 # Bowel Movements 1 - Constitutional General appearance: Present: average body habitus, cooperative, no acute dis tress - EENT Eyes: Present: anicteric sclerae, EOMI ENT: Present: hearing grossly normal, thrush - Respiratory Respiratory: bilateral: CTA - Cardiovascular Rhythm: regular - Peripheral edema leg Peripheral Edema: bilateral: None - Integumentary Integumentary: Present: normal - Neurologic Neurologic: Present: CNII-XII intact - Musculoskeletal Musculoskeletal: Present: strength equal bilaterally - Psychiatric Psychiatric: Present: A&O x's 3, appropriate affect, intact judgment & insight - Labs CBC & Chem 7: 04/04/25 05:47 04/04/25 05:47 Assessment and Plan (1) Pain of metastatic malignancy Current Visit: Yes Status: Acute Priority: High Code(s): G89.3 - NEOPLASM RELATED PAIN (ACUTE) (CHRONIC) SNOMED Code(s): 306772208 (2) Dehydration Current Visit: Yes Status: Acute Priority: High Code(s): E86.0 - DEHYDRATION SNOMED Code(s): 60013999 (3) Prostate cancer Current Visit: Yes Status: Chronic Priority: Medium Code(s): C61 - MALIGNANT NEOPLASM OF PROSTATE SNOMED Code(s): 310418490 (4) Thrush, oral Current Visit: Yes Status: Acute Priority: Medium Code(s): B37.0 - CANDIDAL STOMATITIS SNOMED Code(s): 75887616 (5) Anemia Current Visit: Yes Status: Acute Priority: Medium Code(s): D64.9 - ANEMIA, UNSPECIFIED SNOMED Code(s): 881546184 Plan: Pain of metastatic malignancy -Recently completed radiation for the same -Pt states toradol was working well, then it was not lasting until next dose so, IV dilaudid was added. The dilaudid helps with pain but he fell asleep every time he received it so, this was changed to morphine. He felt more alert after receiving morphine but only used 1 dose. So, discussed case again with PharmD. Will try norco for pain and see if adequate. Want to also try and reduce NSAID use because of increased bleeding risk -Evaluate pain control in AM Dehydration secondary to reflux and regurgitation -poor oral intake x 3 days 2/2 reflux and regurgitation. Improved with hydration and supportive meds -Marinol started. Pt did eat this AM fairly well. Metastatic prostate carcinoma -Diagnosis and treatment as documented in consult -Patient has completed radiation, pending recommendations for systemic treatment from [facility] -Patient has been continued on Nubeqa for now. Continue the same Oral thrush -Persists - Cont Nystatin suspension - Cont Salt and soda for rinsing the mouth. Anemia - Likely secondary to patient's recent ongoing hematuria, recent radiation and Hx of malignancy treatment -Iron studies most consistent with inflammation, no supplement needed at this time - Transfuse for hemoglobin less than 7 or if patient is symptomatic -CBC ordered for AM History of constipation - Senna has been reordered. PT did have BM, feels much better -Cont Once patient is tolerating oral intake and has good pain control will transition to oral pain medications. Patient will be okay for discharge from an Oncology standpoint.
[2025-04-06 05:20] LABS: Methylmalonic Acid 0.21 umol/L (<0.40)
[2025-04-06] MEDS: ACETAMINOPHEN TAB 325 MG TAB PO PRN (06:59)
[2025-04-06] MEDS: ONDANSETRON ODT 4 MG TAB PO PRN (08:09)
[2025-04-06 08:18] LABS: Basophils # (A) 0.02 X 10*3/uL (0.00-0.10); Basophils % (A) 0.4 %; Eosinophils # (A) 0.04 X 10*3/uL (0.04-0.35); Eosinophils % (A) 0.7 %; HCT 28.2 % (39.6-50.0); Lymphocytes % (A) 7.3 %; MCH 28.8 pg (27.0-32.0); MCHC 31.9 g/dL (32.0-37.0); MCV 90.1 FL (80.0-97.0); Mean Platelet Volume 9.7 FL (9.5-12.2); Monocytes # (A) 0.47 X 10*3/uL (0.20-1.00); Monocytes % (A) 8.5 %; NRBC Per 100 WBC 0 X 10*3/uL (0.00-0.01); Neutrophils # (A) 4.54 X 10*3/uL (1.80-7.70); Neutrophils % (A) 82.4 %; Platelet Count 391 X 10*3/uL (140-440); RBC 3.13 X 10*6/uL (4.40-5.60); RDW 16.5 % (11.5-14.5); WBC 5.51 X 10*3/uL (4.50-10.00)
[2025-04-06 08:36] LABS: ALT 48 U/L (10-49); AST 63 U/L (14-35); Albumin 3.2 g/dL (3.8-4.9); Albumin/Globulin Ratio 1.28 Ratio (1.60-3.17); Alkaline Phosphatase 100 U/L (41-126); BUN/Creat Ratio 9.33 Ratio (12.00-20.00); Blood Urea Nitrogen 5.6 mg/dL (9.0-27.0); Calcium 8.4 mg/dL (8.7-10.3); Carbon Dioxide 17.9 mmol/L (21.6-31.8); Chloride 102 mmol/L (96-109); Globulin 2.5 g/dL (1.6-3.3); Glucose 116 mg/dL (70-110); Potassium 4.7 mmol/L (3.5-5.5); Sodium 132 mmol/L (135-145); Total Bilirubin 0.5 mg/dL (0.3-1.2); Total Protein 5.7 g/dL (6.2-8.2)
--- NOTE | 2025-04-06 10:27 | P.PN ---
Subjective Progress Note Date: 04/06/25 Surinder Campoverde, is a 69-year-old male patient of Dr. Dupont who presented with concerns of weakness and lower abdominal pain over the past 3 days. Patient has a history of metastatic prostate cancer and follows with oncology services. Testing in the emergency room revealed KUB x-ray showing nonspecific abdomen findings compatible sclerotic prostate metastatic. Lab work showing white blood cell 6.67, hemoglobin 9.1, creatinine 0.60 bun 14 lipase 34. Vital signs completed showing temp 98.5, heart rate 98, respiratory rate 16, blood pressure 136/78 with pulse ox of 99% on room air. At this time patient will be admitted PT OT services consulted oncology services also consulted. Patient denies chest pain or shortness of breath. Patient denies nausea vomiting or diarrhea. Patient denies any urinary burning or frequency On 04/04/2025 was seen and examined on the oncology floor is alert and oriented x 3 in no apparent distress he is stating that his pain is better controlled as he denies any complaints there is no fever or chills no headache or dizziness no chest pain no shortness of breath no cough no nausea or vomiting no abdominal pain no diarrhea no urinary symptoms. Patient has evidence of anemia, has iron deficiency. Urology on follow-up On 04/05/2025 patient is alert and oriented x 3 pain meds have been adjusted per oncology services awaiting further recommendations. Patient reports bowel movements. Patient denies chest pain or shortness of breath. Patient denies nausea vomiting or diarrhea. Patient denies any urinary burning or frequency. Current vital signs temp 98.2, heart 74, respiratory rate 16, blood pressure 144/80 with pulse ox of 99% on room air On 04/06/2025 patient is alert and oriented x 3. Patient having increased pain this a.m. awaiting further recommendations from oncology services. Current vital signs temp 97.9, heart rate 81, respiratory rate 16, blood pressure 146/84 with pulse ox of 96% on room air patient denies chest pain. Patient denies nausea vomiting or diarrhea. Patient denies any urinary burning or frequency. Objective - Vital Signs Vital signs: Vital Signs Temp 97.9 F 04/06/25 06:55 Pulse 81 04/06/25 06:55 Resp 16 04/06/25 06:55 BP 146/84 04/06/25 06:55 Pulse Ox 96 04/06/25 06:55 FiO2 Intake & Output 04/05/25 04/06/25 04/06/25 18:59 06:59 18:59 Intake Total 2940 Output Total 775 Balance 2940 -775 Weight 97.522 kg Intake: Oral 2940 Output: Urine 775 Other: Voiding Method Toilet Toilet Urinal Urinal # Voids 5 3 # Bowel Movements 1 1 - Exam In general patient is alert and oriented x 3 in no distress HEENT head normocephalic and atraumatic Neck is supple no JVD no goiter no lymphadenopathy no carotid bruit Chest examination is clear to auscultation no crackles no wheezing Cardiac exam reveals regular heart sounds S1 and S2 no gallops no murmurs Abdomen is soft nontender no organomegaly with normal bowel sounds Extremity exam reveals no edema no cyanosis or clubbing Neurological examination reveals no gross focal deficits - Labs CBC & Chem 7: 04/06/25 05:43 04/06/25 05:43 Labs: Abnormal Lab Results - Last 24 Hours (Table) 04/06/25 04/06/25 Range/Units 05:43 05:43 RBC 3.13 L (4.40-5.60) X 10*6/uL Hgb 9.0 L (13.0-17.0) g/dL Hct 28.2 L (39.6-50.0) % MCHC 31.9 L (32.0-37.0) g/dL RDW 16.5 H (11.5-14.5) % Lymphocytes # 0.40 L (0.90-5.00) X 10*3/uL Sodium 132 L (135-145) mmol/L Carbon Dioxide 17.9 L (21.6-31.8) mmol/L Anion Gap 12.10 H (4.00-12.00) mmol/L BUN 5.6 L (9.0-27.0) mg/dL BUN/Creatinine Ratio 9.33 L (12.00-20.00) Ratio Glucose 116 H (70-110) mg/dL Calcium 8.4 L (8.7-10.3) mg/dL AST 63 H (14-35) U/L Total Protein 5.7 L (6.2-8.2) g/dL Albumin 3.2 L (3.8-4.9) g/dL Albumin/Globulin Ratio 1.28 L (1.60-3.17) Ratio Assessment and Plan Assessment: Abdominal pain with nausea and vomiting likely secondary from metastatic disease History of prostate cancer with mets follows with oncology services history of sleep apnea History of TURP History of coronary artery disease with previous heart stents oncology services consulted DVT prophylaxis heparin. GI prophylax Protonix Repeat labs in a.m. oncology services consulted PT OT services consulted
[2025-04-06] MEDS: MORPHINE SULFATE 2 MG/ML SYRINGE IVP PRN (11:58)
[2025-04-06] MEDS: HYDROcodone/APAP 10-325MG 1 EACH TAB PO PRN (15:57)
--- NOTE | 2025-04-06 21:14 | P.PN ---
Subjective Progress Note Date: 04/06/25 At today's visit patient reports he was having uncontrolled pain overnight with increased nausea this morning. Patient was restarted on IV push morphine is reporting improvement in symptoms. Objective - Vital Signs Vital signs: Vital Signs Temp 97.4 F L 04/06/25 11:37 Pulse 84 04/06/25 11:37 Resp 16 04/06/25 11:37 BP 158/90 04/06/25 11:37 Pulse Ox 97 04/06/25 11:37 FiO2 Intake & Output 04/06/25 04/06/25 04/07/25 06:59 18:59 06:59 Intake Total 1979 Output Total 775 Balance -775 1979 Intake: Oral 1979 Output: Urine 775 Other: Voiding Method Toilet Toilet Toilet Urinal Urinal Urinal # Voids 3 7 # Bowel Movements 1 - Constitutional General appearance: Present: average body habitus, no acute distress - EENT Eyes: Present: anicteric sclerae ENT: Present: hearing grossly normal - Respiratory Details: breathing is even and unlabored - Cardiovascular Details: skin warm and dry - Gastrointestinal General gastrointestinal: Present: soft. Absent: tenderness - Integumentary Integumentary: Absent: cyanotic - Psychiatric Psychiatric: Present: A&O x's 3 - Labs CBC & Chem 7: 04/06/25 05:43 04/06/25 05:43 Labs: Abnormal Lab Results - Last 24 Hours (Table) 04/06/25 04/06/25 Range/Units 05:43 05:43 RBC 3.13 L (4.40-5.60) X 10*6/uL Hgb 9.0 L (13.0-17.0) g/dL Hct 28.2 L (39.6-50.0) % MCHC 31.9 L (32.0-37.0) g/dL RDW 16.5 H (11.5-14.5) % Lymphocytes # 0.40 L (0.90-5.00) X 10*3/uL Sodium 132 L (135-145) mmol/L Carbon Dioxide 17.9 L (21.6-31.8) mmol/L Anion Gap 12.10 H (4.00-12.00) mmol/L BUN 5.6 L (9.0-27.0) mg/dL BUN/Creatinine Ratio 9.33 L (12.00-20.00) Ratio Glucose 116 H (70-110) mg/dL Calcium 8.4 L (8.7-10.3) mg/dL AST 63 H (14-35) U/L Total Protein 5.7 L (6.2-8.2) g/dL Albumin 3.2 L (3.8-4.9) g/dL Albumin/Globulin Ratio 1.28 L (1.60-3.17) Ratio Assessment and Plan (1) Anemia Current Visit: Yes Status: Acute Priority: Medium Code(s): D64.9 - ANEMIA, UNSPECIFIED SNOMED Code(s): 306924421 (2) Dehydration Current Visit: Yes Status: Acute Priority: High Code(s): E86.0 - DEHYDRATION SNOMED Code(s): 39247804 (3) Pain of metastatic malignancy Current Visit: Yes Status: Acute Priority: High Code(s): G89.3 - NEOPLASM RELATED PAIN (ACUTE) (CHRONIC) SNOMED Code(s): 441100087 (4) Thrush, oral Current Visit: Yes Status: Acute Priority: Medium Code(s): B37.0 - CANDIDAL STOMATITIS SNOMED Code(s): 65310910 (5) Prostate cancer Current Visit: Yes Status: Chronic Priority: Medium Code(s): C61 - MALIGNANT NEOPLASM OF PROSTATE SNOMED Code(s): 601162760 Plan: Pain of metastatic malignancy -Recently completed radiation for the same -Pt states toradol was working well, then it was not lasting until next dose so, IV dilaudid was added. The dilaudid helps with pain but he fell asleep every time he received it so, this was changed to morphine. He felt more alert after receiving morphine but only used 1 dose. So, discussed case again with PharmD. Will try norco for pain and see if adequate. Want to also try and reduce NSAID use because of increased bleeding risk -Pt had increased pain overnight. IVP morphine restarted by wound care. Increased norco to 10/325 q4hrs, encouraged pt to use oral pain meds first, and only use IVP for severe breakthrough pain not controlled by oral pain meds. Will continue follow Dehydration secondary to reflux/nausea -Poor oral intake x 3 days 2/2 reflux and regurgitation. Improved with hydration and supportive meds -Marinol started -Anti-emetics adjusted Metastatic prostate carcinoma -Diagnosis and treatment as documented in consult -Patient has completed radiation -Patient has been continued on Nubeqa for now. Continue the same -Spoke with Dr. 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 Recommended treatment with Keytruda. Prior auth has been requested -Will plan to start outpt once pt acutely recovered Oral thrush -Persists - Cont Nystatin suspension - Cont Salt and soda for rinsing the mouth. Anemia - Likely secondary to patient's recent ongoing hematuria, recent radiation and Hx of malignancy treatment -Iron studies most consistent with inflammation, no supplement needed at this time - Transfuse for hemoglobin less than 7 or if patient is symptomatic - Continue to monitor CBC Once patient is tolerating oral intake and has good pain control will transition to oral pain medications. Patient will be okay for discharge from an Oncology standpoint. Doctor attests: I performed a history and physical examination of this patient, developed impression and plan of care. Discussed with dictator. I agree with dictators note, documented as a scribe
[2025-04-07] MEDS: PROCHLORPERAZINE 10 MG TAB PO PRN (06:59)
[2025-04-07 07:36] LABS: Basophils # (A) 0.03 10*3/uL (0.00-0.10); Basophils % (A) 0.4 %; Eosinophils # (A) 0.02 10*3/uL (0.04-0.35); Eosinophils % (A) 0.3 %; HCT 30.8 % (39.6-50.0); Lymphocytes # (A) 0.39 10*3/uL (0.90-5.00); MCH 29.4 pg (27.0-32.0); MCHC 32.5 g/dL (32.0-37.0); MCV 90.6 fL (80.0-97.0); Mean Platelet Volume 9.3 fL (9.5-12.2); Monocytes # (A) 0.61 10*3/uL (0.20-1.00); Monocytes % (A) 7.8 %; Neutrophils # (A) 6.68 10*3/uL (1.80-7.70); Neutrophils % (A) 85.7 %; Platelet Count 442 10*3/uL (140-440); RDW 16.6 % (11.5-14.5); WBC 7.79 10*3/uL (4.50-10.00)
[2025-04-07 07:46] LABS: ALT 36 U/L (4-49); AST 47 U/L (17-59); African American GFR (CKD) >90 (>60 ml/min/1.73 sqM); Albumin/Globulin Ratio 1.1; Alkaline Phosphatase 117 U/L (38-126); Anion Gap 8 mmol/L; Blood Urea Nitrogen 6 mg/dL (9-20); Calcium 8.5 mg/dL (8.4-10.2); Carbon Dioxide 23 mmol/L (22-30); Chloride 98 mmol/L (98-107); Globulin 2.8 g/dL; Glucose 124 mg/dL (74-99); Non-African American GFR(CKD) >90 (>60 ml/min/1.73 sqM); Potassium 4.4 mmol/L (3.5-5.1); Sodium 129 mmol/L (137-145); Total Bilirubin 0.8 mg/dL (0.2-1.3); Total Protein 5.8 g/dL (6.3-8.2)
--- NOTE | 2025-04-07 12:27 | P.PN ---
Subjective Progress Note Date: 04/07/25 Surinder Gilles, is a 69-year-old male patient of Dr. Dupont who presented with concerns of weakness and lower abdominal pain over the past 3 days. Patient has a history of metastatic prostate cancer and follows with oncology services. Testing in the emergency room revealed KUB x-ray showing nonspecific abdomen findings compatible sclerotic prostate metastatic. Lab work showing white blood cell 6.67, hemoglobin 9.1, creatinine 0.60 bun 14 lipase 34. Vital signs completed showing temp 98.5, heart rate 98, respiratory rate 16, blood pressure 136/78 with pulse ox of 99% on room air. At this time patient will be admitted PT OT services consulted oncology services also consulted. Patient denies chest pain or shortness of breath. Patient denies nausea vomiting or diarrhea. Patient denies any urinary burning or frequency On 04/04/2025 was seen and examined on the oncology floor is alert and oriented x 3 in no apparent distress he is stating that his pain is better controlled as he denies any complaints there is no fever or chills no headache or dizziness no chest pain no shortness of breath no cough no nausea or vomiting no abdominal pain no diarrhea no urinary symptoms. Patient has evidence of anemia, has iron deficiency. Urology on follow-up On 04/05/2025 patient is alert and oriented x 3 pain meds have been adjusted per oncology services awaiting further recommendations. Patient reports bowel movements. Patient denies chest pain or shortness of breath. Patient denies nausea vomiting or diarrhea. Patient denies any urinary burning or frequency. Current vital signs temp 98.2, heart 74, respiratory rate 16, blood pressure 144/80 with pulse ox of 99% on room air On 04/06/2025 patient is alert and oriented x 3. Patient having increased pain this a.m. awaiting further recommendations from oncology services. Current vital signs temp 97.9, heart rate 81, respiratory rate 16, blood pressure 146/84 with pulse ox of 96% on room air patient denies chest pain. Patient denies nausea vomiting or diarrhea. Patient denies any urinary burning or frequency. On 04/07/2025 patient was seen and examined on the medical floor he is alert and oriented x 3 in no apparent distress, he is complaining of severe pain that is not controlled on current medications, otherwise he denies any complaints there is no fever or chills no headache or dizziness no chest pain no shortness of breath no cough no nausea or vomiting no abdominal pain no diarrhea and no urinary symptoms. Objective - Vital Signs Vital signs: Vital Signs Temp 98.4 F 04/07/25 07:36 Pulse 92 04/07/25 07:36 Resp 16 04/07/25 07:36 BP 124/78 04/07/25 07:36 Pulse Ox 96 04/07/25 07:36 FiO2 Intake & Output 04/06/25 04/07/25 04/07/25 18:59 06:59 18:59 Intake Total 1979 540 480 Balance 1979 540 480 Intake: Oral 1979 540 480 Other: Voiding Method Toilet Toilet Toilet Urinal Urinal # Voids 7 2 - Exam In general patient is alert and oriented x 3 in no distress HEENT head normocephalic and atraumatic Neck is supple no JVD no goiter no lymphadenopathy no carotid bruit Chest examination is clear to auscultation no crackles no wheezing Cardiac exam reveals regular heart sounds S1 and S2 no gallops no murmurs Abdomen is soft nontender no organomegaly with normal bowel sounds Extremity exam reveals no edema no cyanosis or clubbing Neurological examination reveals no gross focal deficits - Labs CBC & Chem 7: 04/07/25 06:47 04/07/25 06:47 Labs: Abnormal Lab Results - Last 24 Hours (Table) 04/07/25 04/07/25 Range/Units 06:47 06:47 RBC 3.40 L (4.40-5.60) 10*6/uL Hgb 10.0 L (13.0-17.0) g/dL Hct 30.8 L (39.6-50.0) % RDW 16.6 H (11.5-14.5) % Plt Count 442 H (140-440) 10*3/uL MPV 9.3 L (9.5-12.2) fL Immature Gran # 0.06 H (0.00-0.04) 10*3/uL Lymphocytes # 0.39 L (0.90-5.00) 10*3/uL Eosinophils # 0.02 L (0.04-0.35) 10*3/uL Sodium 129 L (137-145) mmol/L BUN 6 L (9-20) mg/dL Creatinine 0.57 L (0.66-1.25) mg/dL Glucose 124 H (74-99) mg/dL Total Protein 5.8 L (6.3-8.2) g/dL Albumin 3.0 L (3.5-5.0) g/dL Assessment and Plan Assessment: Abdominal pain with nausea and vomiting likely secondary from metastatic disease History of prostate cancer with mets follows with oncology services history of sleep apnea History of TURP History of coronary artery disease with previous heart stents oncology services consulted DVT prophylaxis heparin. GI prophylax Protonix Repeat labs in a.m. oncology services consulted PT OT services consulted
[2025-04-07] MEDS ORDERED: MORPHINE SULFATE IR 15 MG TABLET PO PRN (13:47)
--- NOTE | 2025-04-07 14:05 | P.PN ---
Subjective Progress Note Date: 04/07/25 Principal diagnosis: abd pain, met prostate carcinoma In f/u today pt cont to report poor pain control. He wakes up in pain because he does not gat any pain meds at night when he is sleeping. He states today the toradol is no longer helping with pain like it was when he was admitted. No further c/o of nausea or vomiting. He is having bowel movements Objective - Vital Signs Vital signs: Vital Signs Temp 97.7 F 04/07/25 12:34 Pulse 84 04/07/25 12:34 Resp 14 04/07/25 12:34 BP 126/76 04/07/25 12:34 Pulse Ox 97 04/07/25 12:34 FiO2 Intake & Output 04/06/25 04/07/25 04/07/25 18:59 06:59 18:59 Intake Total 1979 540 480 Output Total 500 Balance 1979 540 -20 Intake: Oral 1979 540 480 Output: Urine 500 Other: Voiding Method Toilet Toilet Toilet Urinal Urinal # Voids 7 2 2 - Constitutional General appearance: Present: average body habitus, no acute distress - EENT Eyes: Present: anicteric sclerae, EOMI ENT: Present: hearing grossly normal, thrush - Respiratory Details: resp unlabored at rest - Cardiovascular Details: skin warm and well perfused - Peripheral edema leg Peripheral Edema: bilateral: None - Integumentary Integumentary: Present: pale - Neurologic Neurologic: Present: CNII-XII intact - Musculoskeletal Musculoskeletal: Present: generalized weakness, strength equal bilaterally - Psychiatric Psychiatric: Present: A&O x's 3, appropriate affect, intact judgment & insight - Labs CBC & Chem 7: 04/07/25 06:47 04/07/25 06:47 Labs: Abnormal Lab Results - Last 24 Hours (Table) 04/07/25 04/07/25 Range/Units 06:47 06:47 RBC 3.40 L (4.40-5.60) 10*6/uL Hgb 10.0 L (13.0-17.0) g/dL Hct 30.8 L (39.6-50.0) % RDW 16.6 H (11.5-14.5) % Plt Count 442 H (140-440) 10*3/uL MPV 9.3 L (9.5-12.2) fL Immature Gran # 0.06 H (0.00-0.04) 10*3/uL Lymphocytes # 0.39 L (0.90-5.00) 10*3/uL Eosinophils # 0.02 L (0.04-0.35) 10*3/uL Sodium 129 L (137-145) mmol/L BUN 6 L (9-20) mg/dL Creatinine 0.57 L (0.66-1.25) mg/dL Glucose 124 H (74-99) mg/dL Total Protein 5.8 L (6.3-8.2) g/dL Albumin 3.0 L (3.5-5.0) g/dL Assessment and Plan (1) Pain of metastatic malignancy Current Visit: Yes Status: Acute Priority: High Code(s): G89.3 - NEOPLASM RELATED PAIN (ACUTE) (CHRONIC) SNOMED Code(s): 339331142 (2) Dehydration Current Visit: Yes Status: Acute Priority: High Code(s): E86.0 - DEHYDRATION SNOMED Code(s): 61118324 (3) Prostate cancer Current Visit: Yes Status: Chronic Priority: Medium Code(s): C61 - MALIGNANT NEOPLASM OF PROSTATE SNOMED Code(s): 367631180 (4) Thrush, oral Current Visit: Yes Status: Acute Priority: Medium Code(s): B37.0 - CANDIDAL STOMATITIS SNOMED Code(s): 26615452 (5) Anemia Current Visit: Yes Status: Acute Priority: Medium Code(s): D64.9 - ANEMIA, UNSPECIFIED SNOMED Code(s): 431866457 Plan: Pain of metastatic malignancy -Recently completed radiation for the same -Pt states toradol was working well, then it was not lasting until next dose so, IV dilaudid was added. The dilaudid helps with pain but he fell asleep every time he received it so, this was changed to morphine. He felt more alert after receiving morphine but only used 1 dose so norco was added. Pt wakes every morning in pain he states because he is not woke up in the middle of the night and offered pain med. Today pt states toradol is no longer helping. IM started pt on [facility] but, it was not due to start until tonight, changed the order so it starts now. Kept the IV morphine and norco. Will see how much PRN pain med he uses and convert to oral tomorrow so pt can be discharged. Dehydration secondary to reflux and regurgitation -poor oral intake x 3 days 2/2 reflux and regurgitation. Improved with hydration and supportive meds -Marinol started. Metastatic prostate carcinoma -Diagnosis and treatment as documented in consult -Patient has completed radiation. 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 Recommended treatment with Keytruda. Prior auth has been requested -Will plan to start outpt once pt acutely recovered -Patient has been continued on Nubeqa for now. Continue the same Oral thrush -Persists - Cont Nystatin suspension - Cont Salt and soda for rinsing the mouth. Anemia - Likely secondary to patient's recent ongoing hematuria, recent radiation and Hx of malignancy treatment -Iron studies most consistent with inflammation, no supplement needed at this time - Transfuse for hemoglobin less than 7 or if patient is symptomatic -Hgb 10 today History of constipation - Senna has been reordered. Pt cont to have BM -Cont
[2025-04-07] MEDS: MORPHINE SULFATE ER 15 MG TABLET PO SCH (15:27)
[2025-04-07] MEDS ORDERED: MORPHINE SULFATE ER 15 MG TABLET PO SCH (21:00)
[2025-04-08 09:18] LABS: ALT 29 U/L (10-49); AST 47 U/L (14-35); Albumin 2.9 g/dL (3.8-4.9); Albumin/Globulin Ratio 1.32 Ratio (1.60-3.17); Alkaline Phosphatase 91 U/L (41-126); BUN/Creat Ratio 12.17 Ratio (12.00-20.00); Blood Urea Nitrogen 7.3 mg/dL (9.0-27.0); Calcium 8.5 mg/dL (8.7-10.3); Carbon Dioxide 24.7 mmol/L (21.6-31.8); Chloride 99 mmol/L (96-109); Globulin 2.2 g/dL (1.6-3.3); Glucose 116 mg/dL (70-110); Potassium 4.8 mmol/L (3.5-5.5); Sodium 132 mmol/L (135-145); Total Bilirubin 0.6 mg/dL (0.3-1.2); Total Protein 5.1 g/dL (6.2-8.2)
--- NOTE | 2025-04-08 09:31 | P.PN ---
Subjective Progress Note Date: 04/08/25 Surinder Gilles, is a 69-year-old male patient of Dr. Dupont who presented with concerns of weakness and lower abdominal pain over the past 3 days. Patient has a history of metastatic prostate cancer and follows with oncology services. Testing in the emergency room revealed KUB x-ray showing nonspecific abdomen findings compatible sclerotic prostate metastatic. Lab work showing white blood cell 6.67, hemoglobin 9.1, creatinine 0.60 bun 14 lipase 34. Vital signs completed showing temp 98.5, heart rate 98, respiratory rate 16, blood pressure 136/78 with pulse ox of 99% on room air. At this time patient will be admitted PT OT services consulted oncology services also consulted. Patient denies chest pain or shortness of breath. Patient denies nausea vomiting or diarrhea. Patient denies any urinary burning or frequency On 04/04/2025 was seen and examined on the oncology floor is alert and oriented x 3 in no apparent distress he is stating that his pain is better controlled as he denies any complaints there is no fever or chills no headache or dizziness no chest pain no shortness of breath no cough no nausea or vomiting no abdominal pain no diarrhea no urinary symptoms. Patient has evidence of anemia, has iron deficiency. Urology on follow-up On 04/05/2025 patient is alert and oriented x 3 pain meds have been adjusted per oncology services awaiting further recommendations. Patient reports bowel movements. Patient denies chest pain or shortness of breath. Patient denies nausea vomiting or diarrhea. Patient denies any urinary burning or frequency. Current vital signs temp 98.2, heart 74, respiratory rate 16, blood pressure 144/80 with pulse ox of 99% on room air On 04/06/2025 patient is alert and oriented x 3. Patient having increased pain this a.m. awaiting further recommendations from oncology services. Current vital signs temp 97.9, heart rate 81, respiratory rate 16, blood pressure 146/84 with pulse ox of 96% on room air patient denies chest pain. Patient denies nausea vomiting or diarrhea. Patient denies any urinary burning or frequency. On 04/07/2025 patient was seen and examined on the medical floor he is alert and oriented x 3 in no apparent distress, he is complaining of severe pain that is not controlled on current medications, otherwise he denies any complaints there is no fever or chills no headache or dizziness no chest pain no shortness of breath no cough no nausea or vomiting no abdominal pain no diarrhea and no urinary symptoms. On 04/08/2025 patient was seen and examined on the medical floor is alert and oriented x 3 in no apparent distress there is no fever or chills no headache or dizziness no chest pain no shortness of breath no cough no nausea or vomiting no diarrhea no blood in the stools no burning with urination frequency or urgency and no hematuria. Patient was started on MS Contin yesterday, this pain is better controlled, will continue to monitor possible discharge to home tomorrow if stable. Objective - Vital Signs Vital signs: Vital Signs Temp 99.6 F 04/08/25 02:00 Pulse 93 04/08/25 02:00 Resp 14 04/08/25 02:00 BP 109/68 04/08/25 02:00 Pulse Ox 93 L 04/08/25 02:00 FiO2 Intake & Output 04/07/25 04/08/25 04/08/25 18:59 06:59 18:59 Intake Total 960 540 Output Total 850 700 Balance 110 -160 Intake: Oral 960 540 Output: Urine 850 700 Other: Voiding Method Toilet Toilet # Voids 3 3 # Bowel Movements 1 - Exam In general patient is alert and oriented x 3 in no distress HEENT head normocephalic and atraumatic Neck is supple no JVD no goiter no lymphadenopathy no carotid bruit Chest examination is clear to auscultation no crackles no wheezing Cardiac exam reveals regular heart sounds S1 and S2 no gallops no murmurs Abdomen is soft nontender no organomegaly with normal bowel sounds Extremity exam reveals no edema no cyanosis or clubbing Neurological examination reveals no gross focal deficits - Labs CBC & Chem 7: 04/07/25 06:47 04/08/25 04:13 Assessment and Plan Assessment: Abdominal pain with nausea and vomiting likely secondary from metastatic disease History of prostate cancer with mets follows with oncology services history of sleep apnea History of TURP History of coronary artery disease with previous heart stents oncology services consulted DVT prophylaxis heparin. GI prophylax Protonix Repeat labs in a.m. oncology services consulted PT OT services consulted
[2025-04-08 09:57] LABS: Basophils # (A) 0.02 X 10*3/uL (0.00-0.10); Basophils % (A) 0.3 %; Eosinophils # (A) 0.01 X 10*3/uL (0.04-0.35); Eosinophils % (A) 0.2 %; HCT 28.8 % (39.6-50.0); HGB 8.9 g/dL (13.0-17.0); Lymphocytes # (A) 0.52 X 10*3/uL (0.90-5.00); Lymphocytes % (A) 7.9 %; MCH 28.3 pg (27.0-32.0); MCHC 30.9 g/dL (32.0-37.0); MCV 91.7 FL (80.0-97.0); Mean Platelet Volume 9.4 FL (9.5-12.2); Monocytes # (A) 0.65 X 10*3/uL (0.20-1.00); Monocytes % (A) 9.9 %; NRBC Per 100 WBC 0 X 10*3/uL (0.00-0.01); Neutrophils # (A) 5.35 X 10*3/uL (1.80-7.70); Neutrophils % (A) 81.2 %; Platelet Count 396 X 10*3/uL (140-440); RBC 3.14 X 10*6/uL (4.40-5.60); RDW 16.8 % (11.5-14.5); WBC 6.58 X 10*3/uL (4.50-10.00)
[2025-04-09 08:08] LABS: ALT 25 U/L (10-49); AST 38 U/L (14-35); Albumin 2.8 g/dL (3.8-4.9); Albumin/Globulin Ratio 1.22 Ratio (1.60-3.17); Alkaline Phosphatase 92 U/L (41-126); BUN/Creat Ratio 14.67 Ratio (12.00-20.00); Blood Urea Nitrogen 8.8 mg/dL (9.0-27.0); Calcium 8.4 mg/dL (8.7-10.3); Carbon Dioxide 24.3 mmol/L (21.6-31.8); Chloride 96 mmol/L (96-109); Globulin 2.3 g/dL (1.6-3.3); Glucose 132 mg/dL (70-110); Potassium 4.5 mmol/L (3.5-5.5); Sodium 131 mmol/L (135-145); Total Bilirubin 0.7 mg/dL (0.3-1.2); Total Protein 5.1 g/dL (6.2-8.2)
[2025-04-09 08:11] LABS: Basophils # (A) 0.01 X 10*3/uL (0.00-0.10); Basophils % (A) 0.1 %; Eosinophils # (A) 0 X 10*3/uL (0.04-0.35); Eosinophils % (A) 0 %; HGB 8.8 g/dL (13.0-17.0); Lymphocytes % (A) 6.6 %; MCH 28.5 pg (27.0-32.0); MCHC 31.4 g/dL (32.0-37.0); MCV 90.6 FL (80.0-97.0); Mean Platelet Volume 9.6 FL (9.5-12.2); Monocytes # (A) 0.73 X 10*3/uL (0.20-1.00); Monocytes % (A) 9.7 %; NRBC Per 100 WBC 0 X 10*3/uL (0.00-0.01); Neutrophils # (A) 6.25 X 10*3/uL (1.80-7.70); Neutrophils % (A) 82.9 %; Platelet Count 392 X 10*3/uL (140-440); RBC 3.09 X 10*6/uL (4.40-5.60); RDW 17.2 % (11.5-14.5); WBC 7.54 X 10*3/uL (4.50-10.00)
[2025-04-09] MEDS: DAROLUTAMIDE 300 MG PO SCH (13:24)
--- NOTE | 2025-04-09 18:38 | P.PN ---
Subjective Progress Note Date: 04/09/25 Surinder Gilles, is a 69-year-old male patient of Dr. Dupont who presented with concerns of weakness and lower abdominal pain over the past 3 days. Patient has a history of metastatic prostate cancer and follows with oncology services. Testing in the emergency room revealed KUB x-ray showing nonspecific abdomen findings compatible sclerotic prostate metastatic. Lab work showing white blood cell 6.67, hemoglobin 9.1, creatinine 0.60 bun 14 lipase 34. Vital signs completed showing temp 98.5, heart rate 98, respiratory rate 16, blood pressure 136/78 with pulse ox of 99% on room air. At this time patient will be admitted PT OT services consulted oncology services also consulted. Patient denies chest pain or shortness of breath. Patient denies nausea vomiting or diarrhea. Patient denies any urinary burning or frequency On 04/04/2025 was seen and examined on the oncology floor is alert and oriented x 3 in no apparent distress he is stating that his pain is better controlled as he denies any complaints there is no fever or chills no headache or dizziness no chest pain no shortness of breath no cough no nausea or vomiting no abdominal pain no diarrhea no urinary symptoms. Patient has evidence of anemia, has iron deficiency. Urology on follow-up On 04/05/2025 patient is alert and oriented x 3 pain meds have been adjusted per oncology services awaiting further recommendations. Patient reports bowel movements. Patient denies chest pain or shortness of breath. Patient denies nausea vomiting or diarrhea. Patient denies any urinary burning or frequency. Current vital signs temp 98.2, heart 74, respiratory rate 16, blood pressure 144/80 with pulse ox of 99% on room air On 04/06/2025 patient is alert and oriented x 3. Patient having increased pain this a.m. awaiting further recommendations from oncology services. Current vital signs temp 97.9, heart rate 81, respiratory rate 16, blood pressure 146/84 with pulse ox of 96% on room air patient denies chest pain. Patient denies nausea vomiting or diarrhea. Patient denies any urinary burning or frequency. On 04/07/2025 patient was seen and examined on the medical floor he is alert and oriented x 3 in no apparent distress, he is complaining of severe pain that is not controlled on current medications, otherwise he denies any complaints there is no fever or chills no headache or dizziness no chest pain no shortness of breath no cough no nausea or vomiting no abdominal pain no diarrhea and no urinary symptoms. On 04/08/2025 patient was seen and examined on the medical floor is alert and oriented x 3 in no apparent distress there is no fever or chills no headache or dizziness no chest pain no shortness of breath no cough no nausea or vomiting no diarrhea no blood in the stools no burning with urination frequency or urgency and no hematuria. Patient was started on MS Contin yesterday, this pain is better controlled, will continue to monitor possible discharge to home tomorrow if stable. On 04/09/2025 patient was seen and examined on the medical floor is alert and oriented x 3 in no distress there is no fever or chills no headache or dizziness no chest pain no shortness of breath no cough no nausea or vomiting no diarrhea no blood in the stools no burning with urination frequency or urgency and no hematuria. Patient was started on MS Contin, this pain is better controlled, will continue to monitor possible discharge to home tomorrow if stable. Objective - Vital Signs Vital signs: Vital Signs Temp 98.4 F 04/09/25 13:59 Pulse 81 04/09/25 13:59 Resp 16 04/09/25 13:59 BP 93/53 04/09/25 13:59 Pulse Ox 94 L 04/09/25 13:59 FiO2 Intake & Output 04/08/25 04/09/25 04/09/25 18:59 06:59 18:59 Intake Total 1080 1320 Output Total 900 550 Balance 180 770 Intake: Oral 1080 1320 Output: Urine 900 550 Other: Voiding Method Toilet Toilet Toilet # Voids 2 1 2 # Bowel Movements 1 - Exam In general patient is alert and oriented x 3 in no distress HEENT head normocephalic and atraumatic Neck is supple no JVD no goiter no lymphadenopathy no carotid bruit Chest examination is clear to auscultation no crackles no wheezing Cardiac exam reveals regular heart sounds S1 and S2 no gallops no murmurs Abdomen is soft nontender no organomegaly with normal bowel sounds Extremity exam reveals no edema no cyanosis or clubbing Neurological examination reveals no gross focal deficits - Labs CBC & Chem 7: 04/09/25 05:17 04/09/25 05:17 Labs: Abnormal Lab Results - Last 24 Hours (Table) 04/09/25 04/09/25 Range/Units 05:17 05:17 RBC 3.09 L (4.40-5.60) X 10*6/uL Hgb 8.8 L (13.0-17.0) g/dL Hct 28.0 L (39.6-50.0) % MCHC 31.4 L (32.0-37.0) g/dL RDW 17.2 H (11.5-14.5) % Immature Gran # 0.05 H (0.00-0.04) X 10*3/uL Lymphocytes # 0.50 L (0.90-5.00) X 10*3/uL Eosinophils # 0 L (0.04-0.35) X 10*3/uL Sodium 131 L (135-145) mmol/L BUN 8.8 L (9.0-27.0) mg/dL Glucose 132 H (70-110) mg/dL Calcium 8.4 L (8.7-10.3) mg/dL AST 38 H (14-35) U/L Total Protein 5.1 L (6.2-8.2) g/dL Albumin 2.8 L (3.8-4.9) g/dL Albumin/Globulin Ratio 1.22 L (1.60-3.17) Ratio Assessment and Plan Assessment: Abdominal pain with nausea and vomiting likely secondary from metastatic disease History of prostate cancer with mets follows with oncology services history of sleep apnea History of TURP History of coronary artery disease with previous heart stents oncology services consulted DVT prophylaxis heparin. GI prophylax Protonix Repeat labs in a.m. oncology services consulted PT OT services consulted
[2025-04-10 02:22] VITALS: RESP 16
--- NOTE | 2025-04-10 11:02 | P.DS ---
Providers Date of admission: 04/04/25 08:37 Expected date of discharge: 04/10/25 Attending physician: Zahra Zaman Consults: 04/02/25 16:30 Consult Physician Routine Consulting Provider: Jun Arias Consult Reason/Comments: Weakness, metastatic cancer Do you want consulting provider notified?: Yes Primary care physician: Keshia Dupont Hospital Course: Discharge diagnosis Abdominal pain with nausea and vomiting likely secondary from metastatic disease History of prostate cancer with mets follows with oncology services history of sleep apnea History of TURP History of coronary artery disease with previous heart stents Hospital course Surinder Campoverde, is a 69-year-old male patient of Dr. Dupont who presented with concerns of weakness and lower abdominal pain over the past 3 days. Patient has a history of metastatic prostate cancer and follows with oncology services. Testing in the emergency room revealed KUB x-ray showing nonspecific abdomen findings compatible sclerotic prostate metastatic. Lab work showing white blood cell 6.67, hemoglobin 9.1, creatinine 0.60 bun 14 lipase 34. Vital signs completed showing temp 98.5, heart rate 98, respiratory rate 16, blood pressure 136/78 with pulse ox of 99% on room air. At this time patient will be admitted PT OT services consulted oncology services also consulted. Patient denies chest pain or shortness of breath. Patient denies nausea vomiting or diarrhea. Patient denies any urinary burning or frequency On 04/04/2025 was seen and examined on the oncology floor is alert and oriented x 3 in no apparent distress he is stating that his pain is better controlled as he denies any complaints there is no fever or chills no headache or dizziness no chest pain no shortness of breath no cough no nausea or vomiting no abdominal pain no diarrhea no urinary symptoms. Patient has evidence of anemia, has iron deficiency. Urology on follow-up On 04/05/2025 patient is alert and oriented x 3 pain meds have been adjusted per oncology services awaiting further recommendations. Patient reports bowel movements. Patient denies chest pain or shortness of breath. Patient denies nausea vomiting or diarrhea. Patient denies any urinary burning or frequency. Current vital signs temp 98.2, heart 74, respiratory rate 16, blood pressure 144/80 with pulse ox of 99% on room air On 04/06/2025 patient is alert and oriented x 3. Patient having increased pain this a.m. awaiting further recommendations from oncology services. Current vital signs temp 97.9, heart rate 81, respiratory rate 16, blood pressure 146/84 with pulse ox of 96% on room air patient denies chest pain. Patient denies nausea vomiting or diarrhea. Patient denies any urinary burning or frequency. On 04/07/2025 patient was seen and examined on the medical floor he is alert and oriented x 3 in no apparent distress, he is complaining of severe pain that is not controlled on current medications, otherwise he denies any complaints there is no fever or chills no headache or dizziness no chest pain no shortness of breath no cough no nausea or vomiting no abdominal pain no diarrhea and no urinary symptoms. On 04/08/2025 patient was seen and examined on the medical floor is alert and oriented x 3 in no apparent distress there is no fever or chills no headache or dizziness no chest pain no shortness of breath no cough no nausea or vomiting no diarrhea no blood in the stools no burning with urination frequency or urgency and no hematuria. Patient was started on MS Contin yesterday, this pain is better controlled, will continue to monitor possible discharge to home tomorrow if stable. On 04/09/2025 patient was seen and examined on the medical floor is alert and oriented x 3 in no distress there is no fever or chills no headache or dizziness no chest pain no shortness of breath no cough no nausea or vomiting no diarrhea no blood in the stools no burning with urination frequency or urgency and no hematuria. Patient was started on MS Contin, this pain is better controlled, will continue to monitor possible discharge to home tomorrow if stable. On 04/10/2025 patient is alert and oriented x 3. Patient has adequate pain control with MS Contin and [place]. Did discuss with nursing staff to have oncology services write for pain medications through office. Patient denies chest pain or shortness of breath. Patient denies nausea vomiting or diarrhea. Patient denies any urinary burning or frequency Patient Condition at Discharge: Stable Plan - Discharge Summary Discharge Rx Participant: No New Discharge Prescriptions: New Morphine Sulfate ER [Ms Contin] 15 mg PO Q12HR tab droNABinol [Marinol] 5 mg PO AC-BID #0 cap HYDROcodone/APAP 10-325MG [[place] 10-325] 1 each PO Q4HR PRN tab PRN Reason: Pain Sennosides-Docusate Sodium [Senokot-S] 1 each PO BID 30 Days #30 tab Continue Calcium Carbonate [Calcium] 600 mg PO HS Atorvastatin [Lipitor] 40 mg PO PC-SUPPER Cholecalciferol [Vitamin D3 (125 Mcg = 5000 Iu)] 125 mcg PO HS Loratadine [Claritin] 10 mg PO HS predniSONE 10 mg PO W/BRKFST Ondansetron [Zofran] 4 mg PO Q4H PRN PRN Reason: Nausea Pantoprazole Sodium [Protonix] 20 mg PO AC-BRKFST ALPRAZolam [Xanax] 0.25 mg PO TID PRN PRN Reason: Anxiety tadalafiL [Cialis] 5 mg PO AC-BRKFST Stool Softner 1 - 3 tab PO AC-BRKFST Magnesium (Unknown) 150mg 150 mg PO AC-BRKFST Darolutamide [Nubeqa] 600 mg PO BID-W/MEALS Ferrous Gluconate 324 mg PO PC-SUPPER Metoprolol Succinate [Metoprolol Succinate ER] 25 mg PO W/BRKFST lisinopriL [Zestril] 2.5 mg PO PC-SUPPER Tamsulosin [Flomax] 0.4 mg PO W/BRKFST Aspirin 81 mg PO HS Discharge Medication List Atorvastatin [Lipitor] 40 mg PO PC-SUPPER 07/23/19 [History] Calcium Carbonate [Calcium] 600 mg PO HS 07/23/19 [History] Cholecalciferol [Vitamin D3 (125 Mcg = 5000 Iu)] 125 mcg PO HS 05/10/24 [History] Darolutamide [Nubeqa] 600 mg PO BID-W/MEALS 05/10/24 [History] Loratadine [Claritin] 10 mg PO HS 05/10/24 [History] predniSONE 10 mg PO W/BRKFST 05/10/24 [History] Ferrous Gluconate 324 mg PO PC-SUPPER 02/28/25 [History] Metoprolol Succinate [Metoprolol Succinate ER] 25 mg PO W/BRKFST 02/28/25 [History] Ondansetron [Zofran] 4 mg PO Q4H PRN 02/28/25 [History] Pantoprazole Sodium [Protonix] 20 mg PO AC-BRKFST 02/28/25 [History] ALPRAZolam [Xanax] 0.25 mg PO TID PRN 04/02/25 [History] Aspirin 81 mg PO HS 04/02/25 [History] Magnesium (Unknown) 150mg 150 mg PO AC-BRKFST 04/02/25 [History] Stool Softner 1 - 3 tab PO AC-BRKFST 04/02/25 [History] Tamsulosin [Flomax] 0.4 mg PO W/BRKFST 04/02/25 [History] lisinopriL [Zestril] 2.5 mg PO PC-SUPPER 04/02/25 [History] tadalafiL [Cialis] 5 mg PO AC-BRKFST 04/02/25 [History] HYDROcodone/APAP 10-325MG [[place] 10-325] 1 each PO Q4HR PRN tab 04/10/25 [Rx] Morphine Sulfate ER [Ms Contin] 15 mg PO Q12HR tab 04/10/25 [Rx] Sennosides-Docusate Sodium [Senokot-S] 1 each PO BID 30 Days #30 tab 04/10/25 [Rx] droNABinol [Marinol] 5 mg PO AC-BID #0 cap 04/10/25 [Rx] Follow up Appointment(s)/Referral(s): Keshia Dupont MD [Primary Care Provider] - 1-2 days Manuelito Lynch MD [STAFF PHYSICIAN] - 1 Week Activity/Diet/Wound Care/Special Instructions: activity as tolerted Diet heart healthy Discharge Disposition: HOME SELF-CARE
[2025-04-10 12:15] VITALS: BP 113/68; PULSE 86; TEMP 98.1
== END 2025-04-10 13:56 | disposition home health service (06) | DRG 948 ==
LOC: EC 13:43 → 5NMEDONC 16:30 → OBSVTOIN 04-04 08:37
PROVIDERS: ADMIT Internal Medicine; ATTEND Internal Medicine
DX: G89.3 Neoplasm related pain (acute) (chronic) (principal); C79.51 Secondary malignant neoplasm of bone; C79.11 Secondary malignant neoplasm of bladder; B37.0 Candidal stomatitis; C61 Malignant neoplasm of prostate; D50.9 Iron deficiency anemia, unspecified; E86.0 Dehydration; G47.30 Sleep apnea, unspecified; I25.10 Atherosclerotic heart disease of native coronary artery without angina pectoris; K21.9 Gastro-esophageal reflux disease without esophagitis; R33.9 Retention of urine, unspecified; R31.9 Hematuria, unspecified; K59.00 Constipation, unspecified; Z79.52 Long term (current) use of systemic steroids; Z79.82 Long term (current) use of aspirin; Z79.899 Other long term (current) drug therapy; Z95.5 Presence of coronary angioplasty implant and graft; Z87.891 Personal history of nicotine dependence; Z92.3 Personal history of irradiation
CPT/HCPCS: 36415; 74018; 80053; 81001; 82607; 82728; 82747; 83540; 83550; 83605; 83690; 83735; 83921; 85025; 85045; 87086; 93005; 96361; 96374; 99285

== ENCOUNTER 2025-04-21 03:37 | Emergency (ER) | payer MEDICARE, BC ==
[2025-04-21 04:48] VITALS: TEMP 97.9
[2025-04-21 05:09] LABS: Basophils # (A) 0.02 10*3/uL (0.00-0.10); Basophils % (A) 0.3 %; Eosinophils # (A) 0.01 10*3/uL (0.04-0.35); Eosinophils % (A) 0.1 %; HCT 31.1 % (39.6-50.0); HGB 10.1 g/dL (13.0-17.0); Lymphocytes # (A) 0.46 10*3/uL (0.90-5.00); MCH 27.9 pg (27.0-32.0); MCHC 32.5 g/dL (32.0-37.0); MCV 85.9 fL (80.0-97.0); Mean Platelet Volume 9.2 fL (9.5-12.2); Monocytes # (A) 0.63 10*3/uL (0.20-1.00); Monocytes % (A) 8.3 %; Neutrophils # (A) 6.44 10*3/uL (1.80-7.70); Neutrophils % (A) 84.5 %; Platelet Count 527 10*3/uL (140-440); RBC 3.62 10*6/uL (4.40-5.60); RDW 17.2 % (11.5-14.5); WBC 7.62 10*3/uL (4.50-10.00)
[2025-04-21 05:46] LABS: ALT 99 U/L (4-49); AST 87 U/L (17-59); African American GFR (CKD) >90 (>60 ml/min/1.73 sqM); Albumin 3.2 g/dL (3.5-5.0); Alkaline Phosphatase 181 U/L (38-126); Amylase 44 U/L (30-110); Anion Gap 10 mmol/L; Blood Urea Nitrogen 13 mg/dL (9-20); Calcium 9.2 mg/dL (8.4-10.2); Carbon Dioxide 23 mmol/L (22-30); Chloride 95 mmol/L (98-107); Glucose 102 mg/dL (74-99); Lipase 32 U/L (23-300); Non-African American GFR(CKD) >90 (>60 ml/min/1.73 sqM); Potassium 4.7 mmol/L (3.5-5.1); Sodium 128 mmol/L (137-145); Total Bilirubin 1.1 mg/dL (0.2-1.3)
--- NOTE | 2025-04-21 06:26 | XR ---
EXAM: XR Abdomen, 1 View CLINICAL HISTORY: ITS.REASON XR Reason: abdominal pain TECHNIQUE: Frontal supine view of the abdomen/pelvis. COMPARISON: No relevant prior studies available. IMPRESSION: 1. Evaluation for free air is limited by supine imaging. 2. No evidence of bowel obstruction. 2. If there is further concern, consider cross-sectional imaging. 4. Sclerotic density noted overlying the right femoral neck. Additional sclerosis within the visualized thoracic spine. Findings may be neoplastic in nature. Please note that no history of neoplasm was provided, making it likely that this is the patient's initial presentation. Consider further workup and continued attention on follow- up imaging.
[2025-04-21] MEDS: HYDROmorphone 0.5 MG/0.5 ML SYRINGE IVP STA ×2 (07:21→11:06)
[2025-04-21] MEDS: SODIUM CHLORIDE 0.9% 1,000 ML IV ONE ×2 (07:21→11:10)
--- NOTE | 2025-04-21 08:14 | ED ---
Abdominal Pain HPI - General Chief Complaint: Abdominal Pain Stated Complaint: abd pain Time Seen by Provider: 04/21/25 06:44 Source: patient, EMS, RN notes reviewed Mode of arrival: EMS Limitations: no limitations - History of Present Illness Initial Comments: 69-year-old male presents emergency department complaint of abdominal pain. Patient states he has increasing lower abdominal pain denies any fevers or chills he does have prostate cancer with metastasis. Patient states she started Keytruda yesterday he has received multiple other treatments in the past along with radiation last week. Patient denies any dysuria hematuria bowel movement 5 to 6 days he tried multiple things without relief. Patient states that he does take chronic pain meds from his cancer as he has metastasis to the bones. - Related Data Home Medications Medication Instructions Recorded Confirmed Atorvastatin [Lipitor] 40 mg PO PC-SUPPER 07/23/19 04/02/25 Calcium Carbonate [Calcium] 600 mg PO HS 07/23/19 04/02/25 Cholecalciferol [Vitamin D3 (125 125 mcg PO HS 05/10/24 04/02/25 Mcg = 5000 Iu)] Darolutamide [Nubeqa] 600 mg PO BID-W/MEALS 05/10/24 04/02/25 Loratadine [Claritin] 10 mg PO HS 05/10/24 04/02/25 predniSONE 10 mg PO W/BRKFST 05/10/24 04/02/25 Ferrous Gluconate 324 mg PO PC-SUPPER 02/28/25 04/02/25 Metoprolol Succinate [Metoprolol 25 mg PO W/BRKFST 02/28/25 04/02/25 Succinate ER] Ondansetron [Zofran] 4 mg PO Q4H PRN 02/28/25 04/02/25 Pantoprazole Sodium [Protonix] 20 mg PO AC-BRKFST 02/28/25 04/02/25 ALPRAZolam [Xanax] 0.25 mg PO TID PRN 04/02/25 04/02/25 Aspirin 81 mg PO 04/02/25 04/02/25 Magnesium (Unknown) 150mg 150 mg PO AC-BRKFST 04/02/25 04/02/25 Stool Softner 1 - 3 tab PO AC-BRKFST 04/02/25 04/02/25 Tamsulosin [Flomax] 0.4 mg PO W/BRKFST 04/02/25 04/02/25 lisinopriL [Zestril] 2.5 mg PO PC-SUPPER 04/02/25 04/02/25 tadalafiL [Cialis] 5 mg PO AC-BRKFST 04/02/25 04/02/25 Previous Rx's Medication Instructions Recorded HYDROcodone/APAP 10-325MG [[place] 1 each PO Q4HR PRN tab 04/10/25 10-325] Morphine Sulfate ER [Ms Contin] 15 mg PO Q12HR tab 04/10/25 Sennosides-Docusate Sodium 1 each PO BID 30 Days #30 tab 04/10/25 [Senokot-S] droNABinol [Marinol] 5 mg PO AC-BID #0 cap 04/10/25 Allergies Allergy/AdvReac Type Severity Reaction Status Date / Time No Known Allergies Allergy Verified 04/21/25 04:37 Review of Systems ROS Statement: Those systems with pertinent positive or pertinent negative responses have been documented in the HPI. ROS Other: All systems not noted in ROS Statement are negative. Past Medical History Past Medical History: Coronary Artery Disease (CAD), Cancer, Sleep Apnea/CPAP/BIPAP Additional Past Medical History / Comment(s): Prostate CA-2019 received chemo, current radiation ,uses cpap,tx with prednisone Dec 2021, History of Any Multi-Drug Resistant Organisms: None Reported Past Surgical History: Heart Catheterization With Stent, Hernia Repair Additional Past Surgical History / Comment(s): Cardiac Stent x3. TURP May 2024 Past Anesthesia/Blood Transfusion Reactions: No Reported Reaction Date of Last Stent Placement:: Past Psychological History: No Psychological Hx Reported Smoking Status: Former smoker Past Alcohol Use History: None Reported Past Drug Use History: Marijuana - Past Family History Father Additional Family Medical History / Comment(s): Heart issues Mother Family Medical History: No Reported History Brother(s) Family Medical History: Cancer Additional Family Medical History / Comment(s): pancreatic General Exam Limitations: no limitations General appearance: alert, in no apparent distress Head exam: Present: atraumatic, normocephalic, normal inspection Eye exam: Present: normal appearance, PERRL, EOMI. Absent: scleral icterus, conjunctival injection, periorbital swelling ENT exam: Present: normal exam, normal oropharynx, mucous membranes moist Neck exam: Present: normal inspection, full ROM. Absent: tenderness, meningismus, lymphadenopathy Respiratory exam: Present: normal lung sounds bilaterally. Absent: respiratory distress, wheezes, rales, rhonchi, stridor Cardiovascular Exam: Present: regular rate, normal rhythm, normal heart sounds. Absent: systolic murmur, diastolic murmur, rubs, gallop, clicks GI/Abdominal exam: Present: soft, tenderness, normal bowel sounds. Absent: distended, guarding, rebound, rigid Back exam: Absent: CVA tenderness (R), CVA tenderness (L) Course Vital Signs 04/21/25 04/21/25 04/21/25 04:37 09:36 10:13 Temperature 97.9 F Pulse Rate 84 72 70 Respiratory 16 18 18 Rate Blood Pressure 93/61 83/46 95/74 O2 Sat by Pulse 98 97 97 Oximetry 04/21/25 11:56 Temperature Pulse Rate 78 Respiratory 18 Rate Blood Pressure 121/84 O2 Sat by Pulse 99 Oximetry Medical Decision Making - Medical Decision Making Was pt. sent in by a medical professional or institution (, PA, CASH APPLICATIONS CLERK, urgent care, hospital, or care home...) When possible be specific @ -No Did you speak to anyone other than the patient for history (EMS, parent, family, police, friend...)? What history was obtained from this source @ -No Did you review nursing and triage notes (agree or disagree)? Why? @ -I reviewed and agree with nursing and triage notes Were old charts reviewed (outside hosp., previous admission, EMS record, old EKG, old radiological studies, urgent care reports/EKG's, care home records)? Report findings @ -No old charts were reviewed Differential Diagnosis (chest pain, altered mental status, abdominal pain women, abdominal pain men, vaginal bleeding, weakness, fever, dyspnea, syncope, headache, dizziness, GI bleed, back pain, seizure, CVA, palpatations, mental health, musculoskeletal)? @ -Differential Abdominal Pain Men: Appendicitis, cholecystitis, diverticulosis, ischemic bowel, pancreatitis, hepatitis, UTI, gastroenteritis, AAA, incarcerated hernia, bowel obstruction, constipation, inflammatory bowel, hepatitis, peptic ulcer disease, splenic infarction, perforated viscus, testicular torsion, this is not meant to be an all-inclusive list EKG interpreted by me (3pts min.). @ -As above X-rays interpreted by me (1pt min.). @ -X-ray KUB shows moderate constipation CT interpreted by me (1pt min.). @ -CTabdomen/pelvis showing no evidence of obstruction, mild constipation U/S interpreted by me (1pt. min.). @ -None done What testing was considered but not performed or refused? (CT, X-rays, U/S, labs)? Why? @ -None What meds were considered but not given or refused? Why? @ -None Did you discuss the management of the patient with other professionals (professionals i.e. DrMary, PA, CASH APPLICATIONS CLERK, lab, RT, psych nurse, social scientist, exterior work helper, teacher, inshore undersea warfare officer, counter caser)? Give summary @ -No Was smoking cessation discussed for >3mins.? @ -No Was critical care preformed (if so, how long)? @ -No Were there social determinants of health that impacted care today? How? (Homelessness, low income, unemployed, alcoholism, drug addiction, transport ation, low edu. Level, literacy, decrease access to med. care, retirement, rehab)? @ -No Was there de-escalation of care discussed even if they declined (Discuss DNR or withdrawal of care, Hospice)? DNR status @ -No What co-morbidities impacted this encounter? (DM, HTN, Smoking, COPD, CAD, Cancer, CVA, ARF, Chemo, Hep., AIDS, mental health diagnosis, sleep apnea, morbid obesity)? @ -None Was patient admitted / discharged? Hospital course, mention meds given and route, prescriptions, significant lab abnormalities, going to OR and other pertinent info. @ -Discharge patient feels great improved IV fluids, patient to receive enema for constipation which is improved. Patient feels comfortable discharge at this time patient was offered admission, declines. Undiagnosed new problem with uncertain prognosis? @ -No Drug Therapy requiring intensive monitoring for toxicity (Heparin, Nitro, Insulin, Cardizem)? @ -No Were any procedures done? @ -No Diagnosis/symptom? @ -Abdominal pain constipation prostate cancer Acute, or Chronic, or Acute on Chronic? @ -Acute Uncomplicated (without systemic symptoms) or Complicated (systemic symptoms)? @ -Complicated Side effects of treatment? @ -No Exacerbation, Progression, or Severe Exacerbation? @ -No Poses a threat to life or bodily function? How? (Chest pain, USA, MS, pneumonia, PE, COPD, DKA, ARF, appy, cholecystitis, CVA, Diverticulitis, Homicidal, Suic idal, threat to staff... and all critical care pts) @ -No - Lab Data Result diagrams: 04/21/25 04:52 04/21/25 04:52 Lab Results 04/21/25 04/21/25 Range/Units 04:52 04:52 WBC 7.62 (4.50-10.00) 10*3/uL RBC 3.62 L (4.40-5.60) 10*6/uL Hgb 10.1 L (13.0-17.0) g/dL Hct 31.1 L (39.6-50.0) % MCV 85.9 (80.0-97.0) fL MCH 27.9 (27.0-32.0) pg MCHC 32.5 (32.0-37.0) g/dL Plt Count 527 H (140-440) 10*3/uL MPV 9.2 L (9.5-12.2) fL Immature Gran % (Auto) 0.8 % Neutrophils % 84.5 % Lymphocytes % 6.0 % Monocytes % 8.3 % Eosinophils % 0.1 % Basophils % 0.3 % Immature Gran # 0.06 H (0.00-0.04) 10*3/uL Neutrophils # 6.44 (1.80-7.70) 10*3/uL Lymphocytes # 0.46 L (0.90-5.00) 10*3/uL Monocytes # 0.63 (0.20-1.00) 10*3/uL Eosinophils # 0.01 L (0.04-0.35) 10*3/uL Basophils # 0.02 (0.00-0.10) 10*3/uL Sodium 128 L (137-145) mmol/L Potassium 4.7 (3.5-5.1) mmol/L Chloride 95 L (98-107) mmol/L Carbon Dioxide 23 (22-30) mmol/L Anion Gap 10 mmol/L BUN 13 (9-20) mg/dL Creatinine 0.53 L (0.66-1.25) mg/dL Est GFR (CKD-EPI)AfAm >90 (>60 ml/min/1.73 sqM) Est GFR (CKD-EPI)NonAf >90 (>60 ml/min/1.73 sqM) Glucose 102 H (74-99) mg/dL Calcium 9.2 (8.4-10.2) mg/dL Total Bilirubin 1.1 (0.2-1.3) mg/dL AST 87 H (17-59) U/L ALT 99 H (4-49) U/L Alkaline Phosphatase 181 H (38-126) U/L Total Protein 6.0 L (6.3-8.2) g/dL Albumin 3.2 L (3.5-5.0) g/dL Amylase 44 (30-110) U/L Lipase 32 (23-300) U/L Disposition Clinical Impression: Abdominal pain, Constipation, Prostate cancer metastatic to bone Disposition: HOME SELF-CARE Condition: Stable Instructions (If sedation given, give patient instructions): Abdominal Pain (ED) Additional Instructions: Please return to the Emergency Department if symptoms worsen or any other concerns. Is patient prescribed a controlled substance at d/c from ED?: No Referrals: Keshia Dupont MD [Primary Care Provider] - 1-2 days Time of Disposition: 11:29
--- NOTE | 2025-04-21 08:31 | CT ---
EXAMINATION TYPE: CT abdomen pelvis w con DATE OF EXAM: 04/21/2025 COMPARISON: 02/28/2025 CLINICAL INDICATION: Male, 69 years old with history of lower pain, hx CA mets; PHH, nausea,constipai on and lower abd pain, hx CA mets TECHNIQUE: Performed without Oral Contrast and with IV Contrast, patient injected with 100 ml mL of Isovue 300. CT DLP: 1190.[address] CTDI: mGy Automated exposure control for dose reduction was used. FINDINGS: There is a 17 mm nodule in the right lung base and a 9.3 mm nodule in the left lung base. The gallbladder is normal without distention, wall thickening, pericholecystic fluid or gallstones. T here is no biliary ductal dilatation. There is a 3.9 cm hypodense mass in the lateral segment left lobe liver and a 3.5 cm hypodense mass i n the posterior segment of the right lobe of the liver. There is no pancreatic or splenic mass. The a drenal glands are unremarkable.. There is no solid renal mass or hydronephrosis and there is homogeneous contrast enhancement of the r enal parenchyma. There are multiple bilateral renal cysts. There is a 17 mm exophytic hyperdense cyst at the superior pole of the left kidney. There is a 3.3 cm enlarged retroperitoneal left periaortic lymph node and a 2.3 cm enlarged retroperitoneal portacaval lymph node. There is a 3.3 cm infrarenal abdominal aortic aneurysm The bowel loops are normal in caliber and there is no evidence of dilatation or obstruction. No infla mmatory changes are identified in the bowel wall or mesentery. There is no free intraperitoneal air or fluid. There is right inguinal adenopathy. The largest right inguinal lymph node is 2.8 cm. There is a 3 cm mass in the right hip abductor muscles. There is an ill-defined 2.9 cm mass involving the right obtur ator internus muscle. There is a 14.5 mm right internal jugular chain lymph node. There are multiple sclerotic osseous lesions involving the visualized lower thoracic vertebral segmen ts and the lumbar vertebral segments as well as the bilateral sacrum, iliac bones, pelvic bones and h ips. There are no pathological fractures. IMPRESSION: 1. Progressive metastatic disease involving the lung bases, liver, retroperitoneum, right iliac chain , right pelvic musculature and osseous structures as described above. There has been a significant in terval increase in the size of the metastatic lesions involving the lungs, liver, retroperitoneum, ri ght iliac chain and muscular lesions. 2. 3.3 cm infrarenal abdominal aortic aneurysm. [facility], , 04/21/2025 8:29 AM
[2025-04-21 09:39] VITALS: RESP 18
[2025-04-21 11:57] VITALS: BP 121/84; PULSE 78
== END 2025-04-21 12:56 | disposition home or self-care (01) ==
LOC: EC 03:37
DX: R10.30 Lower abdominal pain, unspecified (principal); K59.00 Constipation, unspecified; C61 Malignant neoplasm of prostate; C79.51 Secondary malignant neoplasm of bone; Z87.891 Personal history of nicotine dependence
CPT/HCPCS: 36415; 80053; 82150; 83690; 85025; 74018; 74177; 99284; 96374; 96376; 96361; J1171; Q9967

== ENCOUNTER 2025-04-30 15:12 | Inpatient (IN) | payer MEDICARE, BC ==
--- NOTE | 2025-04-30 15:31 | ED ---
General Adult HPI - General Chief complaint: Weakness Stated complaint: Weakness Time Seen by Provider: 04/30/25 15:14 Source: patient, EMS, RN notes reviewed Limitations: no limitations - History of Present Illness Initial comments: Patient is a 69-year-old male present to the emergency department with concerns with generalized weakness. Patient is on Keytruda as well as experimental treatment for stage IV prostate cancer. Patient has been a little bit more weak over the past day or 2. Decreased appetite. Patient unable to walk today. No fever. Patient has chronic right leg weakness, unchanged. - Related Data Home Medications Medication Instructions Recorded Confirmed Atorvastatin [Lipitor] 40 mg PO PC-SUPPER 07/23/19 04/02/25 Calcium Carbonate [Calcium] 600 mg PO HS 07/23/19 04/02/25 Cholecalciferol [Vitamin D3 (125 125 mcg PO HS 05/10/24 04/02/25 Mcg = 5000 Iu)] Darolutamide [Nubeqa] 600 mg PO BID-W/MEALS 05/10/24 04/02/25 Loratadine [Claritin] 10 mg PO HS 05/10/24 04/02/25 predniSONE 10 mg PO W/BRKFST 05/10/24 04/02/25 Ferrous Gluconate 324 mg PO PC-SUPPER 02/28/25 04/02/25 Metoprolol Succinate [Metoprolol 25 mg PO W/BRKFST 02/28/25 04/02/25 Succinate ER] Ondansetron [Zofran] 4 mg PO Q4H PRN 02/28/25 04/02/25 Pantoprazole Sodium [Protonix] 20 mg PO AC-BRKFST 02/28/25 04/02/25 ALPRAZolam [Xanax] 0.25 mg PO TID PRN 04/02/25 04/02/25 Aspirin 81 mg PO HS 04/02/25 04/02/25 Magnesium (Unknown) 150mg 150 mg PO AC-BRKFST 04/02/25 04/02/25 Stool Softner 1 - 3 tab PO AC-BRKFST 04/02/25 04/02/25 Tamsulosin [Flomax] 0.4 mg PO W/BRKFST 04/02/25 04/02/25 lisinopriL [Zestril] 2.5 mg PO PC-SUPPER 04/02/25 04/02/25 tadalafiL [Cialis] 5 mg PO AC-BRKFST 04/02/25 04/02/25 Previous Rx's Medication Instructions Recorded HYDROcodone/APAP 10-325MG [[place] 1 each PO Q4HR PRN tab 04/10/25 10-325] Morphine Sulfate ER [Ms Contin] 15 mg PO Q12HR tab 04/10/25 Sennosides-Docusate Sodium 1 each PO BID 30 Days #30 tab 04/10/25 [Senokot-S] droNABinol [Marinol] 5 mg PO AC-BID #0 cap 04/10/25 Allergies Allergy/AdvReac Type Severity Reaction Status Date / Time No Known Allergies Allergy Verified 04/30/25 15:21 Review of Systems ROS Statement: Those systems with pertinent positive or pertinent negative responses have been documented in the HPI. ROS Other: All systems not noted in ROS Statement are negative. Constitutional: Denies: fever Eyes: Denies: eye pain ENT: Denies: ear pain Respiratory: Denies: dyspnea Cardiovascular: Denies: chest pain Endocrine: Reports: fatigue Gastrointestinal: Denies: abdominal pain Musculoskeletal: Denies: back pain Neurological: Reports: as per HPI, weakness. Denies: headache, confusion Past Medical History Past Medical History: Coronary Artery Disease (CAD), Cancer, Sleep Apnea/CPAP/BIPAP Additional Past Medical History / Comment(s): Prostate CA-2019 received chemo, current radiation ,uses cpap,tx with prednisone Dec 2021, History of Any Multi-Drug Resistant Organisms: None Reported Past Surgical History: Heart Catheterization With Stent, Hernia Repair Additional Past Surgical History / Comment(s): Cardiac Stent x3. TURP May 2024 Past Anesthesia/Blood Transfusion Reactions: No Reported Reaction Date of Last Stent Placement:: Past Psychological History: No Psychological Hx Reported Smoking Status: Former smoker Past Alcohol Use History: None Reported Past Drug Use History: None Reported - Past Family History Father Additional Family Medical History / Comment(s): Heart issues Mother Family Medical History: No Reported History Brother(s) Family Medical History: Cancer Additional Family Medical History / Comment(s): pancreatic General Exam Limitations: no limitations General appearance: alert, in no apparent distress Head exam: Present: normocephalic Eye exam: Present: normal appearance, PERRL, EOMI ENT exam: Present: mucous membranes dry Neck exam: Present: normal inspection Respiratory exam: Present: normal lung sounds bilaterally Cardiovascular Exam: Present: regular rate, normal rhythm GI/Abdominal exam: Present: soft. Absent: tenderness Extremities exam: Present: normal inspection Neurological exam: Present: alert Expanded Motor strength exam: RUE: 5, LUE: 5, RLE: 4 (Patient states that this is chronic), LLE: 5 Psychiatric exam: Present: normal affect, normal mood Skin exam: Present: normal color Course Vital Signs 04/30/25 04/30/25 04/30/25 15:13 16:21 16:55 Temperature 98.4 F Pulse Rate 92 91 108 H Respiratory 17 18 18 Rate Blood Pressure 108/67 103/63 114/70 O2 Sat by Pulse 100 99 100 Oximetry EKG Findings - EKG Results: EKG: interpreted by ERMD, sinus rhythm, normal axis, normal QRS, normal ST/T Medical Decision Making - Medical Decision Making Was pt. sent in by a medical professional or institution (Dr. PA, PATCH SANDER, urgent care, hospital, or jail...) When possible be specific @ -No Did you speak to anyone other than the patient for history (EMS, parent, family, police, friend...)? What history was obtained from this source @ -Family provides concerns of patient generalized weakness and fear of falls. They feel he would need placement Did you review nursing and triage notes (agree or disagree)? Why? @ -I reviewed and agree with nursing and triage notes Were old charts reviewed (outside hosp., previous admission, EMS record, old EKG, old radiological studies, urgent care reports/EKG's, jail records)? Report findings @ -No old charts were reviewed Differential Diagnosis (chest pain, altered mental status, abdominal pain women, abdominal pain men, vaginal bleeding, weakness, fever, dyspnea, syncope, headache, dizziness, GI bleed, back pain, seizure, CVA, palpatations, mental health, musculoskeletal)? @ -Differential Weakness: Hypoglycemia, shock, sepsis, hyponatremia, anemia, infection, HI, ETOH, adverse medicine reaction, overdose, stroke, this is not meant to be an all-inclusive list. EKG interpreted by me (3pts min.). @ -As above X-rays interpreted by me (1pt min.). @ -Chest x-ray shows metastatic bony lesions CT interpreted by me (1pt min.). @ -None done U/S interpreted by me (1pt. min.). @ -None done What testing was considered but not performed or refused? (CT, X-rays, U/S, labs)? Why? @ -None What meds were considered but not given or refused? Why? @ -None Did you discuss the management of the patient with other professionals (professionals i.e. , PA, PATCH SANDER, lab, RT, psych nurse, rn social services, environmental aide, teacher, morals squad police officer, patient case manager)? Give summary @ -Case was discussed with Dr. Zaman who will admit covering Dr. Morin Was smoking cessation discussed for >3mins.? @ -No Was critical care preformed (if so, how long)? @ -No Were there social determinants of health that impacted care today? How? (Homelessness, low income, unemployed, alcoholism, drug addiction, transportation, low edu. Level, literacy, decrease access to med. care, residential, rehab)? @ -No Was there de-escalation of care discussed even if they declined (Discuss DNR or withdrawal of care, Hospice)? DNR status @ -No What co-morbidities impacted this encounter? (DM, HTN, Smoking, COPD, CAD, Cancer, CVA, ARF, Chemo, Hep., AIDS, mental health diagnosis, sleep apnea, morbid obesity)? @ -Metastatic prostate cancer Was patient admitted / discharged? Hospital course, mention meds given and route, prescriptions, significant lab abnormalities, going to OR and other pertinent info. @ -Patient presents with generalized weakness. Patient has decreased appetite and hyponatremia. Patient will be admitted with fluid/sodium replacement. Patient reevaluated. Patient and family updated. Admission emergency room. Undiagnosed new problem with uncertain prognosis? @ -No Drug Therapy requiring intensive monitoring for toxicity (Heparin, Nitro, Insulin, Cardizem)? @ -No Were any procedures done? @ -No Diagnosis/symptom? @ -Hyponatremia Acute, or Chronic, or Acute on Chronic? @ -Acute Uncomplicated (without systemic symptoms) or Complicated (systemic symptoms)? @ -Default Side effects of treatment? @ -No Exacerbation, Progression, or Severe Exacerbation? @ -No Poses a threat to life or bodily function? How? (Chest pain, [place], HI, pneumonia, PE, COPD, DKA, ARF, appy, cholecystitis, CVA, Diverticulitis, Homicidal, Suicidal, threat to staff... and all critical care pts) @ -No - Lab Data Result diagrams: 04/30/25 15:37 04/30/25 15:37 Lab Results 04/30/25 04/30/25 04/30/25 Range/Units 15:37 15:37 15:37 WBC 6.71 (4.50-10.00) 10*3/uL RBC 3.33 L (4.40-5.60) 10*6/uL Hgb 9.2 L (13.0-17.0) g/dL Hct 28.0 L (39.6-50.0) % MCV 84.1 (80.0-97.0) fL MCH 27.6 (27.0-32.0) pg MCHC 32.9 (32.0-37.0) g/dL Plt Count 337 (140-440) 10*3/uL MPV 9.3 L (9.5-12.2) fL Immature Gran % (Auto) 0.6 % Neutrophils % 84.0 % Lymphocytes % 5.4 % Monocytes % 9.8 % Eosinophils % 0.1 % Basophils % 0.1 % Immature Gran # 0.04 (0.00-0.04) 10*3/uL Neutrophils # 5.63 (1.80-7.70) 10*3/uL Lymphocytes # 0.36 L (0.90-5.00) 10*3/uL Monocytes # 0.66 (0.20-1.00) 10*3/uL Eosinophils # 0.01 L (0.04-0.35) 10*3/uL Basophils # 0.01 (0.00-0.10) 10*3/uL PT 12.2 (10.0-12.5) sec INR 1.1 (<1.2) APTT 25.2 (22.0-30.0) sec Sodium (137-145) mmol/L Potassium (3.5-5.1) mmol/L Chloride (98-107) mmol/L Carbon Dioxide (22-30) mmol/L Anion Gap mmol/L BUN (9-20) mg/dL Creatinine (0.66-1.25) mg/dL Est GFR (CKD-EPI)AfAm (>60 ml/min/1.73 sqM) Est GFR (CKD-EPI)NonAf (>60 ml/min/1.73 sqM) Glucose (74-99) mg/dL Plasma Lactic Acid [place] (0.7-2.0) mmol/L Calcium (8.4-10.2) mg/dL Magnesium (1.6-2.3) mg/dL Total Bilirubin (0.2-1.3) mg/dL AST (17-59) U/L ALT (4-49) U/L Alkaline Phosphatase (38-126) U/L Total Protein (6.3-8.2) g/dL Albumin (3.5-5.0) g/dL Urine Color Yellow Urine Appearance Clear (Clear) Urine pH 7.5 (5.0-8.0) Ur Specific [place] 1.017 (1.001-1.035) Urine Protein Trace H (Negative) Urine Glucose (UA) Negative (Negative) Urine Ketones Negative (Negative) Urine Blood Trace H (Negative) Urine Nitrite Negative (Negative) Urine Bilirubin Negative (Negative) Urine Urobilinogen <2.0 (<2.0) mg/dL Ur Leukocyte Esterase Moderate H (Negative) Urine RBC 6 H (0-5) /hpf Urine WBC 27 H (0-5) /hpf Urine Mucus Rare H (None) /hpf 04/30/04/30/25 Range/Units 15:37 15:37 WBC (4.50-10.00) 10*3/uL RBC (4.40-5.60) 10*6/uL Hgb (13.0-17.0) g/dL Hct (39.6-50.0) % MCV (80.0-97.0) fL MCH (27.0-32.0) pg MCHC (32.0-37.0) g/dL Plt Count (140-440) 10*3/uL MPV (9.5-12.2) fL Immature Gran % (Auto) % Neutrophils % % Lymphocytes % % Monocytes % % Eosinophils % % Basophils % % Immature Gran # (0.00-0.04) 10*3/uL Neutrophils # (1.80-7.70) 10*3/uL Lymphocytes # (0.90-5.00) 10*3/uL Monocytes # (0.20-1.00) 10*3/uL Eosinophils # (0.04-0.35) 10*3/uL Basophils # (0.00-0.10) 10*3/uL PT (10.0-12.5) sec INR (<1.2) APTT (22.0-30.0) sec Sodium 127 L (137-145) mmol/L Potassium 4.5 (3.5-5.1) mmol/L Chloride 98 (98-107) mmol/L Carbon Dioxide 18 L (22-30) mmol/L Anion Gap 11 mmol/L BUN 17 (9-20) mg/dL Creatinine 0.48 L (0.66-1.25) mg/dL Est GFR (CKD-EPI)AfAm >90 (>60 ml/min/1.73 sqM) Est GFR (CKD-EPI)NonAf >90 (>60 ml/min/1.73 sqM) Glucose 117 H (74-99) mg/dL Plasma Lactic Acid [place] 1.4 (0.7-2.0) mmol/L Calcium 8.0 L (8.4-10.2) mg/dL Magnesium 2.2 (1.6-2.3) mg/dL Total Bilirubin 0.8 (0.2-1.3) mg/dL AST 98 H (17-59) U/L ALT 79 H (4-49) U/L Alkaline Phosphatase 163 H (38-126) U/L Total Protein 5.3 L (6.3-8.2) g/dL Albumin 2.8 L (3.5-5.0) g/dL Urine Color Urine Appearance (Clear) Urine pH (5.0-8.0) Ur Specific [place] (1.001-1.035) Urine Protein (Negative) Urine Glucose (UA) (Negative) Urine Ketones (Negative) Urine Blood (Negative) Urine Nitrite (Negative) Urine Bilirubin (Negative) Urine Urobilinogen (<2.0) mg/dL Ur Leukocyte Esterase (Negative) Urine RBC (0-5) /hpf Urine WBC (0-5) /hpf Urine Mucus (None) /hpf Disposition Clinical Impression: Hyponatremia Disposition: ADMITTED IP TO THIS HOSP Is patient prescribed a controlled substance at d/c from ED?: No Referrals: Keshia Dupont MD [Primary Care Provider] - 1-2 days Time of Disposition: 18:08
[2025-04-30 15:41] LABS: Basophils # (A) 0.01 10*3/uL (0.00-0.10); Basophils % (A) 0.1 %; Eosinophils # (A) 0.01 10*3/uL (0.04-0.35); Eosinophils % (A) 0.1 %; HCT 28.0 % (39.6-50.0); HGB 9.2 g/dL (13.0-17.0); Lymphocytes # (A) 0.36 10*3/uL (0.90-5.00); Lymphocytes % (A) 5.4 %; MCH 27.6 pg (27.0-32.0); MCHC 32.9 g/dL (32.0-37.0); MCV 84.1 fL (80.0-97.0); Monocytes # (A) 0.66 10*3/uL (0.20-1.00); Monocytes % (A) 9.8 %; Neutrophils # (A) 5.63 10*3/uL (1.80-7.70); Neutrophils % (A) 84.0 %; Platelet Count 337 10*3/uL (140-440); RBC 3.33 10*6/uL (4.40-5.60); RDW 17.7 % (11.5-14.5); WBC 6.71 10*3/uL (4.50-10.00)
[2025-04-30 16:02] LABS: Bilirubin,Urine Negative (Negative); Blood,Urine Trace (Negative); Color,Urine Yellow; Glucose,Urine (UA) Negative (Negative); Ketones,Urine Negative (Negative); Leukocyte Esterase,Urine Moderate (Negative); Mucus,Urine Rare /hpf; Nitrite,Urine Negative (Negative); PH, Urine 7.5 (5.0-8.0); Protein,Urine Trace (Negative); RBC,Urine 6 /hpf (0-5); Specific Gravity,Urine 1.017 (1.001-1.035); Urobilinogen,Urine <2.0 mg/dL (<2.0); WBC,Urine 27 /hpf (0-5)
--- NOTE | 2025-04-30 16:05 | XR ---
EXAMINATION TYPE: XR chest 2V DATE OF EXAM: 04/30/2025 3:50 PM COMPARISON: 02/28/2025 CLINICAL INDICATION: Male, 69 years old with history of Weakness: Shortness of breath TECHNIQUE: XR chest 2V views of the chest are obtained. FINDINGS: Scattered senescent parenchymal changes noted. Hyperinflation compatible with COPD. No evidence for infiltrate. No evidence for atelectasis. Heart size is stable. Mediastinal structures are stable and grossly unremarkable. No evidence for hilar prominence. Sclerotic bone metastases redemonstrated throughout the thoracic spine and right clavicle. Calcified nodule left mid lung zone. IMPRESSION: 1. Sclerotic bone metastases redemonstrated throughout the thoracic spine and right clavicle. Calcifi ed nodule left mid lung zone. [facility], , 04/30/2025 4:03 PM
[2025-04-30 16:08] LABS: INR 1.1 (<1.2); Partial Thromboplastin Time 25.2 sec (22.0-30.0); Prothrombin Time 12.2 sec (10.0-12.5)
[2025-04-30] MEDS: SODIUM CHLORIDE 0.9% 1,000 ML IV SCH ×2 (16:17→19:15)
[2025-04-30 16:22] LABS: ALT 79 U/L (4-49); AST 98 U/L (17-59); African American GFR (CKD) >90 (>60 ml/min/1.73 sqM); Albumin 2.8 g/dL (3.5-5.0); Alkaline Phosphatase 163 U/L (38-126); Anion Gap 11 mmol/L; Blood Urea Nitrogen 17 mg/dL (9-20); Calcium 8.0 mg/dL (8.4-10.2); Carbon Dioxide 18 mmol/L (22-30); Chloride 98 mmol/L (98-107); Glucose 117 mg/dL (74-99); Magnesium 2.2 mg/dL (1.6-2.3); Non-African American GFR(CKD) >90 (>60 ml/min/1.73 sqM); Potassium 4.5 mmol/L (3.5-5.1); Sodium 127 mmol/L (137-145); Total Protein 5.3 g/dL (6.3-8.2)
[2025-04-30] MEDS: HYDROcodone/APAP 10-325MG 1 EACH TAB PO ONE (16:51)
[2025-04-30] MEDS ORDERED: NALOXONE 0.4 MG/ML 1 ML VIAL IV PRN (18:11)
--- NOTE | 2025-04-30 19:08 | XR ---
EXAMINATION TYPE: XR Hip RT and AP Pelvis DATE OF EXAM: 04/30/2025 6:50 PM CLINICAL INDICATION:Male, 69 years old with history of pain; PHH, pain COMPARISON: CT abdomen/pelvis 04/21/2025 TECHNIQUE: XR Hip RT and AP Pelvis; hip was examined in the frontal and lateral projections and a AP pelvis. FINDINGS: There are multiple radiodense foci seen throughout the bony pelvis and bilateral femurs mos t notably in the lateral intertrochanteric region of the right femur. No acute fractures or dislocati ons. Calcified phleboliths are suggested within the right hemipelvis. IMPRESSION: No acute fracture or dislocation. Multiple radiodense foci are seen in the bony pelvis and right femur which correspond to known blasti c osseous metastatic disease. [facility], , 04/30/2025 7:05 PM
[2025-04-30] MEDS: cefTRIAXone IN SWFI 1,000 MG/10 ML SYRINGE IVP STA (19:16)
[2025-04-30] MEDS: HYDROcodone/APAP 10-325MG 1 EACH TAB PO PRN (22:11)
[2025-04-30] MEDS: ALPRAZolam 0.25 MG TAB PO SCH (22:12)
[2025-04-30] MEDS: ATORVASTATIN 40 MG TAB PO SCH (22:13)
[2025-05-01] MEDS: MORPHINE SULFATE ER 15 MG TABLET PO SCH (00:11)
[2025-05-01] MEDS ORDERED: ALPRAZolam 0.25 MG TAB PO PRN (05:21)
[2025-05-01 08:01] LABS: Basophils # (A) 0.01 10*3/uL (0.00-0.10); Basophils % (A) 0.2 %; Eosinophils # (A) 0.01 10*3/uL (0.04-0.35); Eosinophils % (A) 0.2 %; HCT 26.2 % (39.6-50.0); HGB 8.3 g/dL (13.0-17.0); Lymphocytes # (A) 0.39 10*3/uL (0.90-5.00); Lymphocytes % (A) 7.2 %; MCH 27.0 pg (27.0-32.0); MCHC 31.7 g/dL (32.0-37.0); MCV 85.3 fL (80.0-97.0); Monocytes # (A) 0.52 10*3/uL (0.20-1.00); Monocytes % (A) 9.6 %; Neutrophils # (A) 4.48 10*3/uL (1.80-7.70); Neutrophils % (A) 82.2 %; Platelet Count 302 10*3/uL (140-440); RBC 3.07 10*6/uL (4.40-5.60); RDW 18.0 % (11.5-14.5); WBC 5.44 10*3/uL (4.50-10.00)
[2025-05-01 08:04] LABS: ALT 62 U/L (4-49); AST 65 U/L (17-59); African American GFR (CKD) >90 (>60 ml/min/1.73 sqM); Albumin 2.5 g/dL (3.5-5.0); Albumin/Globulin Ratio 1.0; Alkaline Phosphatase 154 U/L (38-126); Anion Gap 8 mmol/L; Blood Urea Nitrogen 11 mg/dL (9-20); Calcium 7.9 mg/dL (8.4-10.2); Carbon Dioxide 20 mmol/L (22-30); Chloride 99 mmol/L (98-107); Globulin 2.4 g/dL; Glucose 86 mg/dL (74-99); Non-African American GFR(CKD) >90 (>60 ml/min/1.73 sqM); Sodium 127 mmol/L (137-145); Total Protein 4.9 g/dL (6.3-8.2)
[2025-05-01 08:11] LABS: Potassium 4.5 mmol/L (3.5-5.1)
[2025-05-01] MEDS: SENNOSIDES-DOCUSATE SODIUM 1 EACH TAB PO SCH (11:31)
[2025-05-01] MEDS: ALPRAZolam 0.25 MG TAB PO SCH (11:31)
[2025-05-01] MEDS: LACTULOSE 20 GM/30 ML CUP PO SCH (11:31)
--- NOTE | 2025-05-01 12:18 | P.NPCON ---
History of Present Illness - Reason for Consult hyponatremia - History of Present Illness Reason for consultation: Hyponatremia History of present illness: Patient is a 69-year-old male seen in renal consultation for hyponatremia. Sodium on admission was 127 and was stable at 127 this morning as well. Patient was noted to have urinary retention and had Garcia catheter placed. Patient is nonoliguric with his Garcia bag more than half full at this time. Patient states he has been feeling weak since he has been home and could not care for himself. He does admit to history of prostate cancer which she states was diagnosed about 8 years ago. Patient his oral intake has been poor and he has not been eating and drinking much. He denies use of NSAIDs. Denies history of diabetes. Does have history of coronary artery disease. No vomiting or diarrhea. Patient states he does have gross hematuria at times. No edema. No chest pain or shortness of breath. Vital signs are stable. General: No acute distress. HEENT: Head exam is unremarkable. LUNGS: No audible rhonchi or wheezes. HEART: Rate and Rhythm are regular. ABDOMEN: Nontender. EXTREMITITES: No edema. Past Medical History Past Medical History: Coronary Artery Disease (CAD), Cancer, Sleep Apnea/ CPAP/BIPAP Additional Past Medical History / Comment(s): Prostate CA-2019 received chemo, current radiation ,uses cpap,tx with prednisone Dec 2021, current infusions for prostate CA History of Any Multi-Drug Resistant Organisms: None Reported Past Surgical History: Heart Catheterization With Stent, Hernia Repair Additional Past Surgical History / Comment(s): Cardiac Stent x3. TURP May 2024 Past Anesthesia/Blood Transfusion Reactions: No Reported Reaction Date of Last Stent Placement:: Past Psychological History: No Psychological Hx Reported Smoking Status: Former smoker Past Alcohol Use History: None Reported Additional Past Alcohol Use History / Comment(s): quit smoking 2020,started smoking at age 21,1 ppd Past Drug Use History: None Reported - Past Family History Father Additional Family Medical History / Comment(s): Heart issues Mother Family Medical History: No Reported History Brother(s) Family Medical History: Cancer Additional Family Medical History / Comment(s): pancreatic Medications and Allergies Home Medications Medication Instructions Recorded Confirmed Type Atorvastatin [Lipitor] 40 mg PO PC-SUPPER 07/23/19 04/30/25 History Cholecalciferol [Vitamin D3 (125 125 mcg PO HS 05/10/24 04/30/25 History Mcg = 5000 Iu)] Darolutamide [Nubeqa] 600 mg PO PC-BID 05/10/24 04/30/25 History Loratadine [Claritin] 10 mg PO HS 05/10/24 04/30/25 History predniSONE 10 mg PO W/BRKFST 05/10/24 04/30/25 History Ferrous Gluconate 324 mg PO PC-SUPPER 02/28/25 04/30/25 History Metoprolol Succinate [Metoprolol 25 mg PO W/BRKFST 02/28/25 04/30/25 History Succinate ER] Ondansetron [Zofran] 4 mg PO Q4H PRN 02/28/25 04/30/25 History Pantoprazole Sodium [Protonix] 20 mg PO AC-BRKFST 02/28/25 04/30/25 History ALPRAZolam [Xanax] 0.25 mg PO Q6H PRN 04/02/25 04/30/25 History Aspirin 81 mg PO HS 04/02/25 04/30/25 History Magnesium (Unknown) 150mg 150 mg PO AC-BRKFST 04/02/25 04/30/25 History Tamsulosin [Flomax] 0.4 mg PO W/BRKFST 04/02/25 04/30/25 History lisinopriL [Zestril] 2.5 mg PO PC-SUPPER 04/02/25 04/30/25 History Morphine Sulfate ER [Ms Contin] 15 mg PO Q12HR tab 04/10/25 04/30/25 Rx Calcium 500mg 500 mg PO HS 04/30/25 04/30/25 History Escitalopram [Lexapro] 5 mg PO AC-BRKFST 04/30/25 05/01/25 History HYDROcodone/APAP 10-325MG [[place] 1 tab PO Q4HR 04/30/25 04/30/25 History 10-325] Nitroglycerin Sl Tabs [Nitrostat] 0.4 mg SL Q5M PRN 04/30/25 04/30/25 History Pembrolizumab [Keytruda] 200 mg IV Q21D 04/30/25 05/01/25 History Sennosides-Docusate Sodium 2 tab PO BID 04/30/25 04/30/25 History [Senokot-S] Allergies Allergy/AdvReac Type Severity Reaction Status Date / Time No Known Allergies Allergy Verified 04/30/25 15:21 Physical Exam Vitals: Vital Signs Temp Pulse Pulse Resp BP BP Pulse Ox 05/01/25 07:47 98.3 F 83 14 111/74 05/01/25 06:14 98.2 F 84 16 120/73 98 05/01/25 05:19 97.7 F 83 19 136/84 99 05/01/25 02:08 78 16 120/80 99 04/30/25 23:30 90 18 116/74 98 04/30/25 22:00 99 17 120/77 98 04/30/25 20:06 91 18 113/69 99 04/30/25 19:00 91 18 99/55 99 04/30/25 16:55 108 H 18 114/70 100 04/30/25 16:21 91 18 103/63 99 04/30/25 15:13 98.4 F 92 17 108/67 100 Intake and Output 04/30/25 05/01/25 05/01/25 22:59 06:59 14:59 Intake Total 240 Balance 240 Intake: Oral 240 Other: Weight 99.79 kg 99.79 kg Results - Lab Results Most recent lab results Calcium 7.9 mg/dL (8.4-10.2) L 05/01/25 06:17 Magnesium 2.2 mg/dL (1.6-2.3) 04/30/25 15:37 05/01/25 06:17 05/01/25 06:17 Assessment and Plan Plan: Assessment: 1. Hyponatremia secondary to urinary retention. Sodium level stable at 127. 2. UTI on antibiotics. 3. Benign hypertension. Currently controlled. 4. History of coronary artery disease. 5. Stage IV prostate cancer. CT scan dated April 21, 2025 showed no evidence of hydronephrosis. Plan: Maintain Garcia catheter. Add Flomax. Maintain IV fluids. Consult urology. Thank you for the consultation. I will continue to follow the patient with you during his hospital stay.
--- NOTE | 2025-05-01 13:39 | P.HPIM ---
History of Present Illness H&P Date: 04/30/25 Surinder Campoverde, is a 69-year-old male who presented to [facility] emergency room for chief complaint of generalized weakness. Patient has a diagnosis of stage IV prostate cancer and was recently discharged on MS Contin for pain control and was started on Keytruda outpatient for cancer treatment per oncology services. Per patient's at bedside he has had increased weakness and falls along with decreased appetite. He was evaluated in the emergency room vital examination on presentation revealed temp 98.1, heart rate 83, respiratory rate 14, blood pressure 111/74 with pulse ox of 100% on room air Laboratory data reveals white blood cell 5.4, hemoglobin 8.3, platelets 302, sodium 127, creatinine 0.38 bun 11 alkaline phosphatase 154, ALT 62 and AST 65. Testing in the emergency room revealed UA was positive for urinary tract infection. Chest x-ray completed some showing sclerotic bone metastasis redemonstrated throughout the thoracic spine and right clavicle calcified nodule left midlung zone. Hip and pelvis x-ray completed showing no acute fracture or dislocation multiple radiodense foci are seen in the bony pelvis and right femur which correspond to known blastic osseous metastatic disease. Patient was admitted to medical floor for further evaluation and treatment. Patient was started on IV fluid for hyponatremia of Rocephin for urinary tract infection. Oncology and nephrology services will be consulted Past medical history is significant for history of prostate cancer stage IV, coronary artery disease, sleep apnea, heart cath with stents and ex-smoker On review of systems patient is alert and oriented x 3. Patient denies chest pain or shortness of breath. Patient denies nausea vomiting or diarrhea. Patient denies any urinary burning or frequency Review of Systems Please refer to HPI otherwise unremarkable Past Medical History Past Medical History: Coronary Artery Disease (CAD), Cancer, Sleep Apnea/CPAP/BIPAP Additional Past Medical History / Comment(s): Prostate CA-2019 received chemo, current radiation ,uses cpap,tx with prednisone Dec 2021, History of Any Multi-Drug Resistant Organisms: None Reported Past Surgical History: Heart Catheterization With Stent, Hernia Repair Additional Past Surgical History / Comment(s): Cardiac Stent x3. TURP May 2024 Past Anesthesia/Blood Transfusion Reactions: No Reported Reaction Date of Last Stent Placement:: Past Psychological History: No Psychological Hx Reported Smoking Status: Former smoker Past Alcohol Use History: None Reported Past Drug Use History: None Reported - Past Family History Father Additional Family Medical History / Comment(s): Heart issues Mother Family Medical History: No Reported History Brother(s) Family Medical History: Cancer Additional Family Medical History / Comment(s): pancreatic Medications and Allergies Home Medications Medication Instructions Recorded Confirmed Type Atorvastatin [Lipitor] 40 mg PO PC-SUPPER 07/23/19 04/30/25 History Cholecalciferol [Vitamin D3 (125 125 mcg PO HS 05/10/24 04/30/25 History Mcg = 5000 Iu)] Darolutamide [Nubeqa] 600 mg PO PC-BID 05/10/24 04/30/25 History Loratadine [Claritin] 10 mg PO HS 05/10/24 04/30/25 History predniSONE 10 mg PO W/BRKFST 05/10/24 04/30/25 History Ferrous Gluconate 324 mg PO PC-SUPPER 02/28/25 04/30/25 History Metoprolol Succinate [Metoprolol 25 mg PO W/BRKFST 02/28/25 04/30/25 History Succinate ER] Ondansetron [Zofran] 4 mg PO Q4H PRN 02/28/25 04/30/25 History Pantoprazole Sodium [Protonix] 20 mg PO AC-BRKFST 02/28/25 04/30/25 History ALPRAZolam [Xanax] 0.25 mg PO Q6H PRN 04/02/25 04/30/25 History Aspirin 81 mg PO HS 04/02/25 04/30/25 History Magnesium (Unknown) 150mg 150 mg PO AC-BRKFST 04/02/25 04/30/25 History Tamsulosin [Flomax] 0.4 mg PO W/BRKFST 04/02/25 04/30/25 History lisinopriL [Zestril] 2.5 mg PO PC-SUPPER 04/02/25 04/30/25 History Morphine Sulfate ER [Ms Contin] 15 mg PO Q12HR tab 04/10/25 04/30/25 Rx Calcium 500mg 500 mg PO HS 04/30/25 04/30/25 History Escitalopram [Lexapro] 5 mg PO AC-BRKFST 04/30/25 05/01/25 History HYDROcodone/APAP 10-325MG [[place] 1 tab PO Q4HR 04/30/25 04/30/25 History 10-325] Nitroglycerin Sl Tabs [Nitrostat] 0.4 mg SL Q5M PRN 04/30/25 04/30/25 History Pembrolizumab [Keytruda] 200 mg IV Q21D 04/30/25 05/01/25 History Sennosides-Docusate Sodium 2 tab PO BID 04/30/25 04/30/25 History [Senokot-S] Allergies Allergy/AdvReac Type Severity Reaction Status Date / Time No Known Allergies Allergy Verified 04/30/25 15:21 Physical Exam Vitals: Vital Signs Temp Pulse Resp BP Pulse Ox 04/30/25 16:55 108 H 18 114/70 100 04/30/25 16:21 91 18 103/63 99 04/30/25 15:13 98.4 F 92 17 108/67 100 Intake and Output 04/30/25 04/30/25 04/30/25 06:59 14:59 22:59 Other: Weight 99.79 kg In general patient is alert and oriented Ã-3 in no distress HEENT head normocephalic and atraumatic Neck is supple no JVD no goiter no lymphadenopathy no carotid bruit Chest examination is clear to auscultation no crackles no wheezing Cardiac exam reveals regular heart sounds S1 and S2 no gallops no murmurs Abdomen is soft nontender no organomegaly with normal bowel sounds Extremity exam reveals no edema no cyanosis or clubbing Neurological examination reveals no gross focal deficits Results CBC & Chem 7: 05/01/25 06:17 05/01/25 06:17 Labs: Abnormal Lab Results - Last 24 Hours (Table) 04/30/25 04/30/25 04/30/25 Range/Units 15:37 15:37 15:37 RBC 3.33 L (4.40-5.60) 10*6/uL Hgb 9.2 L (13.0-17.0) g/dL Hct 28.0 L (39.6-50.0) % MPV 9.3 L (9.5-12.2) fL Lymphocytes # 0.36 L (0.90-5.00) 10*3/uL Eosinophils # 0.01 L (0.04-0.35) 10*3/uL Sodium 127 L (137-145) mmol/L Carbon Dioxide 18 L (22-30) mmol/L Creatinine 0.48 L (0.66-1.25) mg/dL Glucose 117 H (74-99) mg/dL Calcium 8.0 L (8.4-10.2) mg/dL AST 98 H (17-59) U/L ALT 79 H (4-49) U/L Alkaline Phosphatase 163 H (38-126) U/L Total Protein 5.3 L (6.3-8.2) g/dL Albumin 2.8 L (3.5-5.0) g/dL Urine Protein Trace H (Negative) Urine Blood Trace H (Negative) Ur Leukocyte Esterase Moderate H (Negative) Urine RBC 6 H (0-5) /hpf Urine WBC 27 H (0-5) /hpf Urine Mucus Rare H (None) /hpf Assessment and Plan Assessment: Generalized weakness Hyponatremia Urinary tract infection Prostate cancer stage IV Decreased appetite History of sleep apnea History of TURP History of heart cath with previous heart stents DVT prophylaxis Lovenox. GI prophylaxis Protonix Oncology and nephrology services consulted Patient started on IV Rocephin for urinary tract infection urine culture ordered Normal saline at 75 MRI of the brain ordered per oncology PT OT services consulted Time with Patient: Greater than 30 (Greater than 60% of the total time spent in counseling and coordination of care)
--- NOTE | 2025-05-01 13:41 | P.PN ---
Subjective Progress Note Date: 05/01/25 Surinder Campoverde, is a 69-year-old male who presented to [facility] emergency room for chief complaint of generalized weakness. Patient has a diagnosis of stage IV prostate cancer and was recently discharged on MS Contin for pain control and was started on Keytruda outpatient for cancer treatment per oncology services. Per patient's at bedside he has had increased weakness and falls along with decreased appetite. He was evaluated in the emergency room vital examination on presentation revealed temp 98.1, heart rate 83, respiratory rate 14, blood pressure 111/74 with pulse ox of 100% on room air Laboratory data reveals white blood cell 5.4, hemoglobin 8.3, platelets 302, sod ium 127, creatinine 0.38 bun 11 alkaline phosphatase 154, ALT 62 and AST 65. Testing in the emergency room revealed UA was positive for urinary tract infection. Chest x-ray completed some showing sclerotic bone metastasis redemonstrated throughout the thoracic spine and right clavicle calcified nodule left midlung zone. Hip and pelvis x-ray completed showing no acute fracture or dislocation multiple radiodense foci are seen in the bony pelvis and right femur which correspond to known blastic osseous metastatic disease. Patient was admitted to medical floor for further evaluation and treatment. Patient was started on IV fluid for hyponatremia of Rocephin for urinary tract infection. Oncology and nephrology services will be consulted Past medical history is significant for history of prostate cancer stage IV, coronary artery disease, sleep apnea, heart cath with stents and ex-smoker On review of systems patient is alert and oriented x 3. Patient denies chest pain or shortness of breath. Patient denies nausea vomiting or diarrhea. Patient denies any urinary burning or frequency On 05/01/2025 patient is alert and oriented x 3. MRI of the brain ordered per oncology services. Home medication of MS Contin resumed. Current vital signs temp 98.1, heart rate 83, respiratory rate 16, blood pressure 122/77 with pulse ox of 99% on room air patient remains on Rocephin for urinary tract infection. Patient denies chest pain or shortness of breath. Patient denies nausea vomiti ng or diarrhea. Patient denies any urinary burning or frequency Objective - Vital Signs Vital signs: Vital Signs Temp 98.1 F 05/01/25 12:16 Pulse 106 H 05/01/25 12:16 Resp 16 05/01/25 12:16 BP 122/77 05/01/25 12:16 Pulse Ox 99 05/01/25 12:16 FiO2 Intake & Output 04/30/25 05/01/25 05/01/25 18:59 06:59 18:59 Intake Total 1020 Output Total 1300 Balance -280 Weight 99.79 kg 99.79 kg Intake: Oral 1020 Output: Urine 1300 Other: Voiding Method Indwelling Catheter - Exam In general patient is alert and oriented Ã-3 in no distress HEENT head normocephalic and atraumatic Neck is supple no JVD no goiter no lymphadenopathy no carotid bruit Chest examination is clear to auscultation no crackles no wheezing Cardiac exam reveals regular heart sounds S1 and S2 no gallops no murmurs Abdomen is soft nontender no organomegaly with normal bowel sounds Extremity exam reveals no edema no cyanosis or clubbing Neurological examination reveals no gross focal deficits - Labs CBC & Chem 7: 05/01/25 06:17 05/01/25 06:17 Labs: Abnormal Lab Results - Last 24 Hours (Table) 04/30/25 04/30/25 04/30/25 Range/Units 15:37 15:37 15:37 RBC 3.33 L (4.40-5.60) 10*6/uL Hgb 9.2 L (13.0-17.0) g/dL Hct 28.0 L (39.6-50.0) % MCHC (32.0-37.0) g/dL RDW (11.5-14.5) % MPV 9.3 L (9.5-12.2) fL Lymphocytes # 0.36 L (0.90-5.00) 10*3/uL Eosinophils # 0.01 L (0.04-0.35) 10*3/uL Sodium 127 L (137-145) mmol/L Carbon Dioxide 18 L (22-30) mmol/L Creatinine 0.48 L (0.66-1.25) mg/dL Glucose 117 H (74-99) mg/dL Calcium 8.0 L (8.4-10.2) mg/dL AST 98 H (17-59) U/L ALT 79 H (4-49) U/L Alkaline Phosphatase 163 H (38-126) U/L Total Protein 5.3 L (6.3-8.2) g/dL Albumin 2.8 L (3.5-5.0) g/dL Urine Protein Trace H (Negative) Urine Blood Trace H (Negative) Ur Leukocyte Esterase Moderate H (Negative) Urine RBC 6 H (0-5) /hpf Urine WBC 27 H (0-5) /hpf Urine Mucus Rare H (None) /hpf 05/01/25 05/01/25 Range/Units 06:17 06:17 RBC 3.07 L (4.40-5.60) 10*6/uL Hgb 8.3 L (13.0-17.0) g/dL Hct 26.2 L (39.6-50.0) % MCHC 31.7 L (32.0-37.0) g/dL RDW 18.0 H (11.5-14.5) % MPV 9.2 L (9.5-12.2) fL Lymphocytes # 0.39 L (0.90-5.00) 10*3/uL Eosinophils # 0.01 L (0.04-0.35) 10*3/uL Sodium 127 L (137-145) mmol/L Carbon Dioxide 20 L (22-30) mmol/L Creatinine 0.38 L (0.66-1.25) mg/dL Glucose (74-99) mg/dL Calcium 7.9 L (8.4-10.2) mg/dL AST 65 H (17-59) U/L ALT 62 H (4-49) U/L Alkaline Phosphatase 154 H (38-126) U/L Total Protein 4.9 L (6.3-8.2) g/dL Albumin 2.5 L (3.5-5.0) g/dL Urine Protein (Negative) Urine Blood (Negative) Ur Leukocyte Esterase (Negative) Urine RBC (0-5) /hpf Urine WBC (0-5) /hpf Urine Mucus (None) /hpf Assessment and Plan Assessment: Generalized weakness Hyponatremia Urinary tract infection Prostate cancer stage IV Decreased appetite History of sleep apnea History of TURP History of heart cath with previous heart stents DVT prophylaxis Lovenox. GI prophylaxis Protonix Oncology and nephrology services consulted Patient started on IV Rocephin for urinary tract infection urine culture ordered Normal saline at 75 MRI of the brain ordered per oncology PT OT services consulted
--- NOTE | 2025-05-01 14:06 | MR ---
INDICATION: Patient age:Male; 69 years old; Reason for study: AMS, confusion, prostate carcinoma; PHH. COMPARISON: Nuclear medicine bone scan 03/29/2024. TECHNIQUE: Multi planar, multi sequence imaging was performed through the brain. The patient was then given 10 cc of Gadobutrol intravenously and multi planar, T1 fat-saturation images were obtained. FINDINGS: The pablo-white junctions, ventricular system, basal cisterns appear unremarkable for patient's age. A ge-appropriate mild cerebral volume loss. There are approximately 4 small foci of restricted diffusio n within the right frontal parietal lobe pablo-white matter junction and right frontal lobe white coy er. Additional focus within the left parietal pablo-white junction. There is corresponding high T2/FLA IR signal intensity. Additional several scattered periventricular and subcortical white matter T2/FLA IR hyperintense foci. Approximately 20 foci identified. Intracranial arterial flow voids are maintain ed. Midline structures show no abnormality. The susceptibility weighted images demonstrate a couple s cattered foci of blooming artifact consistent with prior microhemorrhage. After administration of tae olinium, no abnormal intracranial enhancement seen. Several T1 hypointense lesions within the calvarium. The globes are unremarkable. T2 hyperintense 1.4 cm probable mucous retention cyst within the right maxillary sinus. Additional smaller probable muco us retention cyst within the right mastoid sinus. Right mastoid effusion. IMPRESSION: 1. Few scattered foci of acute/subacute ischemia as described above. Distribution suggests possible e mbolic phenomenon. 2. No abnormal contrast enhancement to suggest intracranial metastasis. 3. Few scattered T1 hypointense calvaria lesions highly suspicious for osseous metastasis. 4. Nonspecific mild white matter changes, likely related to small vessel ischemic disease. A Red level critical message alert has been initiated for Zahra Zaman MD via the [email or web address] System on 05/01/2025 2:03 PM. This message alert has been sent to Zahra Zaman MD via the preferences provided by the clinician for the receipt of Radiology Critical Findings. Message ID [id number]. [facility] [place], , 05/01/2025 2:03 PM
--- NOTE | 2025-05-01 14:09 | P.CONS ---
History of Present Illness - Reason for Consult Consult date: 05/01/25 metastatic prostate carcinoma - History of Present Illness Patient is a pleasant 69-year-old male patient of Dr. Bruno Lynch with past medical history significant for metastatic prostate cancer. He presented initially with asymptomatic elevation of his PSA at 41. 08/10/2017 he had TRUS with random prostate biopsy revealing adenocarcinoma in 11 of 12 cores cores, [place] 7/8. Bone scan revealed multiple bony mets, no visceral mets. He was started on ADT which she tolerated well. He was referred to Medical Oncology for consideration of systemic treatment and rank ligand inhibitor. He was started on Taxotere at the end of 2016, which she tolerated well. He completed 8 cycles of Taxotere, continued on ADT. Zytiga and prednisone were added to his regimen in 2019. He remained on the same until he was evaluated at the [facility] in 2020 because of some persistent back pain and maybe slight progression of disease in the bones. PSMA PET scan was done. Bone only disease noted. PSMALU 177 advised. Unfortunately, availability was limited. Nubeqa was recommended. Patient was started on the same in January 2023. Ultimately, patient started MERI 177 infusions 05/07/2023. He completed 6 cycles of the same and did very well with it, completed December 2023. He continued on nubeqa all along and rank ligand inhibitor every 3 months. He did well until April 2024 when he had complaints of urinary retention, local recurrent disease noted on cystoscopy, bone scan showing progressive bone mets, PSA was increasing. He is currently receiving Keytruda for his stage IV prostate cancer with Dr. Lilly at [facility]. Last treatment was 1 month ago. Patient was admitted here for generalized weakness and abdominal pain. Patient is accompanied with family at bedside. Patient with ongoing complaint of constipation. Patient has been having difficulty walking. Denies any fever, chills, chest pain. Past Medical History Past Medical History: Coronary Artery Disease (CAD), Cancer, Sleep Apnea/CPAP/BIPAP Additional Past Medical History / Comment(s): Prostate CA-2019 received chemo, current radiation ,uses cpap,tx with prednisone Dec 2021, current infusions for prostate CA History of Any Multi-Drug Resistant Organisms: None Reported Past Surgical History: Heart Catheterization With Stent, Hernia Repair Additional Past Surgical History / Comment(s): Cardiac Stent x3. TURP May 2024 Past Anesthesia/Blood Transfusion Reactions: No Reported Reaction Date of Last Stent Placement:: Past Psychological History: No Psychological Hx Reported Smoking Status: Former smoker Past Alcohol Use History: None Reported Additional Past Alcohol Use History / Comment(s): quit smoking 2020,started smoking at age 21,1 ppd Past Drug Use History: None Reported - Past Family History Father Additional Family Medical History / Comment(s): Heart issues Mother Family Medical History: No Reported History Brother(s) Family Medical History: Cancer Additional Family Medical History / Comment(s): pancreatic Medications and Allergies Home Medications Medication Instructions Recorded Confirmed Type Atorvastatin [Lipitor] 40 mg PO PC-SUPPER 07/23/19 04/30/25 History Cholecalciferol [Vitamin D3 (125 125 mcg PO HS 05/10/24 04/30/25 History Mcg = 5000 Iu)] Darolutamide [Nubeqa] 600 mg PO PC-BID 05/10/24 04/30/25 History Loratadine [Claritin] 10 mg PO HS 05/10/24 04/30/25 History predniSONE 10 mg PO W/BRKFST 05/10/24 04/30/25 History Ferrous Gluconate 324 mg PO PC-SUPPER 02/28/25 04/30/25 History Metoprolol Succinate [Metoprolol 25 mg PO W/BRKFST 02/28/25 04/30/25 History Succinate ER] Ondansetron [Zofran] 4 mg PO Q4H PRN 02/28/25 04/30/25 History Pantoprazole Sodium [Protonix] 20 mg PO AC-BRKFST 02/28/25 04/30/25 History ALPRAZolam [Xanax] 0.25 mg PO Q6H PRN 04/02/25 04/30/25 History Aspirin 81 mg PO HS 04/02/25 04/30/25 History Magnesium (Unknown) 150mg 150 mg PO AC-BRKFST 04/02/25 04/30/25 History Tamsulosin [Flomax] 0.4 mg PO W/BRKFST 04/02/25 04/30/25 History lisinopriL [Zestril] 2.5 mg PO PC-SUPPER 04/02/25 04/30/25 History Morphine Sulfate ER [Ms Contin] 15 mg PO Q12HR tab 04/10/25 04/30/25 Rx Calcium 500mg 500 mg PO HS 04/30/25 04/30/25 History Escitalopram [Lexapro] 5 mg PO AC-BRKFST 04/30/25 05/01/25 History HYDROcodone/APAP 10-325MG [[place] 1 tab PO Q4HR 04/30/25 04/30/25 History 10-325] Nitroglycerin Sl Tabs [Nitrostat] 0.4 mg SL Q5M PRN 04/30/25 04/30/25 History Pembrolizumab [Keytruda] 200 mg IV Q21D 04/30/25 05/01/25 History Sennosides-Docusate Sodium 2 tab PO BID 04/30/25 04/30/25 History [Senokot-S] Allergies Allergy/AdvReac Type Severity Reaction Status Date / Time No Known Allergies Allergy Verified 04/30/25 15:21 Physical Exam Vitals: Vital Signs Temp Pulse Pulse Resp BP BP Pulse Ox 05/01/25 07:47 98.3 F 83 14 111/74 05/01/25 06:14 98.2 F 84 16 120/73 98 05/01/25 05:19 97.7 F 83 19 136/84 99 05/01/25 02:08 78 16 120/80 99 04/30/25 23:30 90 18 116/74 98 04/30/25 22:00 99 17 120/77 98 04/30/25 20:06 91 18 113/69 99 04/30/25 19:00 91 18 99/55 99 04/30/25 16:55 108 H 18 114/70 100 04/30/25 16:21 91 18 103/63 99 04/30/25 15:13 98.4 F 92 17 108/67 100 Intake and Output 04/30/25 05/01/25 05/01/25 22:59 06:59 14:59 Intake Total 240 Balance 240 Intake: Oral 240 Other: Weight 99.79 kg 99.79 kg Vitals: Signs Reviewed Physical Exam: General: confused, on BiPAP Cardiovascular: S1 S2 reg, no murmur Lungs: CTA bilateral, no rhonchi, no rales Abdominal: soft, non-tender to palpataion Extremities: no gross muscle atrophy, no edema Results CBC & Chem 7: 05/05/25 06:26 05/05/25 06:26 Labs: Abnormal Lab Results - Last 24 Hours (Table) 04/30/25 04/30/25 04/30/25 Range/Units 15:37 15:37 15:37 RBC 3.33 L (4.40-5.60) 10*6/uL Hgb 9.2 L (13.0-17.0) g/dL Hct 28.0 L (39.6-50.0) % MCHC (32.0-37.0) g/dL RDW (11.5-14.5) % MPV 9.3 L (9.5-12.2) fL Lymphocytes # 0.36 L (0.90-5.00) 10*3/uL Eosinophils # 0.01 L (0.04-0.35) 10*3/uL Sodium 127 L (137-145) mmol/L Carbon Dioxide 18 L (22-30) mmol/L Creatinine 0.48 L (0.66-1.25) mg/dL Glucose 117 H (74-99) mg/dL Calcium 8.0 L (8.4-10.2) mg/dL AST 98 H (17-59) U/L ALT 79 H (4-49) U/L Alkaline Phosphatase 163 H (38-126) U/L Total Protein 5.3 L (6.3-8.2) g/dL Albumin 2.8 L (3.5-5.0) g/dL Urine Protein Trace H (Negative) Urine Blood Trace H (Negative) Ur Leukocyte Esterase Moderate H (Negative) Urine RBC 6 H (0-5) /hpf Urine WBC 27 H (0-5) /hpf Urine Mucus Rare H (None) /hpf 05/01/25 05/01/25 Range/Units 06:17 06:17 RBC 3.07 L (4.40-5.60) 10*6/uL Hgb 8.3 L (13.0-17.0) g/dL Hct 26.2 L (39.6-50.0) % MCHC 31.7 L (32.0-37.0) g/dL RDW 18.0 H (11.5-14.5) % MPV 9.2 L (9.5-12.2) fL Lymphocytes # 0.39 L (0.90-5.00) 10*3/uL Eosinophils # 0.01 L (0.04-0.35) 10*3/uL Sodium 127 L (137-145) mmol/L Carbon Dioxide 20 L (22-30) mmol/L Creatinine 0.38 L (0.66-1.25) mg/dL Glucose (74-99) mg/dL Calcium 7.9 L (8.4-10.2) mg/dL AST 65 H (17-59) U/L ALT 62 H (4-49) U/L Alkaline Phosphatase 154 H (38-126) U/L Total Protein 4.9 L (6.3-8.2) g/dL Albumin 2.5 L (3.5-5.0) g/dL Urine Protein (Negative) Urine Blood (Negative) Ur Leukocyte Esterase (Negative) Urine RBC (0-5) /hpf Urine WBC (0-5) /hpf Urine Mucus (None) /hpf Assessment and Plan Plan: #. Constipation, likely secondary to pain medication Senokot-S 2 each PO BID, lactulose 20g PO QID. Rectal enema ordered. #. Acute encephalopathy Brain MRI with and without contrast ordered. #. Metastatic prostate carcinoma Patient has been receiving treatment with Dr. Lilly at [facility]. Discussed with patient that effects of Keytruda may take 3-4 months. Goals of care were discussed with patient regarding comfort care if there is no improvement with current treatment plan. Pain management: MS Contin 30 mg PO q 12 hours. Thank you for the consultation. We will continue to follow this patient throughout the duration of his admission. Please not hesitate to ask any further questions. Add: Patient seen, examined personally, with the resident, and management plan formulated and discussed with resident. Vitals/physical exam findings as above A/P -patient with progressive metastatic prostate cancer, recently started on new treatment, with immunotherapy. Progressive weakness, and mental status changes. - Check MRI to rule out primary brain pathology, including brain metastasis - Supportive treatment, with hydration, relief of constipation, and pain control - Detail discussion with the patient and family who are at bedside. The patient has been declining progressively. If brain MRI does not show major pathology, and patient's performance status improves with the above-mentioned supportive treatment, the plan would be to continue the current treatment as an outpatient. If he is found to have new major brain pathology and/or his performance status does not improve significantly, then comfort care will be discussed. They expressed understanding and were in agreement with the same.
[2025-05-01] MEDS: NA PHOS,M-B/NA PHOS,DI-BA 133 ML ENEMA RECTAL STA (15:02)
[2025-05-01] MEDS: TAMSULOSIN 0.4 MG CAP.ER.24H PO SCH (15:09)
[2025-05-01 15:58] VITALS: BMI 26.7
--- NOTE | 2025-05-01 18:00 | P.GSCN ---
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 He is admitted to the hospital with weakness and hyponatremia. Urology is consulted for urinary retention. Patient has a metastatic and locally advanced disease. He has been having intermittent gross hematuria and intermittent urinary retention for the past year. Most recently he has been able to void on Flomax. He indicated over the past couple of days he has had worsening symptoms and was having straining to empty. He currently does have a Garcia catheter in place draining clear yellow urine. Review of Systems - Constitutional Reports weakness, Reports weight loss - EENT Ears, nose, mouth and throat: Denies dysphagia - Respiratory Denies cough, Denies 7 - Gastrointestinal Reports abdominal pain Past Medical History Past Medical History: Coronary Artery Disease (CAD), Cancer, Sleep Apnea/CPAP/BIPAP Additional Past Medical History / Comment(s): Prostate CA-2019 received chemo, current radiation ,uses cpap,tx with prednisone Dec 2021, current infusions for prostate CA History of Any Multi-Drug Resistant Organisms: None Reported Past Surgical History: Heart Catheterization With Stent, Hernia Repair Additional Past Surgical History / Comment(s): Cardiac Stent x3. TURP May 2024 Past Anesthesia/Blood Transfusion Reactions: No Reported Reaction Date of Last Stent Placement:: Past Psychological History: No Psychological Hx Reported Smoking Status: Former smoker Past Alcohol Use History: None Reported Additional Past Alcohol Use History / Comment(s): quit smoking 2020,started smoking at age 21,1 ppd Past Drug Use History: None Reported - Past Family History Father Additional Family Medical History / Comment(s): Heart issues Mother Family Medical History: No Reported History Brother(s) Family Medical History: Cancer Additional Family Medical History / Comment(s): pancreatic Medications and Allergies Home Medications Medication Instructions Recorded Confirmed Type Atorvastatin [Lipitor] 40 mg PO PC-SUPPER 07/23/19 04/30/25 History Cholecalciferol [Vitamin D3 (125 125 mcg PO HS 05/10/24 04/30/25 History Mcg = 5000 Iu)] Darolutamide [Nubeqa] 600 mg PO PC-BID 05/10/24 04/30/25 History Loratadine [Claritin] 10 mg PO HS 05/10/24 04/30/25 History predniSONE 10 mg PO W/BRKFST 05/10/24 04/30/25 History Ferrous Gluconate 324 mg PO PC-SUPPER 02/28/25 04/30/25 History Metoprolol Succinate [Metoprolol 25 mg PO W/BRKFST 02/28/25 04/30/25 History Succinate ER] Ondansetron [Zofran] 4 mg PO Q4H PRN 02/28/25 04/30/25 History Pantoprazole Sodium [Protonix] 20 mg PO AC-BRKFST 02/28/25 04/30/25 History ALPRAZolam [Xanax] 0.25 mg PO Q6H PRN 04/02/25 04/30/25 History Aspirin 81 mg PO HS 04/02/25 04/30/25 History Magnesium (Unknown) 150mg 150 mg PO -KT 04/02/25 04/30/25 History Tamsulosin [Flomax] 0.4 mg PO W/BRKT 04/02/25 04/30/25 History lisinopriL [Zestril] 2.5 mg PO PC-SUPPER 04/02/25 04/30/25 History Morphine Sulfate ER [Ms Contin] 15 mg PO Q12HR tab 04/10/25 04/30/25 Rx Calcium 500mg 500 mg PO HS 04/30/25 04/30/25 History Escitalopram [Lexapro] 5 mg PO -BRKT 04/30/25 05/01/25 History HYDROcodone/APAP 10-325MG [[place] 1 tab PO Q4HR 04/30/25 04/30/25 History 10-325] Nitroglycerin Sl Tabs [Nitrostat] 0.4 mg SL Q5M PRN 04/30/25 04/30/25 History Pembrolizumab [Keytruda] 200 mg IV Q21D 04/30/25 05/01/25 History Sennosides-Docusate Sodium 2 tab PO BID 04/30/25 04/30/25 History [Senokot-S] Allergies Allergy/AdvReac Type Severity Reaction Status Date / Time No Known Allergies Allergy Verified 04/30/25 15:21 Surgical - Exam Vital Signs Temp Pulse Resp BP Pulse Ox 98.4 F 92 17 108/67 100 04/30/25 15:13 04/30/25 15:13 04/30/25 15:13 04/30/25 15:13 04/30/25 15:13 - General no distress, no pain - Eyes normal ocular movement, no pale - ENT normal nares, normal mucosa - Respiratory normal expansion, normal respiratory effort - Abdomen Abdomen: soft, tender (Lower abdomen), no distended - Psychiatric oriented to time, oriented to person, oriented to place Results - Labs 05/01/25 06:17 05/01/25 06:17 Abnormal Lab Results - Last 24 Hours (Table) 05/01/25 05/01/25 Range/Units 06:17 06:17 RBC 3.07 L (4.40-5.60) 10*6/uL Hgb 8.3 L (13.0-17.0) g/dL Hct 26.2 L (39.6-50.0) % MCHC 31.7 L (32.0-37.0) g/dL RDW 18.0 H (11.5-14.5) % MPV 9.2 L (9.5-12.2) fL Lymphocytes # 0.39 L (0.90-5.00) 10*3/uL Eosinophils # 0.01 L (0.04-0.35) 10*3/uL Sodium 127 L (137-145) mmol/L Carbon Dioxide 20 L (22-30) mmol/L Creatinine 0.38 L (0.66-1.25) mg/dL Calcium 7.9 L (8.4-10.2) mg/dL AST 65 H (17-59) U/L ALT 62 H (4-49) U/L Alkaline Phosphatase 154 H (38-126) U/L Total Protein 4.9 L (6.3-8.2) g/dL Albumin 2.5 L (3.5-5.0) g/dL Microbiology - Last 24 Hours (Table) 04/30/25 15:37 Urine Culture - Final Urine,Voided Diabetes panel 05/01/25 Range/Units 06:17 Sodium 127 L (137-145) mmol/L Potassium 4.5 (3.5-5.1) mmol/L Chloride 99 (98-107) mmol/L Carbon Dioxide 20 L (22-30) mmol/L BUN 11 (9-20) mg/dL Creatinine 0.38 L (0.66-1.25) mg/dL Glucose 86 (74-99) mg/dL Calcium 7.9 L (8.4-10.2) mg/dL AST 65 H (17-59) U/L ALT 62 H (4-49) U/L Alkaline Phosphatase 154 H (38-126) U/L Total Protein 4.9 L (6.3-8.2) g/dL Albumin 2.5 L (3.5-5.0) g/dL Calcium panel 05/01/25 Range/Units 06:17 Calcium 7.9 L (8.4-10.2) mg/dL Albumin 2.5 L (3.5-5.0) g/dL Pituitary panel 05/01/25 Range/Units 06:17 Sodium 127 L (137-145) mmol/L Potassium 4.5 (3.5-5.1) mmol/L Chloride 99 (98-107) mmol/L Carbon Dioxide 20 L (22-30) mmol/L BUN 11 (9-20) mg/dL Creatinine 0.38 L (0.66-1.25) mg/dL Glucose 86 (74-99) mg/dL Calcium 7.9 L (8.4-10.2) mg/dL Adrenal panel 05/01/25 Range/Units 06:17 Sodium 127 L (137-145) mmol/L Potassium 4.5 (3.5-5.1) mmol/L Chloride 99 (98-107) mmol/L Carbon Dioxide 20 L (22-30) mmol/L BUN 11 (9-20) mg/dL Creatinine 0.38 L (0.66-1.25) mg/dL Glucose 86 (74-99) mg/dL Calcium 7.9 L (8.4-10.2) mg/dL Total Bilirubin 0.8 (0.2-1.3) mg/dL AST 65 H (17-59) U/L ALT 62 H (4-49) U/L Alkaline Phosphatase 154 H (38-126) U/L Total Protein 4.9 L (6.3-8.2) g/dL Albumin 2.5 L (3.5-5.0) g/dL Assessment and Plan Assessment: 69-year-old male with history of castrate resistant metastatic prostate cancer. He does have locally advanced prostate cancer. His retention is most likely secondary to compression from his prostate cancer. Prior to the admission he was able to void on Flomax. He is voiding probably worsened secondary to his weakness. At this time recommend keeping the Garcia catheter until he is closer to discharge, Garcia catheter can be removed for trial of void at time of discharge, if postvoid is less than 400 he is okay to be discharged on the Garcia catheter. recommend continuing Flomax at this time
[2025-05-01] MEDS: FERROUS SULFATE 325 MG TAB PO SCH (18:43)
[2025-05-01] MEDS: MORPHINE SULFATE ER 30 MG TABLET PO SCH (20:41)
[2025-05-01] MEDS: CALCIUM CARBONATE 500 MG CHEWABLE PO SCH (20:41)
[2025-05-01] MEDS: CHOLECALCIFEROL 125 MCG (5000 IU) TABLET PO SCH (20:41)
[2025-05-01] MEDS: ASPIRIN 81 MG PO SCH (20:41)
[2025-05-01] MEDS: LORATADINE 10 MG TAB PO SCH (22:19)
[2025-05-02 00:37] LABS: Glucose,Whole Blood 119 mg/dL (70-110)
[2025-05-02] MEDS: ESCITALOPRAM 5 MG TAB PO SCH (08:12)
[2025-05-02] MEDS: PANTOPRAZOLE 40 MG TABLET PO SCH (08:14)
[2025-05-02] MEDS: predniSONE 10 MG TAB PO SCH (08:14)
[2025-05-02] MEDS: METOPROLOL SUCCINATE (ER) 25 MG TAB.ER.24H PO SCH (08:14)
[2025-05-02] MEDS: ENOXAPARIN 40 MG/0.4 ML SYRINGE SQ SCH (08:15)
[2025-05-02 08:23] LABS: Basophils # (A) 0.02 X 10*3/uL (0.00-0.10); Basophils % (A) 0.3 %; Eosinophils # (A) 0.02 X 10*3/uL (0.04-0.35); Eosinophils % (A) 0.3 %; HCT 27.8 % (39.6-50.0); HGB 8.7 g/dL (13.0-17.0); Immature Grans, Automated 0.50 %; Lymphocytes # (A) 0.47 X 10*3/uL (0.90-5.00); Lymphocytes % (A) 8.1 %; MCH 27.3 pg (27.0-32.0); MCHC 31.3 g/dL (32.0-37.0); MCV 87.1 FL (80.0-97.0); Monocytes # (A) 0.46 X 10*3/uL (0.20-1.00); Monocytes % (A) 8.0 %; NRBC Per 100 WBC 0 X 10*3/uL (0.00-0.01); Neutrophils # (A) 4.77 X 10*3/uL (1.80-7.70); Neutrophils % (A) 82.8 %; Platelet Count 309 X 10*3/uL (140-440); RBC 3.19 X 10*6/uL (4.40-5.60); RDW 18.2 % (11.5-14.5); WBC 5.77 X 10*3/uL (4.50-10.00)
[2025-05-02 09:02] LABS: ALT 64 U/L (10-49); AST 59 U/L (14-35); Albumin 2.8 g/dL (3.8-4.9); Albumin/Globulin Ratio 1.22 Ratio (1.60-3.17); Alkaline Phosphatase 164 U/L (41-126); Anion Gap 10.60 mmol/L (4.00-12.00); BUN/Creat Ratio 14.80 Ratio (12.00-20.00); Blood Urea Nitrogen 7.4 mg/dL (9.0-27.0); Calcium 7.7 mg/dL (8.7-10.3); Carbon Dioxide 17.4 mmol/L (21.6-31.8); Chloride 103 mmol/L (96-109); Globulin 2.3 g/dL (1.6-3.3); Glucose 99 mg/dL (70-110); Magnesium 2.3 mg/dL (1.5-2.4); Potassium 4.2 mmol/L (3.5-5.5); Sodium 131 mmol/L (135-145); Total Protein 5.1 g/dL (6.2-8.2)
--- NOTE | 2025-05-02 10:23 | P.PN ---
Subjective Patient is seen in follow-up for hyponatremia. Sodium level better. Has Garcia catheter for urinary retention. Nonoliguric. Oral intake good. No active complaints. Vital signs are stable. General: No acute distress. HEENT: Head exam is unremarkable. At that LUNGS: No audible rhonchi or wheezes. HEART: Rate and Rhythm are regular. ABDOMEN: Nontender. EXTREMITITES: No edema. Objective - Vital Signs Vital signs: Vital Signs Temp 97.4 F L 05/02/25 07:24 Pulse 98 05/02/25 09:53 Resp 18 05/02/25 09:53 BP 128/79 05/02/25 07:24 Pulse Ox 98 05/02/25 07:24 FiO2 Intake & Output 05/01/25 05/02/25 05/02/25 18:59 06:59 18:59 Intake Total 2880 360 Output Total 1800 600 Balance 1080 -600 360 Weight 99.79 kg Intake: Oral 2880 360 Output: Urine 1800 600 Other: Voiding Method Indwelling Catheter Indwelling Catheter Indwelling Catheter # Bowel Movements 1 1 - Labs CBC & Chem 7: 05/02/25 05:34 05/02/25 05:34 Labs: Abnormal Lab Results - Last 24 Hours (Table) 05/02/25 05/02/25 05/02/25 Range/Units 00:35 05:34 05:34 RBC 3.19 L (4.40-5.60) X 10*6/uL Hgb 8.7 L (13.0-17.0) g/dL Hct 27.8 L (39.6-50.0) % MCHC 31.3 L (32.0-37.0) g/dL RDW 18.2 H (11.5-14.5) % MPV 9.4 L (9.5-12.2) FL Lymphocytes # 0.47 L (0.90-5.00) X 10*3/uL Eosinophils # 0.02 L (0.04-0.35) X 10*3/uL Sodium 131 L (135-145) mmol/L Carbon Dioxide 17.4 L (21.6-31.8) mmol/L BUN 7.4 L (9.0-27.0) mg/dL Creatinine 0.5 L (0.6-1.5) mg/dL POC Glucose (mg/dL) 119 H (70-110) mg/dL Calcium 7.7 L (8.7-10.3) mg/dL AST 59 H (14-35) U/L ALT 64 H (10-49) U/L Alkaline Phosphatase 164 H (41-126) U/L Total Protein 5.1 L (6.2-8.2) g/dL Albumin 2.8 L (3.8-4.9) g/dL Albumin/Globulin Ratio 1.22 L (1.60-3.17) Ratio Microbiology - Last 24 Hours (Table) 04/30/25 19:14 Blood Culture - Preliminary Blood 04/30/25 15:37 Urine Culture - Final Urine,Voided Assessment and Plan Plan: Assessment: 1. Hyponatremia secondary to urinary retention. Sodium level better at 131. 2. UTI on antibiotics. 3. Benign hypertension. Currently controlled. 4. History of coronary artery disease. 5. Stage IV prostate cancer. CT scan dated April 21, 2025 showed no evidence of hydronephrosis. 6. Urinary retention. Has Garcia catheter. On Flomax. Urology following. Plan: Maintain Garcia catheter. Maintain IV fluids. Voiding trial prior to discharge.
--- NOTE | 2025-05-02 11:35 | P.PN ---
Subjective Progress Note Date: 05/02/25 Patient seen and evaluated bedside. No acute complaints. Patient had bowel movement last evening. Patient is alert and oriented. Mentation improved from yesterday. Objective - Vital Signs Vital signs: Vital Signs Temp 97.4 F L 05/02/25 07:24 Pulse 98 05/02/25 07:24 Resp 15 05/02/25 07:24 BP 128/79 05/02/25 07:24 Pulse Ox 98 05/02/25 07:24 FiO2 Intake & Output 05/01/25 05/02/25 05/02/25 18:59 06:59 18:59 Intake Total 2880 Output Total 1800 600 Balance 1080 -600 Weight 99.79 kg Intake: Oral 2880 Output: Urine 1800 600 Other: Voiding Method Indwelling Catheter Indwelling Catheter # Bowel Movements 1 1 - Exam Vitals: Signs Reviewed Physical Exam: General: Not in distress, nontoxic Cardiovascular: S1 S2 reg, no murmur Lungs: CTA bilateral, no rhonchi, no rales Abdominal: soft, non-tender to palpataion Extremities: no gross muscle atrophy, no edema - Labs CBC & Chem 7: 05/02/25 05:34 05/02/25 05:34 Labs: Abnormal Lab Results - Last 24 Hours (Table) 05/01/25 05/01/25 05/02/25 Range/Units 06:17 06:17 00:35 RBC 3.07 L (4.40-5.60) 10*6/uL Hgb 8.3 L (13.0-17.0) g/dL Hct 26.2 L (39.6-50.0) % MCHC 31.7 L (32.0-37.0) g/dL RDW 18.0 H (11.5-14.5) % MPV 9.2 L (9.5-12.2) fL Lymphocytes # 0.39 L (0.90-5.00) 10*3/uL Eosinophils # 0.01 L (0.04-0.35) 10*3/uL Sodium 127 L (137-145) mmol/L Carbon Dioxide 20 L (22-30) mmol/L Creatinine 0.38 L (0.66-1.25) mg/dL POC Glucose (mg/dL) 119 H (70-110) mg/dL Calcium 7.9 L (8.4-10.2) mg/dL AST 65 H (17-59) U/L ALT 62 H (4-49) U/L Alkaline Phosphatase 154 H (38-126) U/L Total Protein 4.9 L (6.3-8.2) g/dL Albumin 2.5 L (3.5-5.0) g/dL Microbiology - Last 24 Hours (Table) 04/30/25 19:14 Blood Culture - Preliminary Blood 04/30/25 15:37 Urine Culture - Final Urine,Voided Assessment and Plan Plan: Plan: #. Constipation, likely secondary to pain medication Senokot-S 2 each PO BID, lactulose 20g PO QID. S/p rectal enema. #. Hyponatremia secondary to urinary retention likely from metastatic prostate cancer - maintained on Garcia cathether and Flomax, voiding trial prior to discharge #. Acute encephalopathy #. Subacute CVA Brain MRI displaying few scattered foci of acute/subacute ischemia, distribution suggest possible embolic phenomenon, no evidence of intracranial metastasis, few scattered T1 hypointense calvaria lesions Will consult to neurology #. Metastatic prostate carcinoma Patient has been receiving treatment with Dr. Lilly at [facility]. Discussed with patient that effects of Keytruda may take 3-4 months. Goals of care were discussed with patient regarding comfort care if there is no improvement with current treatment plan. Pain management: MS Contin 30 mg PO q 12 hours.
[2025-05-02] MEDS: ALPRAZolam 0.25 MG TAB PO PRN (13:26)
[2025-05-03 07:51] LABS: Basophils # (A) 0.02 X 10*3/uL (0.00-0.10); Basophils % (A) 0.4 %; Eosinophils # (A) 0.01 X 10*3/uL (0.04-0.35); Eosinophils % (A) 0.2 %; HCT 28.0 % (39.6-50.0); HGB 8.6 g/dL (13.0-17.0); Immature Grans, Automated 0.80 %; Lymphocytes # (A) 0.51 X 10*3/uL (0.90-5.00); Lymphocytes % (A) 10.0 %; MCH 26.6 pg (27.0-32.0); MCHC 30.7 g/dL (32.0-37.0); MCV 86.7 FL (80.0-97.0); Monocytes # (A) 0.40 X 10*3/uL (0.20-1.00); Monocytes % (A) 7.8 %; NRBC Per 100 WBC 0 X 10*3/uL (0.00-0.01); Neutrophils # (A) 4.12 X 10*3/uL (1.80-7.70); Neutrophils % (A) 80.8 %; Platelet Count 330 X 10*3/uL (140-440); RBC 3.23 X 10*6/uL (4.40-5.60); RDW 18.1 % (11.5-14.5); WBC 5.10 X 10*3/uL (4.50-10.00)
[2025-05-03 08:06] LABS: ALT 66 U/L (10-49); AST 87 U/L (14-35); Albumin 2.8 g/dL (3.8-4.9); Albumin/Globulin Ratio 1.17 Ratio (1.60-3.17); Alkaline Phosphatase 165 U/L (41-126); Anion Gap 11.10 mmol/L (4.00-12.00); BUN/Creat Ratio 16.40 Ratio (12.00-20.00); Blood Urea Nitrogen 8.2 mg/dL (9.0-27.0); Calcium 7.9 mg/dL (8.7-10.3); Carbon Dioxide 17.9 mmol/L (21.6-31.8); Chloride 104 mmol/L (96-109); Globulin 2.4 g/dL (1.6-3.3); Glucose 97 mg/dL (70-110); Magnesium 2.3 mg/dL (1.5-2.4); Potassium 4.3 mmol/L (3.5-5.5); Sodium 133 mmol/L (135-145); Total Protein 5.2 g/dL (6.2-8.2)
--- NOTE | 2025-05-03 10:40 | P.PN ---
Subjective Patient is seen in follow-up for hyponatremia. Sodium level better. Has Garcia catheter for urinary retention. Nonoliguric. Oral intake good. No active complaints. Vital signs are stable. General: No acute distress. HEENT: Head exam is unremarkable. LUNGS: No audible rhonchi or wheezes. HEART: Rate and Rhythm are regular. ABDOMEN: Nontender. EXTREMITITES: No edema. Objective - Vital Signs Vital signs: Vital Signs Temp 97.8 F 05/03/25 07:15 Pulse 79 05/03/25 07:15 Resp 18 05/03/25 07:15 BP 107/70 05/03/25 07:15 Pulse Ox 98 05/03/25 07:15 FiO2 Intake & Output 05/02/25 05/03/25 05/03/25 18:59 06:59 18:59 Intake Total 1000 540 Output Total 1200 1400 Balance -200 -1400 540 Intake: Oral 1000 540 Output: Urine 1200 1400 Other: Voiding Method Indwelling Catheter Indwelling Catheter - Labs CBC & Chem 7: 05/03/25 05:54 05/03/25 05:54 Labs: Abnormal Lab Results - Last 24 Hours (Table) 05/03/25 05/03/25 Range/Units 05:54 05:54 RBC 3.23 L (4.40-5.60) X 10*6/uL Hgb 8.6 L (13.0-17.0) g/dL Hct 28.0 L (39.6-50.0) % MCH 26.6 L (27.0-32.0) pg MCHC 30.7 L (32.0-37.0) g/dL RDW 18.1 H (11.5-14.5) % MPV 9.3 L (9.5-12.2) FL Lymphocytes # 0.51 L (0.90-5.00) X 10*3/uL Eosinophils # 0.01 L (0.04-0.35) X 10*3/uL Sodium 133 L (135-145) mmol/L Carbon Dioxide 17.9 L (21.6-31.8) mmol/L BUN 8.2 L (9.0-27.0) mg/dL Creatinine 0.5 L (0.6-1.5) mg/dL Calcium 7.9 L (8.7-10.3) mg/dL AST 87 H (14-35) U/L ALT 66 H (10-49) U/L Alkaline Phosphatase 165 H (41-126) U/L Total Protein 5.2 L (6.2-8.2) g/dL Albumin 2.8 L (3.8-4.9) g/dL Albumin/Globulin Ratio 1.17 L (1.60-3.17) Ratio Microbiology - Last 24 Hours (Table) 04/30/25 19:14 Blood Culture - Preliminary Blood Assessment and Plan Plan: Assessment: 1. Hyponatremia secondary to urinary retention. Sodium level better at 133. 2. UTI on antibiotics. 3. Benign hypertension. Currently controlled. 4. History of coronary artery disease. 5. Stage IV prostate cancer. CT scan dated April 21, 2025 showed no evidence of hydronephrosis. 6. Urinary retention. Has Garcia catheter. On Flomax. Urology following. Plan: Garcia catheter per urology. Maintain IV fluids. Voiding trial prior to discharge.
--- NOTE | 2025-05-03 12:47 | P.PN ---
Subjective Progress Note Date: 05/02/25 Surinder Campoverde, is a 69-year-old male who presented to [facility] emergency room for chief complaint of generalized weakness. Patient has a diagnosis of stage IV prostate cancer and was recently discharged on MS Contin for pain control and was started on Keytruda outpatient for cancer treatment per oncology services. Per patient's at bedside he has had increased weakness and falls along with decreased appetite. He was evaluated in the emergency room vital examination on presentation revealed temp 98.1, heart rate 83, respiratory rate 14, blood pressure 111/74 with pulse ox of 100% on room air Laboratory data reveals white blood cell 5.4, hemoglobin 8.3, platelets 302, sod ium 127, creatinine 0.38 bun 11 alkaline phosphatase 154, ALT 62 and AST 65. Testing in the emergency room revealed UA was positive for urinary tract infection. Chest x-ray completed some showing sclerotic bone metastasis redemonstrated throughout the thoracic spine and right clavicle calcified nodule left midlung zone. Hip and pelvis x-ray completed showing no acute fracture or dislocation multiple radiodense foci are seen in the bony pelvis and right femur which correspond to known blastic osseous metastatic disease. Patient was admitted to medical floor for further evaluation and treatment. Patient was started on IV fluid for hyponatremia of Rocephin for urinary tract infection. Oncology and nephrology services will be consulted Past medical history is significant for history of prostate cancer stage IV, coronary artery disease, sleep apnea, heart cath with stents and ex-smoker On review of systems patient is alert and oriented x 3. Patient denies chest pain or shortness of breath. Patient denies nausea vomiting or diarrhea. Patient denies any urinary burning or frequency On 05/01/2025 patient is alert and oriented x 3. MRI of the brain ordered per oncology services. Home medication of MS Contin resumed. Current vital signs temp 98.1, heart rate 83, respiratory rate 16, blood pressure 122/77 with pulse ox of 99% on room air patient remains on Rocephin for urinary tract infection. Patient denies chest pain or shortness of breath. Patient denies nausea vomiti ng or diarrhea. Patient denies any urinary burning or frequency On 05/02/2025 patient is alert and oriented x 3. Patient denies chest pain or shortness of breath. Patient denies nausea vomiting or diarrhea. Patient denies any urinary burning or frequency MRI of the brain has been ordered. Oncology and nephrology services are following Objective - Vital Signs Vital signs: Vital Signs Temp 97.8 F 05/02/25 16:06 Pulse 76 05/02/25 16:06 Resp 18 05/02/25 16:06 BP 113/74 05/02/25 16:06 Pulse Ox 97 05/02/25 16:06 FiO2 Intake & Output 05/01/25 05/02/25 05/02/25 18:59 06:59 18:59 Intake Total 2880 360 Output Total 1800 600 775 Balance 5170 -600 -764 Weight 99.79 kg Intake: Oral 2880 360 Output: Urine 1800 600 775 Other: Voiding Method Indwelling Catheter Indwelling Catheter Indwelling Catheter # Bowel Movements 1 1 - Exam In general patient is alert and oriented Ã-3 in no distress HEENT head normocephalic and atraumatic Neck is supple no JVD no goiter no lymphadenopathy no carotid bruit Chest examination is clear to auscultation no crackles no wheezing Cardiac exam reveals regular heart sounds S1 and S2 no gallops no murmurs Abdomen is soft nontender no organomegaly with normal bowel sounds Extremity exam reveals no edema no cyanosis or clubbing Neurological examination reveals no gross focal deficits - Labs CBC & Chem 7: 05/03/25 05:54 05/03/25 05:54 Labs: Abnormal Lab Results - Last 24 Hours (Table) 05/02/25 05/02/25 05/02/25 Range/Units 00:35 05:34 05:34 RBC 3.19 L (4.40-5.60) X 10*6/uL Hgb 8.7 L (13.0-17.0) g/dL Hct 27.8 L (39.6-50.0) % MCHC 31.3 L (32.0-37.0) g/dL RDW 18.2 H (11.5-14.5) % MPV 9.4 L (9.5-12.2) FL Lymphocytes # 0.47 L (0.90-5.00) X 10*3/uL Eosinophils # 0.02 L (0.04-0.35) X 10*3/uL Sodium 131 L (135-145) mmol/L Carbon Dioxide 17.4 L (21.6-31.8) mmol/L BUN 7.4 L (9.0-27.0) mg/dL Creatinine 0.5 L (0.6-1.5) mg/dL POC Glucose (mg/dL) 119 H (70-110) mg/dL Calcium 7.7 L (8.7-10.3) mg/dL AST 59 H (14-35) U/L ALT 64 H (10-49) U/L Alkaline Phosphatase 164 H (41-126) U/L Total Protein 5.1 L (6.2-8.2) g/dL Albumin 2.8 L (3.8-4.9) g/dL Albumin/Globulin Ratio 1.22 L (1.60-3.17) Ratio Microbiology - Last 24 Hours (Table) 04/30/25 19:14 Blood Culture - Preliminary Blood 04/30/25 15:37 Urine Culture - Final Urine,Voided Assessment and Plan Assessment: Generalized weakness Hyponatremia Urinary tract infection Prostate cancer stage IV Decreased appetite History of sleep apnea History of TURP History of heart cath with previous heart stents DVT prophylaxis Lovenox. GI prophylaxis Protonix Oncology and nephrology services consulted Patient started on IV Rocephin for urinary tract infection urine culture ordered Normal saline at 75 MRI of the brain ordered per oncology PT OT services consulted
--- NOTE | 2025-05-03 12:49 | P.PN ---
Subjective Progress Note Date: 05/03/25 Surinder Campoverde, is a 69-year-old male who presented to [facility] emergency room for chief complaint of generalized weakness. Patient has a diagnosis of stage IV prostate cancer and was recently discharged on MS Contin for pain control and was started on Keytruda outpatient for cancer treatment per oncology services. Per patient's at bedside he has had increased weakness and falls along with decreased appetite. He was evaluated in the emergency room vital examination on presentation revealed temp 98.1, heart rate 83, respiratory rate 14, blood pressure 111/74 with pulse ox of 100% on room air Laboratory data reveals white blood cell 5.4, hemoglobin 8.3, platelets 302, sod ium 127, creatinine 0.38 bun 11 alkaline phosphatase 154, ALT 62 and AST 65. Testing in the emergency room revealed UA was positive for urinary tract infection. Chest x-ray completed some showing sclerotic bone metastasis redemonstrated throughout the thoracic spine and right clavicle calcified nodule left midlung zone. Hip and pelvis x-ray completed showing no acute fracture or dislocation multiple radiodense foci are seen in the bony pelvis and right femur which correspond to known blastic osseous metastatic disease. Patient was admitted to medical floor for further evaluation and treatment. Patient was started on IV fluid for hyponatremia of Rocephin for urinary tract infection. Oncology and nephrology services will be consulted Past medical history is significant for history of prostate cancer stage IV, coronary artery disease, sleep apnea, heart cath with stents and ex-smoker On review of systems patient is alert and oriented x 3. Patient denies chest pain or shortness of breath. Patient denies nausea vomiting or diarrhea. Patient denies any urinary burning or frequency On 05/01/2025 patient is alert and oriented x 3. MRI of the brain ordered per oncology services. Home medication of MS Contin resumed. Current vital signs temp 98.1, heart rate 83, respiratory rate 16, blood pressure 122/77 with pulse ox of 99% on room air patient remains on Rocephin for urinary tract infection. Patient denies chest pain or shortness of breath. Patient denies nausea vomiti ng or diarrhea. Patient denies any urinary burning or frequency On 05/02/2025 patient is alert and oriented x 3. Patient denies chest pain or shortness of breath. Patient denies nausea vomiting or diarrhea. Patient denies any urinary burning or frequency MRI of the brain has been ordered. Oncology and nephrology services are following On 05/03/2025 patient is alert and oriented x 3. Patient's mentation has significantly improved. Patient denies chest pain or shortness of breath. Patient denies nausea vomiting or diarrhea. Patient denies any urinary burning or frequency. Sodium 133. MRI of the brain completed showing few scattered foci of the of subacute ischemia concerns for possible emboli big phenomenon. 2D echo and carotid Doppler has been ordered neurology services consulted awaiting further input Objective - Vital Signs Vital signs: Vital Signs Temp 97.8 F 05/03/25 07:15 Pulse 79 05/03/25 07:15 Resp 18 05/03/25 07:15 BP 107/70 05/03/25 07:15 Pulse Ox 98 05/03/25 07:15 FiO2 Intake & Output 05/02/25 05/03/25 05/03/25 18:59 06:59 18:59 Intake Total 1000 540 Output Total 1200 1400 Balance -200 -1400 540 Intake: Oral 1000 540 Output: Urine 1200 1400 Other: Voiding Method Indwelling Catheter Indwelling Catheter - Exam In general patient is alert and oriented Ã-3 in no distress HEENT head normocephalic and atraumatic Neck is supple no JVD no goiter no lymphadenopathy no carotid bruit Chest examination is clear to auscultation no crackles no wheezing Cardiac exam reveals regular heart sounds S1 and S2 no gallops no murmurs Abdomen is soft nontender no organomegaly with normal bowel sounds Extremity exam reveals no edema no cyanosis or clubbing Neurological examination reveals no gross focal deficits - Labs CBC & Chem 7: 05/03/25 05:54 05/03/25 05:54 Labs: Abnormal Lab Results - Last 24 Hours (Table) 05/03/25 05/03/25 Range/Units 05:54 05:54 RBC 3.23 L (4.40-5.60) X 10*6/uL Hgb 8.6 L (13.0-17.0) g/dL Hct 28.0 L (39.6-50.0) % MCH 26.6 L (27.0-32.0) pg MCHC 30.7 L (32.0-37.0) g/dL RDW 18.1 H (11.5-14.5) % MPV 9.3 L (9.5-12.2) FL Lymphocytes # 0.51 L (0.90-5.00) X 10*3/uL Eosinophils # 0.01 L (0.04-0.35) X 10*3/uL Sodium 133 L (135-145) mmol/L Carbon Dioxide 17.9 L (21.6-31.8) mmol/L BUN 8.2 L (9.0-27.0) mg/dL Creatinine 0.5 L (0.6-1.5) mg/dL Calcium 7.9 L (8.7-10.3) mg/dL AST 87 H (14-35) U/L ALT 66 H (10-49) U/L Alkaline Phosphatase 165 H (41-126) U/L Total Protein 5.2 L (6.2-8.2) g/dL Albumin 2.8 L (3.8-4.9) g/dL Albumin/Globulin Ratio 1.17 L (1.60-3.17) Ratio Microbiology - Last 24 Hours (Table) 04/30/25 19:14 Blood Culture - Preliminary Blood Assessment and Plan Assessment: Generalized weakness Hyponatremia Urinary tract infection Prostate cancer stage IV Decreased appetite History of sleep apnea History of TURP History of heart cath with previous heart stents DVT prophylaxis Lovenox. GI prophylaxis Protonix Oncology and nephrology services consulted Patient started on IV Rocephin for urinary tract infection urine culture ordered Normal saline at 75 MRI of the brain ordered per oncology PT OT services consulted
--- NOTE | 2025-05-03 12:54 | US ---
EXAMINATION TYPE: US carotid duplex BILAT DATE OF EXAM: 05/03/2025 COMPARISON: NONE CLINICAL INDICATION: Male, 69 years old with history of altered mental status; mini strokes Additional History: I65.- Occlusion/stenosis of specified precerebral artery, specified laterality TECHNIQUE: Grayscale, color Doppler and spectral Doppler evaluation of the bilateral carotid systems and vertebral arteries. Indirect Doppler criteria was utilized. FINDINGS: EXAM MEASUREMENTS: RIGHT: Peak Systolic Velocity (PSV) cm/sec ----- Right CCA: 61.5 ----- Right ICA: 81.3 ----- Right ECA: 100 ICA/CCA ratio: 1.3 RIGHT: End Diastole cm/sec ----- Right CCA: 16.4 ----- Right ICA: 19.7 ----- Right ECA: 17.3 LEFT: Peak Systolic Velocity (PSV) cm/sec ----- Left CCA: 71.9 ----- Left ICA: 83.7 ----- Left ECA: 111 ICA/CCA ratio: 1.2 LEFT: End Diastole cm/sec ----- Left CCA: 23.8 ----- Left ICA: 30.9 ----- Left ECA: 26.1 VERTEBRALS (direction of flow): Right Vertebral: Antegrade Left Vertebral: Antegrade Rhythm: Normal HOSPICE BEREAVEMENT COORDINATOR NOTES: small amount of plaque in left bulb. Incidental- hypoechoic area seen in left lateral neck measuring 3.8 x 1.9 x 2.8cm with vascularity. Color Doppler imaging shows patency with blood flow throughout the carotid artery. Spectral waveforms are within normal limits. IMPRESSION: No evidence for hemodynamically significant stenosis. Criteria for Assigning % of Stenosis / Diameter reduction (Estimation based on the indirect measurements of the internal carotid artery velocities (ICA PSV). 1. Normal (no stenosis)=ICA PSV < 180 cm/s: ratio < 2.0: ICA EDV<40 cm/s. 2. Less than 50% stenosis=ICA PSV < 180 cm/s: ratio < 2.0: ICA EDV<40 cm/s. 3. 50 to 69% stenosis=ICA PSV of 180 to 230 cm/s: ration 2.0 ? 4.0: ICA EDV 40-100 cm/s. PSV 125-180 cm/sec and ICA/CCA PSV Ratio ? 2.0 is also consistent with 50-69% stenosis 4. Greater than 70% stenosis to near occlusion= ICA PSV > 230 cm/s: ratio > 4.0: ICA EDV > 100 cm/s. 5. Near occlusion= ICA PSV velocities may be low or undetectable: variable ratio and ICA EDV. 6. Total occlusion=unable to detect flow. [facility], , 05/03/2025 12:52 PM
--- NOTE | 2025-05-03 13:55 | P.CNNES ---
<Jeff Reina - Last Filed: 05/03/25 13:40> History of Present Illness Consult date: 05/03/25 Requesting physician: Ramo Bermudez Reason for Consult: Acute/subacute ischemia on MRI History of Present Illness: Patient is a 69-year-old male with CAD, MELANIE, metastatic prostate cancer who initially presented to the ED with a chief complaint of generalized weakness and decreased appetite. Patient was recently discharged on MS Contin for pain control and was started on Keytruda outpatient for cancer treatment. He was found to have hyponatremia due to urinary retention, UTI, constipation likely secondary to pain medications and was treated with IV fluids, Flomax and Senokot. Urology was consulted who recommended keeping the Garcia catheter until he is closer to discharge. Patient seen today under neurological consultation. Patient reports being confused a couple days ago when he did not know where he was and did not know the time or date. He feels that he is back to baseline today. He also reports that his health has declined in the past 3 weeks, where he is unable to walk on his own. A month ago he was able to ambulate on his own and manage his own daily activities. He also stopped eating well a week ago as he was trying to prevent constipation that happened due to the pain medications. He denies smoking, drinking, recreational drug use. He also reports hematuria. Vital signs are stable Hemoglobin 8.6, sodium 133, AST 87, ALT 66, ALP 165 UA on admission showed trace blood and moderate leukocyte esterase with 27 WBC and 6 RBC, trace protein Blood culture and urine culture negative Brain MRI shows few scattered foci of acute/subacute ischemia, distribution suggest possible embolic phenomenon, no abnormal contrast-enhancement to suggest intracranial metastasis, few scattered T1 hypointense calvarial lesions highly suspicious for osseous metastasis, nonspecific mild white matter changes likely related to small vessel ischemic disease Past Medical History Past Medical History: Coronary Artery Disease (CAD), Cancer, Sleep Apnea/CPAP/BIPAP Additional Past Medical History / Comment(s): Prostate CA-2019 received chemo, current radiation ,uses cpap,tx with prednisone Dec 2021, current infusions for prostate CA History of Any Multi-Drug Resistant Organisms: None Reported Past Surgical History: Heart Catheterization With Stent, Hernia Repair Additional Past Surgical History / Comment(s): Cardiac Stent x3. TURP May 2024 Past Anesthesia/Blood Transfusion Reactions: No Reported Reaction Date of Last Stent Placement:: Past Psychological History: No Psychological Hx Reported Smoking Status: Former smoker Past Alcohol Use History: None Reported Additional Past Alcohol Use History / Comment(s): quit smoking 2020,started smoking at age 21,1 ppd Past Drug Use History: None Reported - Past Family History Father Additional Family Medical History / Comment(s): Heart issues Mother Family Medical History: No Reported History Brother(s) Family Medical History: Cancer Additional Family Medical History / Comment(s): pancreatic Medications and Allergies Home Medications Medication Instructions Recorded Confirmed Type Atorvastatin [Lipitor] 40 mg PO PC-SUPPER 07/23/19 04/30/25 History Cholecalciferol [Vitamin D3 (125 125 mcg PO HS 05/10/24 04/30/25 History Mcg = 5000 Iu)] Darolutamide [Nubeqa] 600 mg PO PC-BID 05/10/24 04/30/25 History Loratadine [Claritin] 10 mg PO HS 05/10/24 04/30/25 History predniSONE 10 mg PO W/BRKFST 05/10/24 04/30/25 History Ferrous Gluconate 324 mg PO PC-SUPPER 02/28/25 04/30/25 History Metoprolol Succinate [Metoprolol 25 mg PO W/BRKFST 02/28/25 04/30/25 History Succinate ER] Ondansetron [Zofran] 4 mg PO Q4H PRN 02/28/25 04/30/25 History Pantoprazole Sodium [Protonix] 20 mg PO AC-BRKFST 02/28/25 04/30/25 History ALPRAZolam [Xanax] 0.25 mg PO Q6H PRN 04/02/25 04/30/25 History Aspirin 81 mg PO HS 04/02/25 04/30/25 History Magnesium (Unknown) 150mg 150 mg PO AC-BRKFST 04/02/25 04/30/25 History Tamsulosin [Flomax] 0.4 mg PO W/BRKFST 04/02/25 04/30/25 History lisinopriL [Zestril] 2.5 mg PO PC-SUPPER 04/02/25 04/30/25 History Morphine Sulfate ER [Ms Contin] 15 mg PO Q12HR tab 04/10/25 04/30/25 Rx Calcium 500mg 500 mg PO HS 04/30/25 04/30/25 History Escitalopram [Lexapro] 5 mg PO AC-BRKFST 04/30/25 05/01/25 History HYDROcodone/APAP 10-325MG [[place] 1 tab PO Q4HR 04/30/25 04/30/25 History 10-325] Nitroglycerin Sl Tabs [Nitrostat] 0.4 mg SL Q5M PRN 04/30/25 04/30/25 History Pembrolizumab [Keytruda] 200 mg IV Q21D 04/30/25 05/01/25 History Sennosides-Docusate Sodium 2 tab PO BID 04/30/25 04/30/25 History [Senokot-S] Allergies Allergy/AdvReac Type Severity Reaction Status Date / Time No Known Allergies Allergy Verified 04/30/25 15:21 Physical Examination - Vital Signs Vital Signs: Vital Signs Temp Pulse Resp BP Pulse Ox 05/03/25 07:15 97.8 F 79 18 107/70 98 05/03/25 01:32 98.3 F 86 16 130/85 96 05/02/25 19:45 98.2 F 76 16 117/78 98 05/02/25 16:06 97.8 F 76 18 113/74 97 05/02/25 09:53 98 18 Intake and Output 05/02/25 05/03/25 05/03/25 22:59 06:59 14:59 Intake Total 640 Output Total 425 1400 Balance 215 -1400 Intake: Oral 640 Output: Urine 425 1400 Other: Voiding Method Indwelling Catheter General: mild distress, lying in bed Neuro: Patient is awake alert and oriented x 3. Visual lu are full to confrontation. Extraocular movements intact no nystagmus no facial weakness. Face is symmetric On muscle strength testing, there is 4/5 in b/l UE and left LE, movement on right LE limited due to pain at the hip Deep tendon reflexes are symmetric 1 at the biceps, brachioradialis, knees and plantars indeterminate Sensation is normal to touch throughout Cerebellar function showed no ataxia for [id number] testing Results - Laboratory Findings CBC and BMP: 05/03/25 05:54 05/03/25 05:54 Abnormal Lab Findings: Abnormal Labs 04/30/25 04/30/25 04/30/25 15:37 15:37 15:37 RBC 3.33 L Hgb 9.2 L Hct 28.0 L MCH MCHC RDW MPV 9.3 L Lymphocytes # 0.36 L Eosinophils # 0.01 L Sodium 127 L Carbon Dioxide 18 L BUN Creatinine 0.48 L Glucose 117 H POC Glucose (mg/dL) Calcium 8.0 L AST 98 H ALT 79 H Alkaline Phosphatase 163 H Total Protein 5.3 L Albumin 2.8 L Albumin/Globulin Ratio Urine Protein Trace H Urine Blood Trace H Ur Leukocyte Esterase Moderate H Urine RBC 6 H Urine WBC 27 H Urine Mucus Rare H 05/01/25 05/01/25 05/02/25 06:17 06:17 00:35 RBC 3.07 L Hgb 8.3 L Hct 26.2 L MCH MCHC 31.7 L RDW 18.0 H MPV 9.2 L Lymphocytes # 0.39 L Eosinophils # 0.01 L Sodium 127 L Carbon Dioxide 20 L BUN Creatinine 0.38 L Glucose POC Glucose (mg/dL) 119 H Calcium 7.9 L AST 65 H ALT 62 H Alkaline Phosphatase 154 H Total Protein 4.9 L Albumin 2.5 L Albumin/Globulin Ratio Urine Protein Urine Blood Ur Leukocyte Esterase Urine RBC Urine WBC Urine Mucus 05/02/25 05/02/25 05/03/25 05:34 05:34 05:54 RBC 3.19 L Hgb 8.7 L Hct 27.8 L MCH MCHC 31.3 L RDW 18.2 H MPV 9.4 L Lymphocytes # 0.47 L Eosinophils # 0.02 L Sodium 131 L 133 L Carbon Dioxide 17.4 L 17.9 L BUN 7.4 L 8.2 L Creatinine 0.5 L 0.5 L Glucose POC Glucose (mg/dL) Calcium 7.7 L 7.9 L AST 59 H 87 H ALT 64 H 66 H Alkaline Phosphatase 164 H 165 H Total Protein 5.1 L 5.2 L Albumin 2.8 L 2.8 L Albumin/Globulin Ratio 1.22 L 1.17 L Urine Protein Urine Blood Ur Leukocyte Esterase Urine RBC Urine WBC Urine Mucus 05/03/25 05:54 RBC 3.23 L Hgb 8.6 L Hct 28.0 L MCH 26.6 L MCHC 30.7 L RDW 18.1 H MPV 9.3 L Lymphocytes # 0.51 L Eosinophils # 0.01 L Sodium Carbon Dioxide BUN Creatinine Glucose POC Glucose (mg/dL) Calcium AST ALT Alkaline Phosphatase Total Protein Albumin Albumin/Globulin Ratio Urine Protein Urine Blood Ur Leukocyte Esterase Urine RBC Urine WBC Urine Mucus Assessment and Plan Assessment: Altered mental status, likely secondary to CVA Generalized weakness Metastatic prostate cancer UTI Urinary retention Hyponatremia, improving Transaminitis hematuria, Blood loss anemia Plan: Brain MRI shows few scattered foci of acute/subacute ischemia, distribution suggest possible embolic phenomenon, no abnormal contrast-enhancement to suggest intracranial metastasis, few scattered T1 hypointense calvarial lesions highly suspicious for osseous metastasis, nonspecific mild white matter changes likely related to small vessel ischemic disease Carotid doppler ordered, it showed no evidence for hemodynamically significant stenosis Obtain echocardiogram Obtain lipid panel, TSH PT, OT consulted Consult speech therapy Continue aspirin 80 mg p.o. at bedtime, atorvastatin 40 mg p.o. at bedtime DVT prophylaxis: Lovenox 40 mg SQ daily Currently on Rocephin Nephrology, Urology and Oncology on board Dictation was produced using Ame[employer] dictation software. please excuse any grammatical, word or spelling errors. Jeff Reina MD PGY-2 IM <Robert Ga - Last Filed: 05/04/25 17:28> Physical Examination - Vital Signs Vital Signs: Vital Signs Temp Pulse Resp BP BP Pulse Ox 05/04/25 12:53 98 F 71 19 102/64 97 05/04/25 08:00 97.5 F L 83 19 143/76 97 05/04/25 01:51 98 F 78 16 118/71 98 05/03/25 19:39 97.9 F 84 16 113/77 98 Intake and Output 05/04/25 05/04/25 05/04/25 06:59 14:59 22:59 Intake Total 120 Output Total 400 500 Balance -400 -380 Intake: Oral 120 Output: Urine 400 500 Other: Voiding Method Indwelling Catheter # Bowel Movements 1 Results - Laboratory Findings CBC and BMP: 05/04/25 06:40 05/04/25 06:40 Abnormal Lab Findings: Abnormal Labs 04/30/25 04/30/25 04/30/25 15:37 15:37 15:37 RBC 3.33 L Hgb 9.2 L Hct 28.0 L MCH MCHC RDW MPV 9.3 L Lymphocytes # 0.36 L Eosinophils # 0.01 L Sodium 127 L Carbon Dioxide 18 L BUN Creatinine 0.48 L Glucose 117 H POC Glucose (mg/dL) Hemoglobin A1c Calcium 8.0 L AST 98 H ALT 79 H Alkaline Phosphatase 163 H Total Protein 5.3 L Albumin 2.8 L Albumin/Globulin Ratio HDL Cholesterol Urine Protein Trace H Urine Blood Trace H Ur Leukocyte Esterase Moderate H Urine RBC 6 H Urine WBC 27 H Urine Mucus Rare H 05/01/25 05/01/25 05/02/25 06:17 06:17 00:35 RBC 3.07 L Hgb 8.3 L Hct 26.2 L MCH MCHC 31.7 L RDW 18.0 H MPV 9.2 L Lymphocytes # 0.39 L Eosinophils # 0.01 L Sodium 127 L Carbon Dioxide 20 L BUN Creatinine 0.38 L Glucose POC Glucose (mg/dL) 119 H Hemoglobin A1c Calcium 7.9 L AST 65 H ALT 62 H Alkaline Phosphatase 154 H Total Protein 4.9 L Albumin 2.5 L Albumin/Globulin Ratio HDL Cholesterol Urine Protein Urine Blood Ur Leukocyte Esterase Urine RBC Urine WBC Urine Mucus 05/02/25 05/02/25 05/03/25 05:34 05:34 05:54 RBC 3.19 L Hgb 8.7 L Hct 27.8 L MCH MCHC 31.3 L RDW 18.2 H MPV 9.4 L Lymphocytes # 0.47 L Eosinophils # 0.02 L Sodium 131 L 133 L Carbon Dioxide 17.4 L 17.9 L BUN 7.4 L 8.2 L Creatinine 0.5 L 0.5 L Glucose POC Glucose (mg/dL) Hemoglobin A1c Calcium 7.7 L 7.9 L AST 59 H 87 H ALT 64 H 66 H Alkaline Phosphatase 164 H 165 H Total Protein 5.1 L 5.2 L Albumin 2.8 L 2.8 L Albumin/Globulin Ratio 1.22 L 1.17 L HDL Cholesterol Urine Protein Urine Blood Ur Leukocyte Esterase Urine RBC Urine WBC Urine Mucus 05/03/25 05/03/25 05/03/25 05:54 11:24 11:24 RBC 3.23 L Hgb 8.6 L Hct 28.0 L MCH 26.6 L MCHC 30.7 L RDW 18.1 H MPV 9.3 L Lymphocytes # 0.51 L Eosinophils # 0.01 L Sodium Carbon Dioxide BUN Creatinine Glucose POC Glucose (mg/dL) Hemoglobin A1c 6.4 H Calcium AST ALT Alkaline Phosphatase Total Protein Albumin Albumin/Globulin Ratio HDL Cholesterol 30.50 L Urine Protein Urine Blood Ur Leukocyte Esterase Urine RBC Urine WBC Urine Mucus 05/04/25 05/04/25 06:40 06:40 RBC 3.10 L Hgb 8.5 L Hct 27.1 L MCH MCHC 31.4 L RDW 17.9 H MPV 9.3 L Lymphocytes # 0.49 L Eosinophils # 0.03 L Sodium 134 L Carbon Dioxide 17.6 L BUN 6.1 L Creatinine 0.4 L Glucose POC Glucose (mg/dL) Hemoglobin A1c Calcium 7.8 L AST 82 H ALT 82 H Alkaline Phosphatase 155 H Total Protein 4.8 L Albumin 2.7 L Albumin/Globulin Ratio 1.29 L HDL Cholesterol Urine Protein Urine Blood Ur Leukocyte Esterase Urine RBC Urine WBC Urine Mucus Assessment and Plan Assessment: This is a 69-year-old gentleman with history of metastatic prostate cancer. Seems that he has generalized weakness altered mental status. He had hyponatremia that was improving as well as transaminitis. MRI of the brain was obtained and shows concerning for embolic stroke Plan: Will obtain the rest of the stroke workup such as 2D echo, lipid panel, carotid duplex. Patient is on aspirin 81 mg daily and is on Lipitor 40 mg nightly. Continue neurochecks Cardiac monitoring Consulted PT OT and [employer]. Patient is on Lovenox sufficient for DVT prophylaxis I personally reviewed the imaging and labs and examined the patient. I agree with the residents assessment and plan. Robert Ga M.D. Time with Patient: Greater than 30
[2025-05-03] MEDS: NYSTATIN 100,000 UNIT/ML SUSP 500,000 UNIT/5 ML CUP PO SCH (17:36)
[2025-05-03 20:47] LABS: Cholesterol 83.00 mg/dL (0.00-200.00); HDL Cholesterol 30.50 mg/dL (40.00-60.00); LDL Cholesterol,Calculated 38.2 mg/dL (0.0-131.0); Triglycerides 71.60 mg/dL (0.00-149.00); VLDL Calculation 14.32 mg/dL (5.00-40.00); Vitamin B12 777.0 pg/mL (200.0-944.0)
--- NOTE | 2025-05-04 08:22 | P.PN ---
Subjective Progress Note Date: 05/04/25 Surinder Campoverde, is a 69-year-old male who presented to [facility] emergency room for chief complaint of generalized weakness. Patient has a diagnosis of stage IV prostate cancer and was recently discharged on MS Contin for pain control and was started on Keytruda outpatient for cancer treatment per oncology services. Per patient's at bedside he has had increased weakness and falls along with decreased appetite. He was evaluated in the emergency room vital examination on presentation revealed temp 98.1, heart rate 83, respiratory rate 14, blood pressure 111/74 with pulse ox of 100% on room air Laboratory data reveals white blood cell 5.4, hemoglobin 8.3, platelets 302, sod ium 127, creatinine 0.38 bun 11 alkaline phosphatase 154, ALT 62 and AST 65. Testing in the emergency room revealed UA was positive for urinary tract infection. Chest x-ray completed some showing sclerotic bone metastasis redemonstrated throughout the thoracic spine and right clavicle calcified nodule left midlung zone. Hip and pelvis x-ray completed showing no acute fracture or dislocation multiple radiodense foci are seen in the bony pelvis and right femur which correspond to known blastic osseous metastatic disease. Patient was admitted to medical floor for further evaluation and treatment. Patient was started on IV fluid for hyponatremia of Rocephin for urinary tract infection. Oncology and nephrology services will be consulted Past medical history is significant for history of prostate cancer stage IV, coronary artery disease, sleep apnea, heart cath with stents and ex-smoker On review of systems patient is alert and oriented x 3. Patient denies chest pain or shortness of breath. Patient denies nausea vomiting or diarrhea. Patient denies any urinary burning or frequency On 05/01/2025 patient is alert and oriented x 3. MRI of the brain ordered per oncology services. Home medication of MS Contin resumed. Current vital signs temp 98.1, heart rate 83, respiratory rate 16, blood pressure 122/77 with pulse ox of 99% on room air patient remains on Rocephin for urinary tract infection. Patient denies chest pain or shortness of breath. Patient denies nausea vomiti ng or diarrhea. Patient denies any urinary burning or frequency On 05/02/2025 patient is alert and oriented x 3. Patient denies chest pain or shortness of breath. Patient denies nausea vomiting or diarrhea. Patient denies any urinary burning or frequency MRI of the brain has been ordered. Oncology and nephrology services are following On 05/03/2025 patient is alert and oriented x 3. Patient's mentation has significantly improved. Patient denies chest pain or shortness of breath. Patient denies nausea vomiting or diarrhea. Patient denies any urinary burning or frequency. Sodium 133. MRI of the brain completed showing few scattered foci of the of subacute ischemia concerns for possible emboli big phenomenon. 2D echo and carotid Doppler has been ordered neurology services consulted awaiting further input On 05/04/2025 patient is alert and oriented x 3. Patient denies chest pain or shortness of breath. Patient denies nausea vomiting or diarrhea. Patient denies any urinary burning or frequency. Current vital signs temp 97.5, heart rate 83, respiratory rate 20, blood pressure 143/76 with pulse ox of 97% on room air. 2D echo has been ordered ordered awaiting further recommendations from neurology services at this time Objective - Vital Signs Vital signs: Vital Signs Temp 97.5 F L 05/04/25 08:00 Pulse 83 05/04/25 08:00 Resp 19 05/04/25 08:00 BP 143/76 05/04/25 08:00 Pulse Ox 97 05/04/25 08:00 FiO2 Intake & Output 05/03/25 05/04/25 05/04/25 18:59 06:59 18:59 Intake Total 1840 Output Total 700 400 Balance 1140 -400 Intake: Oral 1840 Output: Urine 700 400 Other: Voiding Method Indwelling Catheter Indwelling Catheter # Bowel Movements 2 1 - Exam In general patient is alert and oriented Ã-3 in no distress HEENT head normocephalic and atraumatic Neck is supple no JVD no goiter no lymphadenopathy no carotid bruit Chest examination is clear to auscultation no crackles no wheezing Cardiac exam reveals regular heart sounds S1 and S2 no gallops no murmurs Abdomen is soft nontender no organomegaly with normal bowel sounds Extremity exam reveals no edema no cyanosis or clubbing Neurological examination reveals no gross focal deficits - Labs CBC & Chem 7: 05/03/25 05:54 05/03/25 05:54 Labs: Abnormal Lab Results - Last 24 Hours (Table) 05/03/25 05/03/25 Range/Units 11:24 11:24 Hemoglobin A1c 6.4 H (<=6.0) % HDL Cholesterol 30.50 L (40.00-60.00) mg/dL Microbiology - Last 24 Hours (Table) 04/30/25 19:14 Blood Culture - Preliminary Blood Assessment and Plan Assessment: Generalized weakness Hyponatremia Urinary tract infection Prostate cancer stage IV Decreased appetite History of sleep apnea History of TURP History of heart cath with previous heart stents DVT prophylaxis Lovenox. GI prophylaxis Protonix Oncology and nephrology services consulted Patient started on IV Rocephin for urinary tract infection urine culture ordered Normal saline at 75 MRI of the brain ordered per oncology PT OT services consulted
[2025-05-04 09:38] LABS: Basophils # (A) 0.02 X 10*3/uL (0.00-0.10); Basophils % (A) 0.4 %; Eosinophils # (A) 0.03 X 10*3/uL (0.04-0.35); Eosinophils % (A) 0.7 %; HCT 27.1 % (39.6-50.0); HGB 8.5 g/dL (13.0-17.0); Immature Grans, Automated 0.90 %; Lymphocytes # (A) 0.49 X 10*3/uL (0.90-5.00); Lymphocytes % (A) 10.8 %; MCH 27.4 pg (27.0-32.0); MCHC 31.4 g/dL (32.0-37.0); MCV 87.4 FL (80.0-97.0); Monocytes # (A) 0.36 X 10*3/uL (0.20-1.00); Monocytes % (A) 7.9 %; NRBC Per 100 WBC 0 X 10*3/uL (0.00-0.01); Neutrophils # (A) 3.59 X 10*3/uL (1.80-7.70); Neutrophils % (A) 79.3 %; Platelet Count 301 X 10*3/uL (140-440); RBC 3.10 X 10*6/uL (4.40-5.60); RDW 17.9 % (11.5-14.5); WBC 4.53 X 10*3/uL (4.50-10.00)
[2025-05-04 09:39] LABS: ALT 82 U/L (10-49); AST 82 U/L (14-35); Albumin 2.7 g/dL (3.8-4.9); Albumin/Globulin Ratio 1.29 Ratio (1.60-3.17); Alkaline Phosphatase 155 U/L (41-126); Anion Gap 10.40 mmol/L (4.00-12.00); BUN/Creat Ratio 15.25 Ratio (12.00-20.00); Blood Urea Nitrogen 6.1 mg/dL (9.0-27.0); Calcium 7.8 mg/dL (8.7-10.3); Carbon Dioxide 17.6 mmol/L (21.6-31.8); Chloride 106 mmol/L (96-109); Globulin 2.1 g/dL (1.6-3.3); Glucose 93 mg/dL (70-110); Potassium 4.2 mmol/L (3.5-5.5); Sodium 134 mmol/L (135-145); Total Protein 4.8 g/dL (6.2-8.2)
--- NOTE | 2025-05-04 10:07 | P.PN ---
Subjective Patient is seen in follow-up for hyponatremia. Sodium level better. Has Garcia catheter for urinary retention. Nonoliguric. Oral intake good. No active complaints. Vital signs are stable. General: No acute distress. HEENT: Head exam is unremarkable. LUNGS: No audible rhonchi or wheezes. HEART: Rate and Rhythm are regular. ABDOMEN: Nontender. EXTREMITITES: No edema. Objective - Vital Signs Vital signs: Vital Signs Temp 97.5 F L 05/04/25 08:00 Pulse 83 05/04/25 08:00 Resp 19 05/04/25 08:00 BP 143/76 05/04/25 08:00 Pulse Ox 97 05/04/25 08:00 FiO2 Intake & Output 05/03/25 05/04/25 05/04/25 18:59 06:59 18:59 Intake Total 1840 Output Total 700 400 Balance 1140 -400 Intake: Oral 1840 Output: Urine 700 400 Other: Voiding Method Indwelling Catheter Indwelling Catheter Indwelling Catheter # Bowel Movements 2 1 - Labs CBC & Chem 7: 05/04/25 06:40 05/04/25 06:40 Labs: Abnormal Lab Results - Last 24 Hours (Table) 05/03/25 05/03/25 05/04/25 Range/Units 11:24 11:24 06:40 RBC 3.10 L (4.40-5.60) X 10*6/uL Hgb 8.5 L (13.0-17.0) g/dL Hct 27.1 L (39.6-50.0) % MCHC 31.4 L (32.0-37.0) g/dL RDW 17.9 H (11.5-14.5) % MPV 9.3 L (9.5-12.2) FL Lymphocytes # 0.49 L (0.90-5.00) X 10*3/uL Eosinophils # 0.03 L (0.04-0.35) X 10*3/uL Sodium (135-145) mmol/L Carbon Dioxide (21.6-31.8) mmol/L BUN (9.0-27.0) mg/dL Creatinine (0.6-1.5) mg/dL Hemoglobin A1c 6.4 H (<=6.0) % Calcium (8.7-10.3) mg/dL AST (14-35) U/L ALT (10-49) U/L Alkaline Phosphatase (41-126) U/L Total Protein (6.2-8.2) g/dL Albumin (3.8-4.9) g/dL Albumin/Globulin Ratio (1.60-3.17) Ratio HDL Cholesterol 30.50 L (40.00-60.00) mg/dL 05/04/25 Range/Units 06:40 RBC (4.40-5.60) X 10*6/uL Hgb (13.0-17.0) g/dL Hct (39.6-50.0) % MCHC (32.0-37.0) g/dL RDW (11.5-14.5) % MPV (9.5-12.2) FL Lymphocytes # (0.90-5.00) X 10*3/uL Eosinophils # (0.04-0.35) X 10*3/uL Sodium 134 L (135-145) mmol/L Carbon Dioxide 17.6 L (21.6-31.8) mmol/L BUN 6.1 L (9.0-27.0) mg/dL Creatinine 0.4 L (0.6-1.5) mg/dL Hemoglobin A1c (<=6.0) % Calcium 7.8 L (8.7-10.3) mg/dL AST 82 H (14-35) U/L ALT 82 H (10-49) U/L Alkaline Phosphatase 155 H (41-126) U/L Total Protein 4.8 L (6.2-8.2) g/dL Albumin 2.7 L (3.8-4.9) g/dL Albumin/Globulin Ratio 1.29 L (1.60-3.17) Ratio HDL Cholesterol (40.00-60.00) mg/dL Microbiology - Last 24 Hours (Table) 04/30/25 19:14 Blood Culture - Preliminary Blood Assessment and Plan Plan: Assessment: 1. Hyponatremia secondary to urinary retention. Sodium level better at 134. 2. UTI on antibiotics. 3. Benign hypertension. Currently controlled. 4. History of coronary artery disease. 5. Stage IV prostate cancer. CT scan dated April 21, 2025 showed no evidence of hydronephrosis. 6. Urinary retention. Has Garcia catheter. On Flomax. Urology following. Plan: Garcia catheter per urology. Maintain IV fluids. Voiding trial prior to discharge.
[2025-05-04] MEDS: SODIUM BICARBONATE TAB 650 MG TAB PO SCH (11:15)
--- NOTE | 2025-05-04 12:44 | CA ---
Transthoracic Echo Report Name: Surinder Campoverde Age: 69 Gender: M : 1955 Exam Date: 05/04/2025 10:46 Exam Location: [facility] Ht (in): 76 Wt (lb): 220 Ordering Physician: Jeff Reina MD Attending/Referring Phys: Barrel Tester And Drainer Stephanie Pope RDCS Procedure CPT: Indications: altered mental status, CVA Cardiac Hx: Technical Quality: Fair Contrast 1: Total Dose (mL): Contrast 2: Total Dose (mL): MEASUREMENTS (Male / Female) Normal Values 2D ECHO LV Diastolic Diameter PLAX 4.1 cm 4.2 - 5.9 / 3.9 - 5.3 cm LV Systolic Diameter PLAX 2.8 cm IVS Diastolic Thickness 1.4 cm 0.6 - 1.0 / 0.6 - 0.9 cm LVPW Diastolic Thickness 1.4 cm 0.6 - 1.0 / 0.6 - 0.9 cm LV Relative Wall Thickness 0.7 RV Internal Dim ED PLAX 3.5 cm LVOT Diameter 2.4 cm LA Systolic Diameter LX 3.7 cm 3.0 - 4.0 / 2.7 - 3.8 cm LV Diastolic Volume MOD BP 57.5 cm??? 67 - 155 / 56 - 104 cm??? LV Systolic Volume MOD BP 19.8 cm??? 22 - 58 / 19 - 49 cm??? LV Ejection Fraction MOD BP 65.6 % >= 55 % LV Cardiac Index MOD BP 1299.2 cm???/min???m??? LV Diastolic Volume MOD 4C 64.2 cm??? LV Systolic Volume MOD 4C 18.7 cm??? LV Ejection Fraction MOD 4C 70.9 % LV Cardiac Index MOD 4C 1566.3 cm???/min???m??? LV Diastolic Length 4C 6.9 cm LV Systolic Length 4C 5.3 cm LV Diastolic Volume MOD 2C 49.1 cm??? LV Systolic Volume MOD 2C 20.1 cm??? LV Ejection Fraction MOD 2C 59.1 % LV Cardiac Index MOD 2C 999.3 cm???/min???m??? LV Diastolic Length 2C 6.5 cm LV Systolic Length 2C 5.6 cm LA Volume 56.1 cm??? 18 - 58 / 22 - 52 cm??? LA Volume Index 24.2 cm???/m??? 16 - 28 cm???/m??? M-MODE Aortic Root Diameter MM 3.7 cm LA Systolic Diameter MM 1.9 cm LA Ao Ratio MM 0.5 AV Cusp Separation MM 2.2 cm DOPPLER AV Peak Velocity 152.0 cm/s AV Peak Gradient 9.2 mmHg LVOT Peak Velocity 130.9 cm/s LVOT Peak Gradient 6.9 mmHg LVOT Velocity Time Integral 22.6 cm LVOT Stroke Volume 100.7 cm??? LVOT Stroke Volume Index 43.7 ml/m??? LVOT Cardiac Index 3468.3 cm???/min???m??? AV Area Cont Eq pk 3.8 cm??? MV Area PHT 2.0 cm??? Mitral E Point Velocity 64.1 cm/s Mitral A Point Velocity 84.2 cm/s Mitral E to A Ratio 0.8 MV Deceleration Time 376.2 ms TR Peak Velocity 291.5 cm/s TR Peak Gradient 35.6 mmHg FINDINGS Left Ventricle Left ventricular ejection fraction is estimated at 60-65 %. Moderately increased septal wall thickness. Normal left ventricular systolic function with no obvious regional wall motion abnormalities. Left ventricular cavity size normal. Right Ventricle Mild right ventricular dilatation. Mild pulmonary hypertension. Right Atrium Mild right atrial dilatation. Left Atrium Mildly increased left atrial area. Mitral Valve Mitral valve thickened. Trace to mild mitral regurgitation. Mitral annular calcification. No mitral stenosis. Aortic Valve Trileaflet aortic valve. No aortic stenosis. No aortic regurgitation. Tricuspid Valve Structurally normal tricuspid valve. Moderate tricuspid regurgitation. No tricuspid stenosis. Pulmonic Valve Structurally normal pulmonic valve. Mild pulmonic regurgitation. No pulmonic stenosis. Pericardium No pericardial or pleural effusion. Aorta Mild aortic dilatation at the level of the sinuses of valsalva (root) 4.0cm. CONCLUSIONS Left ventricular ejection fraction 60 to 65% RVSP 35 Moderate tricuspid regurgitation No pericardial effusion Previewed by: Dr. Isaiah Stevens DO (Electronically Signed) Final Date: 04 May 2025 12:43
--- NOTE | 2025-05-04 13:30 | P.PN ---
Subjective Progress Note Date: 05/04/25 Principal diagnosis: Patient seen and examined at bedside today. He reports not being able to remember the date. He still complains of pain in right leg and fatigue. Vital signs are within normal limits Hemoglobin 8.5, sodium 134, A1c 6.4, triglycerides 71.6, cholesterol 83, LDL 38.2, VLDL 14.32, HDL 30.5, vitamin B12 777, folate 5.30, TSH 0.485, ammonia < 9 Echocardigram shows EF 60 to 65%, RVSP 35, moderate tricuspid regurgitation Objective - Vital Signs Vital signs: Vital Signs Temp 98 F 05/04/25 12:53 Pulse 71 05/04/25 12:53 Resp 19 05/04/25 12:53 BP 102/64 05/04/25 12:53 Pulse Ox 97 05/04/25 12:53 FiO2 Intake & Output 05/03/25 05/04/25 05/04/25 18:59 06:59 18:59 Intake Total 1840 120 Output Total 700 400 500 Balance 1140 -400 -380 Intake: Oral 1840 120 Output: Urine 700 400 500 Other: Voiding Method Indwelling Catheter Indwelling Catheter Indwelling Catheter # Bowel Movements 2 1 - Exam General: mild distress, lying in bed Neuro: Patient is awake alert and oriented x 3. Visual lu are full to confrontation. Extraocular movements intact no nystagmus no facial weakness. Face is symmetric On muscle strength testing, there is 4/5 in b/l UE and left LE, movement on right LE limited due to pain at the hip Deep tendon reflexes are symmetric 1 at the biceps, brachioradialis, knees and plantars indeterminate Sensation is normal to touch throughout Cerebellar function showed no ataxia for [id number] testing - Labs CBC & Chem 7: 05/04/25 06:40 05/04/25 06:40 Labs: Abnormal Lab Results - Last 24 Hours (Table) 05/03/25 05/03/25 05/04/25 Range/Units 11:24 11:24 06:40 RBC 3.10 L (4.40-5.60) X 10*6/uL Hgb 8.5 L (13.0-17.0) g/dL Hct 27.1 L (39.6-50.0) % MCHC 31.4 L (32.0-37.0) g/dL RDW 17.9 H (11.5-14.5) % MPV 9.3 L (9.5-12.2) FL Lymphocytes # 0.49 L (0.90-5.00) X 10*3/uL Eosinophils # 0.03 L (0.04-0.35) X 10*3/uL Sodium (135-145) mmol/L Carbon Dioxide (21.6-31.8) mmol/L BUN (9.0-27.0) mg/dL Creatinine (0.6-1.5) mg/dL Hemoglobin A1c 6.4 H (<=6.0) % Calcium (8.7-10.3) mg/dL AST (14-35) U/L ALT (10-49) U/L Alkaline Phosphatase (41-126) U/L Total Protein (6.2-8.2) g/dL Albumin (3.8-4.9) g/dL Albumin/Globulin Ratio (1.60-3.17) Ratio HDL Cholesterol 30.50 L (40.00-60.00) mg/dL /02/23 Range/Units 06:40 RBC (4.40-5.60) X 10*6/uL Hgb (13.0-17.0) g/dL Hct (39.6-50.0) % MCHC (32.0-37.0) g/dL RDW (11.5-14.5) % MPV (9.5-12.2) FL Lymphocytes # (0.90-5.00) X 10*3/uL Eosinophils # (0.04-0.35) X 10*3/uL Sodium 134 L (135-145) mmol/L Carbon Dioxide 17.6 L (21.6-31.8) mmol/L BUN 6.1 L (9.0-27.0) mg/dL Creatinine 0.4 L (0.6-1.5) mg/dL Hemoglobin A1c (<=6.0) % Calcium 7.8 L (8.7-10.3) mg/dL AST 82 H (14-35) U/L ALT 82 H (10-49) U/L Alkaline Phosphatase 155 H (41-126) U/L Total Protein 4.8 L (6.2-8.2) g/dL Albumin 2.7 L (3.8-4.9) g/dL Albumin/Globulin Ratio 1.29 L (1.60-3.17) Ratio HDL Cholesterol (40.00-60.00) mg/dL Microbiology - Last 24 Hours (Table) 04/30/25 19:14 Blood Culture - Preliminary Blood Assessment and Plan Assessment: Altered mental status, likely secondary to CVA and hospital induced delirium--currently improved Generalized weakness Metastatic prostate cancer UTI Urinary retention Hyponatremia, improving Transaminitis hematuria, Blood loss anemia Plan: Brain MRI shows few scattered foci of acute/subacute ischemia, distribution suggest possible embolic phenomenon, no abnormal contrast-enhancement to suggest intracranial metastasis, few scattered T1 hypointense calvarial lesions highly suspicious for osseous metastasis, nonspecific mild white matter changes likely related to small vessel ischemic disease Carotid doppler ordered, it showed no evidence for hemodynamically significant stenosis Echocardigram shows EF 60 to 65%, RVSP 35, moderate tricuspid regurgitation A1c 6.4, triglycerides 71.6, cholesterol 83, LDL 38.2, VLDL 14.32, HDL 30.5, vitamin B12 777, folate 5.30, TSH 0.485, ammonia < 9 PT, OT and speech therapy consulted Continue aspirin 80 mg p.o. at bedtime, atorvastatin 40 mg p.o. at bedtime Recommend MAYITO and 30 day event monitor DVT prophylaxis: Lovenox 40 mg SQ daily Currently on Rocephin Nephrology, Urology and Oncology on board Dictation was produced using Abigail Stewart dictation software. please excuse any grammatical, word or spelling errors. Jeff Reina MD PGY-2 IM ADDENDUM: I personally examined the patient and reviewed imaging and labs. I agree with the residents assessment and plan Dr. Busby will resume neurology service tomorrow A.M. and then Dr. Peraza will resume this Wednesday A.M. Time with Patient: Less than 30
[2025-05-04] MEDS ORDERED: LACTULOSE 20 GM/30 ML CUP PO PRN ×2 (14:44→14:45)
[2025-05-05 09:23] LABS: Basophils # (A) 0.03 X 10*3/uL (0.00-0.10); Basophils % (A) 0.7 %; Eosinophils # (A) 0.02 X 10*3/uL (0.04-0.35); Eosinophils % (A) 0.5 %; HCT 28.9 % (39.6-50.0); HGB 9.0 g/dL (13.0-17.0); Immature Grans, Automated 0.90 %; Lymphocytes # (A) 0.47 X 10*3/uL (0.90-5.00); Lymphocytes % (A) 11.1 %; MCH 27.2 pg (27.0-32.0); MCHC 31.1 g/dL (32.0-37.0); MCV 87.3 FL (80.0-97.0); Monocytes # (A) 0.49 X 10*3/uL (0.20-1.00); Monocytes % (A) 11.6 %; NRBC Per 100 WBC 0 X 10*3/uL (0.00-0.01); Neutrophils # (A) 3.18 X 10*3/uL (1.80-7.70); Neutrophils % (A) 75.2 %; Platelet Count 334 X 10*3/uL (140-440); RBC 3.31 X 10*6/uL (4.40-5.60); RDW 18.0 % (11.5-14.5); WBC 4.23 X 10*3/uL (4.50-10.00)
--- NOTE | 2025-05-05 10:02 | P.PN ---
Subjective Patient is seen in follow-up for hyponatremia. Sodium level better at 134 yesterday. Has Garcia catheter for urinary retention. Nonoliguric. Oral intake good. No active complaints. Vital signs are stable. General: No acute distress. HEENT: Head exam is unremarkable. LUNGS: No audible rhonchi or wheezes. HEART: Rate and Rhythm are regular. ABDOMEN: Nontender. EXTREMITITES: No edema. Objective - Vital Signs Vital signs: Vital Signs Temp 97.8 F 05/05/25 07:24 Pulse 103 H 05/05/25 07:24 Resp 18 05/05/25 07:24 BP 126/77 05/05/25 07:24 Pulse Ox 98 05/05/25 07:24 FiO2 Intake & Output 05/04/25 05/05/25 05/05/25 18:59 06:59 18:59 Intake Total 120 240 120 Output Total 1500 1500 200 Balance -1380 -1260 -80 Intake: Oral 120 240 120 Output: Urine 1500 1500 200 Other: Voiding Method Indwelling Catheter Indwelling Catheter Indwelling Catheter - Labs CBC & Chem 7: 05/05/25 06:26 05/04/25 06:40 Labs: Abnormal Lab Results - Last 24 Hours (Table) 05/05/25 Range/Units 06:26 WBC 4.23 L (4.50-10.00) X 10*3/uL RBC 3.31 L (4.40-5.60) X 10*6/uL Hgb 9.0 L (13.0-17.0) g/dL Hct 28.9 L (39.6-50.0) % MCHC 31.1 L (32.0-37.0) g/dL RDW 18.0 H (11.5-14.5) % MPV 9.4 L (9.5-12.2) FL Lymphocytes # 0.47 L (0.90-5.00) X 10*3/uL Eosinophils # 0.02 L (0.04-0.35) X 10*3/uL Assessment and Plan Plan: Assessment: 1. Hyponatremia secondary to urinary retention. Sodium level better at 134 yesterday. 2. UTI on antibiotics. 3. Benign hypertension. Currently controlled. 4. History of coronary artery disease. 5. Stage IV prostate cancer. CT scan dated April 21, 2025 showed no evidence of hydronephrosis. 6. Urinary retention. Has Garcia catheter. On Flomax. Urology following. Plan: Garcia catheter per urology. Voiding trial prior to discharge. Hep-Lock IV fluids.
[2025-05-05 10:13] LABS: ALT 71 U/L (10-49); AST 72 U/L (14-35); Albumin 2.9 g/dL (3.8-4.9); Albumin/Globulin Ratio 1.16 Ratio (1.60-3.17); Alkaline Phosphatase 153 U/L (41-126); Anion Gap 12.60 mmol/L (4.00-12.00); BUN/Creat Ratio 12.80 Ratio (12.00-20.00); Blood Urea Nitrogen 6.4 mg/dL (9.0-27.0); Calcium 8.1 mg/dL (8.7-10.3); Carbon Dioxide 20.4 mmol/L (21.6-31.8); Chloride 101 mmol/L (96-109); Globulin 2.5 g/dL (1.6-3.3); Glucose 87 mg/dL (70-110); Potassium 4.3 mmol/L (3.5-5.5); Sodium 134 mmol/L (135-145); Total Protein 5.4 g/dL (6.2-8.2)
[2025-05-05 10:27] LABS: Iron 30.0 UG/DL (65-175); Total Iron Binding Capacity 136.0 UG/DL (228-460)
--- NOTE | 2025-05-05 10:30 | P.PN ---
Subjective Progress Note Date: 05/05/25 Surinder Campoverde, is a 69-year-old male who presented to [facility] emergency room for chief complaint of generalized weakness. Patient has a diagnosis of stage IV prostate cancer and was recently discharged on MS Contin for pain control and was started on Keytruda outpatient for cancer treatment per oncology services. Per patient's at bedside he has had increased weakness and falls along with decreased appetite. He was evaluated in the emergency room vital examination on presentation revealed temp 98.1, heart rate 83, respiratory rate 14, blood pressure 111/74 with pulse ox of 100% on room air Laboratory data reveals white blood cell 5.4, hemoglobin 8.3, platelets 302, sod ium 127, creatinine 0.38 bun 11 alkaline phosphatase 154, ALT 62 and AST 65. Testing in the emergency room revealed UA was positive for urinary tract infection. Chest x-ray completed some showing sclerotic bone metastasis redemonstrated throughout the thoracic spine and right clavicle calcified nodule left midlung zone. Hip and pelvis x-ray completed showing no acute fracture or dislocation multiple radiodense foci are seen in the bony pelvis and right femur which correspond to known blastic osseous metastatic disease. Patient was admitted to medical floor for further evaluation and treatment. Patient was started on IV fluid for hyponatremia of Rocephin for urinary tract infection. Oncology and nephrology services will be consulted Past medical history is significant for history of prostate cancer stage IV, coronary artery disease, sleep apnea, heart cath with stents and ex-smoker On review of systems patient is alert and oriented x 3. Patient denies chest pain or shortness of breath. Patient denies nausea vomiting or diarrhea. Patient denies any urinary burning or frequency On 05/01/2025 patient is alert and oriented x 3. MRI of the brain ordered per oncology services. Home medication of MS Contin resumed. Current vital signs temp 98.1, heart rate 83, respiratory rate 16, blood pressure 122/77 with pulse ox of 99% on room air patient remains on Rocephin for urinary tract infection. Patient denies chest pain or shortness of breath. Patient denies nausea vomiti ng or diarrhea. Patient denies any urinary burning or frequency On 05/02/2025 patient is alert and oriented x 3. Patient denies chest pain or shortness of breath. Patient denies nausea vomiting or diarrhea. Patient denies any urinary burning or frequency MRI of the brain has been ordered. Oncology and nephrology services are following On 05/03/2025 patient is alert and oriented x 3. Patient's mentation has significantly improved. Patient denies chest pain or shortness of breath. Patient denies nausea vomiting or diarrhea. Patient denies any urinary burning or frequency. Sodium 133. MRI of the brain completed showing few scattered foci of the of subacute ischemia concerns for possible emboli big phenomenon. 2D echo and carotid Doppler has been ordered neurology services consulted awaiting further input On 05/04/2025 patient is alert and oriented x 3. Patient denies chest pain or shortness of breath. Patient denies nausea vomiting or diarrhea. Patient denies any urinary burning or frequency. Current vital signs temp 97.5, heart rate 83, respiratory rate 20, blood pressure 143/76 with pulse ox of 97% on room air. 2D echo has been ordered ordered awaiting further recommendations from neurology services at this time On 05/05/2025 patient is alert and oriented x 3. Patient having increased pain MS Contin to be given per schedule. Oncology services have been consulted to address further pain control. Awaiting input from cardiology and possible MAYITO. 2D echo and carotid Doppler were completed. Patient denies chest pain or shortness of breath. Patient denies nausea vomiting or diarrhea. Patient denies any urinary burning or frequency Objective - Vital Signs Vital signs: Vital Signs Temp 97.8 F 05/05/25 07:24 Pulse 103 H 05/05/25 07:24 Resp 18 05/05/25 07:24 BP 126/77 05/05/25 07:24 Pulse Ox 98 05/05/25 07:24 FiO2 Intake & Output 05/04/25 05/05/25 05/05/25 18:59 06:59 18:59 Intake Total 120 240 120 Output Total 1500 1500 200 Balance -1380 -1260 -80 Intake: Oral 120 240 120 Output: Urine 1500 1500 200 Other: Voiding Method Indwelling Catheter Indwelling Catheter Indwelling Catheter - Exam In general patient is alert and oriented Ã-3 in no distress HEENT head normocephalic and atraumatic Neck is supple no JVD no goiter no lymphadenopathy no carotid bruit Chest examination is clear to auscultation no crackles no wheezing Cardiac exam reveals regular heart sounds S1 and S2 no gallops no murmurs Abdomen is soft nontender no organomegaly with normal bowel sounds Extremity exam reveals no edema no cyanosis or clubbing Neurological examination reveals no gross focal deficits - Labs CBC & Chem 7: 05/05/25 06:26 05/05/25 06:26 Labs: Abnormal Lab Results - Last 24 Hours (Table) 05/05/25 05/05/25 Range/Units 06:26 06:26 WBC 4.23 L (4.50-10.00) X 10*3/uL RBC 3.31 L (4.40-5.60) X 10*6/uL Hgb 9.0 L (13.0-17.0) g/dL Hct 28.9 L (39.6-50.0) % MCHC 31.1 L (32.0-37.0) g/dL RDW 18.0 H (11.5-14.5) % MPV 9.4 L (9.5-12.2) FL Lymphocytes # 0.47 L (0.90-5.00) X 10*3/uL Eosinophils # 0.02 L (0.04-0.35) X 10*3/uL Sodium 134 L (135-145) mmol/L Carbon Dioxide 20.4 L (21.6-31.8) mmol/L Anion Gap 12.60 H (4.00-12.00) mmol/L BUN 6.4 L (9.0-27.0) mg/dL Creatinine 0.5 L (0.6-1.5) mg/dL Calcium 8.1 L (8.7-10.3) mg/dL AST 72 H (14-35) U/L ALT 71 H (10-49) U/L Alkaline Phosphatase 153 H (41-126) U/L Total Protein 5.4 L (6.2-8.2) g/dL Albumin 2.9 L (3.8-4.9) g/dL Albumin/Globulin Ratio 1.16 L (1.60-3.17) Ratio Assessment and Plan Assessment: Generalized weakness Hyponatremia resolved Urinary tract infection Abnormal MRI concerns for embolic phenomenon and/subacute ischemia Prostate cancer stage IV Decreased appetite History of sleep apnea History of TURP History of heart cath with previous heart stents DVT prophylaxis Lovenox. GI prophylaxis Protonix Oncology and nephrology services consulted Patient started on IV Rocephin for urinary tract infection urine culture ordered Normal saline at 75 PT OT services consulted
[2025-05-05 11:58] LABS: Ferritin 2991.0 ng/mL (22.0-322.0)
--- NOTE | 2025-05-05 14:58 | P.CRDCN ---
History of Present Illness Consult date: 05/05/25 Consult reason: other Chief complaint: confusion History of present illness: History of present illness: Patient is a pleasant 69-year-old male with significant past medical history of CAD status post PCI in 2013, MELANIE, metastatic prostate cancer. He does follow with Dr. Mohamud in the office. Cardiology was consulted given acute/subacute ischemic infarct seen on brain MRI 05/01/2025 concerning for possible embolic ca use. He has been having more confusion and difficulty concentrating. He denies any chest pain or pressure. No shortness of breath. No dizziness or syncope. Echocardiogram 05/25 with a EF 60-65%, moderate tricuspid regurgitation, RVSP 35. He has been evaluated by neurology who recommends MAYITO and 30-day event monitor. REVIEW OF SYSTEMS: No fever or chills. No cough or expectoration. No diaphor esis. Patient denies headache, dizziness, blurred vision, double vision. Patient denies any stomach discomfort. No nausea, vomiting. No hematochezia. No hematemesis. Denies any black stools or blood in his stools. Denies dysuria or hematuria. No muscle weakness or numbness. No chest pain or pressure. Reports some confusion. PHYSICAL EXAMINATION: This is a 69-year-old male in no apparent distress at the time of my examination. HEENT: Head is atraumatic, normocephalic. Pupils are equal, round. Sclerae anicteric. Conjunctivae are clear. Mucous membranes of the mouth are moist. Neck is supple. There is no jugular venous distention. No carotid bruit is heard. CHEST EXAMINATION: Lungs are clear to auscultation. No chest wall tenderness is noted on palpation or with deep breathing. HEART EXAMINATION: Heart regular rate and rhythm. S1, S2 heard. No murmurs, gallops or rub. ABDOMEN: Soft, nontender. Bowel sounds are heard. EXTREMITIES: 2+ peripheral pulses with no evidence of peripheral edema and no calf tenderness noted. NEUROLOGIC EXAMINATION: Patient is awake, alert and oriented x3, some confusion. IMPRESSION AND PLAN: CAD status post PCI 2013 MELANIE Metastatic prostate cancer Acute/subacute ischemic CVA PLAN: Echo with preserved EF. We will plan for MAYITO on Wednesday with Dr. Mohamud to evaluate for embolic cause of stroke. Agree with 30-day outpatient event monitor. Further recommendations pending clinical course. I am dictating on behalf of Dr. Isaiah Stevens's history/physical and assessment/plan. Past Medical History Past Medical History: Coronary Artery Disease (CAD), Cancer, Sleep Apnea/CPAP/BIPAP Additional Past Medical History / Comment(s): Prostate CA-2019 received chemo, current radiation ,uses cpap,tx with prednisone Dec 2021, current infusions for prostate CA History of Any Multi-Drug Resistant Organisms: None Reported Past Surgical History: Heart Catheterization With Stent, Hernia Repair Additional Past Surgical History / Comment(s): Cardiac Stent x3. TURP May 2024 Past Anesthesia/Blood Transfusion Reactions: No Reported Reaction Date of Last Stent Placement:: Past Psychological History: No Psychological Hx Reported Smoking Status: Former smoker Past Alcohol Use History: None Reported Additional Past Alcohol Use History / Comment(s): quit smoking 2020,started smoking at age 21,1 ppd Past Drug Use History: None Reported - Past Family History Father Additional Family Medical History / Comment(s): Heart issues Mother Family Medical History: No Reported History Brother(s) Family Medical History: Cancer Additional Family Medical History / Comment(s): pancreatic Medications and Allergies Home Medications Medication Instructions Recorded Confirmed Type Atorvastatin [Lipitor] 40 mg PO PC-SUPPER 07/23/19 04/30/25 History Cholecalciferol [Vitamin D3 (125 125 mcg PO HS 05/10/24 04/30/25 History Mcg = 5000 Iu)] Darolutamide [Nubeqa] 600 mg PO PC-BID 05/10/24 04/30/25 History Loratadine [Claritin] 10 mg PO HS 05/10/24 04/30/25 History predniSONE 10 mg PO W/BRKFST 05/10/24 04/30/25 History Ferrous Gluconate 324 mg PO PC-SUPPER 02/28/25 04/30/25 History Metoprolol Succinate [Metoprolol 25 mg PO W/BRKFST 02/28/25 04/30/25 History Succinate ER] Ondansetron [Zofran] 4 mg PO Q4H PRN 02/28/25 04/30/25 History Pantoprazole Sodium [Protonix] 20 mg PO AC-BRKFST 02/28/25 04/30/25 History ALPRAZolam [Xanax] 0.25 mg PO Q6H PRN 04/02/25 04/30/25 History Aspirin 81 mg PO HS 04/02/25 04/30/25 History Magnesium (Unknown) 150mg 150 mg PO AC-BRKFST 04/02/25 04/30/25 History Tamsulosin [Flomax] 0.4 mg PO W/BRKFST 04/02/25 04/30/25 History lisinopriL [Zestril] 2.5 mg PO PC-SUPPER 04/02/25 04/30/25 History Morphine Sulfate ER [Ms Contin] 15 mg PO Q12HR tab 04/10/25 04/30/25 Rx Calcium 500mg 500 mg PO HS 04/30/25 04/30/25 History Escitalopram [Lexapro] 5 mg PO AC-BRKFST 04/30/25 05/01/25 History HYDROcodone/APAP 10-325MG [[place] 1 tab PO Q4HR 04/30/25 04/30/25 History 10-325] Nitroglycerin Sl Tabs [Nitrostat] 0.4 mg SL Q5M PRN 04/30/25 04/30/25 History Pembrolizumab [Keytruda] 200 mg IV Q21D 04/30/25 05/01/25 History Sennosides-Docusate Sodium 2 tab PO BID 04/30/25 04/30/25 History [Senokot-S] Allergies Allergy/AdvReac Type Severity Reaction Status Date / Time No Known Allergies Allergy Verified 04/30/25 15:21 Physical Exam Vitals: Vital Signs Temp Pulse Resp BP BP Pulse Ox 05/05/25 12:24 97.7 F 88 18 103/71 100 05/05/25 07:24 97.8 F 103 H 18 126/77 98 05/05/25 01:14 98.2 F 86 17 131/79 97 05/04/25 18:57 97.6 F 81 17 117/73 99 Intake and Output 05/04/25 05/05/25 05/05/25 22:59 06:59 14:59 Intake Total 240 120 Output Total 1000 1500 200 Balance -760 -1500 -80 Intake: Oral 240 120 Output: Urine 1000 1500 200 Other: Voiding Method Indwelling Catheter Indwelling Catheter Results 05/05/25 06:26 05/05/25 06:26 Cardiac Enzymes 05/05/25 Range/Units 06:26 AST 72 H (14-35) U/L CBC 05/05/25 Range/Units 06:26 WBC 4.23 L (4.50-10.00) X 10*3/uL RBC 3.31 L (4.40-5.60) X 10*6/uL Hgb 9.0 L (13.0-17.0) g/dL Hct 28.9 L (39.6-50.0) % Plt Count 334 (140-440) X 10*3/uL Comprehensive Metabolic Panel 05/05/25 Range/Units 06:26 Sodium 134 L (135-145) mmol/L Potassium 4.3 (3.5-5.5) mmol/L Chloride 101 (96-109) mmol/L Carbon Dioxide 20.4 L (21.6-31.8) mmol/L BUN 6.4 L (9.0-27.0) mg/dL Creatinine 0.5 L (0.6-1.5) mg/dL Glucose 87 (70-110) mg/dL Calcium 8.1 L (8.7-10.3) mg/dL AST 72 H (14-35) U/L ALT 71 H (10-49) U/L Alkaline Phosphatase 153 H (41-126) U/L Total Protein 5.4 L (6.2-8.2) g/dL Albumin 2.9 L (3.8-4.9) g/dL Current Medications Generic Name Dose Route Start Last Admin Trade Name Freq PRN Reason Stop Dose Admin Hydrocodone Bitart/Acetaminophen 1 each 04/30/25 21:49 05/05/25 09:34 Hydrocodone/Apap 10-325mg 1 Each Tab PO 1 each Q4HR PRN Administration Pain Alprazolam 0.25 mg 05/01/25 11:06 05/02/25 13:26 Alprazolam 0.25 Mg Tab PO 0.25 mg BID PRN Administration Anxiety Alprazolam 0.25 mg 05/01/25 11:15 05/05/25 08:02 Alprazolam 0.25 Mg Tab PO 0.25 mg BID HUSSAIN Administration Aspirin 81 mg 05/01/25 21:00 05/04/25 20:06 Aspirin 81 Mg PO 81 mg HS HUSSAIN Administration Atorvastatin Calcium 40 mg 04/30/25 22:00 05/04/25 20:05 Atorvastatin 40 Mg Tab PO 40 mg HS HUSSAIN Administration Calcium Carbonate/Glycine 500 mg 05/01/25 21:00 05/04/25 20:05 Calcium Carbonate 500 Mg Chewable PO 500 mg HS HUSSAIN Administration Cholecalciferol 125 mcg 05/01/25 21:00 05/04/25 20:05 Cholecalciferol 125 Mcg (5000 Iu) Tablet PO 125 mcg HS HUSSAIN Administration Enoxaparin Sodium 40 mg 05/02/25 09:00 05/05/25 08:02 Enoxaparin 40 Mg/0.4 Ml Syringe SQ 40 mg DAILY HUSSAIN Administration Escitalopram Oxalate 5 mg 05/02/25 07:30 05/05/25 08:02 Escitalopram 5 Mg Tab PO 5 mg AC-BRKFST HUSSAIN Administration Ferrous Sulfate 325 mg 05/01/25 18:30 05/04/25 17:41 Ferrous Sulfate 325 Mg Tab PO 325 mg PC-SUPPER HUSSAIN Administration Ceftriaxone Sodium 1 gm/ 50 mls @ 100 mls/hr 05/02/25 09:00 05/05/25 08:03 Sodium Chloride IVPB 100 mls/hr Q24HR HUSSAIN Administration Protocol Lactulose 20 gm 05/04/25 14:45 Lactulose 20 Gm/30 Ml Cup PO QID PRN Constipation Lisinopril 2.5 mg 05/01/25 18:30 05/04/25 17:41 Lisinopril 2.5 Mg Tab PO 2.5 mg PC-SUPPER HUSSAIN Administration Loratadine 10 mg 05/01/25 21:00 05/04/25 20:06 Loratadine 10 Mg Tab PO 10 mg HS HUSSAIN Administration Metoprolol Succinate 25 mg 05/02/25 07:30 05/05/25 08:01 Metoprolol Succinate (Er) 25 Mg Tab.Er.24h PO 25 mg W/BRKFST HUSSAIN Administration Morphine Sulfate 30 mg 05/01/25 21:00 05/05/25 08:01 Morphine Sulfate Er 30 Mg Tablet PO 30 mg Q12HR HUSSAIN Administration Protocol Naloxone HCl 0.2 mg 04/30/25 18:11 Naloxone 0.4 Mg/Ml 1 Ml Vial IV Q2M PRN Opioid Reversal Nystatin 500,000 unit 05/03/25 18:00 05/05/25 08:02 Nystatin 100,000 Unit/Ml Susp 500,000 Unit/5 Ml Cup PO 500,000 unit QID HUSSAIN Administration Protocol Pantoprazole Sodium 40 mg 05/02/25 07:30 05/05/25 08:02 Pantoprazole 40 Mg Tablet PO 40 mg AC-BRKFST HUSSAIN Administration Prednisone 10 mg 05/02/25 07:30 05/05/25 08:01 Prednisone 10 Mg Tab PO 10 mg W/BRKFST HUSSAIN Administration Senna/Docusate Sodium 2 each 05/01/25 11:15 05/05/25 08:04 Sennosides-Docusate Sodium 1 Each Tab PO Not Given BID [facility] Sodium Bicarbonate 650 mg 05/04/25 10:15 05/05/25 08:01 Sodium Bicarbonate Tab 650 Mg Tab PO 650 mg BID [facility] Administration Tamsulosin HCl 0.4 mg 05/01/25 12:30 05/05/25 08:01 Tamsulosin 0.4 Mg Cap.Er.24h PO 0.4 mg PC-BRKFST [facility] Administration Intake and Output 05/04/25 05/05/25 05/05/25 22:59 06:59 14:59 Intake Total 240 120 Output Total 1000 1500 200 Balance -760 -1500 -80 Intake: Oral 240 120 Output: Urine 1000 1500 200 Other: Voiding Method Indwelling Catheter Indwelling Catheter 05/05/25 06:26 05/05/25 06:26
--- NOTE | 2025-05-05 15:32 | P.PN ---
Subjective Progress Note Date: 05/05/25 The patient was sitting up in the chair today, and overall looked comfortable. He was alert, and was able to answer questions and follow commands appropriately. However there were still ongoing issues with recall Objective - Vital Signs Vital signs: Vital Signs Temp 97.7 F 05/05/25 12:24 Pulse 88 05/05/25 12:24 Resp 18 05/05/25 12:24 BP 103/71 05/05/25 12:24 Pulse Ox 100 05/05/25 12:24 FiO2 Intake & Output 05/04/25 05/05/25 05/05/25 18:59 06:59 18:59 Intake Total 120 240 120 Output Total 1500 1500 200 Balance -1380 -1260 -80 Intake: Oral 120 240 120 Output: Urine 1500 1500 200 Other: Voiding Method Indwelling Catheter Indwelling Catheter Indwelling Catheter - Constitutional General appearance: Present: no acute distress - EENT Eyes: Present: EOMI, PERRLA ENT: Present: hearing grossly normal, normal oropharynx - Respiratory Respiratory: bilateral: CTA - Cardiovascular Rhythm: regular Heart sounds: normal: S1, S2 - Gastrointestinal General gastrointestinal: Present: normal bowel sounds, soft - Integumentary Integumentary: Present: normal - Neurologic Neurologic: Present: CNII-XII intact - Musculoskeletal Musculoskeletal: Present: generalized weakness, strength equal bilaterally - Psychiatric Psychiatric Comment(s): Intermittent confusion, and diminished recall Psychiatric: Present: A&O x's 3, appropriate affect - Labs CBC & Chem 7: 05/05/25 06:26 05/05/25 06:26 Labs: Abnormal Lab Results - Last 24 Hours (Table) 05/04/25 05/05/25 05/05/25 Range/Units 06:40 06:26 06:26 WBC 4.23 L (4.50-10.00) X 10*3/uL RBC 3.31 L (4.40-5.60) X 10*6/uL Hgb 9.0 L (13.0-17.0) g/dL Hct 28.9 L (39.6-50.0) % MCHC 31.1 L (32.0-37.0) g/dL RDW 18.0 H (11.5-14.5) % MPV 9.4 L (9.5-12.2) FL Lymphocytes # 0.47 L (0.90-5.00) X 10*3/uL Eosinophils # 0.02 L (0.04-0.35) X 10*3/uL Sodium 134 L (135-145) mmol/L Carbon Dioxide 20.4 L (21.6-31.8) mmol/L Anion Gap 12.60 H (4.00-12.00) mmol/L BUN 6.4 L (9.0-27.0) mg/dL Creatinine 0.5 L (0.6-1.5) mg/dL Calcium 8.1 L (8.7-10.3) mg/dL Iron 30 L (65-175) UG/DL TIBC 136 L (228-460) UG/DL Transferrin 97.0 L (204.0-354.0) mg/dL Ferritin 2991.0 H (22.0-322.0) ng/mL AST 72 H (14-35) U/L ALT 71 H (10-49) U/L Alkaline Phosphatase 153 H (41-126) U/L Total Protein 5.4 L (6.2-8.2) g/dL Albumin 2.9 L (3.8-4.9) g/dL Albumin/Globulin Ratio 1.16 L (1.60-3.17) Ratio Assessment and Plan (1) Pain of metastatic malignancy Narrative/Plan: The patient was previously on MS Contin 15 mg every 12 hours, before admission. At the time of admission his MS Contin was increased to 30 mg every 12 hours. He is also on [place] 10-3 25 as needed. - On observation, the patient appeared to be comfortable. On questioning, he stated that his pain was not controlled. On additional questioning, it was not clear if this was accurate. This was addressed further, in more depth, with the patient's S0 present. It was subsequently clarified, that the patient is definitely, significantly improved in terms of pain control since his admission. He does have breakthroughs, which respond to [place]. Therefore at this time, after detailed discussion with them, the plan is to continue him on the same re gimen, especially given increasing risk of adverse events, including constipation (which can make his lower abdominal pain worse) , worsening of mentation etc. - Continue to work with physical therapy inpatient Current Visit: No Status: Acute Priority: High Code(s): G89.3 - NEOPLASM RELATED PAIN (ACUTE) (CHRONIC) SNOMED Code(s): 922885200 (2) Prostate cancer Narrative/Plan: The patient is supposed to have second cycle of Keytruda next week. It was again discussed with him and his SBO, that even if this medication is effective, it may take 3 months plus before the benefit is evident. They expressed understanding of the same. It was also reiterated, that the patient's performance status in the interim needs to be sufficient for him to be able to continue treatment. His SO indicated that while the patient is doing better, she is not sure if she can manage him at home. The case will be discussed with nursing, and physical therapy in the next 1 to 2 days, to see if the patient requires, and could benefit from ECF rehab. In that case, the recommendation would be to arrange for the same. They are aware that while in rehab, the patient's active treatment would need to be on hold, which would carry the risk of cancer progression in the interim. They expressed understanding of the same. Current Visit: No Status: Chronic Priority: Medium Code(s): C61 - MALIGNANT NEOPLASM OF PROSTATE SNOMED Code(s): 340273902
[2025-05-06 08:12] LABS: African American GFR (CKD) >90 (>60 ml/min/1.73 sqM); Anion Gap 7 mmol/L; Blood Urea Nitrogen 10 mg/dL (9-20); Calcium 8.8 mg/dL (8.4-10.2); Carbon Dioxide 22 mmol/L (22-30); Chloride 105 mmol/L (98-107); Glucose 90 mg/dL (74-99); Magnesium 2.1 mg/dL (1.6-2.3); Non-African American GFR(CKD) >90 (>60 ml/min/1.73 sqM); Potassium 4.1 mmol/L (3.5-5.1); Sodium 134 mmol/L (137-145)
--- NOTE | 2025-05-06 09:57 | P.PN ---
Subjective Progress Note Date: 05/06/25 Surinder Campoverde, is a 69-year-old male who presented to [facility] emergency room for chief complaint of generalized weakness. Patient has a diagnosis of stage IV prostate cancer and was recently discharged on MS Contin for pain control and was started on Keytruda outpatient for cancer treatment per oncology services. Per patient's at bedside he has had increased weakness and falls along with decreased appetite. He was evaluated in the emergency room vital examination on presentation revealed temp 98.1, heart rate 83, respiratory rate 14, blood pressure 111/74 with pulse ox of 100% on room air Laboratory data reveals white blood cell 5.4, hemoglobin 8.3, platelets 302, sod ium 127, creatinine 0.38 bun 11 alkaline phosphatase 154, ALT 62 and AST 65. Testing in the emergency room revealed UA was positive for urinary tract infection. Chest x-ray completed some showing sclerotic bone metastasis redemonstrated throughout the thoracic spine and right clavicle calcified nodule left midlung zone. Hip and pelvis x-ray completed showing no acute fracture or dislocation multiple radiodense foci are seen in the bony pelvis and right femur which correspond to known blastic osseous metastatic disease. Patient was admitted to medical floor for further evaluation and treatment. Patient was started on IV fluid for hyponatremia of Rocephin for urinary tract infection. Oncology and nephrology services will be consulted Past medical history is significant for history of prostate cancer stage IV, coronary artery disease, sleep apnea, heart cath with stents and ex-smoker On review of systems patient is alert and oriented x 3. Patient denies chest pain or shortness of breath. Patient denies nausea vomiting or diarrhea. Patient denies any urinary burning or frequency On 05/01/2025 patient is alert and oriented x 3. MRI of the brain ordered per oncology services. Home medication of MS Contin resumed. Current vital signs temp 98.1, heart rate 83, respiratory rate 16, blood pressure 122/77 with pulse ox of 99% on room air patient remains on Rocephin for urinary tract infection. Patient denies chest pain or shortness of breath. Patient denies nausea vomiti ng or diarrhea. Patient denies any urinary burning or frequency On 05/02/2025 patient is alert and oriented x 3. Patient denies chest pain or shortness of breath. Patient denies nausea vomiting or diarrhea. Patient denies any urinary burning or frequency MRI of the brain has been ordered. Oncology and nephrology services are following On 05/03/2025 patient is alert and oriented x 3. Patient's mentation has significantly improved. Patient denies chest pain or shortness of breath. Patient denies nausea vomiting or diarrhea. Patient denies any urinary burning or frequency. Sodium 133. MRI of the brain completed showing few scattered foci of the of subacute ischemia concerns for possible emboli big phenomenon. 2D echo and carotid Doppler has been ordered neurology services consulted awaiting further input On 05/04/2025 patient is alert and oriented x 3. Patient denies chest pain or shortness of breath. Patient denies nausea vomiting or diarrhea. Patient denies any urinary burning or frequency. Current vital signs temp 97.5, heart rate 83, respiratory rate 20, blood pressure 143/76 with pulse ox of 97% on room air. 2D echo has been ordered ordered awaiting further recommendations from neurology services at this time On 05/05/2025 patient is alert and oriented x 3. Patient having increased pain MS Contin to be given per schedule. Oncology services have been consulted to address further pain control. Awaiting input from cardiology and possible MAYITO. 2D echo and carotid Doppler were completed. Patient denies chest pain or shortness of breath. Patient denies nausea vomiting or diarrhea. Patient denies any urinary burning or frequency On 05/06/2025 patient is alert and oriented x 3. Per cardiology plans for MAYITO tomorrow. Patient denies chest pain or shortness of breath. Patient denies nausea vomiting or diarrhea. Patient denies any urinary burning or frequency. Current vital signs temp 98.1, heart rate 87, respiratory rate 17, blood pressure 92/62 with pulse ox of 99% on 2 L. Patient denies chest pain or shortness of breath. Patient denies nausea vomiting or diarrhea. Patient denies any urinary burning or frequency Objective - Vital Signs Vital signs: Vital Signs Temp 98.1 F 05/06/25 06:18 Pulse 87 05/06/25 04:43 Resp 17 05/06/25 06:18 BP 92/62 05/06/25 06:18 Pulse Ox 99 05/06/25 06:18 FiO2 Intake & Output 05/05/25 05/06/25 05/06/25 18:59 06:59 18:59 Intake Total 820 Output Total 800 1300 Balance 20 -1300 Intake: Oral 820 Output: Urine 800 1300 Other: Voiding Method Indwelling Catheter Indwelling Catheter Indwelling Catheter - Exam In general patient is alert and oriented Ã-3 in no distress HEENT head normocephalic and atraumatic Neck is supple no JVD no goiter no lymphadenopathy no carotid bruit Chest examination is clear to auscultation no crackles no wheezing Cardiac exam reveals regular heart sounds S1 and S2 no gallops no murmurs Abdomen is soft nontender no organomegaly with normal bowel sounds Extremity exam reveals no edema no cyanosis or clubbing Neurological examination reveals no gross focal deficits - Labs CBC & Chem 7: 05/05/25 06:26 05/06/25 07:14 Labs: Abnormal Lab Results - Last 24 Hours (Table) 05/04/25 05/05/25 05/06/25 Range/Units 06:40 06:26 07:14 Sodium 134 L 134 L (135-145) mmol/L Carbon Dioxide 20.4 L (21.6-31.8) mmol/L Anion Gap 12.60 H (4.00-12.00) mmol/L BUN 6.4 L (9.0-27.0) mg/dL Creatinine 0.5 L 0.48 L (0.6-1.5) mg/dL Calcium 8.1 L (8.7-10.3) mg/dL Iron 30 L (65-175) UG/DL TIBC 136 L (228-460) UG/DL Transferrin 97.0 L (204.0-354.0) mg/dL Ferritin 2991.0 H (22.0-322.0) ng/mL AST 72 H (14-35) U/L ALT 71 H (10-49) U/L Alkaline Phosphatase 153 H (41-126) U/L Total Protein 5.4 L (6.2-8.2) g/dL Albumin 2.9 L (3.8-4.9) g/dL Albumin/Globulin Ratio 1.16 L (1.60-3.17) Ratio Microbiology - Last 24 Hours (Table) 04/30/25 19:14 Blood Culture - Final Blood Assessment and Plan Assessment: Generalized weakness Hyponatremia resolved Urinary tract infection Abnormal MRI concerns for embolic phenomenon and/subacute ischemia Prostate cancer stage IV Decreased appetite History of sleep apnea History of TURP History of heart cath with previous heart stents DVT prophylaxis Lovenox. GI prophylaxis Protonix Oncology and nephrology services consulted Patient started on IV Rocephin for urinary tract infection urine culture ordered Normal saline at 75 PT OT services consulted
--- NOTE | 2025-05-06 11:05 | P.PN ---
Subjective Patient is seen in follow-up for hyponatremia. Sodium level stable. Has Garcia catheter for urinary retention. Nonoliguric. Oral intake good. No active complaints. Vital signs are stable. General: No acute distress. HEENT: Head exam is unremarkable. LUNGS: No audible rhonchi or wheezes. HEART: Rate and Rhythm are regular. ABDOMEN: Nontender. EXTREMITITES: No edema. Objective - Vital Signs Vital signs: Vital Signs Temp 98.1 F 05/06/25 06:18 Pulse 87 05/06/25 04:43 Resp 17 05/06/25 06:18 BP 92/62 05/06/25 06:18 Pulse Ox 99 05/06/25 06:18 FiO2 Intake & Output 05/05/25 05/06/25 05/06/25 18:59 06:59 18:59 Intake Total 820 Output Total 800 1300 600 Balance 20 -1300 -600 Intake: Oral 820 Output: Urine 800 1300 600 Other: Voiding Method Indwelling Catheter Indwelling Catheter Indwelling Catheter - Labs CBC & Chem 7: 05/05/25 06:26 05/06/25 07:14 Labs: Abnormal Lab Results - Last 24 Hours (Table) 05/04/25 05/06/25 Range/Units 06:40 07:14 Sodium 134 L (137-145) mmol/L Creatinine 0.48 L (0.66-1.25) mg/dL Ferritin 2991.0 H (22.0-322.0) ng/mL Microbiology - Last 24 Hours (Table) 04/30/25 19:14 Blood Culture - Final Blood Assessment and Plan Plan: Assessment: 1. Hyponatremia secondary to urinary retention. Sodium level stable. 2. UTI on antibiotics. 3. Benign hypertension. Currently controlled. 4. History of coronary artery disease. 5. Stage IV prostate cancer. CT scan dated April 21, 2025 showed no evidence of hydronephrosis. 6. Urinary retention. Has Garcia catheter. On Flomax. Urology following. Plan: Garcia catheter per urology. Voiding trial prior to discharge. Off IV fluids. Encouraged oral intake.
[2025-05-06] MEDS ORDERED: fentaNYL (PF) 50 MCG/ML 2 ML AMP IVP PRN (13:37)
[2025-05-06] MEDS ORDERED: BENZOCAINE SPRAY 1 EACH MM PRN (13:37)
[2025-05-06] MEDS ORDERED: MIDAZOLAM 2 MG/2 ML VIAL IV PRN (13:37)
--- NOTE | 2025-05-06 13:41 | P.PN ---
Subjective Progress Note Date: 05/06/25 History of present illness: Patient is a pleasant 69-year-old male with significant past medical history of CAD status post PCI in 2013, MELANIE, metastatic prostate cancer. He does follow with Dr. Mohamud in the office. Cardiology was consulted given acute/subacute ischemic infarct seen on brain MRI 05/01/2025 concerning for possible embolic cause. He has been having more confusion and difficulty concentrating. He denies any chest pain or pressure. No shortness of breath. No dizziness or syncope. Echocardiogram 05/25 with a EF 60-65%, moderate tricuspid regurgitation, RVSP 35. He has been evaluated by neurology who recommends MAYITO and 30-day event monitor. 05/06/25 He has been doing ok. Does have some dyspnea with exertion and dizziness up to bedside commode. PHYSICAL EXAMINATION: This is a 69-year-old male in no apparent distress at the time of my examination. HEENT: Head is atraumatic, normocephalic. Pupils are equal, round. Sclerae anicteric. Conjunctivae are clear. Mucous membranes of the mouth are moist. Neck is supple. There is no jugular venous distention. No carotid bruit is heard. CHEST EXAMINATION: Lungs are clear to auscultation. No chest wall tenderness is noted on palpation or with deep breathing. HEART EXAMINATION: Heart regular rate and rhythm. S1, S2 heard. No murmurs, gallops or rub. ABDOMEN: Soft, nontender. Bowel sounds are heard. EXTREMITIES: 2+ peripheral pulses with no evidence of peripheral edema and no calf tenderness noted. NEUROLOGIC EXAMINATION: Patient is awake, alert and oriented x3, some confusion. IMPRESSION AND PLAN: CAD status post PCI 2013 MELANIE Metastatic prostate cancer Acute/subacute ischemic CVA Hyponatermia Dyspnea PLAN: Echo with preserved EF. We will plan for MAYITO on Wednesday with Dr. Mohamud to evaluate for embolic cause of stroke. Agree with 30-day outpatient event monitor. Further recommendations pending clinical course. I am dictating on behalf of Dr. Isaiah Stevens's history/physical and assessment/plan. Objective - Vital Signs Vital signs: Vital Signs Temp 98.1 F 05/06/25 06:18 Pulse 87 05/06/25 04:43 Resp 17 05/06/25 06:18 BP 92/62 05/06/25 06:18 Pulse Ox 99 05/06/25 06:18 FiO2 Intake & Output 05/05/25 05/06/25 05/06/25 18:59 06:59 18:59 Intake Total 820 Output Total 800 1300 600 Balance 20 -1300 -600 Intake: Oral 820 Output: Urine 800 1300 600 Other: Voiding Method Indwelling Catheter Indwelling Catheter Indwelling Catheter - Labs CBC & Chem 7: 05/05/25 06:26 05/06/25 07:14 Labs: Abnormal Lab Results - Last 24 Hours (Table) 05/04/25 05/06/25 Range/Units 06:40 07:14 Sodium 134 L (137-145) mmol/L Creatinine 0.48 L (0.66-1.25) mg/dL Ferritin 2991.0 H (22.0-322.0) ng/mL Microbiology - Last 24 Hours (Table) 04/30/25 19:14 Blood Culture - Final Blood
[2025-05-07 08:21] LABS: Basophils # (A) 0.02 X 10*3/uL (0.00-0.10); Basophils % (A) 0.3 %; Eosinophils # (A) 0.02 X 10*3/uL (0.04-0.35); Eosinophils % (A) 0.3 %; HCT 28.0 % (39.6-50.0); HGB 8.7 g/dL (13.0-17.0); Immature Grans, Automated 0.80 %; Lymphocytes # (A) 0.53 X 10*3/uL (0.90-5.00); Lymphocytes % (A) 8.5 %; MCH 26.7 pg (27.0-32.0); MCHC 31.1 g/dL (32.0-37.0); MCV 85.9 FL (80.0-97.0); Monocytes # (A) 0.46 X 10*3/uL (0.20-1.00); Monocytes % (A) 7.4 %; NRBC Per 100 WBC 0 X 10*3/uL (0.00-0.01); Neutrophils # (A) 5.14 X 10*3/uL (1.80-7.70); Neutrophils % (A) 82.7 %; Platelet Count 357 X 10*3/uL (140-440); RBC 3.26 X 10*6/uL (4.40-5.60); RDW 18.4 % (11.5-14.5); WBC 6.22 X 10*3/uL (4.50-10.00)
[2025-05-07 08:33] LABS: BUN/Creat Ratio 24.20 Ratio (12.00-20.00); Blood Urea Nitrogen 12.1 mg/dL (9.0-27.0); Chloride 101 mmol/L (96-109); Glucose 95 mg/dL (70-110); Potassium 4.6 mmol/L (3.5-5.5); Sodium 133 mmol/L (135-145)
[2025-05-07 08:34] LABS: ALT 73 U/L (10-49); AST 94 U/L (14-35); Albumin 2.9 g/dL (3.8-4.9); Albumin/Globulin Ratio 1.21 Ratio (1.60-3.17); Alkaline Phosphatase 147 U/L (41-126); Anion Gap 10.90 mmol/L (4.00-12.00); Calcium 8.3 mg/dL (8.7-10.3); Carbon Dioxide 21.1 mmol/L (21.6-31.8); Globulin 2.4 g/dL (1.6-3.3); Total Protein 5.3 g/dL (6.2-8.2)
--- NOTE | 2025-05-07 11:58 | P.PN ---
Subjective Patient is seen for follow-up for hyponatremia. Currently with indwelling Garcia catheter for urine retention. No complaints today Serum sodium 133 today. Objective - Vital Signs Vital signs: Vital Signs Temp 97.6 F 05/07/25 07:25 Pulse 90 05/07/25 07:25 Resp 20 05/07/25 07:25 BP 119/82 05/07/25 07:25 Pulse Ox 99 05/07/25 07:25 FiO2 Intake & Output 05/06/25 05/07/25 05/07/25 18:59 06:59 18:59 Output Total 800 1200 Balance -800 -1200 Output: Urine 800 1200 Other: Voiding Method Indwelling Catheter Indwelling Catheter Indwelling Catheter - Exam Patient is awake, comfortable, no acute distress Examination of the heart S1 and S2 Examination of the lungs decreased breath sounds at the bases Abdomen is soft nontender Examination lower extremity shows no evidence of edema PHONE ENGINEER exam grossly intact - Labs CBC & Chem 7: 05/07/25 04:25 05/07/25 04:25 Labs: Abnormal Lab Results - Last 24 Hours (Table) 05/07/25 05/07/25 Range/Units 04:25 04:25 RBC 3.26 L (4.40-5.60) X 10*6/uL Hgb 8.7 L (13.0-17.0) g/dL Hct 28.0 L (39.6-50.0) % MCH 26.7 L (27.0-32.0) pg MCHC 31.1 L (32.0-37.0) g/dL RDW 18.4 H (11.5-14.5) % Immature Gran # 0.05 H (0.00-0.04) X 10*3/uL Lymphocytes # 0.53 L (0.90-5.00) X 10*3/uL Eosinophils # 0.02 L (0.04-0.35) X 10*3/uL Sodium 133 L (135-145) mmol/L Carbon Dioxide 21.1 L (21.6-31.8) mmol/L Creatinine 0.5 L (0.6-1.5) mg/dL BUN/Creatinine Ratio 24.20 H (12.00-20.00) Ratio Calcium 8.3 L (8.7-10.3) mg/dL AST 94 H (14-35) U/L ALT 73 H (10-49) U/L Alkaline Phosphatase 147 H (41-126) U/L Total Protein 5.3 L (6.2-8.2) g/dL Albumin 2.9 L (3.8-4.9) g/dL Albumin/Globulin Ratio 1.21 L (1.60-3.17) Ratio Assessment and Plan Assessment: 1. Hyponatremia secondary to urinary retention. Sodium level stable. 133 today 2. UTI on antibiotics. 3. Benign hypertension. Currently controlled. 4. History of coronary artery disease. 5. Stage IV prostate cancer. CT scan dated April 21, 2025 showed no evidence of hydronephrosis. 6. Urinary retention. Has Garcia catheter. On Flomax. Urology following. Plan: Encourage increased oral intake Garcia catheter as per urology Continue to monitor sodium levels
[2025-05-07] MEDS: BENZOCAINE SPRAY 1 EACH MM ONE ×2 (12:03→12:17)
[2025-05-07] MEDS: IV FLUID CONTINUATION 1,000 ML IV ONE (12:07)
[2025-05-07] MEDS: fentaNYL (PF) 50 MCG/ML 2 ML AMP IVP ONE (12:20)
[2025-05-07] MEDS: MIDAZOLAM 2 MG/2 ML VIAL IVP ONE (12:20)
--- NOTE | 2025-05-07 12:35 | P.PCN ---
Date of Procedure: 05/07/25 Description of Procedure: Indication: CVA Procedure Description: After explaining the procedure to the patient, it's risk and complications, blood pressure, heart rate and O2 saturation were monitored. The throat was sprayed with Cetacaine. Patient received 2 mg intravenous Versed, 50 mcg intravenous fentanyl. The probe was introduced into the esophagus without difficulty. Images were obtained. Following that, the probe was removed. There was no immediate complication. Findings: Left atrial size is normal, left atrial appendage is normal. Left ventricular size and systolic function are normal. The interatrial septal is aneurysmal. The mitral valve revealed calcifications of the leaflets. The aortic valve is a tricuspid valve with fibrocalcific changes and preserved opening. The tricuspid and pulmonic valve appears to be normal. The descending thoracic aorta reveals moderate atherosclerotic changes. No pericardial effusion was noted. Contrast bubble study revealed no shunting across the interatrial septum with Valsalva maneuver. Doppler: Pulse wave and color Doppler were obtained, and revealed mild mitral and tricuspid regurgitation with trace pulmonic regurgitation. There was no shunting across the interatrial septum. Conclusion: 1. Normal left ventricular size and systolic function 2. Normal appearance of the left atrial appendage 3. Mild mitral and tricuspid regurgitation 4. Aneurysmal interatrial septum with no shunting 5. Moderate atherosclerotic changes of the descending thoracic aorta 6. No pericardial effusion Duration of sedation 15 minutes.
--- NOTE | 2025-05-07 12:44 | P.PN ---
Subjective Progress Note Date: 05/03/25 Patient seen evaluated bedside. No acute complaints. No events overnight. Objective - Vital Signs Vital signs: Vital Signs Temp 97.8 F 05/03/25 07:15 Pulse 79 05/03/25 07:15 Resp 18 05/03/25 07:15 BP 107/70 05/03/25 07:15 Pulse Ox 98 05/03/25 07:15 FiO2 Intake & Output 05/02/25 05/03/25 05/03/25 18:59 06:59 18:59 Intake Total 1000 Output Total 1200 1400 Balance -200 -1400 Intake: Oral 1000 Output: Urine 1200 1400 Other: Voiding Method Indwelling Catheter Indwelling Catheter - Labs CBC & Chem 7: 05/03/25 05:54 05/03/25 05:54 Labs: Abnormal Lab Results - Last 24 Hours (Table) 05/02/25 05/02/25 05/03/25 Range/Units 05:34 05:34 05:54 RBC 3.19 L (4.40-5.60) X 10*6/uL Hgb 8.7 L (13.0-17.0) g/dL Hct 27.8 L (39.6-50.0) % MCH (27.0-32.0) pg MCHC 31.3 L (32.0-37.0) g/dL RDW 18.2 H (11.5-14.5) % MPV 9.4 L (9.5-12.2) FL Lymphocytes # 0.47 L (0.90-5.00) X 10*3/uL Eosinophils # 0.02 L (0.04-0.35) X 10*3/uL Sodium 131 L 133 L (135-145) mmol/L Carbon Dioxide 17.4 L 17.9 L (21.6-31.8) mmol/L BUN 7.4 L 8.2 L (9.0-27.0) mg/dL Creatinine 0.5 L 0.5 L (0.6-1.5) mg/dL Calcium 7.7 L 7.9 L (8.7-10.3) mg/dL AST 59 H 87 H (14-35) U/L ALT 64 H 66 H (10-49) U/L Alkaline Phosphatase 164 H 165 H (41-126) U/L Total Protein 5.1 L 5.2 L (6.2-8.2) g/dL Albumin 2.8 L 2.8 L (3.8-4.9) g/dL Albumin/Globulin Ratio 1.22 L 1.17 L (1.60-3.17) Ratio 05/03/25 Range/Units 05:54 RBC 3.23 L (4.40-5.60) X 10*6/uL Hgb 8.6 L (13.0-17.0) g/dL Hct 28.0 L (39.6-50.0) % MCH 26.6 L (27.0-32.0) pg MCHC 30.7 L (32.0-37.0) g/dL RDW 18.1 H (11.5-14.5) % MPV 9.3 L (9.5-12.2) FL Lymphocytes # 0.51 L (0.90-5.00) X 10*3/uL Eosinophils # 0.01 L (0.04-0.35) X 10*3/uL Sodium (135-145) mmol/L Carbon Dioxide (21.6-31.8) mmol/L BUN (9.0-27.0) mg/dL Creatinine (0.6-1.5) mg/dL Calcium (8.7-10.3) mg/dL AST (14-35) U/L ALT (10-49) U/L Alkaline Phosphatase (41-126) U/L Total Protein (6.2-8.2) g/dL Albumin (3.8-4.9) g/dL Albumin/Globulin Ratio (1.60-3.17) Ratio Microbiology - Last 24 Hours (Table) 04/30/25 19:14 Blood Culture - Preliminary Blood Assessment and Plan Assessment: #. Constipation, likely secondary to pain medication Senokot-S 2 each PO BID, lactulose 20g PO QID. S/p rectal enema. #. Hyponatremia secondary to urinary retention likely from metastatic prostate cancer - maintained on Garcia cathether and Flomax, voiding trial prior to discharge #. Acute encephalopathy #. Subacute CVA Brain MRI displaying few scattered foci of acute/subacute ischemia, distribution suggest possible embolic phenomenon, no evidence of intracranial metastasis, few scattered T1 hypointense calvaria lesions Will defer to neurology #. Metastatic prostate carcinoma Patient has been receiving treatment with Dr. Lilly at [facility]. Discussed with patient that effects of Keytruda may take 3-4 months. Goals of care were discussed with patient regarding comfort care if there is no improvement with current treatment plan. Pain management: MS Contin 30 mg PO q 12 hours.
[2025-05-07] MEDS: SODIUM CHLORIDE 0.9% 1,000 ML IV SCH (13:12)
--- NOTE | 2025-05-07 14:04 | P.PN ---
Subjective Progress Note Date: 05/07/25 Patient seen and evaluated at bedside. He was laying in bed and looked comfortable. Patient alert and oriented. Has some issues with recall. Also had complaint of not receiving pain medications by nursing last night. Objective - Vital Signs Vital signs: Vital Signs Temp 97.6 F 05/07/25 07:25 Pulse 90 05/07/25 07:25 Resp 20 05/07/25 07:25 BP 119/82 05/07/25 07:25 Pulse Ox 99 05/07/25 07:25 FiO2 Intake & Output 05/06/25 05/07/25 05/07/25 18:59 06:59 18:59 Output Total 800 1200 Balance -800 -1200 Output: Urine 800 1200 Other: Voiding Method Indwelling Catheter Indwelling Catheter Indwelling Catheter - Exam Vitals: Signs Reviewed Physical Exam: General: not in acute distress Cardiovascular: S1 S2 reg, no murmur Lungs: CTA bilateral, no rhonchi, no rales Abdominal: soft, non-tender to palpation Extremities: no gross muscle atrophy, no edema - Labs CBC & Chem 7: 05/07/25 04:25 05/07/25 04:25 Labs: Abnormal Lab Results - Last 24 Hours (Table) 05/07/25 05/07/25 Range/Units 04:25 04:25 RBC 3.26 L (4.40-5.60) X 10*6/uL Hgb 8.7 L (13.0-17.0) g/dL Hct 28.0 L (39.6-50.0) % MCH 26.7 L (27.0-32.0) pg MCHC 31.1 L (32.0-37.0) g/dL RDW 18.4 H (11.5-14.5) % Immature Gran # 0.05 H (0.00-0.04) X 10*3/uL Lymphocytes # 0.53 L (0.90-5.00) X 10*3/uL Eosinophils # 0.02 L (0.04-0.35) X 10*3/uL Sodium 133 L (135-145) mmol/L Carbon Dioxide 21.1 L (21.6-31.8) mmol/L Creatinine 0.5 L (0.6-1.5) mg/dL BUN/Creatinine Ratio 24.20 H (12.00-20.00) Ratio Calcium 8.3 L (8.7-10.3) mg/dL AST 94 H (14-35) U/L ALT 73 H (10-49) U/L Alkaline Phosphatase 147 H (41-126) U/L Total Protein 5.3 L (6.2-8.2) g/dL Albumin 2.9 L (3.8-4.9) g/dL Albumin/Globulin Ratio 1.21 L (1.60-3.17) Ratio Assessment and Plan Assessment: #. Pain of metastatic malignancy Continue MS Contin 30 mg every 12 hours Continue with [place] [id number] as needed Follow-up with PT inpatient #. Metastatic prostate cancer Scheduled for Keytruda next week. He has been following up with physical therapy here but could benefit going to [facility]. However Keytruda treament may need to be on hold due to patient requiring rehab post discharge. They are aware that while in rehab, the patient's active treatment would need to be on hold, which would carry the risk of cancer progression in the interim. Patient and SO verbalized understanding. Patient seen with resident and agree with assessment and plan as outlined above. He did report increased pain this morning secondary to MS Contin held overnight. Otherwise, his pain has been controlled on current regimen. We do recommend contacting MD prior to holding MS Contin dose. He was to undergo MAYITO today for workup of embolic stroke. He is to be discharged to [facility], during which time, treatment would be on hold. We will plan on scheduling follow-up within a few weeks of discharge so cycle 2 of Keytruda can be scheduled. Manuelito Lynch MD
--- NOTE | 2025-05-07 16:29 | P.PN ---
Subjective Progress Note Date: 05/07/25 Surinder Campoverde, is a 69-year-old male who presented to [facility] emergency room for chief complaint of generalized weakness. Patient has a diagnosis of stage IV prostate cancer and was recently discharged on MS Contin for pain control and was started on Keytruda outpatient for cancer treatment per oncology services. Per patient's at bedside he has had increased weakness and falls along with decreased appetite. He was evaluated in the emergency room vital examination on presentation revealed temp 98.1, heart rate 83, respiratory rate 14, blood pressure 111/74 with pulse ox of 100% on room air Laboratory data reveals white blood cell 5.4, hemoglobin 8.3, platelets 302, sod ium 127, creatinine 0.38 bun 11 alkaline phosphatase 154, ALT 62 and AST 65. Testing in the emergency room revealed UA was positive for urinary tract infection. Chest x-ray completed some showing sclerotic bone metastasis redemonstrated throughout the thoracic spine and right clavicle calcified nodule left midlung zone. Hip and pelvis x-ray completed showing no acute fracture or dislocation multiple radiodense foci are seen in the bony pelvis and right femur which correspond to known blastic osseous metastatic disease. Patient was admitted to medical floor for further evaluation and treatment. Patient was started on IV fluid for hyponatremia of Rocephin for urinary tract infection. Oncology and nephrology services will be consulted Past medical history is significant for history of prostate cancer stage IV, coronary artery disease, sleep apnea, heart cath with stents and ex-smoker On review of systems patient is alert and oriented x 3. Patient denies chest pain or shortness of breath. Patient denies nausea vomiting or diarrhea. Patient denies any urinary burning or frequency On 05/01/2025 patient is alert and oriented x 3. MRI of the brain ordered per oncology services. Home medication of MS Contin resumed. Current vital signs temp 98.1, heart rate 83, respiratory rate 16, blood pressure 122/77 with pulse ox of 99% on room air patient remains on Rocephin for urinary tract infection. Patient denies chest pain or shortness of breath. Patient denies nausea vomiti ng or diarrhea. Patient denies any urinary burning or frequency On 05/02/2025 patient is alert and oriented x 3. Patient denies chest pain or shortness of breath. Patient denies nausea vomiting or diarrhea. Patient denies any urinary burning or frequency MRI of the brain has been ordered. Oncology and nephrology services are following On 05/03/2025 patient is alert and oriented x 3. Patient's mentation has significantly improved. Patient denies chest pain or shortness of breath. Patient denies nausea vomiting or diarrhea. Patient denies any urinary burning or frequency. Sodium 133. MRI of the brain completed showing few scattered foci of the of subacute ischemia concerns for possible emboli big phenomenon. 2D echo and carotid Doppler has been ordered neurology services consulted awaiting further input On 05/04/2025 patient is alert and oriented x 3. Patient denies chest pain or shortness of breath. Patient denies nausea vomiting or diarrhea. Patient denies any urinary burning or frequency. Current vital signs temp 97.5, heart rate 83, respiratory rate 20, blood pressure 143/76 with pulse ox of 97% on room air. 2D echo has been ordered ordered awaiting further recommendations from neurology services at this time On 05/05/2025 patient is alert and oriented x 3. Patient having increased pain MS Contin to be given per schedule. Oncology services have been consulted to address further pain control. Awaiting input from cardiology and possible MAYITO. 2D echo and carotid Doppler were completed. Patient denies chest pain or shortness of breath. Patient denies nausea vomiting or diarrhea. Patient denies any urinary burning or frequency On 05/06/2025 patient is alert and oriented x 3. Per cardiology plans for MAYITO tomorrow. Patient denies chest pain or shortness of breath. Patient denies nausea vomiting or diarrhea. Patient denies any urinary burning or frequency. Current vital signs temp 98.1, heart rate 87, respiratory rate 17, blood pressure 92/62 with pulse ox of 99% on 2 L. Patient denies chest pain or shortness of breath. Patient denies nausea vomiting or diarrhea. Patient denies any urinary burning or frequency On 05/07/2025 patient was seen and examined on the medical floor, he is alert and oriented x 3. plans for MAYITO today. There is no fever or chills, no headache or dizziness no chest pain no shortness of breath no cough no nausea or vomiting no abdominal pain no diarrhea no blood in the stools no burning with urination no frequency or urgency and no hematuria. Patient is reasonably well-controlled with morphine MS Contin 15 mg scheduled every 8 hours. Objective - Vital Signs Vital signs: Vital Signs Temp 97.6 F 05/07/25 07:25 Pulse 90 05/07/25 07:25 Resp 20 05/07/25 07:25 BP 119/82 05/07/25 07:25 Pulse Ox 99 05/07/25 07:25 FiO2 Intake & Output 05/06/25 05/07/25 05/07/25 18:59 06:59 18:59 Output Total 800 1200 Balance -800 -1200 Output: Urine 800 1200 Other: Voiding Method Indwelling Catheter Indwelling Catheter - Exam In general patient is alert and oriented Ã-3 in no distress HEENT head normocephalic and atraumatic Neck is supple no JVD no goiter no lymphadenopathy no carotid bruit Chest examination is clear to auscultation no crackles no wheezing Cardiac exam reveals regular heart sounds S1 and S2 no gallops no murmurs Abdomen is soft nontender no organomegaly with normal bowel sounds Extremity exam reveals no edema no cyanosis or clubbing Neurological examination reveals no gross focal deficits - Labs CBC & Chem 7: 05/07/25 04:25 05/07/25 04:25 Labs: Abnormal Lab Results - Last 24 Hours (Table) 05/07/25 05/07/25 Range/Units 04:25 04:25 RBC 3.26 L (4.40-5.60) X 10*6/uL Hgb 8.7 L (13.0-17.0) g/dL Hct 28.0 L (39.6-50.0) % MCH 26.7 L (27.0-32.0) pg MCHC 31.1 L (32.0-37.0) g/dL RDW 18.4 H (11.5-14.5) % Immature Gran # 0.05 H (0.00-0.04) X 10*3/uL Lymphocytes # 0.53 L (0.90-5.00) X 10*3/uL Eosinophils # 0.02 L (0.04-0.35) X 10*3/uL Sodium 133 L (135-145) mmol/L Carbon Dioxide 21.1 L (21.6-31.8) mmol/L Creatinine 0.5 L (0.6-1.5) mg/dL BUN/Creatinine Ratio 24.20 H (12.00-20.00) Ratio Calcium 8.3 L (8.7-10.3) mg/dL AST 94 H (14-35) U/L ALT 73 H (10-49) U/L Alkaline Phosphatase 147 H (41-126) U/L Total Protein 5.3 L (6.2-8.2) g/dL Albumin 2.9 L (3.8-4.9) g/dL Albumin/Globulin Ratio 1.21 L (1.60-3.17) Ratio Assessment and Plan Assessment: Generalized weakness Hyponatremia resolved Urinary tract infection Abnormal MRI concerns for embolic phenomenon and/subacute ischemia Prostate cancer stage IV Decreased appetite History of sleep apnea History of TURP History of heart cath with previous heart stents DVT prophylaxis Lovenox. GI prophylaxis Protonix Oncology and nephrology services consulted Patient started on IV Rocephin for urinary tract infection urine culture ordered Normal saline at 75 PT OT services consulted
--- NOTE | 2025-05-07 17:12 | P.PN ---
Subjective Progress Note Date: 05/07/25 Principal diagnosis: Patient seen and examined at bedside today. He reports not being able to remember the date. He still complains of pain in right leg and fatigue. Vital signs are within normal limits Hemoglobin 8.7, sodium 133, AST 94, ALT 73, ALP 147 Patient denies any headache, no dizziness. Denies any numbness or tingling. States feels good. Objective - Vital Signs Vital signs: Vital Signs Temp 97.6 F 05/07/25 07:25 Pulse 90 05/07/25 07:25 Resp 20 05/07/25 07:25 BP 119/82 05/07/25 07:25 Pulse Ox 99 05/07/25 07:25 FiO2 Intake & Output 05/06/25 05/07/25 05/07/25 18:59 06:59 18:59 Output Total 800 1200 Balance -800 -1200 Output: Urine 800 1200 Other: Voiding Method Indwelling Catheter Indwelling Catheter - Exam General: mild distress only when moving his right leg, lying in bed appears comfortable Neuro: Patient is awake alert and oriented x 3. Visual lu are full to confrontation. Extraocular movements intact no nystagmus no facial weakness. Face is symmetric On muscle strength testing, there is 4/5 in b/l UE and left LE, movement on right LE limited due to pain at the hip Deep tendon reflexes are symmetric 1 at the biceps, brachioradialis, knees and plantars indeterminate Sensation is normal to touch throughout Cerebellar function showed no ataxia for [id number] testing - Labs CBC & Chem 7: 05/07/25 04:25 05/07/25 04:25 Labs: Abnormal Lab Results - Last 24 Hours (Table) 05/07/25 05/07/25 Range/Units 04:25 04:25 RBC 3.26 L (4.40-5.60) X 10*6/uL Hgb 8.7 L (13.0-17.0) g/dL Hct 28.0 L (39.6-50.0) % MCH 26.7 L (27.0-32.0) pg MCHC 31.1 L (32.0-37.0) g/dL RDW 18.4 H (11.5-14.5) % Immature Gran # 0.05 H (0.00-0.04) X 10*3/uL Lymphocytes # 0.53 L (0.90-5.00) X 10*3/uL Eosinophils # 0.02 L (0.04-0.35) X 10*3/uL Sodium 133 L (135-145) mmol/L Carbon Dioxide 21.1 L (21.6-31.8) mmol/L Creatinine 0.5 L (0.6-1.5) mg/dL BUN/Creatinine Ratio 24.20 H (12.00-20.00) Ratio Calcium 8.3 L (8.7-10.3) mg/dL AST 94 H (14-35) U/L ALT 73 H (10-49) U/L Alkaline Phosphatase 147 H (41-126) U/L Total Protein 5.3 L (6.2-8.2) g/dL Albumin 2.9 L (3.8-4.9) g/dL Albumin/Globulin Ratio 1.21 L (1.60-3.17) Ratio Microbiology - Last 24 Hours (Table) 04/30/25 19:14 Blood Culture - Final Blood Assessment and Plan Assessment: Altered mental status, likely secondary to CVA Generalized weakness Metastatic prostate cancer UTI Urinary retention Hyponatremia, improving Transaminitis hematuria, Blood loss anemia Plan: Brain MRI shows few scattered foci of acute/subacute ischemia, distribution suggest possible embolic phenomenon, no abnormal contrast-enhancement to suggest intracranial metastasis, few scattered T1 hypointense calvarial lesions highly suspicious for osseous metastasis, nonspecific mild white matter changes likely related to small vessel ischemic disease Carotid doppler ordered, it showed no evidence for hemodynamically significant stenosis Echocardigram shows EF 60 to 65%, RVSP 35, moderate tricuspid regurgitation A1c 6.4, triglycerides 71.6, cholesterol 83, LDL 38.2, VLDL 14.32, HDL 30.5, vitamin B12 777, folate 5.30, TSH 0.485, ammonia < 9 PT, OT and speech therapy consulted Continue aspirin 80 mg p.o. at bedtime, atorvastatin 40 mg p.o. at bedtime Recommend MAYITO and 30 day event monitor DVT prophylaxis: Lovenox 40 mg SQ daily Currently on Rocephin Nephrology, Urology and Oncology on board Dictation was produced using [employer] dictation software. please excuse any grammatical, word or spelling errors. Jeff Reina MD PGY-2 IM Patient was seen by myself as well MAYITO showed: Conclusion: 1. Normal left ventricular size and systolic function 2. Normal appearance of the left atrial appendage 3. Mild mitral and tricuspid regurgitation 4. Aneurysmal interatrial septum with no shunting 5. Moderate atherosclerotic changes of the descending thoracic aorta 6. No pericardial effusion Patient has failed aspirin regimen. He was taking aspirin 81 mg daily. Suggest DAPT for 21 days and then stop aspirin and continue Plavix 75 mg. Agree with 30-day event monitor. Will discuss with primary physician. Anil Peraza MD
[2025-05-08 08:29] LABS: Basophils # (A) 0.02 X 10*3/uL (0.00-0.10); Basophils % (A) 0.3 %; Eosinophils # (A) 0.03 X 10*3/uL (0.04-0.35); Eosinophils % (A) 0.5 %; HCT 28.6 % (39.6-50.0); HGB 8.9 g/dL (13.0-17.0); Immature Grans, Automated 0.70 %; Lymphocytes # (A) 0.49 X 10*3/uL (0.90-5.00); Lymphocytes % (A) 8.1 %; MCH 27.0 pg (27.0-32.0); MCHC 31.1 g/dL (32.0-37.0); MCV 86.7 FL (80.0-97.0); Monocytes # (A) 0.51 X 10*3/uL (0.20-1.00); Monocytes % (A) 8.4 %; NRBC Per 100 WBC 0 X 10*3/uL (0.00-0.01); Neutrophils # (A) 4.99 X 10*3/uL (1.80-7.70); Neutrophils % (A) 82.0 %; Platelet Count 352 X 10*3/uL (140-440); RBC 3.30 X 10*6/uL (4.40-5.60); RDW 18.6 % (11.5-14.5); WBC 6.08 X 10*3/uL (4.50-10.00)
[2025-05-08 09:16] LABS: ALT 59 U/L (10-49); AST 110 U/L (14-35); Albumin 2.8 g/dL (3.8-4.9); Albumin/Globulin Ratio 1.08 Ratio (1.60-3.17); Alkaline Phosphatase 160 U/L (41-126); Anion Gap 10.90 mmol/L (4.00-12.00); BUN/Creat Ratio 21.75 Ratio (12.00-20.00); Blood Urea Nitrogen 8.7 mg/dL (9.0-27.0); Calcium 7.8 mg/dL (8.7-10.3); Carbon Dioxide 20.1 mmol/L (21.6-31.8); Chloride 102 mmol/L (96-109); Globulin 2.6 g/dL (1.6-3.3); Glucose 101 mg/dL (70-110); Potassium 4.2 mmol/L (3.5-5.5); Sodium 133 mmol/L (135-145); Total Protein 5.4 g/dL (6.2-8.2)
--- NOTE | 2025-05-08 09:31 | P.PN ---
Subjective Progress Note Date: 05/08/25 Principal diagnosis: Patient seen and examined at bedside today. Patient denies any headache, no dizziness. Denies any numbness or tingling. Vital signs are within normal limits Hemoglobin 8.9, sodium 133, AST 110, ALT 59, ALP 160 Objective - Vital Signs Vital signs: Vital Signs Temp 98.1 F 05/08/25 08:00 Pulse 90 05/08/25 08:00 Resp 19 05/08/25 08:00 BP 111/74 05/08/25 08:00 Pulse Ox 98 05/08/25 08:00 FiO2 Intake & Output 05/07/25 05/08/25 05/08/25 18:59 06:59 18:59 Intake Total 680 Output Total 950 525 Balance -270 -525 Weight 99.79 kg Intake: IV 100 Oral 580 Output: Urine 950 525 Other: Voiding Method Indwelling Catheter Indwelling Catheter # Bowel Movements 1 - Exam General: mild distress only when moving his right leg, lying in bed appears comfortable Neuro: Patient is awake alert and oriented x 3. Visual lu are full to confrontation. Extraocular movements intact no nystagmus no facial weakness. Face is symmetric On muscle strength testing, there is 4/5 in b/l UE and left LE, movement on right LE limited due to pain at the hip Deep tendon reflexes are symmetric 1 at the biceps, brachioradialis, knees and plantars indeterminate Sensation is normal to touch throughout Cerebellar function showed no ataxia for [id number] testing - Labs CBC & Chem 7: 05/08/25 04:36 05/08/25 04:36 Labs: Abnormal Lab Results - Last 24 Hours (Table) 05/08/25 05/08/25 Range/Units 04:36 04:36 RBC 3.30 L (4.40-5.60) X 10*6/uL Hgb 8.9 L (13.0-17.0) g/dL Hct 28.6 L (39.6-50.0) % MCHC 31.1 L (32.0-37.0) g/dL RDW 18.6 H (11.5-14.5) % MPV 9.3 L (9.5-12.2) FL Lymphocytes # 0.49 L (0.90-5.00) X 10*3/uL Eosinophils # 0.03 L (0.04-0.35) X 10*3/uL Sodium 133 L (135-145) mmol/L Carbon Dioxide 20.1 L (21.6-31.8) mmol/L BUN 8.7 L (9.0-27.0) mg/dL Creatinine 0.4 L (0.6-1.5) mg/dL BUN/Creatinine Ratio 21.75 H (12.00-20.00) Ratio Calcium 7.8 L (8.7-10.3) mg/dL AST 110 H (14-35) U/L ALT 59 H (10-49) U/L Alkaline Phosphatase 160 H (41-126) U/L Total Protein 5.4 L (6.2-8.2) g/dL Albumin 2.8 L (3.8-4.9) g/dL Albumin/Globulin Ratio 1.08 L (1.60-3.17) Ratio Assessment and Plan Assessment: Altered mental status, likely secondary to CVA Generalized weakness Metastatic prostate cancer UTI Urinary retention Hyponatremia, improving Transaminitis hematuria, Blood loss anemia Plan: Brain MRI shows few scattered foci of acute/subacute ischemia, distribution suggest possible embolic phenomenon, no abnormal contrast-enhancement to suggest intracranial metastasis, few scattered T1 hypointense calvarial lesions highly suspicious for osseous metastasis, nonspecific mild white matter changes likely related to small vessel ischemic disease Carotid doppler ordered, it showed no evidence for hemodynamically significant stenosis Echocardigram shows EF 60 to 65%, RVSP 35, moderate tricuspid regurgitation MAYITO showed Normal left ventricular size and systolic function, Normal appearance of the left atrial appendage, Mild mitral and tricuspid regurgitation, Aneurysmal interatrial septum with no shunting, Moderate atherosclerotic changes of the descending thoracic aorta, No pericardial effusion A1c 6.4, triglycerides 71.6, cholesterol 83, LDL 38.2, VLDL 14.32, HDL 30.5, vitamin B12 777, folate 5.30, TSH 0.485, ammonia < 9. Start folic acid 1 mg daily. PT, OT and speech therapy consulted Patient was taking aspirin 81 mg p.o. at bedtime, atorvastatin 40 mg p.o. at bedtime Patient has failed aspirin regimen. He was taking aspirin 81 mg daily. Recommend stop aspirin and continue Plavix 75 mg. Patient on Protonix 40 mg for gastric ulcer prophylaxis. Recommend 30 day event monitor DVT prophylaxis: Lovenox 40 mg SQ daily Currently on Rocephin Nephrology, Urology and Oncology on board Patient is optimized for discharge from neurological standpoint. Dictation was produced using [employer] dictation software. please excuse any grammatical, word or spelling errors. Jeff Reina MD PGY-2 IM I was present for the jones and critical components of this encounter and I agree with assessment and plan as documented above. Anil Peraza MD
--- NOTE | 2025-05-08 13:47 | P.PN ---
Subjective Patient is seen for follow-up for hyponatremia. Currently with indwelling Garcia catheter for urine retention. No complaints today Serum sodium staying at 133 today. Objective - Vital Signs Vital signs: Vital Signs Temp 97.5 F L 05/08/25 12:42 Pulse 90 05/08/25 12:42 Resp 18 05/08/25 12:42 BP 107/70 05/08/25 12:42 Pulse Ox 99 05/08/25 12:42 FiO2 Intake & Output 05/07/25 05/08/25 05/08/25 18:59 06:59 18:59 Intake Total 680 Output Total 950 525 Balance -270 -525 Weight 99.79 kg Intake: IV 100 Oral 580 Output: Urine 950 525 Other: Voiding Method Indwelling Catheter Indwelling Catheter Indwelling Catheter # Bowel Movements 1 - Exam Patient is awake, comfortable, no acute distress Examination of the heart S1 and S2 Examination of the lungs decreased breath sounds at the bases Abdomen is soft nontender Examination lower extremity shows no evidence of edema [employer]ICAL FEE CLERK exam grossly intact - Labs CBC & Chem 7: 05/08/25 04:36 05/08/25 04:36 Labs: Abnormal Lab Results - Last 24 Hours (Table) 05/08/25 05/08/25 Range/Units 04:36 04:36 RBC 3.30 L (4.40-5.60) X 10*6/uL Hgb 8.9 L (13.0-17.0) g/dL Hct 28.6 L (39.6-50.0) % MCHC 31.1 L (32.0-37.0) g/dL RDW 18.6 H (11.5-14.5) % MPV 9.3 L (9.5-12.2) FL Lymphocytes # 0.49 L (0.90-5.00) X 10*3/uL Eosinophils # 0.03 L (0.04-0.35) X 10*3/uL Sodium 133 L (135-145) mmol/L Carbon Dioxide 20.1 L (21.6-31.8) mmol/L BUN 8.7 L (9.0-27.0) mg/dL Creatinine 0.4 L (0.6-1.5) mg/dL BUN/Creatinine Ratio 21.75 H (12.00-20.00) Ratio Calcium 7.8 L (8.7-10.3) mg/dL AST 110 H (14-35) U/L ALT 59 H (10-49) U/L Alkaline Phosphatase 160 H (41-126) U/L Total Protein 5.4 L (6.2-8.2) g/dL Albumin 2.8 L (3.8-4.9) g/dL Albumin/Globulin Ratio 1.08 L (1.60-3.17) Ratio Assessment and Plan Assessment: 1. Hyponatremia secondary to urinary retention. Sodium level stable. 133 today 2. UTI on antibiotics. 3. Benign hypertension. Currently controlled. 4. History of coronary artery disease. 5. Stage IV [address]. [address] scan dated April 21, 2025 showed no evidence of hydronephrosis. 6. Urinary retention. Has Garcia catheter. On Flomax. Urology following. 7. Metabolic acidosis maintained on oral sodium bicarb Plan: Encourage increased oral intake Garcia catheter as per urology Continue to monitor sodium levels Continue with sodium bicarb
--- NOTE | 2025-05-08 13:57 | P.PN ---
Subjective Progress Note Date: 05/08/25 Surinder Campoverde, is a 69-year-old male who presented to [facility] emergency room for chief complaint of generalized weakness. Patient has a diagnosis of stage IV prostate cancer and was recently discharged on MS Contin for pain control and was started on Keytruda outpatient for cancer treatment per oncology services. Per patient's at bedside he has had increased weakness and falls along with decreased appetite. He was evaluated in the emergency room vital examination on presentation revealed temp 98.1, heart rate 83, respiratory rate 14, blood pressure 111/74 with pulse ox of 100% on room air Laboratory data reveals white blood cell 5.4, hemoglobin 8.3, platelets 302, sod ium 127, creatinine 0.38 bun 11 alkaline phosphatase 154, ALT 62 and AST 65. Testing in the emergency room revealed UA was positive for urinary tract infection. Chest x-ray completed some showing sclerotic bone metastasis redemonstrated throughout the thoracic spine and right clavicle calcified nodule left midlung zone. Hip and pelvis x-ray completed showing no acute fracture or dislocation multiple radiodense foci are seen in the bony pelvis and right femur which correspond to known blastic osseous metastatic disease. Patient was admitted to medical floor for further evaluation and treatment. Patient was started on IV fluid for hyponatremia of Rocephin for urinary tract infection. Oncology and nephrology services will be consulted Past medical history is significant for history of prostate cancer stage IV, coronary artery disease, sleep apnea, heart cath with stents and ex-smoker On review of systems patient is alert and oriented x 3. Patient denies chest pain or shortness of breath. Patient denies nausea vomiting or diarrhea. Patient denies any urinary burning or frequency On 05/01/2025 patient is alert and oriented x 3. MRI of the brain ordered per oncology services. Home medication of MS Contin resumed. Current vital signs temp 98.1, heart rate 83, respiratory rate 16, blood pressure 122/77 with pulse ox of 99% on room air patient remains on Rocephin for urinary tract infection. Patient denies chest pain or shortness of breath. Patient denies nausea vomiti ng or diarrhea. Patient denies any urinary burning or frequency On 05/02/2025 patient is alert and oriented x 3. Patient denies chest pain or shortness of breath. Patient denies nausea vomiting or diarrhea. Patient denies any urinary burning or frequency MRI of the brain has been ordered. Oncology and nephrology services are following On 05/03/2025 patient is alert and oriented x 3. Patient's mentation has significantly improved. Patient denies chest pain or shortness of breath. Patient denies nausea vomiting or diarrhea. Patient denies any urinary burning or frequency. Sodium 133. MRI of the brain completed showing few scattered foci of the of subacute ischemia concerns for possible emboli big phenomenon. 2D echo and carotid Doppler has been ordered neurology services consulted awaiting further input On 05/04/2025 patient is alert and oriented x 3. Patient denies chest pain or shortness of breath. Patient denies nausea vomiting or diarrhea. Patient denies any urinary burning or frequency. Current vital signs temp 97.5, heart rate 83, respiratory rate 20, blood pressure 143/76 with pulse ox of 97% on room air. 2D echo has been ordered ordered awaiting further recommendations from neurology services at this time On 05/05/2025 patient is alert and oriented x 3. Patient having increased pain MS Contin to be given per schedule. Oncology services have been consulted to address further pain control. Awaiting input from cardiology and possible MAYITO. 2D echo and carotid Doppler were completed. Patient denies chest pain or shortness of breath. Patient denies nausea vomiting or diarrhea. Patient denies any urinary burning or frequency On 05/06/2025 patient is alert and oriented x 3. Per cardiology plans for MAYITO tomorrow. Patient denies chest pain or shortness of breath. Patient denies nausea vomiting or diarrhea. Patient denies any urinary burning or frequency. Current vital signs temp 98.1, heart rate 87, respiratory rate 17, blood pressure 92/62 with pulse ox of 99% on 2 L. Patient denies chest pain or shortness of breath. Patient denies nausea vomiting or diarrhea. Patient denies any urinary burning or frequency On 05/07/2025 patient was seen and examined on the medical floor, he is alert and oriented x 3. plans for MAYITO today. There is no fever or chills, no headache or dizziness no chest pain no shortness of breath no cough no nausea or vomiting no abdominal pain no diarrhea no blood in the stools no burning with urination no frequency or urgency and no hematuria. Patient is reasonably well-controlled with morphine MS Contin 15 mg scheduled every 8 hours. On 05/08/2025 patient is alert and oriented x 3. Per neurology services andrew mmending dual antiplatelet therapy. Discharge planning to [facility] awaiting insurance authorization. Current vital signs temp 97.5, heart rate 90, respiratory rate 18, blood pressure 107/70 with a pulse ox of 99% on room air. Patient denies chest pain or shortness of breath. Patient denies nausea vomiting or diarrhea. Patient denies any urinary burning or frequency. Objective - Vital Signs Vital signs: Vital Signs Temp 97.5 F L 05/08/25 12:42 Pulse 90 05/08/25 12:42 Resp 18 05/08/25 12:42 BP 107/70 05/08/25 12:42 Pulse Ox 99 05/08/25 12:42 FiO2 Intake & Output 05/07/25 05/08/25 05/08/25 18:59 06:59 18:59 Intake Total 680 Output Total 950 525 Balance -270 -525 Weight 99.79 kg Intake: IV 100 Oral 580 Output: Urine 950 525 Other: Voiding Method Indwelling Catheter Indwelling Catheter Indwelling Catheter # Bowel Movements 1 - Exam In general patient is alert and oriented Ã-3 in no distress HEENT head normocephalic and atraumatic Neck is supple no JVD no goiter no lymphadenopathy no carotid bruit Chest examination is clear to auscultation no crackles no wheezing Cardiac exam reveals regular heart sounds S1 and S2 no gallops no murmurs Abdomen is soft nontender no organomegaly with normal bowel sounds Extremity exam reveals no edema no cyanosis or clubbing Neurological examination reveals no gross focal deficits - Labs CBC & Chem 7: 05/08/25 04:36 05/08/25 04:36 Labs: Abnormal Lab Results - Last 24 Hours (Table) 05/08/25 05/08/25 Range/Units 04:36 04:36 RBC 3.30 L (4.40-5.60) X 10*6/uL Hgb 8.9 L (13.0-17.0) g/dL Hct 28.6 L (39.6-50.0) % MCHC 31.1 L (32.0-37.0) g/dL RDW 18.6 H (11.5-14.5) % MPV 9.3 L (9.5-12.2) FL Lymphocytes # 0.49 L (0.90-5.00) X 10*3/uL Eosinophils # 0.03 L (0.04-0.35) X 10*3/uL Sodium 133 L (135-145) mmol/L Carbon Dioxide 20.1 L (21.6-31.8) mmol/L BUN 8.7 L (9.0-27.0) mg/dL Creatinine 0.4 L (0.6-1.5) mg/dL BUN/Creatinine Ratio 21.75 H (12.00-20.00) Ratio Calcium 7.8 L (8.7-10.3) mg/dL AST 110 H (14-35) U/L ALT 59 H (10-49) U/L Alkaline Phosphatase 160 H (41-126) U/L Total Protein 5.4 L (6.2-8.2) g/dL Albumin 2.8 L (3.8-4.9) g/dL Albumin/Globulin Ratio 1.08 L (1.60-3.17) Ratio Assessment and Plan Assessment: Generalized weakness Hyponatremia resolved Urinary tract infection Abnormal MRI concerns for embolic phenomenon and/subacute ischemia Prostate cancer stage IV Decreased appetite History of sleep apnea History of TURP History of heart cath with previous heart stents DVT prophylaxis Lovenox. GI prophylaxis Protonix Oncology and nephrology services consulted Patient started on IV Rocephin for urinary tract infection urine culture ordered Normal saline at 75 PT OT services consulted
[2025-05-08] MEDS: CLOPIDOGREL 75 MG TAB PO SCH (15:14)
[2025-05-08] MEDS: FOLIC ACID 1 MG TAB PO SCH (20:27)
[2025-05-09 08:13] LABS: Basophils # (A) 0.02 X 10*3/uL (0.00-0.10); Basophils % (A) 0.3 %; Eosinophils # (A) 0.03 X 10*3/uL (0.04-0.35); Eosinophils % (A) 0.5 %; HCT 27.3 % (39.6-50.0); HGB 8.5 g/dL (13.0-17.0); Immature Grans, Automated 1.00 %; Lymphocytes # (A) 0.49 X 10*3/uL (0.90-5.00); Lymphocytes % (A) 8.1 %; MCH 26.5 pg (27.0-32.0); MCHC 31.1 g/dL (32.0-37.0); MCV 85.0 FL (80.0-97.0); Monocytes # (A) 0.39 X 10*3/uL (0.20-1.00); Monocytes % (A) 6.5 %; NRBC Per 100 WBC 0 X 10*3/uL (0.00-0.01); Neutrophils # (A) 5.04 X 10*3/uL (1.80-7.70); Neutrophils % (A) 83.6 %; Platelet Count 341 X 10*3/uL (140-440); RBC 3.21 X 10*6/uL (4.40-5.60); RDW 18.6 % (11.5-14.5); WBC 6.03 X 10*3/uL (4.50-10.00)
[2025-05-09 08:26] LABS: Anion Gap 12.00 mmol/L (4.00-12.00); BUN/Creat Ratio 17.25 Ratio (12.00-20.00); Blood Urea Nitrogen 6.9 mg/dL (9.0-27.0); Carbon Dioxide 18.0 mmol/L (21.6-31.8); Chloride 102 mmol/L (96-109); Glucose 142 mg/dL (70-110); Potassium 4.0 mmol/L (3.5-5.5); Sodium 132 mmol/L (135-145)
[2025-05-09 08:27] LABS: ALT 61 U/L (10-49); AST 76 U/L (14-35); Albumin 2.9 g/dL (3.8-4.9); Albumin/Globulin Ratio 1.26 Ratio (1.60-3.17); Alkaline Phosphatase 166 U/L (41-126); Calcium 7.8 mg/dL (8.7-10.3); Globulin 2.3 g/dL (1.6-3.3); Total Protein 5.2 g/dL (6.2-8.2)
--- NOTE | 2025-05-09 10:21 | CDI ---
Documentation Clarification Form Date: 05/09/2025 09:23:40 AM From: Leslie Mckeon RN, CCDS Phone: [phone] Admit Date: 04/30/2025 06:21:00 PM Patient Name: Surinder Campoverde Visit Number: [id number] Discharge Date: ATTENTION: The Clinical Documentation Specialists (CDI) and [facility] Coding Staff appreciate your assistance in clarifying documentation. Please respond to the clarification below the line at the bottom and electronically sign. The CDI & [facility] Coding staff will review the response and follow-up if needed. Please note: Queries are made part of the Legal Health Record. If you have any questions, please contact the author of this message via ITS. Doctor. Zahra Zaman Your patient has documentation of acute/ subacute ischemia on MRI on 05/01/2025. Based on this information and the findings below, is there an additional diagnosis that is clinically appropriate for this patient? Patient history/risk factors: CAD, MELANIE, metastatic prostate cancer Clinical Indicators: 69-year-old male to ED with generalized weakness more over the past 2 day prior to admission 04/30/25. 04/30 VS: 108/67 92 17 98.4 100% Ra 04/30 Labs: WBC 6.7, NA 127, UA; Leukocyte Esterase-Moderate 05/01 Brain MRI displaying few scattered foci of acute/subacute ischemia. Distribution suggests possible embolic phenomenon. No evidence to suggest intracranial metastasis. Few scattered T1 hypointense calvaria lesions highly suspicious for osseous metastasis. Nonspecific mild white matter changes, likely related to small vessel ischemic disease. 05/03 Carotid Doppler: No evidence for hemodynamically significant stenosis. 05/03 Neurology consult; Patient reports being confused a couple days ago when he did not know where he was and did not know the time or date He feels that he is back to baseline today. Altered mental status, likely secondary to CVA Treatment: Mailer / Telemetry Physical Therapy /Occupational Therapy consult and treat Lovenox 40MG SQ Daily Plavix 75MG PO DAILY 05/05-05/09 Is there an additional diagnosis that is clinically appropriate for this patient? [x ] Acute CVA with acute/subacute ischemia, possible Embolic phenomenon, POA [ ] Unable to determine [ ] Other, please specify (Template Last Reviewed: December 2022) MTDD
--- NOTE | 2025-05-09 12:05 | CDI ---
Documentation Clarification Form Date: 05/09/2025 11:12:14 AM From: Leslie Mckeon RN, CCDS Phone: [phone] Admit Date: 04/30/2025 06:21:00 PM Patient Name: Surinder Campoverde Visit Number: [id number] Discharge Date: ATTENTION: The Clinical Documentation Specialists (CDI) and [facility] Coding Staff appreciate your assistance in clarifying documentation. Please respond to the clarification below the line at the bottom and electronically sign. The CDI & [facility] Coding staff will review the response and follow-up if needed. Please note: Queries are made part of the Legal Health Record. If you have any questions, please contact the author of this message via ITS. Doctor. Jun Arias Acute Encephalopathy is documented in the Oncology consult and subsequent progress notes from 05/01/25-05/03/25. Additional clarification regarding the type of encephalopathy is requested. History/Risk Factors: CAD, MELANIE, metastatic prostate cancer Clinical Indicators: 69--year-old male with generalized weakness and abdominal pain, difficulty walking. Oncology General: confused, on BiPAP. A/P -patient with progressive metastatic prostate cancer, recently started on new treatment, with immunotherapy. Progressive weakness, and mental status changes. 04/30 VS: 108/67 92 17 100% RA Labs: WBC 6.7, NA 127, CO2 20.4, UA; Leukocyte Esterase-Moderate 05/01 Brain MRI displaying few scattered foci of acute/subacute ischemia. Distribution suggests possible embolic phenomenon. No evidence to suggest intracranial metastasis. Few scattered T1 hypointense calvaria lesions highly suspicious for osseous metastasis. Nonspecific mild white matter changes, likely related to small vessel ischemic disease. 05/03 Carotid Doppler: No evidence for hemodynamically significant stenosis. Treatment: Office Nurse / Telemetry Physical Therapy /Occupational Therapy consult and treat Lovenox 40MG SQ Daily Plavix 75MG PO DAILY 05/05-05/09 Rocephin 1 GM IVPB Q 24 HRS 05/02-05/08 Rocephine 1,000MG IVP ONCE 04/20 Please clarify the type of encephalopathy, if known: [ ] Metabolic Encephalopathy [X ] Other, please specify__Due to cerebral ischemia [ ] Unable to determine (Template Last Revised: December 2020) MTDD
--- NOTE | 2025-05-09 16:00 | P.PN ---
Subjective Progress Note Date: 05/09/25 Surinder Campoverde, is a 69-year-old male who presented to [facility] emergency room for chief complaint of generalized weakness. Patient has a diagnosis of stage IV prostate cancer and was recently discharged on MS Contin for pain control and was started on Keytruda outpatient for cancer treatment per oncology services. Per patient's at bedside he has had increased weakness and falls along with decreased appetite. He was evaluated in the emergency room vital examination on presentation revealed temp 98.1, heart rate 83, respiratory rate 14, blood pressure 111/74 with pulse ox of 100% on room air Laboratory data reveals white blood cell 5.4, hemoglobin 8.3, platelets 302, sod ium 127, creatinine 0.38 bun 11 alkaline phosphatase 154, ALT 62 and AST 65. Testing in the emergency room revealed UA was positive for urinary tract infection. Chest x-ray completed some showing sclerotic bone metastasis redemonstrated throughout the thoracic spine and right clavicle calcified nodule left midlung zone. Hip and pelvis x-ray completed showing no acute fracture or dislocation multiple radiodense foci are seen in the bony pelvis and right femur which correspond to known blastic osseous metastatic disease. Patient was admitted to medical floor for further evaluation and treatment. Patient was started on IV fluid for hyponatremia of Rocephin for urinary tract infection. Oncology and nephrology services will be consulted Past medical history is significant for history of prostate cancer stage IV, coronary artery disease, sleep apnea, heart cath with stents and ex-smoker On review of systems patient is alert and oriented x 3. Patient denies chest pain or shortness of breath. Patient denies nausea vomiting or diarrhea. Patient denies any urinary burning or frequency On 05/01/2025 patient is alert and oriented x 3. MRI of the brain ordered per oncology services. Home medication of MS Contin resumed. Current vital signs temp 98.1, heart rate 83, respiratory rate 16, blood pressure 122/77 with pulse ox of 99% on room air patient remains on Rocephin for urinary tract infection. Patient denies chest pain or shortness of breath. Patient denies nausea vomiti ng or diarrhea. Patient denies any urinary burning or frequency On 05/02/2025 patient is alert and oriented x 3. Patient denies chest pain or shortness of breath. Patient denies nausea vomiting or diarrhea. Patient denies any urinary burning or frequency MRI of the brain has been ordered. Oncology and nephrology services are following On 05/03/2025 patient is alert and oriented x 3. Patient's mentation has significantly improved. Patient denies chest pain or shortness of breath. Patient denies nausea vomiting or diarrhea. Patient denies any urinary burning or frequency. Sodium 133. MRI of the brain completed showing few scattered foci of the of subacute ischemia concerns for possible emboli big phenomenon. 2D echo and carotid Doppler has been ordered neurology services consulted awaiting further input On 05/04/2025 patient is alert and oriented x 3. Patient denies chest pain or shortness of breath. Patient denies nausea vomiting or diarrhea. Patient denies any urinary burning or frequency. Current vital signs temp 97.5, heart rate 83, respiratory rate 20, blood pressure 143/76 with pulse ox of 97% on room air. 2D echo has been ordered ordered awaiting further recommendations from neurology services at this time On 05/05/2025 patient is alert and oriented x 3. Patient having increased pain MS Contin to be given per schedule. Oncology services have been consulted to address further pain control. Awaiting input from cardiology and possible MAYITO. 2D echo and carotid Doppler were completed. Patient denies chest pain or shortness of breath. Patient denies nausea vomiting or diarrhea. Patient denies any urinary burning or frequency On 05/06/2025 patient is alert and oriented x 3. Per cardiology plans for MAYITO tomorrow. Patient denies chest pain or shortness of breath. Patient denies nausea vomiting or diarrhea. Patient denies any urinary burning or frequency. Current vital signs temp 98.1, heart rate 87, respiratory rate 17, blood pressure 92/62 with pulse ox of 99% on 2 L. Patient denies chest pain or shortness of breath. Patient denies nausea vomiting or diarrhea. Patient denies any urinary burning or frequency On 05/07/2025 patient was seen and examined on the medical floor, he is alert and oriented x 3. plans for MAYITO today. There is no fever or chills, no headache or dizziness no chest pain no shortness of breath no cough no nausea or vomiting no abdominal pain no diarrhea no blood in the stools no burning with urination no frequency or urgency and no hematuria. Patient is reasonably well-controlled with morphine MS Contin 15 mg scheduled every 8 hours. On 05/08/2025 patient is alert and oriented x 3. Per neurology services recom mending dual antiplatelet therapy. Discharge planning to [facility] awaiting insurance authorization. Current vital signs temp 97.5, heart rate 90, respiratory rate 18, blood pressure 107/70 with a pulse ox of 99% on room air. Patient denies chest pain or shortness of breath. Patient denies nausea vomiting or diarrhea. Patient denies any urinary burning or frequency. On 05/09/2025 patient was seen and examined on the medical floor he is alert and oriented x 3 in no apparent distress he is complaining of back pain and right hip pain otherwise he denies any complaints there is no fever or chills no headache or dizziness no chest pain no shortness of breath no cough no nausea or vomiting no abdominal pain no diarrhea no urinary symptoms. His white blood count is 98.2 pulse 111 respiration 16 blood pressure 95/65 pulse ox 98% on room air White blood count is 6.03 hemoglobin 8.5 platelet count 341 BUN 6.9 creatinine 0.4 Objective - Vital Signs Vital signs: Vital Signs Temp 98.2 F 05/09/25 12:41 Pulse 111 H 05/09/25 12:41 Resp 16 05/09/25 12:41 BP 95/65 05/09/25 12:41 Pulse Ox 98 05/09/25 12:41 FiO2 Intake & Output 05/08/25 05/09/25 05/09/25 18:59 06:59 18:59 Intake Total 1320 720 Output Total 900 1500 650 Balance 420 -1500 70 Intake: Oral 1320 720 Output: Urine 900 1500 650 Uretheral (Garcia) 650 Other: Voiding Method Indwelling Catheter Indwelling Catheter Indwelling Catheter - Exam In general patient is alert and oriented Ã-3 in no distress HEENT head normocephalic and atraumatic Neck is supple no JVD no goiter no lymphadenopathy no carotid bruit Chest examination is clear to auscultation no crackles no wheezing Cardiac exam reveals regular heart sounds S1 and S2 no gallops no murmurs Abdomen is soft nontender no organomegaly with normal bowel sounds Extremity exam reveals no edema no cyanosis or clubbing Neurological examination reveals no gross focal deficits - Labs CBC & Chem 7: 05/09/25 05:04 05/09/25 05:04 Labs: Abnormal Lab Results - Last 24 Hours (Table) 05/09/25 05/09/25 Range/Units 05:04 05:04 RBC 3.21 L (4.40-5.60) X 10*6/uL Hgb 8.5 L (13.0-17.0) g/dL Hct 27.3 L (39.6-50.0) % MCH 26.5 L (27.0-32.0) pg MCHC 31.1 L (32.0-37.0) g/dL RDW 18.6 H (11.5-14.5) % MPV 9.4 L (9.5-12.2) FL Immature Gran # 0.06 H (0.00-0.04) X 10*3/uL Lymphocytes # 0.49 L (0.90-5.00) X 10*3/uL Eosinophils # 0.03 L (0.04-0.35) X 10*3/uL Sodium 132 L (135-145) mmol/L Carbon Dioxide 18.0 L (21.6-31.8) mmol/L BUN 6.9 L (9.0-27.0) mg/dL Creatinine 0.4 L (0.6-1.5) mg/dL Glucose 142 H (70-110) mg/dL Calcium 7.8 L (8.7-10.3) mg/dL AST 76 H (14-35) U/L ALT 61 H (10-49) U/L Alkaline Phosphatase 166 H (41-126) U/L Total Protein 5.2 L (6.2-8.2) g/dL Albumin 2.9 L (3.8-4.9) g/dL Albumin/Globulin Ratio 1.26 L (1.60-3.17) Ratio Assessment and Plan Assessment: Generalized weakness Hyponatremia resolved Urinary tract infection Abnormal MRI concerns for embolic phenomenon and/subacute ischemia Prostate cancer stage IV Decreased appetite History of sleep apnea History of TURP History of heart cath with previous heart stents DVT prophylaxis Lovenox. GI prophylaxis Protonix Oncology and nephrology services consulted Patient started on IV Rocephin for urinary tract infection urine culture ordered Normal saline at 75 PT OT services consulted
--- NOTE | 2025-05-09 20:42 | P.PN ---
Subjective Progress Note Date: 05/09/25 Principal diagnosis: weakness, confusion In f/u today pt is up in chair, he is able to carry on a conversation but is slow to respond and sometimes not always clear. Pain is controlled as long as he cont on the MSER. Objective - Vital Signs Vital signs: Vital Signs Temp 98.2 F 05/09/25 12:41 Pulse 111 H 05/09/25 12:41 Resp 16 05/09/25 12:41 BP 95/65 05/09/25 12:41 Pulse Ox 98 05/09/25 12:41 FiO2 Intake & Output 05/09/25 05/09/25 05/10/25 06:59 18:59 06:59 Intake Total 2220 Output Total 1500 1300 Balance -1500 920 Intake: Oral 2220 Output: Urine 1500 1300 Uretheral (Garcia) 650 Other: Voiding Method Indwelling Catheter Indwelling Catheter - Constitutional General appearance: Present: average body habitus, cooperative, no acute distress - EENT Eyes: Present: anicteric sclerae, EOMI ENT: Present: hearing grossly normal - Respiratory Details: resp unlabored at rest - Gastrointestinal General gastrointestinal: Present: soft - Integumentary Integumentary: Present: pale - Neurologic Neurologic: Present: CNII-XII intact - Musculoskeletal Musculoskeletal: Present: generalized weakness - Psychiatric Psychiatric: Present: A&O x's 3 - Labs CBC & Chem 7: 05/09/25 05:04 05/09/25 05:04 Labs: Abnormal Lab Results - Last 24 Hours (Table) 05/09/25 05/09/25 Range/Units 05:04 05:04 RBC 3.21 L (4.40-5.60) X 10*6/uL Hgb 8.5 L (13.0-17.0) g/dL Hct 27.3 L (39.6-50.0) % MCH 26.5 L (27.0-32.0) pg MCHC 31.1 L (32.0-37.0) g/dL RDW 18.6 H (11.5-14.5) % MPV 9.4 L (9.5-12.2) FL Immature Gran # 0.06 H (0.00-0.04) X 10*3/uL Lymphocytes # 0.49 L (0.90-5.00) X 10*3/uL Eosinophils # 0.03 L (0.04-0.35) X 10*3/uL Sodium 132 L (135-145) mmol/L Carbon Dioxide 18.0 L (21.6-31.8) mmol/L BUN 6.9 L (9.0-27.0) mg/dL Creatinine 0.4 L (0.6-1.5) mg/dL Glucose 142 H (70-110) mg/dL Calcium 7.8 L (8.7-10.3) mg/dL AST 76 H (14-35) U/L ALT 61 H (10-49) U/L Alkaline Phosphatase 166 H (41-126) U/L Total Protein 5.2 L (6.2-8.2) g/dL Albumin 2.9 L (3.8-4.9) g/dL Albumin/Globulin Ratio 1.26 L (1.60-3.17) Ratio Assessment and Plan (1) Pain of metastatic malignancy Current Visit: Yes Status: Acute Priority: Medium Code(s): G89.3 - NEOPLASM RELATED PAIN (ACUTE) (CHRONIC) SNOMED Code(s): 115443102 (2) Prostate cancer metastatic to bone Current Visit: Yes Status: Chronic Priority: Medium Code(s): C61 - MALIGNANT NEOPLASM OF PROSTATE; C79.51 - SECONDARY MALIGNANT NEOPLASM OF BONE SNOMED Code(s): 09004965 Plan: Pain from malignancy -persistent problem for pt -MS Contin increased to 30mg BID with norco for breakthrough. Pt doing fairly well on this regimen -Pt and agree pain manangement is adequate on current medications -cont meds for prevention of narcotic induced constipation Metastatic prostate carcinoma -Was supposed to have second cycle of Keytruda this week. Dr. Arias previously discussed prognosis and concerns for how long before treatment benefit is evident-about 2-3 months and pt and expressed understanding. Both pt and know he needs rehab before he can consider resuming any treatment. -plans are for rehab. All treatment will be held, including pt oral nubeqa, until pt rehabilitated and back home. This was also previously discussed with pt and and they understand. Holding treatment does carry the risk of cancer progression in the interim. They expressed understanding of that as well.
[2025-05-10 07:40] VITALS: RESP 16; TEMP 97.7
[2025-05-10 07:56] LABS: Basophils # (A) 0.01 X 10*3/uL (0.00-0.10); Basophils % (A) 0.2 %; Eosinophils # (A) 0.02 X 10*3/uL (0.04-0.35); Eosinophils % (A) 0.4 %; HCT 26.2 % (39.6-50.0); HGB 8.0 g/dL (13.0-17.0); Immature Grans, Automated 0.50 %; Lymphocytes # (A) 0.50 X 10*3/uL (0.90-5.00); Lymphocytes % (A) 9.2 %; MCH 26.3 pg (27.0-32.0); MCHC 30.5 g/dL (32.0-37.0); MCV 86.2 FL (80.0-97.0); Monocytes # (A) 0.44 X 10*3/uL (0.20-1.00); Monocytes % (A) 8.1 %; NRBC Per 100 WBC 0 X 10*3/uL (0.00-0.01); Neutrophils # (A) 4.46 X 10*3/uL (1.80-7.70); Neutrophils % (A) 81.6 %; Platelet Count 343 X 10*3/uL (140-440); RBC 3.04 X 10*6/uL (4.40-5.60); RDW 18.5 % (11.5-14.5); WBC 5.46 X 10*3/uL (4.50-10.00)
[2025-05-10 08:33] LABS: ALT 85 U/L (10-49); AST 117 U/L (14-35); Albumin 2.7 g/dL (3.8-4.9); Albumin/Globulin Ratio 1.23 Ratio (1.60-3.17); Alkaline Phosphatase 182 U/L (41-126); Anion Gap 10.40 mmol/L (4.00-12.00); BUN/Creat Ratio 17.20 Ratio (12.00-20.00); Blood Urea Nitrogen 8.6 mg/dL (9.0-27.0); Calcium 7.9 mg/dL (8.7-10.3); Carbon Dioxide 20.6 mmol/L (21.6-31.8); Chloride 104 mmol/L (96-109); Globulin 2.2 g/dL (1.6-3.3); Glucose 99 mg/dL (70-110); Potassium 4.9 mmol/L (3.5-5.5); Sodium 135 mmol/L (135-145); Total Protein 4.9 g/dL (6.2-8.2)
[2025-05-10 12:31] VITALS: BP 90/56; PULSE 84
--- NOTE | 2025-05-10 13:28 | P.DS ---
Providers Date of admission: 04/30/25 18:21 Expected date of discharge: 05/10/25 Attending physician: Zahra Zaman Consults: 04/30/25 18:11 Consult Physician Routine Consulting Provider: Manuelito Lynch Consult Reason/Comments: Oncological care Do you want consulting provider notified?: Yes 05/01/25 11:16 Consult Physician Routine Consulting Provider: Ankit Vasques Consult Reason/Comments: hyponatremia Do you want consulting provider notified?: Yes 05/01/25 12:16 Consult Physician Routine Consulting Provider: Haja Gomez Consult Reason/Comments: retention, prostate cancer Do you want consulting provider notified?: Yes 05/02/25 11:26 Consult Physician Routine Consulting Provider: Robert Ga Consult Reason/Comments: acute/subacute ischemia on MRI Do you want consulting provider notified?: Yes 05/04/25 10:02 Consult Physician Routine Consulting Provider: Lluvia Mohamud Consult Reason/Comments: tia. Do you want consulting provider notified?: Yes 05/04/25 10:03 Consult Physician Routine Consulting Provider: Jun Arias Consult Reason/Comments: uncontrolled pain Do you want consulting provider notified?: Yes Primary care physician: Keshia Dupont Hospital Course: Discharge diagnosis Generalized weakness Hyponatremia resolved Urinary tract infection Abnormal MRI concerns for embolic phenomenon and/subacute ischemia Prostate cancer stage IV Decreased appetite History of sleep apnea History of TURP History of heart cath with previous heart stents Hospital course Surindereffie Campoverde, is a 69-year-old male who presented to [facility] emergency room for chief complaint of generalized weakness. Patient has a diagnosis of stage IV prostate cancer and was recently discharged on MS Contin for pain control and was started on Keytruda outpatient for cancer treatment per oncology services. Per patient's at bedside he has had increased weakness and falls along with decreased appetite. He was evaluated in the emergency room vital examination on presentation revealed temp 98.1, heart rate 83, respiratory rate 14, blood pressure 111/74 with pulse ox of 100% on room air Laboratory data reveals white blood cell 5.4, hemoglobin 8.3, platelets 302, sodium 127, creatinine 0.38 bun 11 alkaline phosphatase 154, ALT 62 and AST 65. Testing in the emergency room revealed UA was positive for urinary tract infection. Chest x-ray completed some showing sclerotic bone metastasis redemonstrated throughout the thoracic spine and right clavicle calcified nodule left midlung zone. Hip and pelvis x-ray completed showing no acute fracture or dislocation multiple radiodense foci are seen in the bony pelvis and right femur which correspond to known blastic osseous metastatic disease. Patient was admitted to medical floor for further evaluation and treatment. Patient was started on IV fluid for hyponatremia of Rocephin for urinary tract infection. Oncology and nephrology services will be consulted Past medical history is significant for history of prostate cancer stage IV, coronary artery disease, sleep apnea, heart cath with stents and ex-smoker On review of systems patient is alert and oriented x 3. Patient denies chest pain or shortness of breath. Patient denies nausea vomiting or diarrhea. Patient denies any urinary burning or frequency On 05/01/2025 patient is alert and oriented x 3. MRI of the brain ordered per oncology services. Home medication of MS Contin resumed. Current vital signs temp 98.1, heart rate 83, respiratory rate 16, blood pressure 122/77 with pulse ox of 99% on room air patient remains on Rocephin for urinary tract infection. Patient denies chest pain or shortness of breath. Patient denies nausea vomiting or diarrhea. Patient denies any urinary burning or frequency On 05/02/2025 patient is alert and oriented x 3. Patient denies chest pain or shortness of breath. Patient denies nausea vomiting or diarrhea. Patient denies any urinary burning or frequency MRI of the brain has been ordered. Oncology and nephrology services are following On 05/03/2025 patient is alert and oriented x 3. Patient's mentation has si gnificantly improved. Patient denies chest pain or shortness of breath. Patient denies nausea vomiting or diarrhea. Patient denies any urinary burning or frequency. Sodium 133. MRI of the brain completed showing few scattered foci of the of subacute ischemia concerns for possible emboli big phenomenon. 2D echo and carotid Doppler has been ordered neurology services consulted awaiting further input On 05/04/2025 patient is alert and oriented x 3. Patient denies chest pain or shortness of breath. Patient denies nausea vomiting or diarrhea. Patient denies any urinary burning or frequency. Current vital signs temp 97.5, heart rate 83, respiratory rate 20, blood pressure 143/76 with pulse ox of 97% on room air. 2D echo has been ordered ordered awaiting further recommendations from [facility] at this time On 05/05/2025 patient is alert and oriented x 3. Patient having increased pain MS Contin to be given per schedule. Oncology services have been consulted to address further pain control. Awaiting input from cardiology and possible [facility]. 2D echo and carotid Doppler were completed. Patient denies chest pain or shortness of breath. Patient denies nausea vomiting or diarrhea. Patient denies any urinary burning or frequency On 05/06/2025 patient is alert and oriented x 3. Per cardiology plans for [facility] tomorrow. Patient denies chest pain or shortness of breath. Patient denies nausea vomiting or diarrhea. Patient denies any urinary burning or frequency. Current vital signs temp 98.1, heart rate 87, respiratory rate 17, blood pressure 92/62 with pulse ox of 99% on 2 L. Patient denies chest pain or shortness of breath. Patient denies nausea vomiting or diarrhea. Patient denies any urinary burning or frequency On 05/07/2025 patient was seen and examined on the medical floor, he is alert and oriented x 3. plans for [facility] today. There is no fever or chills, no headache or dizziness no chest pain no shortness of breath no cough no nausea or vomiting no abdominal pain no diarrhea no blood in the stools no burning with urination no frequency or urgency and no hematuria. Patient is reasonably well-controlled with morphine MS Contin 15 mg scheduled every 8 hours. On 05/08/2025 patient is alert and oriented x 3. Per neurology services recommending dual antiplatelet therapy. Discharge planning to [facility] awaiting insurance authorization. Current vital signs temp 97.5, heart rate 90, respiratory rate 18, blood pressure 107/70 with a pulse ox of 99% on room air. Patient denies chest pain or shortness of breath. Patient denies nausea vomiting or diarrhea. Patient denies any urinary burning or frequency. On 05/09/2025 patient was seen and examined on the medical floor he is alert and oriented x 3 in no apparent distress he is complaining of back pain and right hip pain otherwise he denies any complaints there is no fever or chills no headache or dizziness no chest pain no shortness of breath no cough no nausea or vomiting no abdominal pain no diarrhea no urinary symptoms. His white blood count is 98.2 pulse 111 respiration 16 blood pressure 95/65 pulse ox 98% on room air White blood count is 6.03 hemoglobin 8.5 platelet count 341 BUN 6.9 creatinine 0.4 On 05/10/2025 patient is given be DC'd to [facility] today. Patient denies chest pain or shortness of breath. Patient denies nausea vomiting or diarrhea. Patient will follow-up with oncology services pain meds will be sent to [facility] and patient to follow-up for further management Patient Condition at Discharge: Stable Plan - Discharge Summary Discharge Rx Participant: Yes New Discharge Prescriptions: New Sodium Bicarbonate Tab 650 mg PO BID tab Lactulose [Cephulac] 20 gm PO QID PRN ml PRN Reason: Constipation Folic Acid 1 mg PO DAILY tab Morphine Sulfate ER [Ms Contin] 30 mg PO Q12HR tab Nystatin 100,000 Unit/ml Susp [Mycostatin Oral Susp] 500,000 unit PO QID #0 ml HYDROcodone/APAP 10-325MG [Prospect 10-325] 1 each PO Q4HR PRN tab PRN Reason: Pain Clopidogrel [Plavix] 75 mg PO DAILY #0 tab Continue Atorvastatin [Lipitor] 40 mg PO PC-SUPPER Cholecalciferol [Vitamin D3 (125 Mcg = 5000 Iu)] 125 mcg PO HS Loratadine [Claritin] 10 mg PO HS predniSONE 10 mg PO W/BRKFST Ondansetron [Zofran] 4 mg PO Q4H PRN PRN Reason: Nausea Pantoprazole Sodium [Protonix] 20 mg PO AC-BRKFST ALPRAZolam [Xanax] 0.25 mg PO Q6H PRN PRN Reason: Anxiety Magnesium (Unknown) 150mg 150 mg PO AC-BRKFST Calcium 500mg 500 mg PO HS Nitroglycerin Sl Tabs [Nitrostat] 0.4 mg SL Q5M PRN PRN Reason: Chest Pain Escitalopram [Lexapro] 5 mg PO AC-BRKFST Sennosides-Docusate Sodium [Senokot-S] 2 tab PO BID Ferrous Gluconate 324 mg PO PC-SUPPER Metoprolol Succinate [Metoprolol Succinate ER] 25 mg PO W/BRKFST lisinopriL [Zestril] 2.5 mg PO PC-SUPPER Tamsulosin [Flomax] 0.4 mg PO W/BRKFST Aspirin 81 mg PO HS Discontinued Morphine Sulfate ER [Ms Contin] 15 mg PO Q12HR tab HYDROcodone/APAP 10-325MG [Prospect 10-325] 1 tab PO Q4HR No Action Darolutamide [Nubeqa] 600 mg PO PC-BID Pembrolizumab [Keytruda] 200 mg IV Q21D Discharge Medication List Atorvastatin [Lipitor] 40 mg PO PC-SUPPER 07/23/19 [History] Cholecalciferol [Vitamin D3 (125 Mcg = 5000 Iu)] 125 mcg PO HS 05/10/24 [History] Darolutamide [Nubeqa] 600 mg PO PC-BID 05/10/24 [History] Loratadine [Claritin] 10 mg PO HS 05/10/24 [History] predniSONE 10 mg PO W/BRKFST 05/10/24 [History] Ferrous Gluconate 324 mg PO PC-SUPPER 02/28/25 [History] Metoprolol Succinate [Metoprolol Succinate ER] 25 mg PO W/BRKT 02/28/25 [History] Ondansetron [Zofran] 4 mg PO Q4H PRN 02/28/25 [History] Pantoprazole Sodium [Protonix] 20 mg PO -BRKT 02/28/25 [History] ALPRAZolam [Xanax] 0.25 mg PO Q6H PRN 04/02/25 [History] Aspirin 81 mg PO HS 04/02/25 [History] Magnesium (Unknown) 150mg 150 mg PO -BRKT 04/02/25 [History] Tamsulosin [Flomax] 0.4 mg PO W/BRKFST 04/02/25 [History] lisinopriL [Zestril] 2.5 mg PO PC-SUPPER 04/02/25 [History] Calcium 500mg 500 mg PO HS 04/30/25 [History] Escitalopram [Lexapro] 5 mg PO AC-BRKT 04/30/25 [History] Nitroglycerin Sl Tabs [Nitrostat] 0.4 mg SL Q5M PRN 04/30/25 [History] Pembrolizumab [Keytruda] 200 mg IV Q21D 04/30/25 [History] Sennosides-Docusate Sodium [Senokot-S] 2 tab PO BID 04/30/25 [History] Clopidogrel [Plavix] 75 mg PO DAILY #0 tab 05/10/25 [Rx] Folic Acid 1 mg PO DAILY tab 05/10/25 [Rx] HYDROcodone/APAP 10-325MG [Prospect 10-325] 1 each PO Q4HR PRN tab 05/10/25 [Rx] Lactulose [Cephulac] 20 gm PO QID PRN ml 05/10/25 [Rx] Morphine Sulfate ER [Ms Contin] 30 mg PO Q12HR tab 05/10/25 [Rx] Nystatin 100,000 Unit/ml Susp [Mycostatin Oral Susp] 500,000 unit PO QID #0 ml 05/10/25 [Rx] Sodium Bicarbonate Tab 650 mg PO BID tab 05/10/25 [Rx] Follow up Appointment(s)/Referral(s): Keshia Dupont MD [Primary Care Provider] - 1-2 days Discharge Disposition: TRANSFER TO SNF/ECF
--- NOTE | 2025-05-10 15:01 | P.PN ---
Progress Note - Text Progress Note Date: 05/10/25 per oncology patients medications of nubeqa and keytruda will be on hold while patient is at [facility]
== END 2025-05-10 16:34 | DRG 65 ==
LOC: EC 15:12 → 5NMEDONC 18:21
PROVIDERS: ADMIT Internal Medicine; ATTEND Internal Medicine
DX: I63.20 Cerebral infarction due to unspecified occlusion or stenosis of unspecified precerebral arteries (principal); C79.51 Secondary malignant neoplasm of bone; G93.49 Other encephalopathy; E87.1 Hypo-osmolality and hyponatremia; C61 Malignant neoplasm of prostate; I10 Essential (primary) hypertension; I70.0 Atherosclerosis of aorta; I08.1 Rheumatic disorders of both mitral and tricuspid valves; D50.0 Iron deficiency anemia secondary to blood loss (chronic); E87.20 Acidosis, unspecified; I25.3 Aneurysm of heart; N39.0 Urinary tract infection, site not specified; I25.10 Atherosclerotic heart disease of native coronary artery without angina pectoris; R26.2 Difficulty in walking, not elsewhere classified; R74.01 Elevation of levels of liver transaminase levels; G47.33 Obstructive sleep apnea (adult) (pediatric); G89.3 Neoplasm related pain (acute) (chronic); R33.8 Other retention of urine; T40.2X5A Adverse effect of other opioids, initial encounter; K59.03 Drug induced constipation; Z79.891 Long term (current) use of opiate analgesic; Z79.82 Long term (current) use of aspirin; Z79.52 Long term (current) use of systemic steroids; Z87.891 Personal history of nicotine dependence; Z95.5 Presence of coronary angioplasty implant and graft; Z92.21 Personal history of antineoplastic chemotherapy; Z90.79 Acquired absence of other genital organ(s); Z79.899 Other long term (current) drug therapy; R31.0 Gross hematuria; R91.1 Solitary pulmonary nodule
CPT/HCPCS: 36415; 70553; 71046; 73502; 80048; 80053; 80061; 81001; 82140; 82607; 82728; 82746; 83036; 83540; 83550; 83605; 83735; 84443; 85025; 85610; 85730; 87040; 87086; 93005; 93306; 93312; 93320; 93325; 93880; 96361; 96374; 99285